=== PATIENT | male | born 1945 | race Caucasian/White ===

== ENCOUNTER 2018-01-26 13:03 | Inpatient (IN) ==
--- NOTE | 2018-01-26 14:01 | Internal Med History&Physical ---
Medical - H&P: [facility] Patient information: Note initiated : 01/26/18 at 1:58 pm Service Date, if different from initiated Date: [] Patient: Christine Pimentel a 72 y/o M admitted on 01/26/18 for fluid overload, cellulitis. Chief Complaint: [] Chief complaint: generalized swelling History of present illness: Mr. Pimentel is a 72 year old M with a history of chronic kidney disease/COPD and obstructive sleep apnea who was referred from nephrology clinic for admission with excessive weight gain over 20 pounds over the last few weeks. Patient per history has progressively gained over 22 pounds along with associated effort intolerance, exertional dyspnea orthopnea and inability to function. Patient denies taking NSAIDs/missing his regular medications. He is on regular diuretics. He denies excessive salt intake. He does endorse to drinking plenty of oral fluids. His weight has gradually increased with increasing fluid retention despite use of Lasix. He was evaluated at the nephrology clinic today. Lab work was essentially unremarkable except for elevated creatinine at 1.9 with a baseline creatinine 1.5. He denies recent fever chills diarrhea endorses to urinary incontinence since the 2 urology procedures. He endorses dry mouth. He endorses to bilateral lower extremity pain and swelling and redness. He underwent lower extremity ultrasound 2 weeks ago which was unremarkable for DVT. He normally sees his primary care physician Sharif Coronel. He denies arthralgia myalgia or rash joint pain glandular swelling, headache or photophobia. He denies cough or practice sputum. He is on 3 L oxygen at home for his COPD which is at his baseline. He also uses CPAP for obstructive sleep apnea Review of systems A 10 point review of system was performed and is negative except for ones discussed above Medical - H&P: PM Medical history: COPD as per PFTs 04/18 Hypoxemia (Chronic) Bronchitis (Acute) COPD with exacerbation (Acute) COPD exacerbation (Acute) Hyperglycemia due to type 2 diabetes mellitus (Acute) Hyperglycemia, drug-induced (Acute) Hyponatremia (Acute) CHF (congestive heart failure) (Acute) Edema (Acute) Chronic kidney disease (CKD) (Acute) Abdominal pain (Acute) Cellulitis of left hand excluding fingers and thumb (Acute) Acute exacerbation of chronic obstructive airways disease (Acute) Bronchitis (Acute) COPD exacerbation (Acute) Dental abscess (Acute) Cellulitis of leg without foot, left (Acute) Muscle cramps (Acute) Anemia (Chronic) Hypertensive renal disease (Chronic) BP at goal ct current medications Hyperparathyroidism due to renal insufficiency (Chronic) PTH elevated to 88, vitamin D low at 26 advised to start choleclaciferol 2000 units po daily Vitamin D deficiency (Chronic) Venous insufficiency (Chronic) Testicular hypofunction (Chronic) Sleep disorder, nonorganic (Chronic) Sleep apnea (Chronic) Shortness of breath (Chronic) Sciatica (Chronic) Schatzki's ring (Chronic) Rotator cuff tear (Chronic) (08/28/14-Margarito)Left partial tear Renal insufficiency (Chronic) Chronic Pneumonia (Chronic) 06/2013 Osteoarthrosis, shoulder region (Chronic) (08/28/14-Dr Dean)Left Obstructive sleep apnea (adult) (pediatric) (Chronic) Leg pain (Chronic) Hypothyroidism (Chronic) Hypertension, essential (Chronic) Hyperlipidemia (Chronic) GERD (gastroesophageal reflux disease) (Chronic) Edema (Chronic) Dyspnea (Chronic) Diabetes mellitus, type II (Chronic) consider holding metformin if renal function does not improve discussed need for optimal DM control to prevent progressive renal disease Depression (Chronic) Cough (Chronic) Congestive heart failure (Chronic) on lasix and spironolactone still has mild edema advised to reduce sodium intake ct current meds he will follow with cardiology tomorrow, will follow the recs Chronic kidney disease, stage III (moderate) (Chronic) Other cardiomyopathies (Chronic) Quinn's esophagus (Chronic) Back pain (Chronic) History of asthma (Chronic) Anxiety (Chronic) Intradermal melanocytic nevus (Chronic) 05/08/2015 - Dr. Diaz: Right Ear Canal Diabetes mellitus type II, uncontrolled (Inactive) Surgical history: History of tonsillectomy (Chronic) 2009 [facility] S/P skin biopsy (Chronic 02/13/14) Right forearm: See path report History of esophagogastroduodenoscopy (Chronic 01/31/14) Schatzki's Ring, Quinn's Esophagus History of cardiac catheterization (Chronic) 2012 History of bronchoscopy (Chronic) History of back surgery (Chronic) 1984 & 2001 x2, [facility]-1983, [place]-2001 & Rehab at [facility] History of appendectomy (Chronic) 2003 S/P skin biopsy (Chronic) 05/08/2015 - Dr. Diaz: Right Ear Canal History of colonoscopy (Chronic) 04/15/2015 - Dr. José - Incomplete bowel prep, Incomplete Colonoscopy History of prostate surgery (Acute) Pertinent family history: Unknown Allergic rhinitis Asthma Diabetes mellitus Essential hypertension Disorder of thyroid Brother Sleep apnea Social history: to his Elaina smoking status: Former smoker quit date: 10/03/84 pack-years: 40 alcohol intake frequency: a few times a week substance use type: does not use Functional capacity: independent ambulation Have you smoked in the last 12 months: No Drug use: none Alcohol use: none Medical - H&P: Meds Home Medications Medication Instructions Recorded Confirmed Type Blood Glucose Strips-Dispmeter 1 each MC DAILY #1 kit 09/24/15 01/26/18 Rx [[employer] Blood Glucose System] Lancets [Comfort Lancets] 1 each MC TIDP PRN #90 each 09/24/15 01/26/18 Rx fluticasone 200 mcg-vilanterol 25 1 inh INHALATION QDAY #30 each 01/03/17 Rx mcg/dose powder for inhalation blood sugar diagnostic strips See Dose Instructions .ROUTE 01/11/17 01/26/18 Rx .MEDSUPPLY #100 each B/L compression stockings (Knee #1 each 04/21/17 01/26/18 Rx high, 15-20mmHg) gabapentin 100 mg capsule 200 mg PO BID cap 05/13/17 01/26/18 History diaper,brief,adult,disposable See Dose Instructions .ROUTE 06/01/17 01/26/18 Rx .MEDSUPPLY #30 each citalopram 40 mg tablet 40 mg PO QDAY #90 tab 08/16/17 01/26/18 Rx pen needle, diabetic 32 gauge x See Dose Instructions .ROUTE 08/16/17 01/26/18 Rx 5/32" .MEDSUPPLY #200 each albuterol sulfate HFA 90 2 puff INHALATION .Q4-6H PRN #18 g 08/22/17 01/26/18 Rx mcg/actuation aerosol inhaler insulin detemir (U-100) 100 45 unit SUB-Q BID #3 ml 08/30/17 01/26/18 Rx unit/mL (3 mL) subcutaneous pen glipizide ER 5 mg tablet, extended 5 mg PO QDAY #90 tab 12/13/17 04/26/18 Rx release 24 hr levothyroxine 75 mcg tablet 75 mcg PO QDAY #90 tab 09/22/17 01/26/18 Rx ipratropium-albuterol 0.5 mg-3 3 ml INHALATION Q2-4H PRN 10/11/17 01/26/18 History mg(2.5 mg base)/3 mL nebulization soln sitagliptin 50 mg tablet 50 mg PO QDAY #90 tab 10/31/17 01/26/18 Rx ferrous gluconate 324 mg (36 mg 324 mg PO QDAY #90 tab 11/17/17 01/26/18 Rx iron) tablet lansoprazole 30 mg capsule,delayed 30 mg PO QHS #90 cap 11/18/17 01/26/18 Rx release cholecalciferol (vitamin D3) 1,000 1,000 unit PO ONCE 01/10/18 01/26/18 History unit capsule rosuvastatin 20 mg tablet 20 mg PO ONCE 01/10/18 01/26/18 History furosemide 40 mg tablet 40 mg PO QDAY 01/23/18 01/26/18 History Comperm fitting (size J-H) B/L cut #1 ea 01/25/18 01/26/18 Rx to fit above toes and below knees furosemide 20 mg tablet 20 mg PO QDAY PRN #30 tab 01/25/18 01/26/18 Rx Allergies Allergy/AdvReac Type Severity Reaction Status Date / Time codeine Allergy Severe shortness Verified 01/25/18 13:01 of breath ketamine Allergy Severe Difficulty Verified 01/25/18 13:01 Breathing morphine Allergy Intermediate Itching Verified 01/25/18 13:01 atorvastatin Allergy Unknown Unknown Verified 01/25/18 13:01 pravastatin Allergy Unknown Unknown Verified 01/25/18 13:01 [email or web address] [From Myrbetriq] AdvReac Severe difficulty Verified 01/26/18 08:30 breathing Buspirone AdvReac Intolerance Verified 01/25/18 13:01 Medical - H&P: Exam - Constitutional General appearance: obese Exam: Alert oriented nonlabored breathing Pupils symmetric oral cavity dry No eardischarge Head normocephalic Neck no lymphadenopathy S1 and S2 regular ESM grade 1 Diminished breath sounds bases abdomen soft Pitting edema bilateral lower extremities Stasis changes/tenderness bilateral calf Skin no suspicious lesion Psych alert cooperative Neuro nonfocal Medical - H&P: Reslt - Labs Labs: WBC 8.4 hemoglobin 12.7 Platelets 303 sodium 141 potassium 3.9 Bicarbonate 36 Creatinine 1.9 BUN 27 LFTs unremarkable BNP 59 Medical - H&P: A/P (1) Lymphedema Current visit: Yes Status: Acute * worsening lymphedema/anasarca-start gentle diuresis * Chronic kidney disease-managed by nephrology * History of COPD/obstructive sleep apnea-continue home CPAP * DM type basal prandial insulin * Neuropathy on gabapentin * History of COPD on bronchodilators/home oxygen * Hypothyroidism on thyroxine * Hyperlipidemia statin * GERD on PPI * Anxiety disorder on citalopram * Deficiency anemia on ferrous gluconate * Full code Plan * continue diuresis * Pre-existing medical condition management and home meds * Renal issue management per nephrology
[2018-01-26] MEDS ORDERED: guaiFENesin/CODEINE 10 ML UDC PO PRN (14:16)
[2018-01-26] MEDS ORDERED: IPRATROPIUM/ALBUTEROL 3 ML AMPUL.NEB NEB PRN (14:16)
[2018-01-26] MEDS ORDERED: MAGNESIUM SULFATE 2 GM/50 ML BAG IV PRN (14:16)
[2018-01-26] MEDS ORDERED: ONDANSETRON 4 MG/2 ML VIAL IV PRN (14:16)
[2018-01-26] MEDS ORDERED: POTASSIUM CHLORIDE 20 MEQ PACKET PO PRN (14:16)
[2018-01-26] MEDS ORDERED: ACETAMINOPHEN 1,000 MG/100 ML BOTTLE IV PRN (14:16)
[2018-01-26] MEDS: FUROSEMIDE 40 MG/4 ML VIAL IV SCH ×2 (17:00→22:35)
[2018-01-26] MEDS: SENNOSIDES/DOCUSATE SODIUM 1 TAB TABLET PO SCH (21:23)
[2018-01-26] MEDS: DOCUSATE SODIUM 100 MG CAPSULE PO SCH (21:23)
[2018-01-26] MEDS: traZODone HCL 50 MG TABLET PO PRN (22:35)
[2018-01-26] MEDS: 0.9 % SODIUM CHLORIDE 10 ML SYRINGE IV SCH (22:36)
[2018-01-27 05:15] LABS: Mean Cell Volume 94.5 fL (80.0-100.0); Mean Corpuscular HGB Conc 33.3 g/dL (31.0-36.0); Mean Corpuscular Hemoglobin 31.4 pg (26.0-34.0); Platelet Count 261 K/mcL (140-440); RBC 3.73 M/mcL (4.50-5.90); Red Cell Distribution Width 13.1 % (11.5-14.5)
[2018-01-27 05:42] LABS: ALT/SGPT 12 U/l (0-40); Albumin 3.9 gm/dL (3.2-5.2); Albumin/Globulin Ratio 1.4 (1.0-2.3); Alkaline Phosphatase 42 U/L (39-117); Bilirubin,Direct < 0.2 mg/dL (0.0-0.3); Blood Urea Nitrogen 32 mg/dl (8-23); Gamma Glutamyl Transpeptidase 12 U/L (8-61); Uric Acid 5.9 mg/dL (2.5-8.0)
[2018-01-27] MEDS: FUROSEMIDE 40 MG/4 ML VIAL IV SCH ×3 (05:42→22:08)
[2018-01-27] MEDS: 0.9 % SODIUM CHLORIDE 10 ML SYRINGE IV SCH ×3 (05:43→22:07)
[2018-01-27 07:45] LABS: Eosinophils % (Manual) 1 % (0-7); Lymphocytes % 22 % (15-49); Monocytes % (Manual) 8 % (1-12); Platelet Estimate NORMAL (NORMAL); RBC Morphology NORMAL (NORMAL); Segmented Neutrophils % 68 % (38-78)
[2018-01-27] MEDS: DOCUSATE SODIUM 100 MG CAPSULE PO SCH ×2 (09:10→20:32)
--- NOTE | 2018-01-27 09:18 | Discharge Summary ---
Medical - DS: Prov Patient information: Note initiated : 01/27/18 at 9:16 am Service Date, if different from initiated Date: [] Patient: Christine Pimentel 72 y/o M admitted on 01/26/18 for Fluid Overload, Cellulitis. Chief Complaint: [] Date of admission: 01/26/18 13:33 Primary care physician: Sharif Coronel Medical - DS: Meds - Discharge Medications Active and Home Medications: Home Medications Blood Glucose Strips-Dispmeter [[place] Blood Glucose System] 1 each MC DAILY # 1 kit 09/24/15 [Rx Confirmed 01/26/18 Last Taken 01/26/18 08:00] Lancets [Comfort Lancets] 1 each MC TIDP PRN #90 each 09/24/15 [Rx Confirmed Last Taken 01/26/18 08:00] gabapentin 100 mg capsule 200 mg PO BID PRN cap 05/13/17 [History Confirmed Last Taken 05/31/17] citalopram 40 mg tablet 40 mg PO QDAY #90 tab 08/16/17 [Rx Confirmed 01/26/18 Last Taken 01/26/18 08:00] albuterol sulfate HFA 90 mcg/actuation aerosol inhaler 2 puff INHALATION .Q4-6H PRN #18 g 08/22/17 [Rx Confirmed 01/26/18 Last Taken Unknown] insulin detemir (U-100) 100 unit/mL (3 mL) subcutaneous pen 45 unit SUB-Q BID # 3 ml 08/30/17 [Rx Confirmed 01/26/18 Last Taken 01/26/18 21:00] glipizide ER 5 mg tablet, extended release 24 hr 5 mg PO QDAY #90 tab 09/14/17 [ Rx Confirmed 01/26/18 Last Taken 01/26/18 08:00] levothyroxine 75 mcg tablet 75 mcg PO QDAY #90 tab 09/22/17 [Rx Confirmed Last Taken 01/26/18 07:30] ipratropium-albuterol 0.5 mg-3 mg(2.5 mg base)/3 mL nebulization soln 3 ml INHALATION Q2-4H PRN 10/11/17 [History Confirmed 01/26/18 Last Taken Unknown] sitagliptin 50 mg tablet 50 mg PO QDAY #90 tab 10/31/17 [Rx Confirmed 01/26/18 Last Taken 01/25/18 20:00] ferrous gluconate 324 mg (36 mg iron) tablet 324 mg PO QDAY #90 tab 11/17/17 [ Rx Confirmed 01/26/18 Last Taken 01/26/18 08:00] lansoprazole 30 mg capsule,delayed release 30 mg PO QHS #90 cap 11/18/17 [Rx Confirmed 01/26/18 Last Taken 01/25/18 21:00] cholecalciferol (vitamin D3) 1,000 unit capsule 1,000 unit PO QDAY 01/10/18 [ History Confirmed 01/26/18 Last Taken 01/26/18 08:00] rosuvastatin 20 mg tablet 20 mg PO ONCE 01/10/18 [History Confirmed 01/26/18 Last Taken 01/25/18 20:00] furosemide 40 mg tablet 40 mg PO BID 01/23/18 [History Confirmed 01/26/18 Last Taken 01/26/18 0800] B/L compression stockings (Knee high, 15-20mmHg) 1 unit TOPICAL PRN PRN [History Confirmed 01/26/18 Last Taken Unknown] Blood Sugar Diagnostic [Contour] 0 strip ID .MEDSUPPLY 01/26/18 [History Confirmed 01/26/18 Last Taken 01/26/18 08:00] Diaper,Brief,Adult, Disposable [Belted Pack] 0 unit TOPICAL .MEDSUPPLY PRN [History Confirmed 01/26/18 Last Taken 01/26/18 08:00] Fluticasone/Vilanterol [Breo Ellipta 200-25 Mcg INH] 1 inh INH QDAY 01/26/18 [ History Confirmed 01/26/18 Last Taken 01/26/18 08:00] Pen Needle, Diabetic [Unifine Pentips Plus] 0 unit SQ BID 01/26/18 [History Confirmed 01/26/18 Last Taken 01/26/18 21:00] Medical - DS: Hosp Hospital course: Mr. Pimentel is a 72 year old M - Time Spent with Patient Total time spent providing and/or coordinating discharge services: Medical - DS: Exam - Constitutional Vitals: Vital Signs Temp Pulse Pulse Resp BP BP Pulse Ox 04/27/18 08:00 99.9 F H 20 126/67 95 01/27/18 04:00 97.3 F 66 22 117/60 95 01/27/18 00:00 98.2 F 75 25 H 131/56 93 01/26/18 20:00 98.4 F 73 18 146/56 99 01/26/18 18:00 84 97 01/26/18 17:48 73 16 96 01/26/18 16:00 98.5 F 70 18 161/80 98 01/26/18 14:00 98.3 F 80 20 136/78 91 01/26/18 13:45 80 16 91 Intake and Output 01/26/18 01/27/18 01/27/18 21:59 05:59 13:59 Intake Total 700 / 700 240 / 240 Output Total 900 / 900 1525 / 1525 475 / 475 Balance -200 / -200 -1285 / -1285 -475 / -475 Intake: Oral 700 / 700 240 / 240 Output: Urine Catheter Amount 625 / 625 1525 / 1525 475 / 475 Void Amount 275 / 275 Other: Meal Dinner Percent of Meal Consumed 100% Feeding Ability Assist with Tray Set Up Stool Size Moderate Stool Color Brown Stool Consistency Normal for Patient # Bowel Movements 1 Weight 232 lb 232 lb Medical - DS: Data Labs on day of discharge: Labs from last 24 hours 01/27/18 01/27/18 03:37 03:37 WBC 9.4 RBC 3.73 L Hgb 11.7 L Hct 35.2 L MCV 94.5 MCH 31.4 MCHC 33.3 RDW 13.1 Plt Count 261 MPV 7.1 L Total Counted 100 Seg Neutrophils % 68 Band Neutrophils % Not Reportable Lymphocytes % 22 Monocytes % (Manual) 8 Eosinophils % (Manual) 1 Reactive Lymphocytes 1 Platelet Estimate Normal RBC Morphology Normal Sodium 138 Potassium 3.5 Chloride 93 L Carbon Dioxide 39 H Anion Gap 6.0 L BUN 32 H Creatinine 2.0 H GFR Calculation 32 Glucose 185 H Uric Acid 5.9 Calcium 8.8 Phosphorus 3.8 Magnesium 2.4 Total Bilirubin 0.3 Direct Bilirubin < 0.2 GGT 12 AST 14 ALT 12 Alkaline Phosphatase 42 Lactate Dehydrogenase 150 Total Protein 6.7 Albumin 3.9 Globulin 2.8 Albumin/Globulin Ratio 1.4 Triglycerides 110 Medical - DS: A/P - Problem Maintenance (1) Lymphedema Status: Acute - Follow up Plan
[2018-01-27] MEDS ORDERED: LANCETS MC PRN (09:23)
[2018-01-27] MEDS ORDERED: GABAPENTIN 100 MG CAPSULE PO PRN ×2 (09:23→12:30)
[2018-01-27] MEDS ORDERED: ALBUTEROL SULFATE 1 PUFF INHALER INH PRN (09:23)
[2018-01-27] MEDS ORDERED: IPRATROPIUM/ALBUTEROL 3 ML AMPUL.NEB NEB PRN (09:23)
--- NOTE | 2018-01-27 09:24 | Internal Med Progress Note ---
Medical - PN: Subj Patient information: Note initiated : 01/27/18 at 9:19 am Service Date, if different from initiated Date: [] Patient: Christine Pimentel a 72 y/o M admitted on 01/26/18 for Fluid Overload, Cellulitis. Chief Complaint: [] Interval history: Mr. Pimentel is a 72 year old M with a history of chronic kidney disease/COPD and obstructive sleep apnea who was referred from nephrology clinic for admission with excessive weight gain over 20 pounds over the last few weeks. Patient per history has progressively gained over 22 pounds along with associated effort intolerance, exertional dyspnea orthopnea and inability to function. Patient denies taking NSAIDs/missing his regular medications. He is on regular diuretics. He denies excessive salt intake. He does endorse to drinking plenty of oral fluids. His weight has gradually increased with increasing fluid retention despite use of Lasix. He was evaluated at the nephrology clinic today. Lab work was essentially unremarkable except for elevated creatinine at 1.9 with a baseline creatinine 1.5. He denies recent fever chills diarrhea endorses to urinary incontinence since the 2 urology procedures. He endorses dry mouth. He endorses to bilateral lower extremity pain and swelling and redness. He underwent lower extremity ultrasound 2 weeks ago which was unremarkable for DVT. He normally sees his primary care physician Sharif Coronel. He denies arthralgia myalgia or rash joint pain glandular swelling, headache or photophobia. He denies cough or practice sputum. He is on 3 L oxygen at home for his COPD which is at his baseline. He also uses CPAP for obstructive sleep apnea January 27-patient doing well. Over thousand 800 cc negative urine output. No overnight worsening chest pain and lightheadedness dizziness or hypotension. No telemetry events. Nephrology on board. No concerns from nursing staff. stable labs and biochemical profile. Tolerating diet and ambulating - Constitutional Vitals: Vital Signs Temp Pulse Resp BP Pulse Ox 99.9 F H 66 20 126/67 95 01/27/18 08:00 01/27/18 04:00 01/27/18 08:00 01/27/18 08:00 01/27/18 08:00 Period Temp Pulse Resp BP Sys/Jean Pulse Ox Last 24 Hr 97.3 F-99.9 F 66-84 16-25 117-161/56-80 91-99 Intake and Output 01/26/18 01/27/18 01/27/18 21:59 05:59 13:59 Intake Total 700 / 700 240 / 240 Output Total 900 / 900 1525 / 1525 475 / 475 Balance -200 / -200 -1285 / -1285 -475 / -475 Weight 232 lb 232 lb Intake & Output: Intake & Output 01/26/18 01/27/18 01/27/18 21:59 05:59 13:59 Intake Total 700 / 700 240 / 240 Output Total 900 / 900 1525 / 1525 475 / 475 Balance -200 / -200 -1285 / -1285 -475 / -475 Weight 232 lb 232 lb Intake: Oral 700 / 700 240 / 240 Output: Urine Catheter Amount 625 / 625 1525 / 1525 475 / 475 Void Amount 275 / 275 Other: Meal Dinner Percent of Meal Consumed 100% Feeding Ability Assist with Tray Set Up Stool Size Moderate Stool Color Brown Stool Consistency Normal for Patient # Bowel Movements 1 General appearance: cooperative, no acute distress Exam: alert oriented Minimally labored breathing Lymphedema improving Good urine output No telemetry events Medical - PN: Obj Da - Labs CBC & Chem 7: 01/27/18 03:37 01/27/18 03:37 Labs: Abnormal Lab Results 01/27/18 01/27/18 03:37 03:37 RBC 3.73 L Hgb 11.7 L Hct 35.2 L MPV 7.1 L Chloride 93 L Carbon Dioxide 39 H Anion Gap 6.0 L BUN 32 H Creatinine 2.0 H Glucose 185 H Meds: Medications Acetaminophen (Tylenol) 650 mg PO Q4-6HP PRN PRN Reason: PAIN/FEVER > 101 Albuterol/Ipratropium (Duoneb) 3 ml NEB Q4HP PRN PRN Reason: Shortness Of Breath Docusate Sodium (Colace) 100 mg PO BID [facility] Last Admin: 01/27/18 09:10 Dose: Not Given Furosemide (Lasix) 20 mg IV Q8 [facility] Last Admin: 01/27/18 05:42 Dose: 20 mg Magnesium Sulfate (Magnesium Sulfate) 2 gm in 50 mls @ 50 mls/hr IV UD PRN PRN Reason: MG = or < 1.7 Acetaminophen (Ofirmev) 1,000 mg in 100 mls @ 200 mls/hr IV Q6HP PRN PRN Reason: PAIN/FEVER > 101 Iron Carb/Multivit/[place]/Folic Acid (Multivitamin W/Minerals) 1 tab PO DAILY [facility]NA Ondansetron HCl (Zofran) 4 mg IV Q4-6HP PRN PRN Reason: Nausea And Vomiting Potassium Chloride (Klor-Con) 40 meq PO DAILYP PRN PRN Reason: K+ < 3.5 Senna/Docusate Sodium (Senna Plus Tablet) 1 tab PO HS DANNA Last Admin: 01/26/18 21:23 Dose: 1 tab Sodium Chloride (Saline Flush) 10 ml IV Q8 DANNA Last Admin: 01/27/18 05:43 Dose: 10 ml Trazodone HCl (Desyrel) 50 mg PO HSP PRN PRN Reason: Insomnia Last Admin: 01/26/18 22:35 Dose: 50 mg Medical - PN: A/P - Time Spent With Patient Total time spent is greater than 50% in coordination of care (as documented) at patient's floor/unit and/or counseling patient: 15 - 24 minutes (1) Lymphedema Status: Acute Assessment and plan: [id number] with history of DM type 2/HTN and chronic kidney disease admitted with worsening generalized swelling and over 20 pound weight gain * Generalized swelling/anasarca-await echocardiogram to rule out cor pulmonale. Improving lymphedema with ongoing diuresis. Continue close electrolyte and renal function monitoring. * contraction alkalosis- baseline bicarbonate 31, and bicarbonate 39. 2 doses of Diamox over 24 hours. * Chronic kidney disease-managed by nephrology. creatinine 2 * History of COPD/obstructive sleep apnea with CO2 retention-continue home CPAP. * DM type basal prandial insulin/sitagliptin * Neuropathy on gabapentin * History of COPD on bronchodilators/home oxygen * Hypothyroidism on thyroxine * Hyperlipidemia statin * GERD on PPI * Anxiety disorder on citalopram * Deficiency anemia on ferrous gluconate * Full code Plan * continue diuresis-target additional 10-12 pounds net negative fluid balance * add Diamox for 2 doses * Pre-existing medical condition management and home meds * Renal issue management per nephrology Current Visit: Yes
[2018-01-27] MEDS: acetaZOLAMIDE SOD 500 MG VIAL IV SCH (11:04)
[2018-01-27] MEDS: MULTIVIT,THER IRON,CA,FA & MIN 1 TABLET PO SCH (11:05)
[2018-01-27] MEDS ORDERED: POTASSIUM CHLORIDE 20 MEQ TABLET PO ONE (12:30)
--- NOTE | 2018-01-27 12:41 | Nephrology Progress Note ---
Subjective Patient information: Note initiated : 01/27/18 at 12:39 pm Service Date, if different from initiated Date: [] Patient: Christine Pimentel 72 y/o M admitted on 01/26/18 for Fluid Overload, Cellulitis. Chief Complaint: [] Principal diagnosis: fluid overload Interval history: Patient states LE edema a little better 800cc net negative SOB a little better, did do some PT today no CP, no dizziness s.creatinine trending up some Pertinent ROS: as above Objective - Vital Signs Vital signs: Vital Signs Temp Pulse Pulse Resp BP BP Pulse Ox 01/27/18 12:00 98.9 F 16 128/67 94 01/27/18 08:00 99.9 F H 20 126/67 95 01/27/18 04:00 97.3 F 66 22 117/60 95 01/27/18 00:00 98.2 F 75 25 H 131/56 93 01/26/18 20:00 98.4 F 73 18 146/56 99 01/26/18 18:00 84 97 01/26/18 17:48 73 16 96 01/26/18 16:00 98.5 F 70 18 161/80 98 01/26/18 14:00 98.3 F 80 20 136/78 91 01/26/18 13:45 80 16 91 Intake and Output 01/26/18 01/27/18 01/27/18 21:59 05:59 13:59 Intake Total 700 / 700 240 / 240 Output Total 900 / 900 1525 / 1525 475 / 475 Balance -200 / -200 -1285 / -1285 -475 / -475 Intake: Oral 700 / 700 240 / 240 Output: Urine Catheter Amount 625 / 625 1525 / 1525 475 / 475 Void Amount 275 / 275 Other: Meal Dinner Percent of Meal Consumed 100% Feeding Ability Assist with Tray Set Up Stool Size Moderate Stool Color Brown Stool Consistency Normal for Patient # Bowel Movements 1 Weight 232 lb 232 lb Intake & Output: Intake & Output 01/26/18 01/27/18 01/27/18 21:59 05:59 13:59 Intake Total 700 / 700 240 / 240 Output Total 900 / 900 1525 / 1525 475 / 475 Balance -200 / -200 -1285 / -1285 -475 / -475 Weight 232 lb 232 lb Intake: Oral 700 / 700 240 / 240 Output: Urine Catheter Amount 625 / 625 1525 / 1525 475 / 475 Void Amount 275 / 275 Other: Meal Dinner Percent of Meal Consumed 100% Feeding Ability Assist with Tray Set Up Stool Size Moderate Stool Color Brown Stool Consistency Normal for Patient # Bowel Movements 1 - General Appearance General appearance: appears started age, obese EENT: mucous membranes moist Neck: no JVD Respiratory: rales (right LL) Cardiology: no rub, edema, regular rate, regular rhythm Gastrointestinal: no tenderness, no guarding Integumentary: warm and dry, erythema Neurologic: no asterixis, alert and oriented x3 Musculoskeletal: no cyanosis Psychiatric: mood/affect appropriate - Lab 01/27/18 03:37 01/27/18 03:37 Most recent lab results Calcium 8.8 mg/dl (8.6-10.4) 01/27/18 03:37 Phosphorus 3.8 mg/dL (2.7-4.5) 01/27/18 03:37 Magnesium 2.4 mg/dL (1.6-2.5) 01/27/18 03:37 Assessment and Plan (1) Lower extremity edema Continue lasix at 20mg IV q8h, not increasing the dose given bicarb at 40 diamox added by hospitalist x 2 doses, please do not discharge on this though add potassium supplement to prevent hypokalemia s.creatinine is rising which is expected, will follow the trend if the patient gets discharged tomorrow would discharge on bumex 1mg bid and I will follow him in 7 days in clinic please call if any concerns appreciate hospitalist help in managing this patient Status: Acute (2) CKD (chronic kidney disease) stage 3, GFR 30-59 ml/min Status: Chronic
[2018-01-27] MEDS: CITALOPRAM 20 MG TABLET PO SCH (13:08)
[2018-01-27] MEDS: glipiZIDE 5 MG TAB.XL.24H PO SCH (13:08)
[2018-01-27] MEDS: FERROUS GLUCONATE 324 MG TABLET PO SCH (13:08)
[2018-01-27] MEDS: sitaGLIPtin 50 MG TABLET PO SCH (13:08)
[2018-01-27] MEDS: PANTOPRAZOLE 40 MG TABLET PO SCH (20:32)
[2018-01-27] MEDS: INSULIN GLARGINE, HUMAN 1 UNIT/0.01 ML SQ SCH (20:32)
[2018-01-27] MEDS: ROSUVASTATIN CALCIUM 20 MG PO SCH ×2 (20:32→20:35)
[2018-01-27] MEDS: SENNOSIDES/DOCUSATE SODIUM 1 TAB TABLET PO SCH (20:32)
[2018-01-27] MEDS: traZODone HCL 50 MG TABLET PO PRN (20:40)
[2018-01-28 05:44] LABS: Mean Cell Volume 95.3 fL (80.0-100.0); Mean Corpuscular HGB Conc 32.8 g/dL (31.0-36.0); Mean Corpuscular Hemoglobin 31.3 pg (26.0-34.0); Platelet Count 261 K/mcL (140-440); RBC 3.91 M/mcL (4.50-5.90); Red Cell Distribution Width 12.9 % (11.5-14.5)
[2018-01-28 06:01] LABS: ALT/SGPT 11 U/l (0-40); Albumin 3.9 gm/dL (3.2-5.2); Albumin/Globulin Ratio 1.3 (1.0-2.3); Alkaline Phosphatase 42 U/L (39-117); Bilirubin,Direct < 0.2 mg/dL (0.0-0.3); Blood Urea Nitrogen 31 mg/dl (8-23); Gamma Glutamyl Transpeptidase 10 U/L (8-61)
[2018-01-28 06:58] LABS: Band Neutrophils % 1 % (0-10); Eosinophils % (Manual) 1 % (0-7); Lymphocytes % 31 % (15-49); Monocytes % (Manual) 10 % (1-12); Platelet Estimate NORMAL (NORMAL); RBC Morphology NORMAL (NORMAL); Segmented Neutrophils % 57 % (38-78)
[2018-01-28] MEDS ORDERED: POTASSIUM CHLORIDE 20 MEQ TABLET PO SCH (08:00)
[2018-01-28] MEDS ORDERED: VILANTEROL INH PRN (09:00)
[2018-01-28] MEDS ORDERED: FLUTICASONE INH PRN (09:00)
[2018-01-28] MEDS: ACETAMINOPHEN 325 MG TABLET PO PRN (09:40)
[2018-01-28] MEDS: FERROUS GLUCONATE 324 MG TABLET PO SCH (09:41)
[2018-01-28] MEDS: glipiZIDE 5 MG TAB.XL.24H PO SCH (09:41)
[2018-01-28] MEDS: sitaGLIPtin 50 MG TABLET PO SCH (09:41)
[2018-01-28] MEDS: LEVOTHYROXINE 75 MCG TABLET PO SCH (09:41)
[2018-01-28] MEDS: CITALOPRAM 20 MG TABLET PO SCH (09:42)
[2018-01-28] MEDS: MULTIVIT,THER IRON,CA,FA & MIN 1 TABLET PO SCH (09:42)
[2018-01-28] MEDS: acetaZOLAMIDE SOD 500 MG VIAL IV SCH (09:43)
[2018-01-28] MEDS: 0.9 % SODIUM CHLORIDE 10 ML SYRINGE IV SCH ×3 (09:44→21:46)
[2018-01-28] MEDS: INSULIN GLARGINE, HUMAN 1 UNIT/0.01 ML SQ SCH ×2 (09:45→20:51)
[2018-01-28] MEDS: DOCUSATE SODIUM 100 MG CAPSULE PO SCH ×3 (11:56→20:51)
[2018-01-28] MEDS: FUROSEMIDE 40 MG/4 ML VIAL IV SCH ×2 (14:03→14:04)
--- NOTE | 2018-01-28 15:19 | Internal Med Progress Note ---
Medical - PN: Subj Patient information: Note initiated : 01/28/18 at 3:15 pm Service Date, if different from initiated Date: [] Patient: Christine Pimentel a 72 y/o M admitted on 01/26/18 for Fluid Overload, Cellulitis. Chief Complaint: f/u volume overload Interval history: 01/26 Mr. Pimentel is a 72 year old M with a history of chronic kidney disease/COPD and obstructive sleep apnea who was referred from nephrology clinic for admission with excessive weight gain over 20 pounds over the last few weeks. Patient per history has progressively gained over 22 pounds along with associated effort intolerance, exertional dyspnea orthopnea and inability to function. Patient denies taking NSAIDs/missing his regular medications. He is on regular diuretics. He denies excessive salt intake. He does endorse to drinking plenty of oral fluids. His weight has gradually increased with increasing fluid retention despite use of Lasix. He was evaluated at the nephrology clinic today. Lab work was essentially unremarkable except for elevated creatinine at 1.9 with a baseline creatinine 1.5. He denies recent fever chills diarrhea endorses to urinary incontinence since the 2 urology procedures. He endorses dry mouth. He endorses to bilateral lower extremity pain and swelling and redness. He underwent lower extremity ultrasound 2 weeks ago which was unremarkable for DVT. He normally sees his primary care physician Sharif Coronel. He denies arthralgia myalgia or rash joint pain glandular swelling, headache or photophobia. He denies cough or practice sputum. He is on 3 L oxygen at home for his COPD which is at his baseline. He also uses CPAP for obstructive sleep apnea January 27-patient doing well. Over thousand 800 cc negative urine output. No overnight worsening chest pain and lightheadedness dizziness or hypotension. No telemetry events. Nephrology on board. No concerns from nursing staff. stable labs and biochemical profile. Tolerating diet and ambulating 01/28 Feeling better today, feels his breathing is getting close to his baseline. Swelling is improved. His dry weight is about 220 pounds. Weight currently 225 , 15 pound weight loss documented, though intake and output show only several liters negative, not up to 67 liters negative which would be consistent with 15 pound weight loss. Nevertheless is significantly improved. Echocardiogram without right heart failure, preserved left ventricular function. - Constitutional Vitals: Vital Signs Temp Pulse Resp BP Pulse Ox 97.5 F 76 16 127/62 99 01/28/18 11:47 01/28/18 04:00 01/28/18 11:47 01/28/18 11:47 01/28/18 11:47 Period Temp Pulse Resp BP Sys/Jean Pulse Ox Last 24 Hr 97.2 F-98.8 F 73-85 16-20 123-163/50-86 91-99 Intake and Output 01/28/18 01/28/18 01/28/18 05:59 13:59 21:59 Intake Total 100 / 100 240 / 240 Output Total 1225 / 1225 500 / 500 Balance -1125 / -1125 -260 / -260 Weight 225 lb Intake & Output: Intake & Output 01/28/18 01/28/18 01/28/18 05:59 13:59 21:59 Intake Total 100 / 100 240 / 240 Output Total 1225 / 1225 500 / 500 Balance -1125 / -1125 -260 / -260 Weight 225 lb Intake: Oral 240 / 240 Other 100 / 100 Output: Urine Catheter Amount 1225 / 1225 500 / 500 Other: Meal Breakfast Percent of Meal Consumed 100% Exam: General: In no acute distress Chest: Basilar rales, respirations unlabored Cardiovascular: Distant, regular Abdomen: Obese, soft Extremities: 1+ edema Neuro: Alert, oriented 3 Medical - PN: Obj Da - Labs CBC & Chem 7: 01/28/18 03:49 01/28/18 03:49 Labs: Abnormal Lab Results 01/28/18 01/28/18 01/27/18 03:49 03:49 03:37 RBC 3.91 L Hgb 12.2 L Hct 37.3 L MPV 7.3 L Chloride 94 L 93 L Carbon Dioxide 38 H 39 H Anion Gap 7.0 L 6.0 L BUN 31 H 32 H Creatinine 2.1 H 2.0 H Glucose 220 H 185 H Phosphorus 5.3 H Magnesium 2.6 H 01/27/18 03:37 RBC 3.73 L Hgb 11.7 L Hct 35.2 L MPV 7.1 L Chloride Carbon Dioxide Anion Gap BUN Creatinine Glucose Phosphorus Magnesium Meds: Medications Acetaminophen (Tylenol) 650 mg PO Q4-6HP PRN PRN Reason: PAIN/FEVER > 101 Last Admin: 01/28/18 09:40 Dose: 650 mg Acetazolamide Sodium (Diamox) 250 mg IV ONCE ONE Stop: 01/28/18 21:01 Albuterol Sulfate (Ventolin) 2 puff INH Q4-6HP PRN PRN Reason: shortness of breath or wheezing Albuterol/Ipratropium (Duoneb) 3 ml NEB Q4HP PRN PRN Reason: Shortness Of Breath Citalopram Hydrobromide (Celexa) 40 mg PO DAILY [facility] Last Admin: 01/28/18 09:42 Dose: 40 mg Docusate Sodium (Colace) 100 mg PO BID [facility] Last Admin: 01/28/18 14:11 Dose: 100 mg Ferrous Gluconate (Fergon) 324 mg PO [facility] Last Admin: 01/28/18 09:41 Dose: 324 mg Furosemide (Lasix) 20 mg IV BIDD [facility] Gabapentin (Neurontin) 200 mg PO BIDP PRN PRN Reason: Pain Last Admin: 01/28/18 09:39 Dose: 200 mg Glipizide (Glucotrol Xl) 5 mg PO DAILY [facility] Last Admin: 01/28/18 09:41 Dose: 5 mg Magnesium Sulfate (Magnesium Sulfate) 2 gm in 50 mls @ 50 mls/hr IV UD PRN PRN Reason: MG = or < 1.7 Acetaminophen (Ofirmev) 1,000 mg in 100 mls @ 200 mls/hr IV Q6HP PRN PRN Reason: PAIN/FEVER > 101 Insulin Glargine (Lantus) 45 unit SQ BID [facility] Last Admin: 01/28/18 09:45 Dose: 45 unit Iron Carb/Multivit/Hettinger/Folic Acid (Multivitamin W/Minerals) 1 tab PO DAILY [facility] Last Admin: 01/28/18 09:42 Dose: 1 tab Levothyroxine Sodium (Synthroid) 75 mcg PO QAMAC [facility] Last Admin: 01/28/18 09:41 Dose: 75 mcg Ondansetron HCl (Zofran) 4 mg IV Q4-6HP PRN PRN Reason: Nausea And Vomiting Pantoprazole Sodium (Protonix) 40 mg PO HS [facility] Last Admin: 01/27/18 20:32 Dose: 40 mg Fluticasone/Vilanterol [Breo Ellipta] 200/25 Mcg Inhaler 1 dose INH DAILYP PRN PRN Reason: Shortness Of Breath Rosuvastatin Calcium ([Crestor] 20 Mg Tab) 1 dose PO [facility] Last Admin: 01/27/18 20:35 Dose: Not Given Potassium Chloride (Klor-Con) 40 meq PO DAILYP PRN PRN Reason: K+ < 3.5 Last Admin: 01/27/18 11:05 Dose: 40 meq Potassium Chlor[facility] (Kdur) [facility] Senna/Docusate Sodium (Senna Plus Tablet) 1 tab PO HS [facility] Last Admin: 01/27/18 20:32 Dose: 1 tab Sitagliptin Phosphate (Januvia) 50 mg PO QDAY [facility] Last Admin: 01/28/18 09:41 Dose: 50 mg Sodium Chloride (Saline Flush) 10 ml IV Q8 [facility] Last Admin: 01/28/18 14:04 Dose: 10 ml Trazodone HCl (Desyrel) 50 mg PO HSP PRN PRN Reason: Insomnia Last Admin: 01/27/18 20:40 Dose: 50 mg - Impressions Echocardiogram, 01/26/2018 There is mild concentric left ventricular hypertrophy, left ventricular systolic function is within normal limits, ejection fraction 55-60%. There is trace mitral regurgitation, no tricuspid regurgitation. The right ventricle is borderline dilated with normal wall thickness and normal right ventricular systolic function. Medical - PN: A/P - Time Spent With Patient Total time spent is greater than 50% in coordination of care (as documented) at patient's floor/unit and/or counseling patient: 25 - 35 minutes (1) Volume overload Status: Acute Current Visit: Yes - Narrative A/P Narrative: [id number] with history of DM type 2/HTN and chronic kidney disease admitted with worsening generalized swelling and over 20 pound weight gain Generalized swelling/anasarca. Improved. Echocardiogram without cor pulmonale/ right heart failure. At time echo done, IVC was showing collapse. Preserved ejection fraction. Suspect fluid and volume overload and not indicative of congestive heart failure but to venous insufficiency/lymphedema. Continues to improve. Developing contraction alkalosis, has received 2 doses of Diamox with some improvement. Plan: Decrease Lasix to twice daily from every 8 hours, give additional p.m. dose of Diamox at bedtime. Monitor intake and output and daily weights. Target is 220 pounds. Chronic kidney disease. Followed by nephrology. Creatinine 2.0 yesterday, 2.1 today. Plan: Follow with diuresis. COPD. Stable. Plan: Continue regimen. Obstructive sleep apnea on CPAP. Plan: Continue. Type 2 diabetes mellitus with neuropathy. Stable. Plan: Continue current regimen including gabapentin. Hypothyroidism. Stable on levothyroxine. Plan: Continue. Hyperlipidemia. Stable on a statin. Plan: Continue. Anxiety on citalopram. Stable. Plan: Continue. GERD. Remained stable on PPI. Plan: Continue
[2018-01-28] MEDS: PANTOPRAZOLE 40 MG TABLET PO SCH (20:51)
[2018-01-28] MEDS: traZODone HCL 50 MG TABLET PO PRN (20:51)
[2018-01-28] MEDS: SENNOSIDES/DOCUSATE SODIUM 1 TAB TABLET PO SCH (20:51)
[2018-01-28] MEDS: ROSUVASTATIN CALCIUM 20 MG PO SCH (20:53)
[2018-01-28] MEDS ORDERED: acetaZOLAMIDE SOD 500 MG VIAL IV ONE (21:00)
[2018-01-29] MEDS: ACETAMINOPHEN 325 MG TABLET PO PRN (00:19)
[2018-01-29] MEDS: 0.9 % SODIUM CHLORIDE 10 ML SYRINGE IV SCH (05:49)
[2018-01-29 06:05] LABS: Mean Cell Volume 95.4 fL (80.0-100.0); Mean Corpuscular HGB Conc 32.8 g/dL (31.0-36.0); Mean Corpuscular Hemoglobin 31.3 pg (26.0-34.0); Platelet Count 268 K/mcL (140-440); RBC 3.72 M/mcL (4.50-5.90); Red Cell Distribution Width 13.1 % (11.5-14.5)
[2018-01-29 06:25] LABS: ALT/SGPT 8 U/l (0-40); Albumin 3.7 gm/dL (3.2-5.2); Albumin/Globulin Ratio 1.2 (1.0-2.3); Alkaline Phosphatase 41 U/L (39-117); Bilirubin,Direct < 0.2 mg/dL (0.0-0.3); Blood Urea Nitrogen 27 mg/dl (8-23); Gamma Glutamyl Transpeptidase 10 U/L (8-61); Uric Acid 5.9 mg/dL (2.5-8.0)
[2018-01-29 07:52] LABS: Eosinophils % (Manual) 1 % (0-7); Lymphocytes % 30 % (15-49); Monocytes % (Manual) 9 % (1-12); Platelet Estimate NORMAL (NORMAL); RBC Morphology NORMAL (NORMAL); Segmented Neutrophils % 60 % (38-78)
[2018-01-29] MEDS ORDERED: POTASSIUM CHLORIDE 20 MEQ TABLET PO SCH (08:00)
[2018-01-29] MEDS ORDERED: FUROSEMIDE 40 MG/4 ML VIAL IV SCH (08:00)
[2018-01-29] MEDS: FERROUS GLUCONATE 324 MG TABLET PO SCH (08:42)
[2018-01-29] MEDS: glipiZIDE 5 MG TAB.XL.24H PO SCH (08:42)
[2018-01-29] MEDS: LEVOTHYROXINE 75 MCG TABLET PO SCH (08:42)
[2018-01-29] MEDS: sitaGLIPtin 50 MG TABLET PO SCH (08:43)
[2018-01-29] MEDS: DOCUSATE SODIUM 100 MG CAPSULE PO SCH (08:43)
[2018-01-29] MEDS: MULTIVIT,THER IRON,CA,FA & MIN 1 TABLET PO SCH (08:43)
[2018-01-29] MEDS: CITALOPRAM 20 MG TABLET PO SCH (08:45)
[2018-01-29] MEDS: INSULIN GLARGINE, HUMAN 1 UNIT/0.01 ML SQ SCH (09:30)
--- NOTE | 2018-01-29 10:51 | Discharge Summary ---
Medical - DS: Prov Patient information: Note initiated : 01/29/18 at 10:49 am Service Date, if different from initiated Date: [] Patient: Christine Pimentel 72 y/o M admitted on 01/26/18 for Fluid Overload, Cellulitis. Chief Complaint: [] Date of admission: 01/26/18 13:33 Discharge date: 01/29/18 Primary care physician: Sharif Coronel Attending physician on admission: Rich Larsen Attending physician on discharge: Arielle Yeboah Medical - DS: Meds - Discharge Medications Active and Home Medications: Home Medications Blood Glucose Strips-Dispmeter [[employer] Blood Glucose System] 1 each MC DAILY # 1 kit 09/24/15 [Rx Confirmed 01/26/18 Last Taken 01/26/18 08:00] Lancets [Comfort Lancets] 1 each MC TIDP PRN #90 each 09/24/15 [Rx Confirmed Last Taken 01/26/18 08:00] gabapentin 100 mg capsule 100 mg PO TIDP PRN cap 05/13/17 [History Confirmed Last Taken 05/31/17] citalopram 40 mg tablet 40 mg PO QDAY #90 tab 08/16/17 [Rx Confirmed 01/26/18 Last Taken 01/26/18 08:00] albuterol sulfate HFA 90 mcg/actuation aerosol inhaler 2 puff INHALATION .Q4-6H PRN #18 g 08/22/17 [Rx Confirmed 01/26/18 Last Taken Unknown] insulin detemir (U-100) 100 unit/mL (3 mL) subcutaneous pen 45 unit SUB-Q BID # 3 ml 08/30/17 [Rx Confirmed 01/26/18 Last Taken 01/26/18 21:00] glipizide ER 5 mg tablet, extended release 24 hr 5 mg PO QDAY #90 tab 09/14/17 [ Rx Confirmed 01/26/18 Last Taken 01/26/18 08:00] levothyroxine 75 mcg tablet 75 mcg PO QDAY #90 tab 09/22/17 [Rx Confirmed Last Taken 01/26/18 07:30] ipratropium-albuterol 0.5 mg-3 mg(2.5 mg base)/3 mL nebulization soln 3 ml INHALATION Q2-4H PRN 10/11/17 [History Confirmed 01/26/18 Last Taken Unknown] sitagliptin 50 mg tablet 50 mg PO QDAY #90 tab 10/31/17 [Rx Confirmed 01/26/18 Last Taken 01/25/18 20:00] ferrous gluconate 324 mg (36 mg iron) tablet 324 mg PO QDAY #90 tab 11/17/17 [ Rx Confirmed 01/26/18 Last Taken 01/26/18 08:00] lansoprazole 30 mg capsule,delayed release 30 mg PO QHS #90 cap 11/18/17 [Rx Confirmed 01/26/18 Last Taken 01/25/18 21:00] cholecalciferol (vitamin D3) 1,000 unit capsule 1,000 unit PO QDAY 01/10/18 [ History Confirmed 01/26/18 Last Taken 01/26/18 08:00] rosuvastatin 20 mg tablet 20 mg PO HS 01/10/18 [History Confirmed 01/27/18 Last Taken 01/25/18 20:00] furosemide 40 mg tablet 40 mg PO DAILY 01/23/18 [History Confirmed 01/27/18 Last Taken 01/26/18 0800] B/L compression stockings (Knee high, 15-20mmHg) 1 unit TOPICAL PRN PRN [History Confirmed 01/26/18 Last Taken Unknown] Blood Sugar Diagnostic [Contour] 0 strip ID .MEDSUPPLY 01/26/18 [History Confirmed 01/26/18 Last Taken 01/26/18 08:00] Diaper,Brief,Adult, Disposable [Belted Pack] 0 unit TOPICAL .MEDSUPPLY PRN [History Confirmed 01/26/18 Last Taken 01/26/18 08:00] Fluticasone/Vilanterol [Breo Ellipta 200-25 Mcg INH] 2 inh INH DAILYP PRN [History Confirmed 01/27/18 Last Taken 01/26/18 08:00] Pen Needle, Diabetic [Unifine Pentips Plus] 0 unit SQ BID 01/26/18 [History Confirmed 01/26/18 Last Taken 01/26/18 21:00] Medical - DS: Hosp Hospital course: 01/26 Mr. Pimentel is a 72 year old M with a history of chronic kidney disease/COPD and obstructive sleep apnea who was referred from nephrology clinic for admission with excessive weight gain over 20 pounds over the last few weeks. Patient per history has progressively gained over 22 pounds along with associated effort intolerance, exertional dyspnea orthopnea and inability to function. Patient denies taking NSAIDs/missing his regular medications. He is on regular diuretics. He denies excessive salt intake. He does endorse to drinking plenty of oral fluids. His weight has gradually increased with increasing fluid retention despite use of Lasix. He was evaluated at the nephrology clinic today. Lab work was essentially unremarkable except for elevated creatinine at 1.9 with a baseline creatinine 1.5. He denies recent fever chills diarrhea endorses to urinary incontinence since the 2 urology procedures. He endorses dry mouth. He endorses to bilateral lower extremity pain and swelling and redness. He underwent lower extremity ultrasound 2 weeks ago which was unremarkable for DVT. He normally sees his primary care physician Sharif Coronel. He denies arthralgia myalgia or rash joint pain glandular swelling, headache or photophobia. He denies cough or practice sputum. He is on 3 L oxygen at home for his COPD which is at his baseline. He also uses CPAP for obstructive sleep apnea January 27-patient doing well. Over thousand 800 cc negative urine output. No overnight worsening chest pain and lightheadedness dizziness or hypotension. No telemetry events. Nephrology on board. No concerns from nursing staff. stable labs and biochemical profile. Tolerating diet and ambulating 01/28 Feeling better today, feels his breathing is getting close to his baseline. Swelling is improved. His dry weight is about 220 pounds. Weight currently 225 , 15 pound weight loss documented, though intake and output show only several liters negative, not up to 67 liters negative which would be consistent with 15 pound weight loss. Nevertheless is significantly improved. Echocardiogram without right heart failure, preserved left ventricular function. 01/29 Patient seen and examined. Continues to do well. Breathing is at baseline. Creatinine down to 1.9, bicarbonate falling towards baseline with resolution of contraction alkalosis. Stable for discharge home. Discussed watching sodium in the diet as well as weighing daily and adding a second dose of diuretic in the afternoon with 5 pounds weight gain. Discussed with both patient and his . Discharge diagnosis: Volume overload Secondary discharge diagnosis: Chronic kidney disease Lymphedema Type 2 diabetes Obstructive sleep apnea on CPAP Chronic hypoxic respiratory failure on baseline oxygen - Time Spent with Patient Total time spent providing and/or coordinating discharge services: Greater than 30 minutes Medical - DS: Exam - Constitutional Vitals: Vital Signs Temp Pulse Resp BP Pulse Ox 01/29/18 08:00 98.3 F 94 H 16 145/70 94 01/29/18 07:06 97 01/29/18 04:00 98.3 F 80 16 137/67 97 01/29/18 00:19 100.4 F H 01/29/18 00:00 100.4 F H 18 130/73 93 01/28/18 20:00 70 100 01/28/18 19:31 97.7 F 16 126/60 100 01/28/18 15:56 97.7 F 18 139/79 98 01/28/18 11:47 97.5 F 16 127/62 99 Intake and Output 01/28/18 01/29/18 01/29/18 21:59 05:59 13:59 Intake Total 240 / 240 Output Total 1225 / 1225 525 / 525 Balance -1225 / -1225 -285 / -285 Intake: Oral 240 / 240 Output: Urine Catheter Amount 1225 / 1225 525 / 525 Other: Weight 216 lb 216 lb Additional comments: General: Sitting in chair in no acute distress Chest: Clear to auscultation, no rales, no wheezes, respirations are unlabored Cardiovascular: Regular rate and rhythm, 2+ lower extremity edema Abdomen: Obese, soft Neuro: Alert, oriented to person place situation. Medical - DS: Data Procedures and tests throughout hospitalization: Echocardiogram, 01/26/2018 There is mild concentric left ventricular hypertrophy, left ventricular systolic function is within normal limits, ejection fraction 55-60%. There is trace mitral regurgitation, no tricuspid regurgitation. The right ventricle is borderline dilated with normal wall thickness and normal right ventricular systolic function. Labs on day of discharge: Labs from last 24 hours 01/29/18 01/29/18 03:32 03:32 WBC 9.6 RBC 3.72 L Hgb 11.6 L Hct 35.5 L MCV 95.4 MCH 31.3 MCHC 32.8 RDW 13.1 Plt Count 268 MPV 7.4 Total Counted 100 Seg Neutrophils % 60 Band Neutrophils % Not Reportable Lymphocytes % 30 Monocytes % (Manual) 9 Eosinophils % (Manual) 1 Platelet Estimate Normal RBC Morphology Normal Sodium 138 Potassium 4.0 Chloride 96 Carbon Dioxide 36 H Anion Gap 6.0 L BUN 27 H Creatinine 1.9 H GFR Calculation 34 Glucose 197 H Uric Acid 5.9 Calcium 8.9 Phosphorus 4.5 Magnesium 2.7 H Total Bilirubin 0.2 Direct Bilirubin < 0.2 GGT 10 AST 11 ALT 8 Alkaline Phosphatase 41 Lactate Dehydrogenase 141 Total Protein 6.9 Albumin 3.7 Globulin 3.2 Albumin/Globulin Ratio 1.2 Triglycerides 129 Medical - DS: A/P - Patient/Caregiver Discharge Instructions Activity: increase activity as tolerated Diet: Low Sodium (2gm), Consistent Carbohydrate Additional Instructions: Weight yourself every morning. If your weight increases more than 3 pounds in a day or 5 pounds in a week, take an additional 40 mg of furosemide in the early afternoon until your weight returns to baseline. - Problem Maintenance (1) Volume overload Status: Acute - Follow up Plan Follow up with: Aisha Benavides MD [Physician] - (7-10 days) Disposition: Home, Self-Care Prognosis: Fair Rehab Potential: Fair Overall status at discharge: patient is progressing back to baseline
== END 2018-01-29 14:40 | disposition home or self-care (01) | DRG 607 ==
LOC: ICU 13:33
PROVIDERS: ADMIT Internal Medicine; ATTEND Internal Medicine

== ENCOUNTER 2018-04-12 17:18 | Inpatient (IN) ==
--- NOTE | 2018-04-12 17:28 | Emergency Department Note ---
SOB HPI - General Chief Complaint: Shortness of Breath/Dyspnea Stated Complaint: Shortness of breath Time Seen by Provider: 04/12/18 17:26 Source: patient Mode of arrival: ambulatory Limitations: no limitations - History of Present Illness This patient was sent over from Dr. Greenfield's office for shortness of breath and concern for possibly needing BiPAP. Patient is speaking and does not appear to be any great distress and says he has been short of breath for a very long time. His O2 saturation is 95% on 4 L. His lungs sound reasonably clear. He has had no chest pain and no recent cough. - Related Data Home Medications Medication Instructions Recorded Confirmed gabapentin 100 mg capsule 100 mg PO TIDP PRN cap 05/13/17 04/04/18 cholecalciferol (vitamin D3) 1,000 1,000 unit PO QDAY 01/10/18 04/04/18 unit capsule rosuvastatin 20 mg tablet 20 mg PO HS 01/10/18 04/04/18 B/L compression stockings (Knee 1 unit TOPICAL PRN PRN 01/26/18 04/04/18 high, 15-20mmHg) Diaper,Brief,Adult, Disposable 0 unit TOPICAL .MEDSUPPLY PRN 01/26/18 04/04/18 [Belted Pack] Fluticasone/Vilanterol [Breo 2 inh INH DAILYP PRN 01/26/18 04/04/18 Ellipta 200-25 Mcg INH] Pen Needle, Diabetic [Unifine 0 unit SQ BID 01/26/18 04/04/18 Pentips Plus] potassium 99 mg tablet 99 mg PO DAILY 02/23/18 04/04/18 spironolactone 25 mg tablet 25 mg PO QDAY tab 03/23/18 04/04/18 Previous Rx's Medication Instructions Recorded Lancets [Comfort Lancets] 1 each MC TIDP PRN #90 each 09/24/15 albuterol sulfate HFA 90 2 puff INHALATION .Q4-6H PRN #18 g 08/22/17 mcg/actuation aerosol inhaler insulin detemir (U-100) 100 45 unit SUB-Q BID #3 ml 08/30/17 unit/mL (3 mL) subcutaneous pen glipizide ER 5 mg tablet, extended 5 mg PO QDAY #90 tab 12/13/17 release 24 hr levothyroxine 75 mcg tablet 75 mcg PO QDAY #90 tab 09/22/17 sitagliptin 50 mg tablet 50 mg PO QDAY #90 tab 10/31/17 ferrous gluconate 324 mg (36 mg 324 mg PO QDAY #90 tab 11/17/17 iron) tablet lansoprazole 30 mg capsule,delayed 30 mg PO QHS #90 cap 11/18/17 release blood sugar diagnostic strips See Dose Instructions .ROUTE 02/09/18 .MEDSUPPLY #100 each citalopram 40 mg tablet 40 mg PO QDAY #90 tab 02/21/18 sulfamethoxazole 800 1 tab PO BID #14 tab 03/15/18 mg-trimethoprim 160 mg tablet hydralazine 25 mg tablet 25 mg PO BID #60 tab 03/29/18 hydralazine 25 mg tablet 25 mg PO BID #60 tab 03/29/18 Sulfamethoxazole/Trimethoprim 1 tab PO BID #20 tab 04/06/18 [Bactrim Ds] bumetanide 1 mg tablet 2 mg PO BID #120 tab 04/10/18 ipratropium-albuterol 0.5 mg-3 3 ml INHALATION Q2-4H PRN #180 ml 04/11/18 mg(2.5 mg base)/3 mL nebulization soln lorazepam 0.5 mg tablet 0.5 mg PO QDAY PRN #10 tab 04/11/18 methylprednisolone 4 mg tablets in See Dose Instructions PO PER PKG 04/11/18 a dose pack DIR #21 tab Allergies Allergy/AdvReac Type Severity Reaction Status Date / Time codeine Allergy Severe shortness Verified 04/12/18 17:23 of breath ketamine Allergy Severe Difficulty Verified 04/12/18 17:23 Breathing atorvastatin Allergy Unknown Other Verified 04/12/18 17:23 pravastatin Allergy Unknown Other Verified 04/12/18 17:23 [email or web address] [From Myrbetriq] AdvReac Severe difficulty Verified 04/12/18 17:23 breathing Buspirone AdvReac Mild Intolerance Verified 04/12/18 17:23 morphine AdvReac Mild Itching Verified 04/12/18 17:23 Review of Systems All systems ED: reviewed and negative except as stated. Past Medical History - Past Medical History PMFSH Narrative: Medical History (Last Reviewed 03/29/18 @ 10:03 by Aisha Benavides MD) Hypoxemia (Chronic) Bronchitis (Acute) COPD with exacerbation (Acute) COPD exacerbation (Acute) Hyperglycemia due to type 2 diabetes mellitus (Acute) Hyperglycemia, drug-induced (Acute) Hyponatremia (Acute) CHF (congestive heart failure) (Acute) Edema (Acute) Chronic kidney disease (CKD) (Acute) Abdominal pain (Acute) Cellulitis of left hand excluding fingers and thumb (Acute) Acute exacerbation of chronic obstructive airways disease (Acute) Bronchitis (Acute) COPD exacerbation (Acute) Dental abscess (Acute) Cellulitis of leg without foot, left (Acute) Muscle cramps (Acute) Anemia (Chronic) Hypertensive renal disease (Chronic) Hyperparathyroidism due to renal insufficiency (Chronic) Vitamin D deficiency (Chronic) Venous insufficiency (Chronic) Testicular hypofunction (Chronic) Sleep disorder, nonorganic (Chronic) Sleep apnea (Chronic) Shortness of breath (Chronic) Sciatica (Chronic) Schatzki's ring (Chronic) Rotator cuff tear (Chronic) Renal insufficiency (Chronic) Pneumonia (Chronic) Osteoarthrosis, shoulder region (Chronic) Obstructive sleep apnea (adult) (pediatric) (Chronic) Leg pain (Chronic) Hypothyroidism (Chronic) Hypertension, essential (Chronic) Hyperlipidemia (Chronic) GERD (gastroesophageal reflux disease) (Chronic) Edema (Chronic) Dyspnea (Chronic) Diabetes mellitus, type II (Chronic) Depression (Chronic) Cough (Chronic) Congestive heart failure (Chronic) COPD (chronic obstructive pulmonary disease) (Chronic) Chronic kidney disease, stage III (moderate) (Chronic) Other cardiomyopathies (Chronic) Quinn's esophagus (Chronic) Back pain (Chronic) History of asthma (Chronic) Anxiety (Chronic) Intradermal melanocytic nevus (Chronic) Diabetes mellitus type II, uncontrolled (Inactive) Past Surgical History (Last Reviewed 03/29/18 @ 10:03 by Aisha Benavides MD) History of tonsillectomy (Chronic) S/P skin biopsy (Chronic 02/13/14) History of esophagogastroduodenoscopy (Chronic 01/31/14) History of cardiac catheterization (Chronic) History of bronchoscopy (Chronic) History of back surgery (Chronic) History of appendectomy (Chronic) S/P skin biopsy (Chronic) History of colonoscopy (Chronic) History of prostate surgery (Acute) Family History (Last Reviewed 03/29/18 @ 10:03 by Aisha Benavides MD) Unknown Allergic rhinitis Asthma Diabetes mellitus Essential hypertension Disorder of thyroid Brother Sleep apnea Medical history: Reports: arthritis, asthma, CHF, COPD, DM, GERD, hyperlipidemia , hypertension, renal disease, thyroid disease, other Psychiatric history: Reports: anxiety, depression Surgical history ED: Reports: angioplasty/stent, appendectomy, orthopedic, other (2x low back surgeries, ), tonsillectomy, other (Prostate surgery) - Social History smoking status: Former smoker Alcohol use: Reports: Occasionally Drug use: Reports: none Physical Exam Limitations: no limitations General appearance: alert Head: atraumatic Eye: Present: normal appearance ENT: normal exam Neck: Present: normal inspection Chest: Present: normal inspection Respiratory: Present: normal lung sounds bilaterally Cardiovascular: Present: regular rate, normal rhythm, normal heart sounds Neurological: Present: alert Psychiatric: Present: normal affect, normal mood Skin: Present: warm, dry, intact Course Vital Signs Temperature 99.9 F H 04/12/18 17:18 Pulse Rate 89 04/12/18 17:18 Respiratory Rate 28 H 04/12/18 17:18 Blood Pressure 180/95 04/12/18 17:18 Pulse Oximetry (%) 94 04/12/18 17:18 Temperature 99.6 F H 04/12/18 18:16 Pulse Rate 93 H 04/12/18 19:18 Respiratory Rate 20 04/12/18 19:18 Blood Pressure 167/139 04/12/18 18:46 Pulse Oximetry (%) 94 04/12/18 19:18 Shortness of Breath/Dyspnea - [facility] Narrative Medical decision making narrative: Patient's lab work seemed to look worse and the patient does clinically. His blood gas showed pH of 7.37 PCO2 of 65 PO2 of 54 with a bicarbonate 37. Chest x -ray was suspicious for left lower lobe consolidation but a CT scan showed this to be more atelectasis and not pneumonia. Lactic acid was slightly elevated. Blood sugar was over 400 we gave him 10 units of regular insulin. He will get Solu-Medrol and a DuoNeb treatment. He will be admitted to the hospital by the hospitalist service. - Lab Data Lab results reviewed: Yes I reviewed the patient's lab results. Result diagrams: 04/12/18 17:33 04/12/18 17:28 Lab Results 04/12/18 04/12/18 04/12/18 Range/Units 17:28 17:28 17:28 WBC (4.5-11.0) K/mcL RBC (4.50-5.90) M/mcL Hgb (13.5-16.5) g/dL Hct (41.0-55.0) % MCV (80.0-100.0) fL MCH (26.0-34.0) pg MCHC (31.0-36.0) g/dL RDW (11.5-14.5) % Plt Count (140-440) K/mcL MPV (7.4-10.4) fL Total Counted Seg Neutrophils % (38-78) % Band Neutrophils % Lymphocytes % (15-49) % Monocytes % (Manual) (1-12) % Basophils % (Manual) (0-2) % Platelet Estimate (NORMAL) RBC Morphology (NORMAL) VBG Lactic Acid 2.9 H (0.5-2.2) mmol/L Sodium 129 L (133-145) mmol/L Potassium 5.2 H (3.3-5.1) mmol/L Chloride 84 L (96-108) mmol/L Carbon Dioxide 30 (22-30) mmol/L Anion Gap 15.0 (8-16) BUN 31 H (8-23) mg/dl Creatinine 2.5 H (0.7-1.2) mg/dl GFR Calculation 24 Glucose 436 H (70-105) mg/dL Calcium 8.5 L (8.6-10.4) mg/dl Total Bilirubin 0.2 (0.0-1.0) mg/dL AST 13 (0-37) U/l ALT 10 (0-40) U/l Alkaline Phosphatase 42 (39-117) U/L Troponin T < 0.01 (0-0.03) ng/ml NT-Pro-B Natriuret Pep 147.5 H (0-125) pg/ml Total Protein 7.8 (5.9-8.4) gm/dL Albumin 4.2 (3.2-5.2) gm/dL Globulin 3.6 (2.2-3.7) gm/dL Albumin/Globulin Ratio 1.2 (1.0-2.3) Beta-Hydroxybutyrate (< 0.27) mmol/L 04/12/18 04/12/18 Range/Units 17:28 17:33 WBC 9.6 (4.5-11.0) K/mcL RBC 3.54 L (4.50-5.90) M/mcL Hgb 11.2 L (13.5-16.5) g/dL Hct 33.9 L (41.0-55.0) % MCV 95.8 (80.0-100.0) fL MCH 31.7 (26.0-34.0) pg MCHC 33.1 (31.0-36.0) g/dL RDW 13.0 (11.5-14.5) % Plt Count 280 (140-440) K/mcL MPV 7.7 (7.4-10.4) fL Total Counted 100 Seg Neutrophils % 91 H (38-78) % Band Neutrophils % Not Reportable Lymphocytes % 6 L (15-49) % Monocytes % (Manual) 2 (1-12) % Basophils % (Manual) 1 (0-2) % Platelet Estimate Normal (NORMAL) RBC Morphology Normal (NORMAL) VBG Lactic Acid (0.5-2.2) mmol/L Sodium (133-145) mmol/L Potassium (3.3-5.1) mmol/L Chloride (96-108) mmol/L Carbon Dioxide (22-30) mmol/L Anion Gap (8-16) BUN (8-23) mg/dl Creatinine (0.7-1.2) mg/dl GFR Calculation Glucose (70-105) mg/dL Calcium (8.6-10.4) mg/dl Total Bilirubin (0.0-1.0) mg/dL AST (0-37) U/l ALT (0-40) U/l Alkaline Phosphatase (39-117) U/L Troponin T (0-0.03) ng/ml NT-Pro-B Natriuret Pep (0-125) pg/ml Total Protein (5.9-8.4) gm/dL Albumin (3.2-5.2) gm/dL Globulin (2.2-3.7) gm/dL Albumin/Globulin Ratio (1.0-2.3) Beta-Hydroxybutyrate 0.10 (< 0.27) mmol/L - Radiology Data Radiology results reviewed: Yes I reviewed the patient's radiology results. Disposition Pt seen by BIBLIOGRAPHIC SERVICES SPECIALIST/PA only: No Clinical Impression: COPD exacerbation Disposition: Xfer As Inpt ([facility] Condition: Fair Referrals: hSarif Coronel MD [Primary Care Provider] - Time of Disposition: 19:54
[2018-04-12 18:05] LABS: Mean Cell Volume 95.8 fL (80.0-100.0); Mean Corpuscular HGB Conc 33.1 g/dL (31.0-36.0); Mean Corpuscular Hemoglobin 31.7 pg (26.0-34.0); Platelet Count 280 K/mcL (140-440); RBC 3.54 M/mcL (4.50-5.90)
--- NOTE | 2018-04-12 18:12 | XRay Report ---
INDICATION: Dyspnea. COPD. TECHNIQUE: PA and lateral upright chest x-ray COMPARISON: 04/06/2018, 03/28/2019, 02/23/2018 FINDINGS: Elevated right hemidiaphragm. This is chronic. Frontal view demonstrates a focal density overlying the heart and consistent with left lower lobe infiltrate. Appearance is consistent with pneumonia. This is not well visualized on lateral view. CT scan may be helpful for better evaluation and characterization. Right lung is negative. Heart size and vascularity are normal. No pulmonary edema or pulmonary congestion. No detectable pleural fluid IMPRESSION: 1. Findings consistent with left lower lobe consolidation. Recommend CT scan for better evaluation. 2. Findings are most consistent with pneumonia 3. Chronic elevation of right hemidiaphragm Interpreted and Authenticated by: Bhupendra Baldwin 04/12/18
[2018-04-12] MEDS ORDERED: cefTRIAXone 1 GM VIAL IV ONE (18:19)
[2018-04-12] MEDS ORDERED: LEVOFLOXACIN 750 MG/150 ML BAG IV ONE (18:19)
[2018-04-12] MEDS ORDERED: LACTATED RINGERS 1,000 ML IV SCH (18:30)
[2018-04-12 18:38] LABS: ALT/SGPT 10 U/l (0-40); Albumin 4.2 gm/dL (3.2-5.2); Albumin/Globulin Ratio 1.2 (1.0-2.3); Alkaline Phosphatase 42 U/L (39-117); Blood Urea Nitrogen 31 mg/dl (8-23); proBNP 147.5 pg/ml (0-125)
[2018-04-12 18:43] LABS: Basophils % (Manual) 1 % (0-2); Lymphocytes % 6 % (15-49); Monocytes % (Manual) 2 % (1-12); Platelet Estimate NORMAL (NORMAL); RBC Morphology NORMAL (NORMAL); Segmented Neutrophils % 91 % (38-78)
[2018-04-12] MEDS ORDERED: INSULIN REGULAR, HUMAN 1 UNIT/0.01 ML UNIT IV ONE (18:51)
[2018-04-12] MEDS ORDERED: 0.9 % SODIUM CHLORIDE 1,000 ML IV SCH (19:00)
--- NOTE | 2018-04-12 19:24 | Cat Scan Report ---
CLINICAL INFORMATION: Abnormal chest x-ray, possible pneumonia COMPARISON: Chest x-ray dated 04/12/2018. Prior examinations dated 04/06/2018 and 0 626 TECHNIQUE: Axial noncontrast enhanced images through the chest. Sagittally and coronally reformatted images. MIP reformatted images. Contrast material was not administered due to elevated creatinine FINDINGS: Chest x-ray suggestive of left lower lobe consolidation. This is not identified on present examination. There is mild atelectasis at both lung bases. No focal parenchymal consolidation. No evidence for significant pneumonia. There is no centrilobular emphysema. No bronchiectasis. No pulmonary parenchymal mass. No pleural fluid. No pericardial fluid. There is calcified coronary artery disease. There is mild calcification in the thoracic aorta. No mediastinal or hilar adenopathy. No axillary adenopathy. The right hemidiaphragm is elevated. Upper abdomen is negative. There are bilateral renal cysts. No thoracic compression fracture. IMPRESSION: 1. Mild bilateral lower lobe atelectasis. 2. No parenchymal consolidation. No pneumonia 3. Elevated right hemidiaphragm is chronic 4. Calcified coronary artery disease The exam was performed using radiation dose optimization techniques including, but not limited to, automated exposure control, adjustment of the mA and/or kV according to patient size and use of iterative reconstruction technique. Interpreted and Authenticated by: Bhupendra Baldwin 04/12/18
[2018-04-12] MEDS ORDERED: methylPREDNISolone SOD SUCC 125 MG/2 ML VIAL IV ONE (19:52)
[2018-04-12] MEDS ORDERED: IPRATROPIUM/ALBUTEROL 3 ML AMPUL.NEB NEB ONE (19:52)
[2018-04-12] MEDS ORDERED: NON FORMULARY MEDICATION 1 DOSE MISCELL (Rosuvastatin Calcium [Crestor] 20 MG) PO SCH (21:00)
[2018-04-12] MEDS ORDERED: ONDANSETRON 4 MG/2 ML VIAL IV PRN ×2 (22:40→23:04)
[2018-04-12] MEDS ORDERED: ACETAMINOPHEN 325 MG TABLET PO PRN ×2 (22:40→23:04)
[2018-04-12] MEDS ORDERED: BISACODYL 5 MG TABLET PO PRN ×2 (22:40→23:04)
[2018-04-12] MEDS ORDERED: DEXTROSE 50% 50 ML VIAL IV PRN ×2 (22:40→23:04)
[2018-04-12] MEDS ORDERED: DEXTROSE 31 GM ORAL.SUSP PO PRN ×2 (22:40→23:04)
[2018-04-12] MEDS ORDERED: BUDESONIDE 0.5 MG/2 ML AMPUL.NEB NEB SCH (22:50)
[2018-04-12] MEDS ORDERED: IPRATROPIUM/ALBUTEROL 3 ML AMPUL.NEB NEB SCH (23:00)
--- NOTE | 2018-04-12 23:02 | Internal Med History&Physical ---
Medical - H&P: HPI Patient information: Note initiated : 04/12/18 at 10:59 pm Service Date, if different from initiated Date: [] Patient: Christine Pimentel a 72 y/o M admitted on for Shortness of breath. Chief Complaint: [] History of present illness: Mr. Pimentel is a 72 year old M Medical - H&P: Meds Home Medications Medication Instructions Recorded Confirmed Type Lancets [Comfort Lancets] 1 each MC TIDP PRN #90 each 09/24/15 04/12/18 Rx gabapentin 100 mg capsule 100 mg PO TIDP PRN cap 05/13/17 04/12/18 History albuterol sulfate HFA 90 2 puff INHALATION .Q4-6H PRN #18 g 08/22/17 04/12/18 Rx mcg/actuation aerosol inhaler insulin detemir (U-100) 100 45 unit SUB-Q BID #3 ml 08/30/17 04/12/18 Rx unit/mL (3 mL) subcutaneous pen glipizide ER 5 mg tablet, extended 5 mg PO QDAY #90 tab 09/14/17 04/12/18 Rx release 24 hr levothyroxine 75 mcg tablet 75 mcg PO QDAY #90 tab 09/22/17 04/12/18 Rx sitagliptin 50 mg tablet 50 mg PO QDAY #90 tab 10/31/17 04/12/18 Rx ferrous gluconate 324 mg (36 mg 324 mg PO QDAY #90 tab 11/17/17 04/12/18 Rx iron) tablet lansoprazole 30 mg capsule,delayed 30 mg PO QHS #90 cap 11/18/17 04/12/18 Rx release cholecalciferol (vitamin D3) 1,000 1,000 unit PO QDAY 01/10/18 04/12/18 History unit capsule rosuvastatin 20 mg tablet 20 mg PO HS 01/10/18 04/12/18 History B/L compression stockings (Knee 1 unit TOPICAL PRN PRN 01/26/18 04/12/18 History high, 15-20mmHg) Diaper,Brief,Adult, Disposable 0 unit TOPICAL .MEDSUPPLY PRN 01/26/18 04/12/18 History [Belted Pack] Fluticasone/Vilanterol [Breo 2 inh INH DAILYP PRN 01/26/18 04/12/18 History Ellipta 200-25 Mcg INH] Pen Needle, Diabetic [Unifine 0 unit SQ BID 01/26/18 04/12/18 History Pentips Plus] citalopram 40 mg tablet 40 mg PO QDAY #90 tab 02/21/18 04/12/18 Rx potassium 99 mg tablet 99 mg PO DAILY 02/23/18 04/12/18 History spironolactone 25 mg tablet 25 mg PO QDAY tab 03/23/18 04/12/18 History hydralazine 25 mg tablet 25 mg PO BID #60 tab 03/29/18 04/12/18 Rx Sulfamethoxazole/Trimethoprim 1 tab PO BID #20 tab 04/06/18 04/12/18 Rx [Bactrim Ds] ipratropium-albuterol 0.5 mg-3 3 ml INHALATION Q2-4H PRN #180 ml 04/11/18 Rx mg(2.5 mg base)/3 mL nebulization soln lorazepam 0.5 mg tablet 0.5 mg PO QDAY PRN #10 tab 04/11/18 04/12/18 Rx Blood Sugar Diagnostic [Contour] 0 strip .ROUTE .MEDSUPPLY 04/12/18 04/12/18 History Bumetanide 2 mg PO BID 04/12/18 04/12/18 History methylPREDNISolone [Medrol] 0 mg PO PER PKG DIR 04/12/18 04/12/18 History Allergies Allergy/AdvReac Type Severity Reaction Status Date / Time codeine Allergy Severe shortness Verified 04/12/18 17:23 of breath ketamine Allergy Severe Difficulty Verified 04/12/18 17:23 Breathing atorvastatin Allergy Unknown Other Verified 04/12/18 17:23 pravastatin Allergy Unknown Other Verified 04/12/18 17:23 [email or web address] [From Myrbetriq] AdvReac Severe difficulty Verified 04/12/18 17:23 breathing Buspirone AdvReac Mild Intolerance Verified 04/12/18 17:23 morphine AdvReac Mild Itching Verified 04/12/18 17:23 Medical - H&P: Exam - Constitutional Vitals: Temp Pulse Resp BP Pulse Ox 99.6 F H 90 16 157/100 97 04/12/18 18:16 04/12/18 21:01 04/12/18 21:01 04/12/18 21:01 04/12/18 21:01 General appearance: moderate distress, obese - Head Head exam: Present: atraumatic, normocephalic - Eye Eye exam: Present: EOMI Pupils: Present: normal accommodation, PERRL Medical - H&P: Reslt - Labs CBC & Chem 7: 04/12/18 17:33 04/12/18 17:28 Labs: Short CBC 04/12/18 Range/Units 17:33 WBC 9.6 (4.5-11.0) K/mcL Hgb 11.2 L (13.5-16.5) g/dL Hct 33.9 L (41.0-55.0) % Plt Count 280 (140-440) K/mcL BMP 04/12/18 17:28 Sodium 129 L Potassium 5.2 H Chloride 84 L Carbon Dioxide 30 BUN 31 H Creatinine 2.5 H Glucose 436 H Calcium 8.5 L Cardiac Enzymes 04/12/18 Range/Units 17:28 Troponin T < 0.01 (0-0.03) ng/ml Liver Function 04/12/18 Range/Units 17:28 Total Bilirubin 0.2 (0.0-1.0) mg/dL AST 13 (0-37) U/l ALT 10 (0-40) U/l Alkaline Phosphatase 42 (39-117) U/L Albumin 4.2 (3.2-5.2) gm/dL
[2018-04-12] MEDS ORDERED: LORazepam 0.5 MG TABLET PO PRN (23:06)
[2018-04-12] MEDS ORDERED: BUMETANIDE 1 MG TABLET PO SCH (23:15)
[2018-04-12] MEDS ORDERED: INSULIN DETEMIR 45 UNIT SUB-Q SCH (23:15)
[2018-04-12] MEDS ORDERED: BUMETANIDE 1 MG TABLET ONE (23:39)
[2018-04-12] MEDS: hydrALAZINE 25 MG TABLET PO SCH (23:53)
[2018-04-12] MEDS ORDERED: INSULIN GLARGINE, HUMAN 1 UNIT/0.01 ML SQ ONE ×2 (23:53)
[2018-04-12 23:57] LABS: Estimated Average Glucose(eAG) 180 mg/dL; Hemoglobin A1C 7.9 % HGB (4.0-6.0)
[2018-04-13] MEDS ORDERED: LORazepam 0.5 MG TABLET ONE (00:11)
[2018-04-13 00:46] LABS: ALT/SGPT 10 U/l (0-40); Albumin/Globulin Ratio 1.1 (1.0-2.3); Alkaline Phosphatase 38 U/L (39-117); Blood Urea Nitrogen 30 mg/dl (8-23)
[2018-04-13] MEDS ORDERED: methylPREDNISolone SOD SUCC 125 MG/2 ML VIAL ONE (02:35)
[2018-04-13] MEDS: methylPREDNISolone SOD SUCC 125 MG/2 ML VIAL IV SCH ×5 (02:38→17:44)
[2018-04-13] MEDS: IPRATROPIUM/ALBUTEROL 3 ML AMPUL.NEB NEB SCH ×6 (02:40→22:58)
[2018-04-13 03:30] LABS: Appearance,Urine CLEAR; Bacteria,Urine 0 /hpf (0); Bilirubin,Urine NEG (NEG); Color,Urine COLORLESS; Glucose,Urine (UA) >=500 mg/dL (NEG); Leukocyte Esterase,Urine NEG /uL (NEG); Mucus,Urine FEW /hpf (0); Protein,Urine 30 mg/dL (NEG); Specific Gravity,Urine 1.007 (1.000-1.035); Urine Blood 0.03 mg/dL (<0.03); Urine RBC 2 /hpf (0-1); Urine Squamous Epithelial Cell 0 /hpf (0-4); Urine WBC 1 /hpf (0-4); Urobilinogen,Urine NEG (NEG)
[2018-04-13] MEDS ORDERED: METOPROLOL TARTRATE 5 MG/5 ML VIAL IV ONE ×2 (03:48→03:57)
[2018-04-13] MEDS ORDERED: 0.9 % SODIUM CHLORIDE 10 ML SYRINGE IV SCH (06:00)
[2018-04-13 06:18] LABS: Basophils # (Auto) 0 K/mcL (0.0-0.3); Basophils % (Auto) 0 % (0.0-2.0); Eosinophils # (Auto) 0 K/mcL (0.0-0.7); Eosinophils % (Auto) 0 % (0.0-7.0); Granulocytes % (Auto) 93.4 % (38.0-78.0); Lymphocytes # (Auto) 0.6 K/mcL (1.5-4.8); Lymphocytes % (Auto) 6.2 % (15.5-49.0); Mean Cell Volume 94.5 fL (80.0-100.0); Mean Corpuscular HGB Conc 33.5 g/dL (31.0-36.0); Mean Corpuscular Hemoglobin 31.6 pg (26.0-34.0); Monocytes # (Auto) 0 K/mcL (0.1-0.9); Monocytes % (Auto) 0.4 % (1.0-12.0); Platelet Count 267 K/mcL (140-440); Red Cell Distribution Width 12.7 % (11.5-14.5)
[2018-04-13 06:45] LABS: ALT/SGPT 11 U/l (0-40); Albumin/Globulin Ratio 1.3 (1.0-2.3); Alkaline Phosphatase 38 U/L (39-117); Blood Urea Nitrogen 32 mg/dl (8-23)
[2018-04-13] MEDS: 0.9 % SODIUM CHLORIDE 10 ML SYRINGE IV SCH ×3 (06:55→21:43)
[2018-04-13] MEDS ORDERED: INSULIN LISPRO 1 UNIT/0.01 ML UNIT SQ SCH (07:30)
[2018-04-13] MEDS: BUDESONIDE 0.5 MG/2 ML AMPUL.NEB NEB SCH ×3 (07:41→21:23)
[2018-04-13] MEDS: INSULIN LISPRO 1 UNIT/0.01 ML UNIT SQ SCH ×6 (08:12→23:31)
[2018-04-13] MEDS: glipiZIDE 5 MG TAB.XL.24H PO SCH (08:12)
[2018-04-13] MEDS: BUMETANIDE 1 MG TABLET PO SCH ×2 (08:12→15:48)
[2018-04-13] MEDS: LEVOTHYROXINE 75 MCG TABLET PO SCH (08:12)
[2018-04-13] MEDS ORDERED: DOCUSATE SODIUM 100 MG CAPSULE PO SCH (09:00)
[2018-04-13] MEDS: VITAMIN D3 1,000 UNIT TABLET PO SCH (09:17)
[2018-04-13] MEDS: hydrALAZINE 25 MG TABLET PO SCH ×2 (09:17→21:22)
[2018-04-13] MEDS: CITALOPRAM 20 MG TABLET PO SCH (09:17)
[2018-04-13] MEDS: DOCUSATE SODIUM 100 MG CAPSULE PO SCH ×2 (09:17→21:22)
[2018-04-13] MEDS: INSULIN GLARGINE, HUMAN 1 UNIT/0.01 ML SQ SCH ×2 (09:17→21:39)
[2018-04-13] MEDS: FERROUS GLUCONATE 324 MG TABLET PO SCH (09:17)
[2018-04-13] MEDS: sitaGLIPtin 50 MG TABLET PO SCH (09:17)
[2018-04-13] MEDS: MUPIROCIN CRM 2% 15 GM TUBE TOPICAL SCH ×2 (13:26→22:44)
--- NOTE | 2018-04-13 14:12 | Nephrology Consult Note ---
History of Present Illness - Reason for Consult Patient information: Note initiated : 04/13/18 at 1:54 pm Service Date, if different from initiated Date: [] Patient: Christine Pimentel 72 y/o M admitted on 04/12/18 for Shortness of Breath/ Dyspnea. Chief Complaint: [] Consult date: 04/13/18 chronic renal failure Requesting physician: Danisha Bynum - Chief Complaint SOB - History of Present Illness Patient is a 72 y/o pleasant white male with PMH of HTN, DM type 2, COPD, CKD and other medical issues who is admitted with COPD exacerbation Patient has been having worsening SOB and he stopped by pulmonary clinic yesterday, he was found to be extremely short of breath and weak and hypoxic and he was admitted to ICU for COPD exacerbation. Patient also has been struggling with chronic LE edema and now LE wounds secondary to this he has no c/o cough but he has h/o pressure like feeling in the chest he denies fever he has no other complaints patient is noted to have co2 retention on his ABG, he is been treated for this and he is also continued on his home dose of diuretics, on IV antibiotics for LE wound and will be seen by wound care he does have some worsening of his renal function and LE edema and hence nephrology has been consulted Review of Systems All systems PM: reviewed and no additional remarkable complaints except as stated (as in HPI) Past History Past medical history: COPD on home oxygen CAD CKD stage III DM type 2 HTN ELLIE valenzuela's esophagus Past surgical history: History of tonsillectomy Chronic S/P skin biopsy Chronic 02/13/14 History of esophagogastroduodenoscopy Chronic 01/31/14 History of cardiac catheterization Chronic History of bronchoscopy Chronic History of back surgery Chronic History of appendectomy Chronic S/P skin biopsy Chronic History of colonoscopy Chronic History of prostate surgery Acute Past family history: not pertinent Past social history: quit smoking in 1984 drinks few times a week no h./o drug abuse 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, 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 [place] Medications and Allergies Home Medications Medication Instructions Recorded Confirmed Type Lancets [Comfort Lancets] 1 each MC TIDP PRN #90 each 09/24/15 04/12/18 Rx gabapentin 100 mg capsule 100 mg PO TIDP PRN cap 05/13/17 04/12/18 History albuterol sulfate HFA 90 2 puff INHALATION .Q4-6H PRN #18 g 08/22/17 04/12/18 Rx mcg/actuation aerosol inhaler insulin detemir (U-100) 100 45 unit SUB-Q BID #3 ml 08/30/17 04/12/18 Rx unit/mL (3 mL) subcutaneous pen glipizide ER 5 mg tablet, extended 5 mg PO QDAY #90 tab 09/14/17 04/12/18 Rx release 24 hr levothyroxine 75 mcg tablet 75 mcg PO QDAY #90 tab 09/22/17 04/12/18 Rx sitagliptin 50 mg tablet 50 mg PO QDAY #90 tab 10/31/17 04/12/18 Rx ferrous gluconate 324 mg (36 mg 324 mg PO QDAY #90 tab 11/17/17 04/12/18 Rx iron) tablet lansoprazole 30 mg capsule,delayed 30 mg PO QHS #90 cap 11/18/17 04/12/18 Rx release cholecalciferol (vitamin D3) 1,000 1,000 unit PO QDAY 01/10/18 04/12/18 History unit capsule rosuvastatin 20 mg tablet 20 mg PO HS 01/10/18 04/12/18 History B/L compression stockings (Knee 1 unit TOPICAL PRN PRN 01/26/18 04/12/18 History high, 15-20mmHg) Diaper,Brief,Adult, Disposable 0 unit TOPICAL .MEDSUPPLY PRN 01/26/18 04/12/18 History [Belted Pack] Fluticasone/Vilanterol [Breo 2 inh INH DAILYP PRN 01/26/18 04/12/18 History Ellipta 200-25 Mcg INH] Pen Needle, Diabetic [Unifine 0 unit SQ BID 01/26/18 04/12/18 History Pentips Plus] citalopram 40 mg tablet 40 mg PO QDAY #90 tab 02/21/18 04/12/18 Rx potassium 99 mg tablet 99 mg PO DAILY 02/23/18 04/12/18 History spironolactone 25 mg tablet 25 mg PO QDAY tab 03/23/18 04/12/18 History hydralazine 25 mg tablet 25 mg PO BID #60 tab 03/29/18 04/12/18 Rx Sulfamethoxazole/Trimethoprim 1 tab PO BID #20 tab 04/06/18 04/12/18 Rx [Bactrim Ds] ipratropium-albuterol 0.5 mg-3 3 ml INHALATION Q2-4H PRN #180 ml 04/11/18 Rx mg(2.5 mg base)/3 mL nebulization soln lorazepam 0.5 mg tablet 0.5 mg PO QDAY PRN #10 tab 04/11/18 04/12/18 Rx Blood Sugar Diagnostic [Contour] 0 strip .ROUTE .MEDSUPPLY 04/12/18 04/12/18 History Bumetanide 2 mg PO BID 04/12/18 04/12/18 History methylPREDNISolone [Medrol] 0 mg PO PER PKG DIR 04/12/18 04/12/18 History Allergies Allergy/AdvReac Type Severity Reaction Status Date / Time codeine Allergy Severe shortness Verified 04/12/18 17:23 of breath ketamine Allergy Severe Difficulty Verified 04/12/18 17:23 Breathing atorvastatin Allergy Unknown Other Verified 04/12/18 17:23 pravastatin Allergy Unknown Other Verified 04/12/18 17:23 [email or web address] [From Myrbetriq] AdvReac Severe difficulty Verified 04/12/18 17:23 breathing Buspirone AdvReac Mild Intolerance Verified 04/12/18 17:23 morphine AdvReac Mild Itching Verified 04/12/18 17:23 Exam - Vital Signs Vital signs: Temp Pulse Resp BP Pulse Ox 98.1 F 88 18 139/77 94 04/13/18 11:57 04/13/18 11:57 04/13/18 11:57 04/13/18 11:57 04/13/18 11:57 - General Appearance General appearance: appears started age, obese EENT: mucous membranes moist Neck: no JVD Respiratory: no scoliosis, clear Cardiology: no rub, regular rate, regular rhythm Gastrointestinal: no tenderness, no guarding Integumentary: warm and dry, ulcer (ulcers and inflammation and erythema b/l LE ) Neurologic: alert and oriented x3 Musculoskeletal: no cyanosis, no clubbing Psychiatric: mood/affect appropriate Results - Lab Results 04/13/18 03:30 04/13/18 03:30 Most recent lab results Calcium 8.4 mg/dl (8.6-10.4) L 04/13/18 03:30 Phosphorus 2.3 mg/dL (2.7-4.5) L 04/12/18 23:20 Magnesium 2.2 mg/dL (1.6-2.5) 04/12/18 23:20 Assessment and Plan (1) Acute on chronic renal failure Baseline s.creatinine is 1.6-1.9, s.creatinine is 2.5yday and 2.3 today renal function is worse likely from recent use of bactrim and need for higher dose of diuretics will follow the trend and hold spironolactone if needed, no change today LE edema: will change to lasix 40mg bid, hold bumex ct spironolactone fluid restriction to 1.5L low sodium diet LE cellulitis: on antibiotics and follow up with wound care COPD exacerbation per Dr Bynum and Dr Greenfield will follow along Status: Acute (2) Acute exacerbation of chronic obstructive airways disease Status: Acute (3) Lower extremity edema Status: Acute
[2018-04-13] MEDS ORDERED: INSULIN LISPRO 1 UNIT/0.01 ML UNIT SQ ONE ×2 (14:35→17:35)
--- NOTE | 2018-04-13 17:24 | General Surgery Consult Note ---
History of Present Illness Patient information: Note initiated : 04/13/18 at 5:20 pm Service Date, if different from initiated Date: [] Patient: Christine Pimentel 72 y/o M admitted on 04/12/18 for Shortness of Breath/ Dyspnea. Chief Complaint: [] Consult date: 04/13/18 Requesting physician: Danisha Bynum (Wound Care Management) History of present illness: WOUND CARE CONSULT: I saw this patient in room 118 ( Tele ) along with JUSTIN Sandy, In Patient wound care nurse. 72 / M Obesity, COPD acute exacerbation with sudden SOB, Admitted via ER to ICU. Multiple co-morbid medical issues. Morbid obesity, ELLIE, HTN, DM2,CRF and chronic wounds of both legs lower half anterior lateral. These are epidermal and scattered along anterior and lateral surface of lower 1/2 of both legs. Medications and Allergies Home Medications Medication Instructions Recorded Confirmed Type Lancets [Comfort Lancets] 1 each MC TIDP PRN #90 each 09/24/15 04/12/18 Rx gabapentin 100 mg capsule 100 mg PO TIDP PRN cap 05/13/17 04/12/18 History albuterol sulfate HFA 90 2 puff INHALATION .Q4-6H PRN #18 g 08/22/17 04/12/18 Rx mcg/actuation aerosol inhaler insulin detemir (U-100) 100 45 unit SUB-Q BID #3 ml 08/30/17 04/12/18 Rx unit/mL (3 mL) subcutaneous pen glipizide ER 5 mg tablet, extended 5 mg PO QDAY #90 tab 09/14/17 04/12/18 Rx release 24 hr levothyroxine 75 mcg tablet 75 mcg PO QDAY #90 tab 09/22/17 04/12/18 Rx sitagliptin 50 mg tablet 50 mg PO QDAY #90 tab 10/31/17 04/12/18 Rx ferrous gluconate 324 mg (36 mg 324 mg PO QDAY #90 tab 11/17/17 04/12/18 Rx iron) tablet lansoprazole 30 mg capsule,delayed 30 mg PO QHS #90 cap 11/18/17 04/12/18 Rx release cholecalciferol (vitamin D3) 1,000 1,000 unit PO QDAY 01/10/18 04/12/18 History unit capsule rosuvastatin 20 mg tablet 20 mg PO HS 01/10/18 04/12/18 History B/L compression stockings (Knee 1 unit TOPICAL PRN PRN 01/26/18 04/12/18 History high, 15-20mmHg) Diaper,Brief,Adult, Disposable 0 unit TOPICAL .MEDSUPPLY PRN 01/26/18 04/12/18 History [Belted Pack] Fluticasone/Vilanterol [Breo 2 inh INH DAILYP PRN 01/26/18 04/12/18 History Ellipta 200-25 Mcg INH] Pen Needle, Diabetic [Unifine 0 unit SQ BID 01/26/18 04/12/18 History Pentips Plus] citalopram 40 mg tablet 40 mg PO QDAY #90 tab 02/21/18 04/12/18 Rx potassium 99 mg tablet 99 mg PO DAILY 02/23/18 04/12/18 History spironolactone 25 mg tablet 25 mg PO QDAY tab 03/23/18 04/12/18 History hydralazine 25 mg tablet 25 mg PO BID #60 tab 03/29/18 04/12/18 Rx Sulfamethoxazole/Trimethoprim 1 tab PO BID #20 tab 04/06/18 04/12/18 Rx [Bactrim Ds] ipratropium-albuterol 0.5 mg-3 3 ml INHALATION Q2-4H PRN #180 ml 04/11/18 Rx mg(2.5 mg base)/3 mL nebulization soln lorazepam 0.5 mg tablet 0.5 mg PO QDAY PRN #10 tab 04/11/18 04/12/18 Rx Blood Sugar Diagnostic [Contour] 0 strip .ROUTE .MEDSUPPLY 04/12/18 04/12/18 History Bumetanide 2 mg PO BID 04/12/18 04/12/18 History methylPREDNISolone [Medrol] 0 mg PO PER PKG DIR 04/12/18 04/12/18 History Allergies Allergy/AdvReac Type Severity Reaction Status Date / Time codeine Allergy Severe shortness Verified 04/12/18 17:23 of breath ketamine Allergy Severe Difficulty Verified 04/12/18 17:23 Breathing atorvastatin Allergy Unknown Other Verified 04/12/18 17:23 pravastatin Allergy Unknown Other Verified 04/12/18 17:23 [email or web address] [From Myrbetriq] AdvReac Severe difficulty Verified 04/12/18 17:23 breathing Buspirone AdvReac Mild Intolerance Verified 04/12/18 17:23 morphine AdvReac Mild Itching Verified 04/12/18 17:23 Exam Temp Pulse Resp BP Pulse Ox 98.4 F 89 16 150/76 90 04/13/18 15:41 04/13/18 15:41 04/13/18 15:41 04/13/18 15:41 04/13/18 15:41 - General physical appearance well developed, well nourished, obese (Morbid obesity) - Eyes PERRL, normal ocular movement - ENT normal pinna, normal nares, normal mucosa, no congestion - Head Head exam IM: Present: atraumatic, normal inspection, normocephalic - Neck no masses, no bruits, trachea midline, no venous distension - Cardiovascular Cardiovascular exam IM: Present: normal rate and rhythm - Respiratory normal expansion absent breath sounds: bilateral (Diminished to absent breath sounds at lung bases. ) - Abdomen Abdomen: Present: soft, non tender, bowel sounds - Integumentary Present: other (Grade 1 to 2 Epidermal skin tears / ulcers scattered arounf anterior and lateral bilateral lower legs. Covered with adherent slough . Lymphedema of both legs. ) - Neurologic Present: normal coordination, other (Neuropathy both legs, ankles and feet. ) - Musculoskeletal Present: other (No gross abnormalities. Sitting out in chair. ) - Psychiatric Present: oriented to time, oriented to person, oriented to place, speech is normal Results - Labs 04/14/18 03:30 04/14/18 03:30 Abnormal lab results 04/12/18 04/12/18 04/12/18 Range/Units 02:40 17:28 17:28 RBC (4.50-5.90) M/mcL Hgb (13.5-16.5) g/dL Hct (41.0-55.0) % Gran % (38.0-78.0) % Lymph % (Auto) (15.5-49.0) % [place] % (Auto) (1.0-12.0) % Gran # (1.8-8.0) K/mcL Lymph # (Auto) (1.5-4.8) K/mcL [place] # (Auto) (0.1-0.9) K/mcL Seg Neutrophils % (38-78) % Lymphocytes % (15-49) % ESR (0-15) mm/hr VBG Lactic Acid 2.9 H (0.5-2.2) mmol/L Sodium 129 L (133-145) mmol/L Potassium 5.2 H (3.3-5.1) mmol/L Chloride 84 L (96-108) mmol/L BUN 31 H (8-23) mg/dl Creatinine 2.5 H (0.7-1.2) mg/dl Glucose 436 H (70-105) mg/dL Hemoglobin A1c (4.0-6.0) % HGB Calcium 8.5 L (8.6-10.4) mg/dl Phosphorus (2.7-4.5) mg/dL Alkaline Phosphatase (39-117) U/L NT-Pro-B Natriuret Pep 147.5 H (0-125) pg/ml Urine Protein 30 A (NEG) mg/dL Urine Glucose (UA) >=500 A (NEG) mg/dL Urine Occult Blood 0.03 A (<0.03) mg/dL Urine RBC 2 H (0-1) /hpf 04/12/18 04/12/18 04/12/18 Range/Units 17:33 23:20 23:20 RBC 3.54 L (4.50-5.90) M/mcL Hgb 11.2 L (13.5-16.5) g/dL Hct 33.9 L (41.0-55.0) % Gran % (38.0-78.0) % Lymph % (Auto) (15.5-49.0) % [place] % (Auto) (1.0-12.0) % Gran # (1.8-8.0) K/mcL Lymph # (Auto) (1.5-4.8) K/mcL [place] # (Auto) (0.1-0.9) K/mcL Seg Neutrophils % 91 H (38-78) % Lymphocytes % 6 L (15-49) % ESR 70 H (0-15) mm/hr VBG Lactic Acid (0.5-2.2) mmol/L Sodium (133-145) mmol/L Potassium (3.3-5.1) mmol/L Chloride (96-108) mmol/L BUN (8-23) mg/dl Creatinine (0.7-1.2) mg/dl Glucose (70-105) mg/dL Hemoglobin A1c 7.9 H (4.0-6.0) % HGB Calcium (8.6-10.4) mg/dl Phosphorus 2.3 L (2.7-4.5) mg/dL Alkaline Phosphatase (39-117) U/L NT-Pro-B Natriuret Pep (0-125) pg/ml Urine Protein (NEG) mg/dL Urine Glucose (UA) (NEG) mg/dL Urine Occult Blood (<0.03) mg/dL Urine RBC (0-1) /hpf 04/12/18 04/13/18 04/13/18 Range/Units 23:20 03:30 03:30 RBC 3.40 L (4.50-5.90) M/mcL Hgb 10.8 L (13.5-16.5) g/dL Hct 32.2 L (41.0-55.0) % Gran % 93.4 H (38.0-78.0) % Lymph % (Auto) 6.2 L (15.5-49.0) % [place] % (Auto) 0.4 L (1.0-12.0) % Gran # 9.0 H (1.8-8.0) K/mcL Lymph # (Auto) 0.6 L (1.5-4.8) K/mcL [place] # (Auto) 0 L (0.1-0.9) K/mcL Seg Neutrophils % (38-78) % Lymphocytes % (15-49) % ESR (0-15) mm/hr VBG Lactic Acid (0.5-2.2) mmol/L Sodium 132 L (133-145) mmol/L Potassium (3.3-5.1) mmol/L Chloride 93 L 90 L (96-108) mmol/L BUN 30 H 32 H (8-23) mg/dl Creatinine 2.3 H 2.3 H (0.7-1.2) mg/dl Glucose 279 H 408 H (70-105) mg/dL Hemoglobin A1c (4.0-6.0) % HGB Calcium 8.3 L 8.4 L (8.6-10.4) mg/dl Phosphorus (2.7-4.5) mg/dL Alkaline Phosphatase 38 L 38 L (39-117) U/L NT-Pro-B Natriuret Pep (0-125) pg/ml Urine Protein (NEG) mg/dL Urine Glucose (UA) (NEG) mg/dL Urine Occult Blood (<0.03) mg/dL Urine RBC (0-1) /hpf Diabetes panel 04/12/18 04/12/18 04/12/18 Range/Units 17:28 23:20 23:20 Sodium 129 L 134 (133-145) mmol/L Potassium 5.2 H 4.8 (3.3-5.1) mmol/L Chloride 84 L 93 L (96-108) mmol/L Carbon Dioxide 30 28 (22-30) mmol/L BUN 31 H 30 H (8-23) mg/dl Creatinine 2.5 H 2.3 H (0.7-1.2) mg/dl Glucose 436 H 279 H (70-105) mg/dL Hemoglobin A1c 7.9 H (4.0-6.0) % HGB Calcium 8.5 L 8.3 L (8.6-10.4) mg/dl AST 13 13 (0-37) U/l ALT 10 10 (0-40) U/l Alkaline Phosphatase 42 38 L (39-117) U/L Total Protein 7.8 7.6 (5.9-8.4) gm/dL Albumin 4.2 4.0 (3.2-5.2) gm/dL 04/13/18 Range/Units 03:30 Sodium 132 L (133-145) mmol/L Potassium 4.8 (3.3-5.1) mmol/L Chloride 90 L (96-108) mmol/L Carbon Dioxide 30 (22-30) mmol/L BUN 32 H (8-23) mg/dl Creatinine 2.3 H (0.7-1.2) mg/dl Glucose 408 H (70-105) mg/dL Hemoglobin A1c (4.0-6.0) % HGB Calcium 8.4 L (8.6-10.4) mg/dl AST 11 (0-37) U/l ALT 11 (0-40) U/l Alkaline Phosphatase 38 L (39-117) U/L Total Protein 7.1 (5.9-8.4) gm/dL Albumin 4.0 (3.2-5.2) gm/dL Calcium panel 04/12/18 04/12/18 04/12/18 Range/Units 17:28 23:20 23:20 Calcium 8.5 L 8.3 L (8.6-10.4) mg/dl Phosphorus 2.3 L (2.7-4.5) mg/dL Albumin 4.2 4.0 (3.2-5.2) gm/dL 04/13/18 Range/Units 03:30 Calcium 8.4 L (8.6-10.4) mg/dl Phosphorus (2.7-4.5) mg/dL Albumin 4.0 (3.2-5.2) gm/dL Pituitary panel 04/12/18 04/12/18 04/13/18 Range/Units 17:28 23:20 03:30 Sodium 129 L 134 132 L (133-145) mmol/L Potassium 5.2 H 4.8 4.8 (3.3-5.1) mmol/L Chloride 84 L 93 L 90 L (96-108) mmol/L Carbon Dioxide 30 28 30 (22-30) mmol/L BUN 31 H 30 H 32 H (8-23) mg/dl Creatinine 2.5 H 2.3 H 2.3 H (0.7-1.2) mg/dl Glucose 436 H 279 H 408 H (70-105) mg/dL Calcium 8.5 L 8.3 L 8.4 L (8.6-10.4) mg/dl Adrenal panel 04/12/18 04/12/18 04/13/18 Range/Units 17:28 23:20 03:30 Sodium 129 L 134 132 L (133-145) mmol/L Potassium 5.2 H 4.8 4.8 (3.3-5.1) mmol/L Chloride 84 L 93 L 90 L (96-108) mmol/L Carbon Dioxide 30 28 30 (22-30) mmol/L BUN 31 H 30 H 32 H (8-23) mg/dl Creatinine 2.5 H 2.3 H 2.3 H (0.7-1.2) mg/dl Glucose 436 H 279 H 408 H (70-105) mg/dL Calcium 8.5 L 8.3 L 8.4 L (8.6-10.4) mg/dl Total Bilirubin 0.2 0.2 0.2 (0.0-1.0) mg/dL AST 13 13 11 (0-37) U/l ALT 10 10 11 (0-40) U/l Alkaline Phosphatase 42 38 L 38 L (39-117) U/L Total Protein 7.8 7.6 7.1 (5.9-8.4) gm/dL Albumin 4.2 4.0 4.0 (3.2-5.2) gm/dL All other labs normal. Assessment and Plan (1) Skin abnormalities Status: Chronic Priority: Low Comment: Epidermal / Dermal skin tears Grade 1 -2 , now ulcers. Covered with slough. Lymphedema of both legs. For conservative wound care. Dressing changes after MIST treatments and topical bactroban ointment. Will follow jun while in hospital and later at wound care clinic.
[2018-04-13] MEDS: GABAPENTIN 100 MG CAPSULE PO PRN (17:44)
--- NOTE | 2018-04-13 18:45 | Internal Med Progress Note ---
Medical - PN: Subj Patient information: Note initiated : 04/13/18 at 6:45 pm Service Date, if different from initiated Date: [] Patient: Christine Pimentel 72 y/o M admitted on 04/12/18 for Shortness of Breath/ Dyspnea. Chief Complaint: [] - Constitutional Vitals: Vital Signs Temp Pulse Resp BP Pulse Ox 98.4 F 103 H 18 154/80 91 04/13/18 15:41 04/13/18 18:43 04/13/18 18:43 04/13/18 18:08 04/13/18 18:08 Period Temp Pulse Resp BP Sys/Jean Pulse Ox Last 24 Hr 98.0 F-98.4 F 74-103 15-24 139-176/53-139 87-98 Intake and Output 04/13/18 04/13/18 04/13/18 05:59 13:59 21:59 Intake Total 480 / 480 540 / 540 Output Total 1025 / 1025 975 / 975 Balance -545 / -545 -435 / -435 Weight 237 lb 237 lb Patient Weight 04/14/18 05:59 Weight 237 lb Intake & Output: Intake & Output 04/13/18 04/13/18 04/13/18 05:59 13:59 21:59 Intake Total 480 / 480 540 / 540 Output Total 1025 / 1025 975 / 975 Balance -545 / -545 -435 / -435 Weight 237 lb 237 lb Intake: Oral 480 / 480 540 / 540 Output: Urine Catheter Amount 975 / 975 Void Amount 1025 / 1025 Other: Meal Breakfast Dinner Percent of Meal Consumed 75% 25% Stool Size Small Stool Color Brown Stool Consistency Formed # Voids 4 # Bowel Movements 1 Medical - PN: Obj Da - Labs CBC & Chem 7: 04/13/18 03:30 04/13/18 03:30 Labs: Abnormal Lab Results 04/13/18 04/13/18 04/12/18 03:30 03:30 23:20 RBC 3.40 L Hgb 10.8 L Hct 32.2 L Gran % 93.4 H Lymph % (Auto) 6.2 L [place] % (Auto) 0.4 L Gran # 9.0 H Lymph # (Auto) 0.6 L [place] # (Auto) 0 L Seg Neutrophils % Lymphocytes % ESR VBG Lactic Acid Sodium 132 L Potassium Chloride 90 L 93 L BUN 32 H 30 H Creatinine 2.3 H 2.3 H Glucose 408 H 279 H Hemoglobin A1c Calcium 8.4 L 8.3 L Phosphorus Alkaline Phosphatase 38 L 38 L NT-Pro-B Natriuret Pep Urine Protein Urine Glucose (UA) Urine Occult Blood Urine RBC 04/12/18 04/12/18 04/12/18 23:20 23:20 17:33 RBC 3.54 L Hgb 11.2 L Hct 33.9 L Gran % Lymph % (Auto) [place] % (Auto) Gran # Lymph # (Auto) [place] # (Auto) Seg Neutrophils % 91 H Lymphocytes % 6 L ESR 70 H VBG Lactic Acid Sodium Potassium Chloride BUN Creatinine Glucose Hemoglobin A1c 7.9 H Calcium Phosphorus 2.3 L Alkaline Phosphatase NT-Pro-B Natriuret Pep Urine Protein Urine Glucose (UA) Urine Occult Blood Urine RBC 04/12/18 04/12/18 04/12/18 17:28 17:28 02:40 RBC Hgb Hct Gran % Lymph % (Auto) [place] % (Auto) Gran # Lymph # (Auto) [place] # (Auto) Seg Neutrophils % Lymphocytes % ESR VBG Lactic Acid 2.9 H Sodium 129 L Potassium 5.2 H Chloride 84 L BUN 31 H Creatinine 2.5 H Glucose 436 H Hemoglobin A1c Calcium 8.5 L Phosphorus Alkaline Phosphatase NT-Pro-B Natriuret Pep 147.5 H Urine Protein 30 A Urine Glucose (UA) >=500 A Urine Occult Blood 0.03 A Urine RBC 2 H Meds: Medications Acetaminophen (Tylenol) 650 mg PO Q6HP PRN PRN Reason: PAIN/FEVER > 101 Albuterol/Ipratropium (Duoneb) 3 ml NEB Q4HRT [facility] Last Admin: 04/13/18 18:12 Dose: 3 ml Bisacodyl (Dulcolax) 10 mg PO DAILYP PRN PRN Reason: Constipation Last Admin: 04/13/18 09:17 Dose: 10 mg Budesonide (Pulmicort) 0.5 mg NEB Q12 [facility] Last Admin: 04/13/18 18:12 Dose: 0.5 mg Bumetanide (Bumex) 2 mg PO BIDD [facility] Last Admin: 04/13/18 15:48 Dose: 2 mg Citalopram Hydrobromide (Celexa) 40 mg PO DAILY [facility] Last Admin: 04/13/18 09:17 Dose: 40 mg Dextrose (Dextrose 50%) 0 ml IV UD PRN PRN Reason: Hypoglycemia Diagnostic Test (Pha) (Accu-Chek) 1 each FS ACHS [facility] Last Admin: 04/13/18 16:58 Dose: 1 each Docusate Sodium (Colace) 100 mg PO BID [facility] Last Admin: 04/13/18 09:17 Dose: 100 mg Ferrous Gluconate (Fergon) 324 mg PO DAILY [facility] Last Admin: 04/13/18 09:17 Dose: 324 mg Gabapentin (Neurontin) 100 mg PO TIDP PRN PRN Reason: Pain Last Admin: 04/13/18 17:44 Dose: 100 mg Glipizide (Glucotrol Xl) 5 mg PO QAMAC [facility] Last Admin: 04/13/18 08:12 Dose: 5 mg Glucose (Insta-Glucose) 15 gm PO PRN PRN PRN Reason: Hypoglycemia Hydralazine HCl (Apresoline) 25 mg PO BID [facility] Last Admin: 04/13/18 09:17 Dose: 25 mg Insulin Glargine (Lantus) 45 unit SQ BID [facility] Last Admin: 04/13/18 09:17 Dose: 45 unit Insulin Human Lispro (Humalog) 0 unit SQ [facility] PRN Reason: Protocol Levothyroxine Sodium (Synthroid) 75 mcg PO QAMAC [facility] Last Admin: 04/13/18 08:12 Dose: 75 mcg Lorazepam (Ativan) 0.5 mg PO QDP PRN PRN Reason: anxiety Last Admin: 04/13/18 10:55 Dose: 0.5 mg Mupirocin (Bactroban Crm 2%) 1 gm TOPICAL BID [facility] Last Admin: 04/13/18 13:26 Dose: 1 gm Ondansetron HCl (Zofran) 4 mg IV Q4HP PRN PRN Reason: Nausea And Vomiting Pantoprazole Sodium (Protonix) 40 mg PO HS [facility] Rosuvastatin Calcium (Crestor) 20 mg PO HS [facility] Sitagliptin Phosphate (Januvia) 50 mg PO QDAY [facility] Last Admin: 04/13/18 09:17 Dose: 50 mg Sodium Chloride (Saline Flush) 10 ml IV Q8 [facility] Last Admin: 04/13/18 13:26 Dose: 10 ml Vitamin D (Vitamin D3) 1,000 unit PO DAILY [facility] Last Admin: 04/13/18 09:17 Dose: 1,000 unit Medical - PN: A/P - Time Spent With Patient Total time spent is greater than 50% in coordination of care (as documented) at patient's floor/unit and/or counseling patient:
[2018-04-13] MEDS ORDERED: NON FORMULARY MEDICATION 1 DOSE MISCELL (Lansoprazole [Prevacid] 30 MG) PO SCH (21:00)
[2018-04-13] MEDS: PANTOPRAZOLE 40 MG TABLET PO SCH (21:22)
[2018-04-13] MEDS: ROSUVASTATIN 10 MG TABLET PO SCH (21:22)
[2018-04-13] MEDS: traZODone HCL 50 MG TABLET PO PRN (22:43)
[2018-04-14] MEDS: IPRATROPIUM/ALBUTEROL 3 ML AMPUL.NEB NEB SCH ×6 (03:35→22:10)
[2018-04-14] MEDS: 0.9 % SODIUM CHLORIDE 10 ML SYRINGE IV SCH ×3 (05:05→21:51)
[2018-04-14 06:33] LABS: Basophils # (Auto) 0 K/mcL (0.0-0.3); Basophils % (Auto) 0 % (0.0-2.0); Eosinophils # (Auto) 0 K/mcL (0.0-0.7); Eosinophils % (Auto) 0 % (0.0-7.0); Granulocytes % (Auto) 90.9 % (38.0-78.0); Lymphocytes # (Auto) 0.9 K/mcL (1.5-4.8); Mean Cell Volume 96.3 fL (80.0-100.0); Mean Corpuscular HGB Conc 32.7 g/dL (31.0-36.0); Mean Corpuscular Hemoglobin 31.5 pg (26.0-34.0); Monocytes # (Auto) 1.2 K/mcL (0.1-0.9); Monocytes % (Auto) 5.1 % (1.0-12.0); Platelet Count 317 K/mcL (140-440); RBC 3.61 M/mcL (4.50-5.90); Red Cell Distribution Width 12.9 % (11.5-14.5)
[2018-04-14 06:59] LABS: ALT/SGPT 11 U/l (0-40); Albumin 4.1 gm/dL (3.2-5.2); Albumin/Globulin Ratio 1.2 (1.0-2.3); Alkaline Phosphatase 38 U/L (39-117); Blood Urea Nitrogen 49 mg/dl (8-23)
[2018-04-14] MEDS: BUDESONIDE 0.5 MG/2 ML AMPUL.NEB NEB SCH ×3 (07:18→21:42)
[2018-04-14] MEDS: LEVOTHYROXINE 75 MCG TABLET PO SCH (07:31)
[2018-04-14] MEDS: INSULIN LISPRO 1 UNIT/0.01 ML UNIT SQ SCH ×4 (07:32→21:38)
[2018-04-14] MEDS: glipiZIDE 5 MG TAB.XL.24H PO SCH (07:32)
[2018-04-14] MEDS: FERROUS GLUCONATE 324 MG TABLET PO SCH (09:02)
[2018-04-14] MEDS: hydrALAZINE 25 MG TABLET PO SCH ×2 (09:02→21:39)
[2018-04-14] MEDS: BUMETANIDE 1 MG TABLET PO SCH (09:02)
[2018-04-14] MEDS: DOCUSATE SODIUM 100 MG CAPSULE PO SCH ×3 (09:02→21:49)
[2018-04-14] MEDS: VITAMIN D3 1,000 UNIT TABLET PO SCH (09:02)
[2018-04-14] MEDS: GABAPENTIN 100 MG CAPSULE PO PRN (09:02)
[2018-04-14] MEDS: CITALOPRAM 20 MG TABLET PO SCH (09:02)
[2018-04-14] MEDS: sitaGLIPtin 50 MG TABLET PO SCH (09:02)
[2018-04-14] MEDS: INSULIN GLARGINE, HUMAN 1 UNIT/0.01 ML SQ SCH ×2 (09:02→21:38)
[2018-04-14] MEDS: MUPIROCIN CRM 2% 15 GM TUBE TOPICAL SCH ×2 (09:10→21:40)
--- NOTE | 2018-04-14 09:39 | Consultation ---
DATE OF CONSULTATION: 04/12/2018 REQUESTING PHYSICIAN: Danisha Bynum MD HOSPITAL COURSE: The patient is a 72-year-old male known to me in outpatient practice who presented to my office at 4:45 yesterday afternoon hypoxic and confused. He had been playing cards at the [employer] and his portable oxygen concentrator's battery had run out. He indicated that he did not think he could make it home and stopped my office to seek assistance. He was hypoxic and confused. He was short of breath. Arrangements were made to transfer him to [facility] Emergency Room. Communication with the hospitalist, Dr. Bynum was performed about his general situation and state. The patient unfortunately has multiple competing comorbid illnesses. He has chronic obstructive pulmonary disease. 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 This is exacerbated by his significant abdominal obesity. He has pulmonary hypertension and sleep apnea and hypoxia on, all of these bases. I am not aware of a recent echo regarding his right ventricular systolic pressure but one should probably be performed at this hospitalization if not recent. He has been recently experiencing significant difficulties with dependent edema. A conversation was held with Dr. Benavides about his situation. She indicates that she has made appropriate and diligent efforts to try and deal with his volume status. This has not resulted in significant improvement in his edema state but has resulted in some intravascular volume depletion and subsequent renal and other sequelae secondary to that process. She has had to temper her attempts at diuresis. His glomerular filtration rate, he reports was at 39% of predicted prior to this event. From a pulmonary standpoint, he is and remains hypoxic without significant oxygen support. This is both on a kamala basis and an airway disease basis. He has been on BiPAP with oxygen bled in at home. He denies significant cough or sputum production on presentation. However, he had been initiated on a course of levofloxacin by his primary care provider 2 to 4 days prior to admission. His is at the bedside and expresses concern about his ability to care for himself and follow the regimen needed to maintain his health and wellness. REVIEW OF SYSTEMS: Without additional findings on questioning in a detailed fashion. He does not have significant sputum production, fevers or chills. PHYSICAL EXAMINATION: GENERAL: At this time, he is a much more well and lucid-appearing gentleman in no acute distress and able is to speak in complete sentences. HEAD: Atraumatic and normocephalic. NECK: Supple. LUNGS: Moderately to markedly decreased breath sounds without mona wheeze, rale or rhonchus with markedly decreased breath sounds in the right base, the area of his known elevated hemidiaphragm. HEART: Regular at this time, S1, S2. No apparent gallop, rub, jugular venous distention. There is bilateral chronic dependent edema and erythema appearing like venous stasis changes in his lower extremities below the knee. ABDOMEN: Obese, soft, difficult to evaluate. BONES/JOINTS/EXTREMITIES: Dressings on the lower extremities where there have been some skin changes due to his vascular and edema issues that are without acute changes. LABORATOYR DATA: (Collected thus far) Original CBC showing a white count of 9.6, hemoglobin of 11.2, platelet count of 280,000. There were 91 segmented neutrophils and no bands. A venous lactic acid was elevated at 2.9. Sodium depressed at 129, potassium elevated at 5.2, BUN 31, creatinine 2.5-creatinine above his baseline of 1.6 to 1.9 range. Glucose elevated at 436. BNP only 147.5. Urinalysis with elevated glucose. Subsequent studies have demonstrated an ESR at 70 and improving sodium and potassium, and a slightly improving creatinine but not BUN. RADIOLOGIC STUDIES: CT scan of the chest done on 04/12/2018 shows his elevated diaphragm but no other acute infiltrates or changes. IMPRESSION: A gentleman with respiratory insufficiency, arterial blood gas having had a CO2 in the 60s previously, with chronic hypoventilation secondary to his diaphragm and sleep apnea as well as his obstructive airways disease in that process. At this time, respiratory support with BiPAP therapy as he will tolerate and adequate oxygen seems prudent. The issue of his fluid balance and status remains difficult and may be due to some venous changes in the lower extremities, weight of his abdomen on the venous structures in the retroperitoneum as well as a lack of sufficient negative intrathoracic pressure from his paralyzed hemidiaphragm to allow adequate venous return to the right heart for perfusion to the left side of the circulation and his kidneys. On examination, the lesions in the legs for other more obscure diabetic related cutaneous manifestation or other might be prudent. Managing his leg edema will be a challenge. It is recommended that he consider a rehabilitation facility after his initial stabilization at [facility] to try and get physical therapy, renal therapy, pulmonary therapy and skin care all focused on trying to get him back to an adequate condition for ongoing existence in his home. He is advised in clear words that he needs to toe the line with his medical regimen or he should expect to be in and out of the hospital every week or two as he has multiple critical problems in need of ongoing careful management. Thank you for the opportunity to participate in the care of this pleasant gentleman. [email or web address] Job ID: [id number] Doc ID: [id number] Rubens FINLEYD
--- NOTE | 2018-04-14 16:41 | Nephrology Progress Note ---
Subjective Patient information: Note initiated : 04/14/18 at 4:38 pm Service Date, if different from initiated Date: [] Patient: Christine Pimentel 72 y/o M admitted on 04/12/18 for Shortness of Breath/ Dyspnea. Chief Complaint: [] Principal diagnosis: COPD exacerbation Interval history: Patient is feeling better today his LE edema is much improved his SOB is much improved, tremors has improved a swell still feels weak no CP no GI symptoms Pertinent ROS: as above Objective - Vital Signs Vital signs: Vital Signs Temp Pulse Pulse Pulse Resp BP BP 04/14/18 15:55 93 H 04/14/18 15:32 98 F 20 132/80 04/14/18 15:13 87 16 04/14/18 14:00 93 H 04/14/18 13:47 144 H 04/14/18 12:51 115 H 04/14/18 11:57 97.9 F 20 144/72 04/14/18 10:58 94 H 04/14/18 08:00 94 H 22 04/14/18 07:46 98.0 F 93 H 22 149/83 04/14/18 07:18 89 18 04/14/18 06:33 88 04/14/18 03:39 98.5 F 85 16 139/66 04/13/18 23:22 99.3 F H 104 H 16 110/60 04/13/18 22:59 103 H 21 04/13/18 20:00 98.2 F 101 H 24 H 154/70 04/13/18 18:46 103 H 20 04/13/18 18:44 99 H 22 04/13/18 18:43 103 H 18 04/13/18 18:08 102 H 16 154/80 Pulse Ox 04/14/18 15:55 04/14/18 15:32 99 04/14/18 15:13 04/14/18 14:00 04/14/18 13:47 04/14/18 12:51 04/14/18 11:57 95 04/14/18 10:58 04/14/18 08:00 95 04/14/18 07:46 95 04/14/18 07:18 94 04/14/18 06:33 04/14/18 03:39 94 04/13/18 23:22 94 04/13/18 22:59 04/13/18 20:00 95 04/13/18 18:46 91 04/13/18 18:44 95 04/13/18 18:43 04/13/18 18:08 91 Intake and Output 04/14/18 04/14/18 04/14/18 05:59 13:59 21:59 Intake Total 370 / 370 590 / 590 200 / 200 Output Total 1020 / 1020 1175 / 1175 200 / 200 Balance -650 / -650 -585 / -585 0 / 0 Intake: Oral 370 / 370 590 / 590 200 / 200 Output: Urine Catheter Amount 1020 / 1020 1175 / 1175 200 / 200 Other: Meal Lunch Percent of Meal Consumed 75% Feeding Ability Independent Stool Size Moderate Stool Color Brown Stool Consistency Dry and Hard Formed # Bowel Movements 2 # of times incontinent of 0 Bowels Intake & Output: Intake & Output 04/14/18 04/14/18 04/14/18 05:59 13:59 21:59 Intake Total 370 / 370 590 / 590 200 / 200 Output Total 1020 / 1020 1175 / 1175 200 / 200 Balance -650 / -650 -585 / -585 0 / 0 Intake: Oral 370 / 370 590 / 590 200 / 200 Output: Urine Catheter Amount 1020 / 1020 1175 / 1175 200 / 200 Other: Meal Lunch Percent of Meal Consumed 75% Feeding Ability Independent Stool Size Moderate Stool Color Brown Stool Consistency Dry and Hard Formed # Bowel Movements 2 # of times incontinent of 0 Bowels - General Appearance General appearance: appears started age, obese, chronically ill EENT: mucous membranes moist Neck: no JVD Respiratory: clear Cardiology: edema (much improved ), regular rate, regular rhythm Gastrointestinal: no tenderness, no guarding Integumentary: warm and dry Neurologic: alert and oriented x3 Musculoskeletal: no cyanosis, no clubbing Psychiatric: mood/affect appropriate - Lab 04/14/18 03:30 04/14/18 03:30 Most recent lab results Calcium 9.2 mg/dl (8.6-10.4) 04/14/18 03:30 Phosphorus 2.3 mg/dL (2.7-4.5) L 04/12/18 23:20 Magnesium 2.2 mg/dL (1.6-2.5) 04/12/18 23:20 Assessment and Plan (1) Acute on chronic renal failure s.creatinine is upto 2.8 today, egfr is 21ml/min per CKD EPI equation baseline s.creatinine is 1.6-1.9 renal function progressively getting worse will cut back on diuretics, bumex 2mg po daily given significant improvement in edema his losartan and spironolactone is on hold no k issues, bicarb stable for now mild anemia above threshold for ki copd exacerbation CHF patient may get transferred to acute rehab facility [place] I will be off call and I have signed out the patient to Dr Bishop Status: Acute (2) Acute exacerbation of chronic obstructive airways disease Status: Acute (3) Lower extremity edema Status: Acute
[2018-04-14] MEDS: ROSUVASTATIN 10 MG TABLET PO SCH (21:39)
[2018-04-14] MEDS: PANTOPRAZOLE 40 MG TABLET PO SCH (21:39)
[2018-04-14] MEDS: traZODone HCL 50 MG TABLET PO PRN (22:04)
[2018-04-15] MEDS: IPRATROPIUM/ALBUTEROL 3 ML AMPUL.NEB NEB SCH ×2 (03:40→07:33)
[2018-04-15 05:36] LABS: Basophils # (Auto) 0 K/mcL (0.0-0.3); Basophils % (Auto) 0.2 % (0.0-2.0); Eosinophils # (Auto) 0 K/mcL (0.0-0.7); Eosinophils % (Auto) 0 % (0.0-7.0); Granulocytes % (Auto) 80.8 % (38.0-78.0); Lymphocytes # (Auto) 2.2 K/mcL (1.5-4.8); Lymphocytes % (Auto) 11.4 % (15.5-49.0); Mean Cell Volume 95.3 fL (80.0-100.0); Mean Corpuscular Hemoglobin 31.5 pg (26.0-34.0); Monocytes # (Auto) 1.5 K/mcL (0.1-0.9); Monocytes % (Auto) 7.6 % (1.0-12.0); Platelet Count 306 K/mcL (140-440); RBC 3.71 M/mcL (4.50-5.90); Red Cell Distribution Width 13.4 % (11.5-14.5)
[2018-04-15] MEDS: 0.9 % SODIUM CHLORIDE 10 ML SYRINGE IV SCH (06:07)
[2018-04-15 06:44] LABS: ALT/SGPT 13 U/l (0-40); Albumin 3.7 gm/dL (3.2-5.2); Albumin/Globulin Ratio 1.2 (1.0-2.3); Alkaline Phosphatase 35 U/L (39-117); Blood Urea Nitrogen 58 mg/dl (8-23)
[2018-04-15] MEDS: BUDESONIDE 0.5 MG/2 ML AMPUL.NEB NEB SCH (07:33)
--- NOTE | 2018-04-15 07:52 | Nephrology Progress Note ---
Subjective Patient information: Note initiated : 04/15/18 at 7:48 am Christine Pimentel is a 72-year-old male with coronary artery disease, hypertension, hyperlipidemia, chronic hypoxic hypercapnic respiratory failure due to chronic obstructive pulmonary disease and paralyzed right hemidiaphragm, pulmonary hypertension and sleep apnea on home oxygen, diabetes mellitus type 2, chronic kidney disease stage 4, chronic anemia due to kidney disease and iron deficiency , presented to ED for dyspnea and admitted on 04/13/18 for chronic obstructive pulmonary disease exacerbation. Chief Complaint: Dyspnea. Principal diagnosis: COPD exacerbation Pertinent ROS: Feels better. Edema close to baseline. Dyspnea improved. Legs dresses. Objective - Vital Signs Vital signs: Vital Signs Temp Pulse Pulse Pulse Resp BP BP 04/15/18 07:35 77 18 04/15/18 07:34 77 18 04/15/18 06:45 77 04/15/18 04:00 97.1 F 20 142/69 04/15/18 00:00 98.9 F 20 137/52 04/14/18 22:39 68 16 04/14/18 22:10 70 16 04/14/18 19:32 98.2 F 20 141/72 04/14/18 19:20 106 H 04/14/18 18:39 91 H 20 04/14/18 18:38 89 20 04/14/18 15:55 93 H 04/14/18 15:32 98 F 20 132/80 04/14/18 15:13 87 16 04/14/18 14:00 93 H 04/14/18 13:47 144 H 04/14/18 12:51 115 H 04/14/18 11:57 97.9 F 20 144/72 04/14/18 10:58 94 H 04/14/18 08:00 94 H 22 Pulse Ox 04/15/18 07:35 95 04/15/18 07:34 95 04/15/18 06:45 04/15/18 04:00 95 04/15/18 00:00 94 04/14/18 22:39 91 04/14/18 22:10 04/14/18 19:32 95 04/14/18 19:20 95 04/14/18 18:39 93 04/14/18 18:38 04/14/18 15:55 04/14/18 15:32 99 04/14/18 15:13 07/13/18 14:00 04/14/18 13:47 04/14/18 12:51 04/14/18 11:57 95 04/14/18 10:58 04/14/18 08:00 95 Intake and Output 04/14/18 04/15/18 04/15/18 21:59 05:59 13:59 Intake Total 590 / 590 Output Total 200 / 200 1150 / 1150 Balance 390 / 390 -1150 / -1150 Intake: Oral 590 / 590 Output: Urine Catheter Amount 200 / 200 1150 / 1150 Other: Meal HS snack Percent of Meal Consumed 100% Feeding Ability Independent Stool Size Small Stool Color Brown Stool Consistency Judy # Bowel Movements 1 # of times incontinent of 0 Bowels Weight 228 lb 14.4 oz Intake & Output: Intake & Output 04/14/18 04/15/18 04/15/18 21:59 05:59 13:59 Intake Total 590 / 590 Output Total 200 / 200 1150 / 1150 Balance 390 / 390 -1150 / -1150 Weight 228 lb 14.4 oz Intake: Oral 590 / 590 Output: Urine Catheter Amount 200 / 200 1150 / 1150 Other: Meal HS snack Percent of Meal Consumed 100% Feeding Ability Independent Stool Size Small Stool Color Brown Stool Consistency Judy # Bowel Movements 1 # of times incontinent of 0 Bowels - General Appearance General appearance: chronically ill, frail EENT: mucous membranes dry Neck: supple Respiratory: wheezing, rhonchi Cardiology: edema, regular rate Gastrointestinal: no tenderness, no guarding Integumentary: hyperpigmentation, chronic venous stasis Neurologic: no focal deficit, alert and oriented x3 Musculoskeletal: no deformities Psychiatric: mood/affect appropriate, cooperative - Lab 04/15/18 03:30 04/15/18 03:30 Most recent lab results Calcium 9.1 mg/dl (8.6-10.4) 04/15/18 03:30 Phosphorus 2.3 mg/dL (2.7-4.5) L 04/12/18 23:20 Magnesium 2.2 mg/dL (1.6-2.5) 04/12/18 23:20 Assessment and Plan (1) Chronic kidney disease, stage III (moderate) Work up: CT Chest without contrast on 04/12/18: Mild bilateral lower lobe atelectasis. No parenchymal consolidation. No pneumonia. Elevated right hemidiaphragm is chronic. Calcified coronary artery disease. Treatment: Home cardiac medications: Bumex 2 mg twice daily. Spironolactone 25 mg daily. Losartan mentioned in Dr Callejas note but not listed. Hydralazine 25 mg twice daily. Potassium chloride 99 mg daily. Current cardiac medications: Bumex 2 mg daily. Hydralazine 25 mg twice daily. Progress: Urine output: 2525 ml reported in the past 24 hours. Creatinine decreased from 2.8 to 2.5 in the past 24 hours. Metabolic alkalosis. Oxygen saturation 95% on 3 L/min NC. Heart rate: 77. Blood pressure: 140/70 mmHg. Recommendations: Avoid NSAIDs, nephrotoxic medications and IV contrast. Monitor BMP and urine output. Being discharged to [facility]. Dr Benavides will follow up when returns. Status: Chronic Priority: Medium
[2018-04-15] MEDS: glipiZIDE 5 MG TAB.XL.24H PO SCH (07:58)
[2018-04-15] MEDS: LEVOTHYROXINE 75 MCG TABLET PO SCH (07:58)
[2018-04-15] MEDS: INSULIN LISPRO 1 UNIT/0.01 ML UNIT SQ SCH (08:00)
--- NOTE | 2018-04-15 08:26 | General Surgery Progress Note ---
Subjective Patient reports: no new complaints, other (COPD exacerbation improved. CKD stable. Progressing well from wound care point of view.) Narrative: Note initiated : 04/15/18 at 8:24 am Service Date, if different from initiated Date: [] Patient: Christine Pimentel 72 y/o M admitted on 04/12/18 for Shortness of Breath/ Dyspnea. Chief Complaint: [] Objective Temp Pulse Resp BP Pulse Ox 97.3 F 73 20 125/57 97 04/15/18 08:00 04/15/18 08:00 04/15/18 08:00 04/15/18 08:00 04/15/18 08:00 AVSS. OOB in chair, Comfortable. Speaking clearly. HD stable. No other acute interval developments. Skin ans sub Q wounds are stable and improving with local wound care. - Additional Data Intake & Output - Last 24 hours: Intake & Output 04/13/18 04/14/18 04/15/18 04/16/18 05:59 05:59 05:59 05:59 Intake Total 1150 / 1150 1550 / 1550 1180 / 1180 Output Total 3020 / 3020 2525 / 2525 450 / 450 Balance 1150 / 1150 -1470 / -1470 -1345 / -1345 -450 / -450 Weight 237 lb 231 lb 228 lb 14.4 oz - Labs 04/15/18 03:30 04/15/18 03:30 Diabetes panel 04/15/18 Range/Units 03:30 Sodium 138 (133-145) mmol/L Potassium 3.9 (3.3-5.1) mmol/L Chloride 93 L (96-108) mmol/L Carbon Dioxide 33 H (22-30) mmol/L BUN 58 H (8-23) mg/dl Creatinine 2.5 H (0.7-1.2) mg/dl Glucose 128 H (70-105) mg/dL Calcium 9.1 (8.6-10.4) mg/dl AST 27 (0-37) U/l ALT 13 (0-40) U/l Alkaline Phosphatase 35 L (39-117) U/L Total Protein 6.8 (5.9-8.4) gm/dL Albumin 3.7 (3.2-5.2) gm/dL Calcium panel 04/15/18 Range/Units 03:30 Calcium 9.1 (8.6-10.4) mg/dl Albumin 3.7 (3.2-5.2) gm/dL Pituitary panel 04/15/18 Range/Units 03:30 Sodium 138 (133-145) mmol/L Potassium 3.9 (3.3-5.1) mmol/L Chloride 93 L (96-108) mmol/L Carbon Dioxide 33 H (22-30) mmol/L BUN 58 H (8-23) mg/dl Creatinine 2.5 H (0.7-1.2) mg/dl Glucose 128 H (70-105) mg/dL Calcium 9.1 (8.6-10.4) mg/dl Adrenal panel 04/15/18 Range/Units 03:30 Sodium 138 (133-145) mmol/L Potassium 3.9 (3.3-5.1) mmol/L Chloride 93 L (96-108) mmol/L Carbon Dioxide 33 H (22-30) mmol/L BUN 58 H (8-23) mg/dl Creatinine 2.5 H (0.7-1.2) mg/dl Glucose 128 H (70-105) mg/dL Calcium 9.1 (8.6-10.4) mg/dl Total Bilirubin < 0.2 (0.0-1.0) mg/dL AST 27 (0-37) U/l ALT 13 (0-40) U/l Alkaline Phosphatase 35 L (39-117) U/L Total Protein 6.8 (5.9-8.4) gm/dL Albumin 3.7 (3.2-5.2) gm/dL Assessment and Plan (1) Skin abnormalities Problem details: Epidermal / Dermal skin tears Grade 1-2 , now ulcers. Covered with slough. Lymphedema of both legs. For conservative wound care. Dressing changes after MIST treatments and topical bactroban ointment. Will follow patirahuln while in hospital and later at wound care clinic. Status : Chronic Assessment and plan: Assessment: Satisfactory progress from wound care point of view. OPEN epidermal skin tears wounds BLE grade 1 are responding to treatment. Plan: Continue current treatment. If MIST treatment is NOT available, Clean wound with NS and Apply bacitracin or Bactroban ointment to wounds BID and cover with dry dressing If Dischrged, have patient or facility to call wound care center on Tuesday04/17/2018 for f/u appointment. Current Visit: Yes - Time Spent With Patient Total time spent is greater than 50% in coordination of care (as documented) at patient's floor/unit and/or counseling patient: less than 15 minutes
[2018-04-15] MEDS ORDERED: BUMETANIDE 1 MG TABLET PO SCH (09:00)
[2018-04-15] MEDS: sitaGLIPtin 50 MG TABLET PO SCH (09:20)
[2018-04-15] MEDS: VITAMIN D3 1,000 UNIT TABLET PO SCH (09:20)
[2018-04-15] MEDS: INSULIN GLARGINE, HUMAN 1 UNIT/0.01 ML SQ SCH (09:20)
[2018-04-15] MEDS: hydrALAZINE 25 MG TABLET PO SCH (09:20)
[2018-04-15] MEDS: GABAPENTIN 100 MG CAPSULE PO PRN (09:20)
[2018-04-15] MEDS: CITALOPRAM 20 MG TABLET PO SCH (09:20)
[2018-04-15] MEDS: MUPIROCIN CRM 2% 15 GM TUBE TOPICAL SCH (09:20)
[2018-04-15] MEDS: DOCUSATE SODIUM 100 MG CAPSULE PO SCH (09:20)
[2018-04-15] MEDS: FERROUS GLUCONATE 324 MG TABLET PO SCH (09:20)
--- NOTE | 2018-04-15 09:27 | Internal Med Progress Note ---
Medical - PN: Subj Patient information: Note initiated : 04/15/18 at 9:25 am Service Date, if different from initiated Date: [04/14/18 at 7:00 am] Patient: Christine Pimentel 72 y/o M admitted on 04/12/18 for Shortness of Breath/ Dyspnea. Chief Complaint: [] Interval history: 72 y/o ex-smoker white male with complex medical history, significant PMH of ELLIE , COPD, CKD HTN, DM type 2 and chronic lower extremity lymphedema due to poor venous return, had been having multiple urgent care clinic/ER visit in the past several weeks for worsening short of breath and confusion episodes. He is sent to the ER, on follow-up visit with Dr. 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 His chest x -ray follow by CT without contrast show mild bilateral lower lobe atelectasis. His lab work showed no leukocytosis, or UTI, and his ABG and venous lactate, all confirm hypoxemia with CO2 retention. His acute on chronic hypercapnic hypoxemic failure is an exacerbation of his COPD. He is admitted to telemetry with close monitoring, and he responds to IV Solu-Medrol. Nephrology with Dr. Benavides is consulted for his CRF on Bumex diuretics, and Dr. Greenfield of pulmonary is also consult. Wound care with Dr. Claire consult for wound care to his bilateral lower extremity lymphedema. He has improve, and agreed to a rehab shelter facility for rehab. - Constitutional Vitals: Vital Signs Temp Pulse Resp BP Pulse Ox 97.3 F 73 20 125/57 97 04/15/18 08:00 04/15/18 08:00 04/15/18 08:00 04/15/18 08:00 04/15/18 08:00 Period Temp Pulse Resp BP Sys/Jean Pulse Ox Last 24 Hr 97.1 F-98.9 F 68-144 16-20 125-144/52-80 91-99 Intake and Output 04/14/18 04/15/18 04/15/18 21:59 05:59 13:59 Intake Total 590 / 590 Output Total 200 / 200 1150 / 1150 450 / 450 Balance 390 / 390 -1150 / -1150 -450 / -450 Weight 228 lb 14.4 oz Intake & Output: Intake & Output 04/14/18 04/15/18 04/15/18 21:59 05:59 13:59 Intake Total 590 / 590 Output Total 200 / 200 1150 / 1150 450 / 450 Balance 390 / 390 -1150 / -1150 -450 / -450 Weight 228 lb 14.4 oz Intake: Oral 590 / 590 Output: Urine Catheter Amount 200 / 200 1150 / 1150 450 / 450 Other: Meal HS snack Percent of Meal Consumed 100% Feeding Ability Independent Stool Size Small Stool Color Brown Stool Consistency Judy # Bowel Movements 1 # of times incontinent of 0 Bowels - Head Head exam: Present: atraumatic, normocephalic - Eye Eye exam: Present: EOMI Pupils: Present: normal accommodation, PERRL - ENT ENT exam: Present: mucous membranes dry - Neck Neck exam: Absent: lymphadenopathy, meningismus - Respiratory Respiratory exam: Present: decreased breath sounds, wheezes. Absent: accessory muscle use Additional comments: Minimal wheezes, much improved as compared to it on admission - Cardiovascular Cardiovascular exam: Present: +S1, +S2. Absent: gallop, rubs - GI/Abdominal GI/Abdominal exam: Present: distended. Absent: guarding, rebound, tenderness - Extremities Exam Extremities exam: Present: pedal edema Additional comments: Significant lymphedema, enlarged and more than 2+ lymphedema - Neurological Exam Neurological exam: Present: alert, CN II-XII intact, oriented X3 - Skin Skin exam: Present: dry, intact, warm Medical - PN: Obj Da - Labs CBC & Chem 7: 04/15/18 03:30 04/15/18 03:30 Labs: Abnormal Lab Results 04/14/18 04/13/18 04/13/18 03:30 03:30 03:30 WBC 23.0 H RBC 3.61 L 3.40 L Hgb 11.4 L 10.8 L Hct 34.7 L 32.2 L Gran % 90.9 H 93.4 H Lymph % (Auto) 4.0 L 6.2 L [place] % (Auto) 0.4 L Gran # 20.9 H 9.0 H Lymph # (Auto) 0.9 L 0.6 L [place] # (Auto) 1.2 H 0 L Seg Neutrophils % Lymphocytes % ESR VBG Lactic Acid Sodium 132 L Potassium Chloride 90 L Carbon Dioxide BUN 32 H Creatinine 2.3 H Glucose 408 H Hemoglobin A1c Calcium 8.4 L Phosphorus Alkaline Phosphatase 38 L NT-Pro-B Natriuret Pep Urine Protein Urine Glucose (UA) Urine Occult Blood Urine RBC 04/12/18 04/12/18 04/12/18 23:20 23:20 23:20 WBC RBC Hgb Hct Gran % Lymph % (Auto) [place] % (Auto) Gran # Lymph # (Auto) [place] # (Auto) Seg Neutrophils % Lymphocytes % ESR 70 H VBG Lactic Acid Sodium Potassium Chloride 93 L Carbon Dioxide BUN 30 H Creatinine 2.3 H Glucose 279 H Hemoglobin A1c 7.9 H Calcium 8.3 L Phosphorus 2.3 L Alkaline Phosphatase 38 L NT-Pro-B Natriuret Pep Urine Protein Urine Glucose (UA) Urine Occult Blood Urine RBC 04/12/18 04/12/18 04/12/18 17:33 17:28 17:28 WBC RBC 3.54 L Hgb 11.2 L Hct 33.9 L Gran % Lymph % (Auto) [place] % (Auto) Gran # Lymph # (Auto) [place] # (Auto) Seg Neutrophils % 91 H Lymphocytes % 6 L ESR VBG Lactic Acid 2.9 H Sodium 129 L Potassium 5.2 H Chloride 84 L Carbon Dioxide BUN 31 H Creatinine 2.5 H Glucose 436 H Hemoglobin A1c Calcium 8.5 L Phosphorus Alkaline Phosphatase NT-Pro-B Natriuret Pep 147.5 H Urine Protein Urine Glucose (UA) Urine Occult Blood Urine RBC 04/12/18 02:40 WBC RBC Hgb Hct Gran % Lymph % (Auto) [place] % (Auto) Gran # Lymph # (Auto) [place] # (Auto) Seg Neutrophils % Lymphocytes % ESR VBG Lactic Acid Sodium Potassium Chloride Carbon Dioxide BUN Creatinine Glucose Hemoglobin A1c Calcium Phosphorus Alkaline Phosphatase NT-Pro-B Natriuret Pep Urine Protein 30 A Urine Glucose (UA) >=500 A Urine Occult Blood 0.03 A Urine RBC 2 H Meds: Medications Acetaminophen (Tylenol) 650 mg PO Q6HP PRN PRN Reason: PAIN/FEVER > 101 Last Admin: 04/15/18 07:59 Dose: 650 mg Albuterol/Ipratropium (Duoneb) 3 ml NEB Q4HRT DANNA Last Admin: 04/15/18 07:33 Dose: 3 ml Bisacodyl (Dulcolax) 10 mg PO DAILYP PRN PRN Reason: Constipation Last Admin: 04/13/18 09:17 Dose: 10 mg Budesonide (Pulmicort) 0.5 mg NEB Q12 [facility] Last Admin: 04/15/18 07:33 Dose: 0.5 mg Bumetanide (Bumex) 2 mg PO DAILY [facility] Last Admin: 04/15/18 09:19 Dose: 2 mg Citalopram Hydrobromide (Celexa) 40 mg PO DAILY [facility] Last Admin: 04/15/18 09:20 Dose: 40 mg Dextrose (Dextrose 50%) 0 ml IV UD PRN PRN Reason: Hypoglycemia Diagnostic Test (Pha) (Accu-Chek) 1 each FS ACHS [facility] Last Admin: 04/15/18 07:59 Dose: 1 each Docusate Sodium (Colace) 100 mg PO BID [facility] Last Admin: 04/15/18 09:20 Dose: 100 mg Ferrous Gluconate (Fergon) 324 mg PO DAILY [facility] Last Admin: 04/15/18 09:20 Dose: 324 mg Gabapentin (Neurontin) 100 mg PO TIDP PRN PRN Reason: Pain Last Admin: 04/15/18 09:20 Dose: 100 mg Glipizide (Glucotrol Xl) 5 mg PO QAMAC [facility] Last Admin: 04/15/18 07:58 Dose: 5 mg Glucose (Insta-Glucose) 15 gm PO PRN PRN PRN Reason: Hypoglycemia Hydralazine HCl (Apresoline) 25 mg PO BID [facility] Last Admin: 04/15/18 09:20 Dose: 25 mg Insulin Glargine (Lantus) 45 unit SQ BID [facility] Last Admin: 04/15/18 09:20 Dose: 45 unit Insulin Human Lispro (Humalog) 0 unit SQ [facility] PRN Reason: Protocol Last Admin: 04/15/18 08:00 Dose: Not Given Levothyroxine Sodium (Synthroid) 75 mcg PO QAMAC [facility] Last Admin: 04/15/18 07:58 Dose: 75 mcg Lorazepam (Ativan) 0.5 mg PO QDP PRN PRN Reason: anxiety Last Admin: 04/13/18 10:55 Dose: 0.5 mg Mupirocin (Bactroban Crm 2%) 1 gm TOPICAL BID [facility] Last Admin: 04/14/18 21:40 Dose: Not Given Ondansetron HCl (Zofran) 4 mg IV Q4HP PRN PRN Reason: Nausea And Vomiting Pantoprazole Sodium (Protonix) 40 mg PO HS [facility] Last Admin: 04/14/18 21:39 Dose: 40 mg Rosuvastatin Calcium (Crestor) 20 mg PO HS [facility] Last Admin: 04/14/18 21:39 Dose: 20 mg Sitagliptin Phosphate (Januvia) 50 mg PO QDAY [facility] Last Admin: 04/15/18 09:20 Dose: 50 mg Sodium Chloride (Saline Flush) 10 ml IV Q8 [facility] Last Admin: 04/15/18 06:07 Dose: 10 ml Trazodone HCl (Desyrel) 50 - 100 mg PO HSP PRN PRN Reason: Insomnia Last Admin: 04/14/18 22:04 Dose: 50 mg Vitamin D (Vitamin D3) 1,000 unit PO DAILY [facility] Last Admin: 04/15/18 09:20 Dose: 1,000 unit Medical - PN: A/P - Time Spent With Patient Total time spent is greater than 50% in coordination of care (as documented) at patient's floor/unit and/or counseling patient: 25 - 35 minutes (1) COPD with acute exacerbation Status: Acute Current Visit: Yes (2) Lymphedema Status: Acute Current Visit: Yes (3) Acute on chronic renal failure Status: Acute Current Visit: Yes (4) Uncontrolled hypertension Status: Acute Current Visit: Yes (5) Anemia Status: Acute Current Visit: Yes - Narrative A/P Narrative: Nephrology had relax fluid restriction, and his renal function stable. Leukocytosis secondary to steroid which has been finished it's course. He has responded well, to treatments and therapies, director social service working on discharge placement with rehab SNF
--- NOTE | 2018-04-15 10:28 | Discharge Summary ---
Medical - DS: Prov Patient information: Note initiated : 04/15/18 at 10:16 am Service Date, if different from initiated Date: [] Patient: Christine Pimentel 72 y/o M admitted on 04/12/18 for Shortness of Breath/ Dyspnea. Chief Complaint: [] Date of admission: 04/12/18 22:20 Discharge date: 04/15/18 Primary care physician: Sharif Coronel Admitting clinician: aDnisha Bynum Consults: 04/12/18 18:27 Consult to Physician [CONS] Stat Comment: Consulting Provider: Danisha Bynum Reason For Exam: Physician to Consult 04/13/18 09:48 Consult to Physician [CONS] Routine Comment: Consulting Provider: Gabe Claire Reason For Exam: Physician to Consult 04/13/18 10:10 Consult to Physician [CONS] Routine Comment: renal failure Consulting Provider: Aisha Benavides Reason For Exam: Physician to Consult 04/13/18 10:11 Consult to Physician [CONS] Routine Comment: worsening COPD Consulting Provider: Rubens Greenfield Reason For Exam: Physician to Consult Attending physician on discharge: Danisha Bynum Medical - DS: Meds - Discharge Medications Active and Home Medications: Home Medications Lancets [Comfort Lancets] 1 each MC TIDP PRN #90 each 09/24/15 [Rx Confirmed 08/20 Last Taken 01/26/18 08:00] gabapentin 100 mg capsule 100 mg PO TIDP PRN cap 05/13/17 [History Confirmed Last Taken 03/09/18 08:00] albuterol sulfate HFA 90 mcg/actuation aerosol inhaler 2 puff INHALATION .Q4-6H PRN #18 g 08/22/17 [Rx Confirmed 04/12/18 Last Taken Unknown] insulin detemir (U-100) 100 unit/mL (3 mL) subcutaneous pen 45 unit SUB-Q BID # 3 ml 08/30/17 [Rx Confirmed 04/12/18 Last Taken 03/09/18 08:00] glipizide ER 5 mg tablet, extended release 24 hr 5 mg PO QDAY #90 tab 09/14/17 [ Rx Confirmed 04/12/18 Last Taken 03/09/18 08:00] levothyroxine 75 mcg tablet 75 mcg PO QDAY #90 tab 09/22/17 [Rx Confirmed Last Taken 03/09/18 08:00] sitagliptin 50 mg tablet 50 mg PO QDAY #90 tab 10/31/17 [Rx Confirmed 04/12/18 Last Taken 03/09/18 08:00] ferrous gluconate 324 mg (36 mg iron) tablet 324 mg PO QDAY #90 tab 11/17/17 [ Rx Confirmed 04/12/18 Last Taken 03/09/18 08:00] lansoprazole 30 mg capsule,delayed release 30 mg PO QHS #90 cap 11/18/17 [Rx Confirmed 04/12/18 Last Taken 03/09/18 08:00] cholecalciferol (vitamin D3) 1,000 unit capsule 1,000 unit PO QDAY 01/10/18 [ History Confirmed 04/12/18 Last Taken 03/09/18 08:00] rosuvastatin 20 mg tablet 20 mg PO HS 01/10/18 [History Confirmed 04/12/18 Last Taken 03/09/18 08:00] B/L compression stockings (Knee high, 15-20mmHg) 1 unit TOPICAL PRN PRN [History Confirmed 04/12/18 Last Taken Unknown] Diaper,Brief,Adult, Disposable [Belted Pack] 0 unit TOPICAL .MEDSUPPLY PRN [History Confirmed 04/12/18 Last Taken 01/26/18 08:00] Fluticasone/Vilanterol [Breo Ellipta 200-25 Mcg INH] 2 inh INH DAILYP PRN [History Confirmed 04/12/18 Last Taken 01/26/18 08:00] Pen Needle, Diabetic [Unifine Pentips Plus] 0 unit SQ BID 01/26/18 [History Confirmed 04/12/18 Last Taken 01/26/18 21:00] citalopram 40 mg tablet 40 mg PO QDAY #90 tab 02/21/18 [Rx Confirmed 04/12/18 Last Taken 03/09/18 08:00] potassium 99 mg tablet 99 mg PO DAILY 02/23/18 [History Confirmed 04/12/18 Last Taken 03/09/18 08:00] spironolactone 25 mg tablet 25 mg PO QDAY tab 03/23/18 [History Confirmed 04/12 Last Taken Unknown] hydralazine 25 mg tablet 25 mg PO BID #60 tab 03/29/18 [Rx Confirmed 04/12/18 Last Taken Unknown] Sulfamethoxazole/Trimethoprim [Bactrim Ds] 1 tab PO BID #20 tab 04/06/18 [Rx Confirmed 04/12/18 Last Taken Unknown] ipratropium-albuterol 0.5 mg-3 mg(2.5 mg base)/3 mL nebulization soln 3 ml INHALATION Q2-4H PRN #180 ml 04/11/18 [Rx Confirmed 04/12/18 Last Taken Unknown] lorazepam 0.5 mg tablet 0.5 mg PO QDAY PRN #10 tab 04/11/18 [Rx Confirmed Last Taken Unknown] Blood Sugar Diagnostic [Contour] 0 strip .ROUTE .MEDSUPPLY 04/12/18 [History Confirmed 04/12/18 Last Taken Unknown] Bumetanide 2 mg PO BID 04/12/18 [History Confirmed 04/12/18 Last Taken Unknown] methylPREDNISolone [Medrol] 0 mg PO PER PKG DIR 04/12/18 [History Confirmed 08/20 Last Taken Unknown] Medical - DS: Hosp Hospital course: Mr. 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 He was sent to the ER, on follow-up visit with Dr. Greenfield, his information technology specialist, for concerning cardiac decompensation with fluid overload or pneumonia. His chest x -ray follow by CT without contrast show mild bilateral lower lobe atelectasis. His lab work showed no leukocytosis, or UTI, and his ABG and venous lactate, all confirm, acute progressive but slowly worsening hypoxemia with CO2 retention. His acute on chronic hypercapnic hypoxemic failure is an exacerbation of his COPD. He is admitted to telemetry, started BiPAP and IV Solu-Medrol with aerosol treatment. He responds to IV Solu-Medrol, bronchodilator and BiPAP treatment. Nephrology with Dr. Benavides is consulted for his CRF on Bumex diuretics, and Dr. Greenfield of pulmonary is also consult. Wound care with Dr. Claire consult for wound care to his bilateral lower extremity lymphedema. He has improve to a point that he can participate with PT and OT. Taper off the time BiPAP use (he does use BiPAP for sleep apnea). He and his decided to go to a rehab shelter facility for rehab. He is accepted to [facility]. He should follow with his PCP in 1-2 weeks, his ironer hand is Dr. Benavides his information technology specialist Dr. Greenfield, and call wound care center on Tuesday04/17/2018 for f/u appointment with Gabe Claire M.D. Discharge diagnosis: COPD with acute exacerbation Secondary discharge diagnosis: Lymphedema Acute on chronic renal failure Uncontrolled hypertension Anemia - Time Spent with Patient Total time spent providing and/or coordinating discharge services: Greater than 30 minutes Medical - DS: Exam - Constitutional Vitals: Vital Signs Temp Pulse Pulse Resp BP BP Pulse Ox 04/15/18 08:00 97.3 F 73 20 125/57 97 04/15/18 07:35 77 18 95 04/15/18 07:34 77 18 95 04/15/18 06:45 77 04/15/18 04:00 97.1 F 20 142/69 95 04/15/18 00:00 98.9 F 20 137/52 94 04/14/18 22:39 68 16 91 04/14/18 22:10 70 16 04/14/18 19:32 98.2 F 20 141/72 95 04/14/18 19:20 106 H 95 04/14/18 18:39 91 H 20 93 04/14/18 18:38 89 20 04/14/18 15:55 93 H 04/14/18 15:32 98 F 20 132/80 99 04/14/18 15:13 87 16 04/14/18 14:00 93 H 04/14/18 13:47 144 H 04/14/18 12:51 115 H 04/14/18 11:57 97.9 F 20 144/72 95 04/14/18 10:58 94 H Intake and Output 04/14/18 04/15/18 04/15/18 21:59 05:59 13:59 Intake Total 590 / 590 Output Total 200 / 200 1150 / 1150 525 / 525 Balance 390 / 390 -1150 / -1150 -525 / -525 Intake: Oral 590 / 590 Output: Urine Catheter Amount 200 / 200 1150 / 1150 525 / 525 Other: Meal HS snack Percent of Meal Consumed 100% Feeding Ability Independent Stool Size Small Large Stool Color Brown Brown Stool Consistency Judy Formed # Bowel Movements 1 1 # of times incontinent of 0 0 Bowels Weight 228 lb 14.4 oz General appearance: no acute distress - Head Head exam: Present: atraumatic, normocephalic - Eye Eye exam: Present: EOMI Pupils: Present: normal accommodation, PERRL - ENT ENT exam: Present: mucous membranes dry - Neck Neck exam: Present: full ROM. Absent: lymphadenopathy, meningismus - Respiratory Respiratory exam: Absent: accessory muscle use Additional comments: much improved air movement, no wheezes on O2NC - Cardiovascular Cardiovascular exam: Present: +S1, +S2. Absent: gallop, rubs - GI/Abdominal GI/Abdominal exam: Present: distended. Absent: guarding, rebound, tenderness Additional comments: distended habitus, positive bowel sound. - Extremities Exam Additional comments: lyphedema, much improve from admission, especially after Mcdonough insertion. - Neurological Exam Neurological exam: Present: alert, CN II-XII intact, oriented X3 - Skin Skin exam: Present: dry, intact, warm Medical - DS: Data Procedures and tests throughout hospitalization: CT chest wo [facility] Accession Number(s): [id number] CLINICAL INFORMATION: Abnormal chest x-ray, possible pneumonia COMPARISON: Chest x-ray dated 04/12/2018. Prior examinations dated 04/06/2018 and 0 626 TECHNIQUE: Axial noncontrast enhanced images through the chest. Sagittally and coronally reformatted images. MIP reformatted images. Contrast material was not administered due to elevated creatinine FINDINGS: Chest x-ray suggestive of left lower lobe consolidation. This is not identified on present examination. There is mild atelectasis at both lung bases. No focal parenchymal consolidation. No evidence for significant pneumonia. There is no centrilobular emphysema. No bronchiectasis. No pulmonary parenchymal mass. No pleural fluid. No pericardial fluid. There is calcified coronary artery disease. There is mild calcification in the thoracic aorta. No mediastinal or hilar adenopathy. No axillary adenopathy. The right hemidiaphragm is elevated. Upper abdomen is negative. There are bilateral renal cysts. No thoracic compression fracture. IMPRESSION: 1. Mild bilateral lower lobe atelectasis. 2. No parenchymal consolidation. No pneumonia 3. Elevated right hemidiaphragm is chronic 4. Calcified coronary artery disease The exam was performed using radiation dose optimization techniques including, but not limited to, automated exposure control, adjustment of the mA and/or kV according to patient size and use of iterative reconstruction technique. Interpreted and Authenticated by: Bhupendra Baldwin 04/12/18 Labs on day of discharge: Labs from last 24 hours 04/15/18 04/15/18 03:30 03:30 WBC 19.3 H RBC 3.71 L Hgb 11.7 L Hct 35.4 L MCV 95.3 MCH 31.5 MCHC 33.0 RDW 13.4 Plt Count 306 MPV 7.7 Gran % 80.8 H Lymph % (Auto) 11.4 L [place] % (Auto) 7.6 Eos % (Auto) 0 Baso % (Auto) 0.2 Gran # 15.6 H Lymph # (Auto) 2.2 [place] # (Auto) 1.5 H Eos # (Auto) 0 Baso # (Auto) 0 Sodium 138 Potassium 3.9 Chloride 93 L Carbon Dioxide 33 H Anion Gap 12.0 BUN 58 H Creatinine 2.5 H GFR Calculation 24 Glucose 128 H Calcium 9.1 Total Bilirubin < 0.2 AST 27 ALT 13 Alkaline Phosphatase 35 L Total Protein 6.8 Albumin 3.7 Globulin 3.1 Albumin/Globulin Ratio 1.2 Preliminary micro results at discharge 04/12/18 18:32 Blood Culture - Preliminary Blood 04/12/18 18:46 Blood Culture - Preliminary Blood Medical - DS: A/P - Patient/Caregiver Discharge Instructions Activity: as per physical therapy Diet: Low Sodium (2gm), Low Fat, Consistent Carbohydrate Additional Instructions: Follow-up with PCP in 1-[address] Benavides, nephrology Follow-up with Dr. Greenfield, pulmonary Lab work 2 times a week, Tuesday and , results to PCP and Dr. Benavides for review Mcdonough may be may be remove next week, depends on patient preference, please send UA prior to removal of Mcdonough patient or facility to call wound care center on Tuesday04/17/2018 for f/u appointment with Gabe Alethea M.D. Other Amb Orders: OT Discharge Order Location: Determined By Patient Physical Therapy at Discharge - General Location: Determined By Patient Complete Blood Count Location: Determined By Patient Comprehensive Metabolic Panel Location: Determined By Patient - Problem Maintenance (1) COPD with acute exacerbation Status: Acute (2) Lymphedema Status: Acute (3) Acute on chronic renal failure Status: Acute (4) Uncontrolled hypertension Status: Acute (5) Anemia Status: Acute Qualifiers: Anemia type: unspecified type Qualified Code(s): D64.9 - Anemia, unspecified - Follow up Plan Follow up with: Sharif Coronel MD [Primary Care Provider] - Disposition: Xfer SNF Prognosis: Fair Rehab Potential: Fair I certify that the patient requires SNF services: Yes (PT OT) Overall status at discharge: patient is progressing back to baseline
== END 2018-04-15 11:10 | DRG 190 ==
LOC: ED 17:18 → ICU 22:20
PROVIDERS: ADMIT Emergency Medicine; ATTEND Emergency Medicine

== ENCOUNTER 2021-04-25 22:23 | Inpatient (IN) ==
[2021-04-25] MEDS ORDERED: ONDANSETRON 4 MG/2 ML VIAL IV ONE (23:10)
[2021-04-25] MEDS ORDERED: 0.9 % SODIUM CHLORIDE 1,000 ML IV ONE (23:10)
[2021-04-25] MEDS ORDERED: LEVOFLOXACIN 750 MG/150 ML BAG IV ONE (23:13)
[2021-04-26 00:02] LABS: POC Creatinine 2.1 mg/dL (0.6-1.2)
[2021-04-26 00:18] LABS: Basophils # (Auto) 0.07 K/mcL (0.00-0.20); Basophils % (Auto) 0.4 % (0.0-2.0); Eosinophils # (Auto) 0.16 K/mcL (0.00-0.70); Eosinophils % (Auto) 0.9 % (0.0-7.0); Hematocrit 33.8 % (41.0-55.0); Hemoglobin 11.2 g/dL (13.5-16.5); Lymphocytes # (Auto) 1.88 K/mcL (1.50-4.80); Lymphocytes % (Auto) 10.5 % (15.0-49.0); Mean Cell Volume 96.6 fL (80.0-100.0); Mean Corpuscular HGB Conc 33.1 g/dL (31.0-36.0); Mean Platelet Volume 9.2 fL (7.4-10.4); Monocytes # (Auto) 1.34 K/mcL (0.10-0.90); Monocytes % (Auto) 7.5 % (1.0-12.0); Neutrophils % (Auto) 80.7 % (38.0-78.0); Platelet Count 333 K/mcL (140-440); Red Cell Distribution Width 11.7 % (11.5-14.5); WBC 17.9 K/mcL (4.5-11.0)
[2021-04-26 00:26] LABS: ALT/SGPT 13 U/L (<40); AST/SGOT 18 U/L (<40); Albumin 3.9 gm/dL (3.2-5.2); Albumin/Globulin Ratio 1.1 (1.0-2.3); Alkaline Phosphatase 43 U/L (39-117); Bilirubin,Total 0.3 mg/dL (0.1-1.0); Blood Urea Nitrogen 22 mg/dL (8-23); Carbon Dioxide 34 mmol/L (22-30); Chloride 90 mmol/L (96-108); Globulin 3.5 gm/dL (2.2-3.7); Glomerular Filtration Rate 31; Glucose 222 mg/dL (70-105)
[2021-04-26] MEDS ORDERED: 0.9 % SODIUM CHLORIDE 1,000 ML IV ONE ×2 (00:53→00:54)
[2021-04-26 01:38] LABS: Appearance,Urine HAZY (Clear); Bilirubin,Urine Negative (Negative); Color,Urine YELLOW; Culture Indicated,Urine No; Glucose,Urine (UA) Negative (Negative); Ketones,Urine Negative (Negative); Leukocyte Esterase,Urine Negative /ug (Negative); Nitrate,Urine Negative (Negative); Protein,Urine 100 mg/dL (Negative); Specific Gravity,Urine 1.009 (1.000-1.035); Urine Blood 0.03 mg/dL (Negative); Urine RBC 2 /hpf (0-3); Urine Squamous Epithelial Cell 1 /hpf (0-4); Urine WBC 1 /hpf (0-4); Urobilinogen,Urine Negative
--- NOTE | 2021-04-26 02:08 | Emergency Department Note ---
Weakness HPI General Chief complaint: Weakness Stated complaint: weakness Time Seen by Provider: 04/25/21 22:41 Source: patient and EMS Mode of arrival: EMS Limitations: no limitations History of Present Illness HPI Narrative: Narrative: 75-year-old male presents to the emergency department because of generalized we akness. He states that he has been having cold spells with shaking. Today he had diarrhea x8 along with nausea. Feels weak. For. He was unable to stand or walk because of his symptoms. States he had to use his nebulizer because of difficulty breathing. States he has COPD. States these are associated with a fever and a fast heart rate. Symptoms began about 3 PM Tuesday. Nothing makes it better or worse. Symptoms are constant. Not associated with any unusual barbecue or outdoor eating. His is not sick. He does have shortness of breath. Onset (ago): unknown (3 PM Tuesday.) Duration: constant Severity: moderate Improves with: none Worsens with: none Associated symptoms: Reports fever/chills Related Data Home Medications Medication Instructions Recorded Confirmed cholecalciferol (vitamin D3) 25 1,000 unit PO QDAY 01/10/18 04/15/21 mcg (1,000 unit) capsule B/L compression stockings (Knee 1 unit TOPICAL PRN PRN 01/26/18 04/15/21 high, 15-20mmHg) albuterol sulfate [Ventolin HFA] 2 puff INHALATION Q6H PRN 04/26/21 04/26/21 bumetanide 2 mg PO BID 04/26/21 04/26/21 diltiazem HCl [Cartia XT] 120 mg PO QDAY 04/26/21 04/26/21 insulin lispro [Humalog KwikPen 24 unit SUB-Q TID 04/26/21 04/26/21 Insulin] torsemide 100 mg PO QDAY 04/26/21 04/26/21 Previous Rx's Medication Instructions Recorded lancets #90 each 09/24/15 insulin syringe-needle U-100 1 mL #100 each 11/23/18 31 gauge x 02/15" ferrous gluconate 324 mg (36 mg 324 mg PO QDAY #90 tab 10/22/19 iron) tablet blood sugar diagnostic #100 each 04/22/20 Wheelchair Ramp #1 ea 09/19/20 rosuvastatin 20 mg tablet 20 mg PO QHS #90 tab 11/11/20 citalopram 40 mg tablet 40 mg PO QDAY #90 tab 12/11/20 eplerenone 50 mg tablet 50 mg PO QDAY #90 tab 12/11/20 pantoprazole 40 mg tablet,delayed 40 mg PO QDAY #90 tab 12/11/20 release blood-glucose sensor #3 ea 01/01/21 blood-glucose transmitter #1 ea 01/01/21 pen needle, diabetic 32 gauge x #100 each 01/13/2102/15" linagliptin 5 mg tablet 5 mg PO QAM #90 tab 02/10/21 levothyroxine 75 mcg tablet 75 mcg PO QDAY #90 tab 04/21/21 insulin detemir U-100 100 unit/mL 50 unit SUB-Q BID #90 ml 04/23/21 (3 mL) subcutaneous pen Allergies Allergy/AdvReac Type Severity Reaction Status Date / Time codeine Allergy Severe shortness Verified 04/25/21 22:28 of breath ketamine Allergy Severe Difficulty Verified 04/25/21 22:28 Breathing Metolazone Allergy Intermediate hives Verified 04/25/21 22:28 Thiazides Allergy Mild Itching Verified 04/25/21 22:28 and redness atorvastatin Allergy Unknown Other Verified 04/25/21 22:28 pravastatin Allergy Unknown Other Verified 04/25/21 22:28 mirabegron [From Myrbetriq] AdvReac Severe difficulty Verified 04/25/21 22:28 breathing brompheniramine [From V-Hist] AdvReac Intermediate hand and Verified 04/25/21 22:28 arm cramping phenylephrine [From V-Hist] AdvReac Intermediate hand and Verified 04/25/21 22:28 arm cramping valsartan AdvReac Intermediate Hand and Verified 04/25/21 22:28 arm pain Buspirone AdvReac Mild Intolerance Verified 04/25/21 22:28 morphine AdvReac Mild Itching Verified 04/25/21 22:28 linagliptin [From Tradjenta] AdvReac Blistering Verified 04/25/21 22:28 to lower extremities Remedy skin repair cream Allergy Itching Uncoded 03/11/21 09:58 Review of Systems ROS ROS Narrative: Narrative: Constitutional: Reports chills and weakness ENT ED: Denies throat pain Cardiovascular: Denies chest pain Respiratory: Reports shortness of breath Gastrointestinal: Reports nausea and diarrhea Musculoskeletal: Reports back pain (Chronic) Integumentary: Denies rash Neurological: Denies headache Psychiatric: Denies anxiety Hematological/Lymphatic: Denies easy bleeding Allergic/Immunologic: Denies facial swelling PFSH Narrative Patient History Narrative: Narrative: Medical/Surgical/Family History All Active Problems (Updated 04/26/21 @ 02:44 by Ti Buchanan MD) Acute onset sepsis (Acute) Right lower lobe pneumonia (Acute) Lower extremity edema (Acute) Poor balance (Acute) Anxiety (Chronic) History of asthma (Chronic) Back pain (Chronic) Quinn's esophagus (Chronic) Other cardiomyopathies (Chronic) Chronic kidney disease, stage III (moderate) (Chronic) COPD (chronic obstructive pulmonary disease) (Chronic) Congestive heart failure (Chronic) Cough (Chronic) Depression (Chronic) Diabetes mellitus, type II (Chronic) Dyspnea (Chronic) Edema (Chronic) GERD (gastroesophageal reflux disease) (Chronic) Hyperlipidemia (Chronic) Hypertension, essential (Chronic) Hypothyroidism (Chronic) Obstructive sleep apnea (adult) (pediatric) (Chronic) Osteoarthrosis, shoulder region (Chronic) Rotator cuff tear (Chronic) Schatzki's ring (Chronic) Sciatica (Chronic) Shortness of breath (Chronic) Sleep apnea (Chronic) Sleep disorder, nonorganic (Chronic) Testicular hypofunction (Chronic) Venous insufficiency (Chronic) Vitamin D deficiency (Chronic) Anemia (Chronic) Hyperparathyroidism due to renal insufficiency (Chronic) Hypertensive renal disease (Chronic) Hypoxemia (Chronic) Persistent proteinuria (Chronic) CKD (chronic kidney disease) stage 3, GFR 30-59 ml/min (Chronic) Stasis dermatitis of both legs (Chronic) Skin abnormalities (Chronic) Hypoxia (Chronic) 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, with long-term current use of insulin (Chronic) ELLIE treated with BiPAP (Chronic) Uncontrolled type 2 diabetes mellitus with stage 3 chronic kidney disease, with long-term current use of insulin (Chronic) Lower extremity edema (Chronic) Chronic renal insufficiency (Chronic) Adverse effects of medication (Acute) Obesity (BMI 30-39.9) (Chronic) Oxygen dependent (Chronic) Fall (on) (from) other stairs and steps, initial encounter (Acute) Concussion with loss of consciousness (Acute) Hyponatremia (Acute) Elevated WBC count (Acute) Contusion of left knee (Acute) Constipation (Acute) Acute alcohol intoxication (Acute) Hypertension associated with stage 4 chronic kidney disease due to type 2 diabetes mellitus (Chronic) Heart failure with left ventricular ejection fraction greater than or equal to 50 percent (Chronic) Diastolic CHF, chronic (Chronic) Non-nephrotic range proteinuria (Chronic) Constipation (Acute) Chronic pain of right knee (Acute) Fall (Acute) Skin tear (Acute) Hip pain (Acute) Fall from slip, trip, or stumble (Acute) Left rib fracture (Acute) Closed chip fracture of left triquetrum with routine healing (Acute) Contusion of left thigh (Acute) Acute strain of neck muscle (Acute) Low back strain (Acute) Fall (on) (from) other stairs and steps, initial encounter (Acute) Injury of shoulder, right (Acute) Adhesive capsulitis of right shoulder (Acute) Rotator cuff tear arthropathy of right shoulder (Acute) Medicare annual wellness visit, subsequent (Acute) Annual physical exam (Acute) Obesity (Acute) Medical History Abdominal pain Acute exacerbation of chronic obstructive airways disease Acute on chronic renal failure Adhesive capsulitis of right shoulder Adverse effects of medication Nausea due either to metformin or spironolactone. Esophageal web prevents vomiting but he had problems with dry heaving and no p.o. intake earlier in the month when he was in the emergency room. => Tolerating eplerenone in place of aldactone. Constipation is probably a result of his diltiazem or may be iron therapy,=> D/C diltiazem January 2021 Anemia Anesthesia complication Annual physical exam Anxiety Back pain Quinn's esophagus Cellulitis Cellulitis of both lower extremities Cellulitis of leg without foot, left CHF (congestive heart failure) Chronic kidney disease, stage III (moderate) Baseline creatinine is around 2 and despite long-standing diabetes I suspect this is diabetic nephropathy with hypertensive or vascular disease given the near nephrotic range amounts of proteinuria Chronic renal insufficiency Congestive heart failure on lasix and spironolactone still has mild edema advised to reduce sodium intake ct current meds he will follow with cardiology tomorrow, will follow the recs Constipation COPD (chronic obstructive pulmonary disease) COPD exacerbation COPD exacerbation COPD exacerbation COPD with acute exacerbation COPD with exacerbation Cough Depression Diabetes mellitus type II, uncontrolled Diabetes mellitus, type II consider holding metformin if renal function does not improve discussed need for optimal DM control to prevent progressive renal disease Diastolic CHF, chronic pLVEF and no valve issue Pulmonary HTN with continuous O2 Dyspnea Edema Pulmonary HTN and sodium avid renal state +/- vasodilators Proteinuria is non-nephrotic No cirrhosis, pLVEF Edema Generalized edema GERD (gastroesophageal reflux disease) Heart failure with left ventricular ejection fraction greater than or equal to 50 percent Suspect pulmonary HTN as well. Metolazone, bumetanide and eplerenone for volume/edema Diltiazem for BP and HR control plus the antiproteinuric / renoprotective effect. Hematuria History of asthma Hyperglycemia due to type 2 diabetes mellitus Hyperglycemia, drug-induced Hyperlipidemia Hyperparathyroidism due to renal insufficiency Hypertension associated with stage 4 chronic kidney disease due to type 2 diabetes mellitus Near nephrotic range proteinuria with edema and nl proBNP GFR labile and depends on volume status Hypertension, essential Hypertensive renal disease BP at goal ct current medications Hypokalemia due to loss of potassium Hyponatremia Hypothyroidism Hypoxemia Hypoxia Intradermal melanocytic nevus 05/08/2015 - Dr. Diaz: Right Ear Canal Leg pain Lower extremity edema Lower extremity edema Probably a combination of pulmonary disease and proteinuria with decreased GFR Continue loop and aldosterone antagonist diuretics. He seems to be allergic to thiazides so NO Metolazone. Lower extremity edema Lymphedema Medicare annual wellness visit, subsequent Obesity Obesity (BMI 30-39.9) Obstructive sleep apnea (adult) (pediatric) ELLIE treated with BiPAP Osteoarthrosis, shoulder region (08/28/14-Dr Dean)Left Other cardiomyopathies Oxygen dependent due to chronic COPD, etc. Paralyzed hemidiaphragm right side Persistent proteinuria Diltiazem and Spironolactone Increase spironolactone as tolerated by K and GFR Pneumonia 06/2013 Poor balance Pruritus Rotator cuff tear (08/28/14-Margarito)Left partial tear Schatzki's ring Sciatica Shortness of breath Skin abnormalities Epidermal / Dermal skin tears Grade 1-2 , now ulcers. Covered with slough. Lymphedema of both legs. For conservative wound care. Dressing changes after MIST treatments and topical bactroban ointment. Will follow patietn while in hospital and later at wound care clinic. Sleep apnea Sleep disorder, nonorganic Stasis dermatitis of both legs Testicular hypofunction Uncontrolled hypertension Uncontrolled type 2 diabetes mellitus with stage 3 chronic kidney disease, with long-term current use of insulin Approaching near nephrotic range proteinuria Diltiazem for now Urinary incontinence with continuous leakage Venous insufficiency Vitamin D deficiency Volume overload Surgical History History of appendectomy 2003 History of back surgery 1984 & 2001 x2, [facility]-1983, [facility]-2001 & [facility] [place] History of bronchoscopy History of cardiac catheterization 2012 History of colonoscopy 04/15/2015 - Dr. José - Incomplete bowel prep, Incomplete Colonoscopy History of esophagogastroduodenoscopy (01/31/14) Schatzki's Ring, Quinn's Esophagus History of prostate surgery History of tonsillectomy 2009 [facility] S/P skin biopsy 05/08/2015 - Dr. Diaz: Right Ear Canal S/P skin biopsy (02/13/14) Right forearm: See path report Family History Unknown Allergic rhinitis Asthma Diabetes mellitus Essential hypertension Disorder of thyroid Brother Sleep apnea Social History Smoking Status: Former smoker Alcohol Intake Frequency: a few times a week Substance Use: does not use Exam Narrative Narrative: Narrative: Well-developed morbidly obese elderly male lying in bed in moderate acute distress. He is tachycardic with a heart rate of one eighteen febrile with a temperature of 99.9 and tachypneic with respiratory rate of twenty-one. Pulse ox is 96% on room air. Blood pressure normal or elevated. General Limitations: no limitations General appearance: Present alert and in distress Head Head: Present atraumatic and normocephalic Eye Eye: Present PERRL and EOMI ENT ENT: Present mucous membranes moist Neck Neck: Present normal inspection Chest Chest: Present normal inspection Respiratory Respiratory: Present normal lung sounds bilaterally (I heard no wheezing and no rails on auscultation.); Absent wheezes Cardiovascular Cardiovascular: Present tachycardia Adbominal Abdominal: Present soft and other (Obese) Extremities Extremities: Present normal inspection and full ROM Back Back: Present tenderness (But patient states it is chronic) Neurological Neurological: Present alert and oriented X3 Psychiatric Psychiatric: Present normal affect Skin Skin: Present warm (WNL) Course Reevaluation(s) Reevaluation #1: Patient's heart rate after 3 L normal saline bolus was still in the one hundred ten range. I reviewed the results of the CT scan of the abdomen and pelvis which were unremarkable for the abdomen and pelvis but suggested a right bronchopneumonia. Time: 01:40 Consultations Consultation #1: consults Hospitalist Dr. Adhikari Discussed the patient's sepsis and likely source of that being right lower lobe pneumonia. Discussed the patient's insulin usage as a diabetic. Patient will be admitted to the hospital on IV antibiotics Time: 02:35 Vital Signs Vital signs: Vital Signs Temperature 99.9 F H 04/25/21 22:25 Pulse Rate 116 H 04/25/21 22:25 Respiratory Rate 17 04/25/21 22:25 Blood Pressure 171/103 04/25/21 22:25 Pulse Oximetry (%) 96 04/25/21 22:25 Temperature 99.9 F H 04/25/21 22:25 Pulse Rate 106 H 04/26/21 02:52 Respiratory Rate 18 04/26/21 02:52 Blood Pressure 188/93 04/26/21 02:16 Pulse Oximetry (%) 98 04/26/21 02:52 MDM MDM Narrative Medical decision making narrative: Narrative: 75-year-old morbidly obese type II diabetic presents to the emergency department with chills and shakes along with shortness of breath that started relatively suddenly around 3 PM on TuesdayApril 25. Patient developed significant weakness and for a time was unable to walk because of that. He presents to the emerge department with his for further care. Differential diagnosis for weakness was vast but the patient came in tachycardic at 118 in with a fever of 99.9 make me suspicious for sepsis. There was no obvious immediate source for the sepsis after my physical exam. He did have nausea and diarrhea but his abdomen was not exquisitely tender. Urine looked clear. Finding no source but with a very high white count of 17.9 I elected to do a CT scan to see if there was any pathology in the abdomen pelvis to explain his sepsis. CT scan was read by the radiologist as showing possible right bronchopulmonary pneumonia but no other acute pathology. Patient sepsis was recognized at first evaluation and the patient had blood cultures obtained followed by Levaquin 750 mg antibiotics for sepsis. Patient was 100 kg so was bolused 3 L of normal saline. Patient has a source for infection, the lung and he has tachycardia greater than 110 throughout his stay along with respiratory rate of 21. He did not meet the criteria for severe sepsis. Blood pressure was in the 170s over 100 range. Pulse ox was 96%. Platelet count was 330. Based on the patient's sepsis along with his high age and a persistent tachycardia patient will be admitted to the hospital under the care of the hospi talist. Patient has a very real possibility of decompensating. Creatinine was 2.0 but that was secondary to end-stage renal disease I believe. Lab Data Result diagrams: 04/25/21 23:49 04/25/21 23:48 Labs: Lab Results 04/25/21 04/25/21 04/25/21 Range/Units 23:48 23:48 23:49 WBC 17.9 H (4.5-11.0) K/mcL RBC 3.50 L (4.50-5.90) M/mcL Hgb 11.2 L (13.5-16.5) g/dL Hct 33.8 L (41.0-55.0) % MCV 96.6 (80.0-100.0) fL MCH 32.0 (26.0-34.0) pg MCHC 33.1 (31.0-36.0) g/dL RDW 11.7 (11.5-14.5) % Plt Count 333 (140-440) K/mcL MPV 9.2 (7.4-10.4) fL Neut % (Auto) 80.7 H (38.0-78.0) % Lymph % (Auto) 10.5 L (15.0-49.0) % [place] % (Auto) 7.5 (1.0-12.0) % Eos % (Auto) 0.9 (0.0-7.0) % Baso % (Auto) 0.4 (0.0-2.0) % Lymph # (Auto) 1.88 (1.50-4.80) K/mcL [place] # (Auto) 1.34 H (0.10-0.90) K/mcL Eos # (Auto) 0.16 (0.00-0.70) K/mcL Baso # (Auto) 0.07 (0.00-0.20) K/mcL Absolute Neutrophils 14.49 H (1.80-8.00) K/mcL VBG Lactic Acid 1.5 (0.5-2.0) mmol/L Sodium 134 (133-145) mmol/L Potassium 4.0 (3.3-5.1) mmol/L Chloride 90 L (96-108) mmol/L Carbon Dioxide 34 H (22-30) mmol/L Anion Gap 10.0 (8.0-16.0) BUN 22 (8-23) mg/dL Creatinine 2.0 H (0.7-1.2) mg/dL POC Creatinine 2.1 H (0.6-1.2) mg/dL GFR Calculation 31 Glucose 222 H (70-105) mg/dL Calcium 9.0 (8.6-10.4) mg/dL Total Bilirubin 0.3 (0.1-1.0) mg/dL AST 18 (<40) U/L ALT 13 (<40) U/L Alkaline Phosphatase 43 (39-117) U/L Total Protein 7.4 (5.9-8.4) gm/dL Albumin 3.9 (3.2-5.2) gm/dL Globulin 3.5 (2.2-3.7) gm/dL Albumin/Globulin Ratio 1.1 (1.0-2.3) Urine Color Urine Appearance (Clear) Urine pH (5.0-9.0) Ur Specific [place] (1.000-1.035) Urine Protein (Negative) mg/dL Urine Glucose (UA) (Negative) mg/dL Urine Ketones (Negative) mg/dL Urine Occult Blood (Negative) mg/dL Urine Nitrate (Negative) Urine Bilirubin (Negative) mg/dL Urine Urobilinogen mg/dL Ur Leukocyte Esterase (Negative) /ug Urine RBC (0-3) /hpf Urine WBC (0-4) /hpf Ur Squamous Epith Cells (0-4) /hpf Urine Bacteria (0) /hpf Ur Culture Indicated? 04/26/21 Range/Units 00:42 WBC (4.5-11.0) K/mcL RBC (4.50-5.90) M/mcL Hgb (13.5-16.5) g/dL Hct (41.0-55.0) % MCV (80.0-100.0) fL MCH (26.0-34.0) pg MCHC (31.0-36.0) g/dL RDW (11.5-14.5) % Plt Count (140-440) K/mcL MPV (7.4-10.4) fL Neut % (Auto) (38.0-78.0) % Lymph % (Auto) (15.0-49.0) % [place] % (Auto) (1.0-12.0) % Eos % (Auto) (0.0-7.0) % Baso % (Auto) (0.0-2.0) % Lymph # (Auto) (1.50-4.80) K/mcL [place] # (Auto) (0.10-0.90) K/mcL Eos # (Auto) (0.00-0.70) K/mcL Baso # (Auto) (0.00-0.20) K/mcL Absolute Neutrophils (1.80-8.00) K/mcL VBG Lactic Acid (0.5-2.0) mmol/L Sodium (133-145) mmol/L Potassium (3.3-5.1) mmol/L Chloride (96-108) mmol/L Carbon Dioxide (22-30) mmol/L Anion Gap (8.0-16.0) BUN (8-23) mg/dL Creatinine (0.7-1.2) mg/dL POC Creatinine (0.6-1.2) mg/dL GFR Calculation Glucose (70-105) mg/dL Calcium (8.6-10.4) mg/dL Total Bilirubin (0.1-1.0) mg/dL AST (<40) U/L ALT (<40) U/L Alkaline Phosphatase (39-117) U/L Total Protein (5.9-8.4) gm/dL Albumin (3.2-5.2) gm/dL Globulin (2.2-3.7) gm/dL Albumin/Globulin Ratio (1.0-2.3) Urine Color Yellow Urine Appearance Hazy A (Clear) Urine pH 5.0 (5.0-9.0) Ur Specific [place] 1.009 (1.000-1.035) Urine Protein 100 A (Negative) mg/dL Urine Glucose (UA) Negative (Negative) mg/dL Urine Ketones Negative (Negative) mg/dL Urine Occult Blood 0.03 (Negative) mg/dL Urine Nitrate Negative (Negative) Urine Bilirubin Negative (Negative) mg/dL Urine Urobilinogen Negative mg/dL Ur Leukocyte Esterase Negative (Negative) /ug Urine RBC 2 (0-3) /hpf Urine WBC 1 (0-4) /hpf Ur Squamous Epith Cells 1 (0-4) /hpf Urine Bacteria None (0) /hpf Ur Culture Indicated? No ED POC Tests ED POC Tests: ALISTAIR - Influenza A Negative ALISTAIR - Influenza B Negative ALISTAIR - SARS Antigen Negative EKG Data EKG #1: EKG attestation: Yes I reviewed and interpreted this EKG. EKG shows normal: sinus rhythm Rate: tachycardia [place]/QRS: normal Heart block present: None ST segment elevation in: None ST segment depression in: v5 and v6 Discharge Plan Patient/Caregiver Discharge Instructions Pt seen by ELECTRICAL MAINTENANCE MECHANIC/PA only: No Clinical Impression: Acute onset sepsis Right lower lobe pneumonia Qualifiers: Pneumonia type: due to unspecified organism Qualified Code(s): J18.9 - Pneumonia, unspecified organism Activity: as instructed Activity Restrictions/Additional Instructions: To be admitted to the hospital with a diagnosis of sepsis Patient Disposition: Xfer As Inpt ([facility]) Condition: Serious Follow up with: Sharif Coronel MD [Primary Care Provider] - Prescriptions: No Action (DME) insulin syringe-needle U-100 [BD Insulin Syringe Ultra-Fine] 1 mL 31 gauge x 5/16 syringe See Dose Instructions .ROUTE .MEDSUPPLY Qty: 100 RF: 5 ferrous gluconate 324 mg (36 mg iron) tablet 324 mg PO QDAY Qty: 90 RF: 1 Hold Instructions: Doctor's Order (DME) FreeStyle Lite Strips Strip See Dose Instructions .ROUTE .MEDSUPPLY Qty: 100 RF: 11 (DME) Wheelchair Ramp Qty: 1 RF: 0 rosuvastatin [Crestor] 20 mg tablet 20 mg PO QHS Qty: 90 RF: 1 Hold Instructions: Doctor's Order pantoprazole [Protonix] 40 mg tablet,delayed release (DR/EC) 40 mg PO QDAY Qty: 90 RF: 1 citalopram [Celexa] 40 mg tablet 40 mg PO QDAY Qty: 90 RF: 1 eplerenone 50 mg tablet 50 mg PO QDAY Qty: 90 RF: 3 Hold Instructions: Doctor's Order (DME) Dexcom G6 Sensor Device See Rx Instructions .ROUTE .MEDSUPPLY Qty: 3 RF: 3 (DME) Dexcom G6 Transmitter Device See Rx Instructions .ROUTE .MEDSUPPLY Qty: 1 RF: 1 (DME) Comfort EZ Pen [place] 32 gauge x 5/16" needle See Dose Instructions .ROUTE .MEDSUPPLY Qty: 100 RF: 11 Tradjenta 5 mg tablet 5 mg PO QAM Qty: 90 RF: 1 Hold Instructions: Doctor's Order levothyroxine [Synthroid] 75 mcg tablet 75 mcg PO QDAY Qty: 90 RF: 1 Levemir FlexTouch U-100 Insuln 100 unit/mL (3 mL) insulin pen 50 unit SUB-Q BID Qty: 90 RF: 1 fluticasone furoate-vilanterol [Breo Ellipta] 200-25 mcg/dose blister with device 200 inh inhalation DAILY RF: 0 cholecalciferol (vitamin D3) 1,000 unit capsule 1,000 unit PO QDAY RF: 0 (DME) lancets 1 EACH misc 1 each MC TIDP Qty: 90 RF: 11 B/L compression stockings (Knee high, 15-20mmHg) 1 unit TOPICAL PRN PRN (Reason: Edema) RF: 0 bumetanide 2 mg Tablet 2 mg PO BID RF: 0 diltiazem HCl [Cartia XT] 120 mg Capsule,Extended Release 24hr 120 mg PO QDAY RF: 0 albuterol sulfate [Ventolin HFA] 90 mcg/actuation Hfa Aerosol Inhaler 2 puff INHALATION Q6H PRN (Reason: Shortness Of Breath) RF: 0 insulin lispro [Humalog KwikPen Insulin] 100 unit/mL insulin pen 24 unit SUB-Q TID RF: 0 torsemide 100 mg Tablet 100 mg PO QDAY RF: 0
[2021-04-26] MEDS ORDERED: ONDANSETRON 4 MG/2 ML VIAL IV PRN ×2 (02:45→08:54)
[2021-04-26] MEDS ORDERED: ALBUTEROL SULFATE 2.5 MG/3 ML NEBULIZER NEB PRN (02:50)
[2021-04-26] MEDS ORDERED: DEXTROSE 50% 50 ML VIAL IV PRN ×2 (02:50→08:53)
[2021-04-26] MEDS ORDERED: DEXTROSE 31 GM ORAL.SUSP PO PRN ×2 (02:50→08:53)
[2021-04-26] MEDS ORDERED: hydrALAZINE 20 MG/ML VIAL IV PRN ×2 (03:46→09:19)
[2021-04-26] MEDS ORDERED: INSULIN LISPRO 1 UNIT/0.01 ML UNIT SQ SCH ×2 (07:30→11:30)
[2021-04-26] MEDS ORDERED: ALBUTEROL SULFATE 200 PUFF INHALER INH PRN (08:48)
[2021-04-26] MEDS ORDERED: IPRATROPIUM/ALBUTEROL 3 ML AMPUL.NEB NEB PRN (08:52)
[2021-04-26] MEDS ORDERED: ZOLPIDEM 5 MG TABLET PO PRN (09:00)
[2021-04-26] MEDS ORDERED: cefTRIAXone 1 GM in DEXTROSE 5% IN WATER 50 ML IV SCH (09:00)
[2021-04-26] MEDS ORDERED: ACETAMINOPHEN 325 MG TABLET PO PRN (09:00)
[2021-04-26] MEDS ORDERED: NON FORMULARY MEDICATION 1 DOSE MISCELL (Fluticasone Furoate-Vilanterol [Breo Ellipta] 200 inhalation SCH (09:00)
[2021-04-26] MEDS: Fluticasone Furoate-Vilanterol [Breo Ellipta] 200/25 mcg Inhaler INH SCH (09:00)
[2021-04-26] MEDS ORDERED: BUMETANIDE 1 MG TABLET PO SCH (09:00)
[2021-04-26] MEDS ORDERED: LOPERAMIDE 2 MG CAPSULE PO PRN (09:17)
--- NOTE | 2021-04-26 09:17 | Internal Med History&Physical ---
HPI History of Present Illness Patient information: Note initiated : 04/26/21 at 9:13 am Service Date, if different from initiated Date: [] Patient: Christine Pimentel a 75 y/o M admitted on 04/26/21 for weakness. Chief Complaint: [pneumonia] History of present illness: Mr. Pimnetel is a 75 year old M history of CHF, COPD, type 2 diabetes mellitus, essential hypertension, mixed dyslipidemia, GERD, hypothyroidism, chronic kidney disease stage IV, presenting with general body weakness, shakiness, and nonproductive cough. No prior similar episode. Patient denies recent travel or sick contact. Patient is vaccinated against Covid pneumonia. Over the past 3 to 4 days, patient is complaining of nonproductive cough. He is also complaining of increasing general body weakness and shakiness x1 day. He is also complaining of diarrhea of 8 episodes over the past days. He denies any subjective fever or chills or diaphoresis. He denies wheezing. He denies chest pain or palpitations or chest tightness. Vital signs at presentation significant for tachycardia and tachypnea with heart rate in the 1 teens and rate of breathing in the low 20s, respectively. No fever. Labs significant for leukocytosis with WBC 17.9. Lactic acid 1.5. Chest x-ray showing right lower lobe infiltrate suggestive of right lower lobe pneumonia. Constitutional Constitutional: Present weakness; Absent chills, excessive sweating, fatigue and fever(s) EENT Eyes: Absent blurry vision, change in vision, loss of vision and other visual disturbances Ears: Absent decreased hearing and tinnitus Nose, mouth and throat: Absent abnormal hearing, dry mouth, headache(s), nasal congestion and sore throat Cardiovascular Cardiovascular: Absent chest pain, chest pain at rest, edema, irregular heart rhythm and palpatations Respiratory Respiratory: Present cough; Absent dyspnea and wheezing Gastrointestinal Gastrointestinal: Absent abdominal pain, constipation, diarrhea, nausea and vomiting Musculoskeletal Musculoskeletal: Absent back pain, deformity, limited range of motion, muscle cramps, muscle weakness and numbness Integumentary Integumentary: Absent lesions, rash and wounds Neurological Neurological: Absent focal weakness, headache(s) and numbness Additional comments: increased body shakiness Psychiatric Psychiatric: Absent anxiety, depression and hallucinations PFSH PFSH All Active Problems (Updated 04/26/21 @ 09:18 by Mark Hager MD) Diarrhea (Acute) Acute onset sepsis (Acute) Right lower lobe pneumonia (Acute) Lower extremity edema (Acute) Poor balance (Acute) Anxiety (Chronic) History of asthma (Chronic) Back pain (Chronic) Quinn's esophagus (Chronic) Other cardiomyopathies (Chronic) Chronic kidney disease, stage III (moderate) (Chronic) COPD (chronic obstructive pulmonary disease) (Chronic) Congestive heart failure (Chronic) Cough (Chronic) Depression (Chronic) Diabetes mellitus, type II (Chronic) Dyspnea (Chronic) Edema (Chronic) GERD (gastroesophageal reflux disease) (Chronic) Hyperlipidemia (Chronic) Hypertension, essential (Chronic) Hypothyroidism (Chronic) Obstructive sleep apnea (adult) (pediatric) (Chronic) Osteoarthrosis, shoulder region (Chronic) Rotator cuff tear (Chronic) Schatzki's ring (Chronic) Sciatica (Chronic) Shortness of breath (Chronic) Sleep apnea (Chronic) Sleep disorder, nonorganic (Chronic) Testicular hypofunction (Chronic) Venous insufficiency (Chronic) Vitamin D deficiency (Chronic) Anemia (Chronic) Hyperparathyroidism due to renal insufficiency (Chronic) Hypertensive renal disease (Chronic) Hypoxemia (Chronic) Persistent proteinuria (Chronic) CKD (chronic kidney disease) stage 3, GFR 30-59 ml/min (Chronic) Stasis dermatitis of both legs (Chronic) Skin abnormalities (Chronic) Hypoxia (Chronic) 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, with long-term current use of insulin (Chronic) ELLIE treated with BiPAP (Chronic) Uncontrolled type 2 diabetes mellitus with stage 3 chronic kidney disease, with long-term current use of insulin (Chronic) Lower extremity edema (Chronic) Chronic renal insufficiency (Chronic) Adverse effects of medication (Acute) Obesity (BMI 30-39.9) (Chronic) Oxygen dependent (Chronic) Fall (on) (from) other stairs and steps, initial encounter (Acute) Concussion with loss of consciousness (Acute) Hyponatremia (Acute) Elevated WBC count (Acute) Contusion of left knee (Acute) Constipation (Acute) Acute alcohol intoxication (Acute) Hypertension associated with stage 4 chronic kidney disease due to type 2 diabetes mellitus (Chronic) Heart failure with left ventricular ejection fraction greater than or equal to 50 percent (Chronic) Diastolic CHF, chronic (Chronic) Non-nephrotic range proteinuria (Chronic) Constipation (Acute) Chronic pain of right knee (Acute) Fall (Acute) Skin tear (Acute) Hip pain (Acute) Fall from slip, trip, or stumble (Acute) Left rib fracture (Acute) Closed chip fracture of left triquetrum with routine healing (Acute) Contusion of left thigh (Acute) Acute strain of neck muscle (Acute) Low back strain (Acute) Fall (on) (from) other stairs and steps, initial encounter (Acute) Injury of shoulder, right (Acute) Adhesive capsulitis of right shoulder (Acute) Rotator cuff tear arthropathy of right shoulder (Acute) Medicare annual wellness visit, subsequent (Acute) Annual physical exam (Acute) Obesity (Acute) Medical History Abdominal pain Acute exacerbation of chronic obstructive airways disease Acute on chronic renal failure Adhesive capsulitis of right shoulder Adverse effects of medication Nausea due either to metformin or spironolactone. Esophageal web prevents vomiting but he had problems with dry heaving and no p.o. intake earlier in the month when he was in the emergency room. => Tolerating eplerenone in place of aldactone. Constipation is probably a result of his diltiazem or may be iron therapy,=> D/C diltiazem January 2021 Anemia Anesthesia complication Annual physical exam Anxiety Back pain Quinn's esophagus Cellulitis Cellulitis of both lower extremities Cellulitis of leg without foot, left CHF (congestive heart failure) Chronic kidney disease, stage III (moderate) Baseline creatinine is around 2 and despite long-standing diabetes I suspect this is diabetic nephropathy with hypertensive or vascular disease given the near nephrotic range amounts of proteinuria Chronic renal insufficiency Congestive heart failure on lasix and spironolactone still has mild edema advised to reduce sodium intake ct current meds he will follow with cardiology tomorrow, will follow the recs Constipation COPD (chronic obstructive pulmonary disease) COPD exacerbation COPD exacerbation COPD exacerbation COPD with acute exacerbation COPD with exacerbation Cough Depression Diabetes mellitus type II, uncontrolled Diabetes mellitus, type II consider holding metformin if renal function does not improve discussed need for optimal DM control to prevent progressive renal disease Diastolic CHF, chronic pLVEF and no valve issue Pulmonary HTN with continuous O2 Dyspnea Edema Pulmonary HTN and sodium avid renal state +/- vasodilators Proteinuria is non-nephrotic No cirrhosis, pLVEF Edema Generalized edema GERD (gastroesophageal reflux disease) Heart failure with left ventricular ejection fraction greater than or equal to 50 percent Suspect pulmonary HTN as well. Metolazone, bumetanide and eplerenone for volume/edema Diltiazem for BP and HR control plus the antiproteinuric / renoprotective effect. Hematuria History of asthma Hyperglycemia due to type 2 diabetes mellitus Hyperglycemia, drug-induced Hyperlipidemia Hyperparathyroidism due to renal insufficiency Hypertension associated with stage 4 chronic kidney disease due to type 2 diabetes mellitus Near nephrotic range proteinuria with edema and nl proBNP GFR labile and depends on volume status Hypertension, essential Hypertensive renal disease BP at goal ct current medications Hypokalemia due to loss of potassium Hyponatremia Hypothyroidism Hypoxemia Hypoxia Intradermal melanocytic nevus 05/08/2015 - Dr. Diaz: Right Ear Canal Leg pain Lower extremity edema Lower extremity edema Probably a combination of pulmonary disease and proteinuria with decreased GFR Continue loop and aldosterone antagonist diuretics. He seems to be allergic to thiazides so NO Metolazone. Lower extremity edema Lymphedema Medicare annual wellness visit, subsequent Obesity Obesity (BMI 30-39.9) Obstructive sleep apnea (adult) (pediatric) ELLIE treated with BiPAP Osteoarthrosis, shoulder region (08/28/14-Dr Dean)Left Other cardiomyopathies Oxygen dependent due to chronic COPD, etc. Paralyzed hemidiaphragm right side Persistent proteinuria Diltiazem and Spironolactone Increase spironolactone as tolerated by K and GFR Pneumonia 06/2013 Poor balance Pruritus Rotator cuff tear (08/28/14-Margarito)Left partial tear Schatzki's ring Sciatica Shortness of breath Skin abnormalities Epidermal / Dermal skin tears Grade 1-2 , now ulcers. Covered with slough. Lymphedema of both legs. For conservative wound care. Dressing changes after MIST treatments and topical bactroban ointment. Will follow patietn while in hospital and later at wound care clinic. Sleep apnea Sleep disorder, nonorganic Stasis dermatitis of both legs Testicular hypofunction Uncontrolled hypertension Uncontrolled type 2 diabetes mellitus with stage 3 chronic kidney disease, with long-term current use of insulin Approaching near nephrotic range proteinuria Diltiazem for now Urinary incontinence with continuous leakage Venous insufficiency Vitamin D deficiency Volume overload Surgical History History of appendectomy 2003 History of back surgery 1984 & 2001 x2, [facility]-1983, [facility]-2001 & [facility] at [facility] in [place] History of bronchoscopy History of cardiac catheterization 2012 History of colonoscopy 04/15/2015 - Dr. José - Incomplete bowel prep, Incomplete Colonoscopy History of esophagogastroduodenoscopy (01/31/14) Schatzki's Ring, Quinn's Esophagus History of prostate surgery History of tonsillectomy 2009 [facility] S/P skin biopsy 05/08/2015 - Dr. 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 other: Father D/C'd in /Mother D/C'd in 94 alcohol intake frequency: a few times a week substance use type: does not use MEDS/ALLERGIES Home Medications and Allergies Home Medications Medication Instructions Recorded Confirmed Type lancets #90 each 09/24/15 04/26/21 Rx cholecalciferol (vitamin D3) 25 1,000 unit PO QDAY 01/10/18 04/26/21 History mcg (1,000 unit) capsule B/L compression stockings (Knee 1 unit TOPICAL PRN PRN 01/26/18 04/26/21 History high, 15-20mmHg) insulin syringe-needle U-100 1 mL #100 each 11/23/18 04/26/21 Rx 31 gauge x 5/16" ferrous gluconate 324 mg (36 mg 324 mg PO QDAY #90 tab 10/22/19 04/26/21 Rx iron) tablet blood sugar diagnostic #100 each 04/22/20 04/26/21 Rx Wheelchair Ramp #1 ea 09/19/20 04/15/21 Rx rosuvastatin 20 mg tablet 20 mg PO QHS #90 tab 11/11/20 04/26/21 Rx citalopram 40 mg tablet 40 mg PO QDAY #90 tab 12/11/20 04/26/21 Rx eplerenone 50 mg tablet 50 mg PO QDAY #90 tab 12/11/20 04/26/21 Rx pantoprazole 40 mg tablet,delayed 40 mg PO QDAY #90 tab 12/11/20 04/26/21 Rx release blood-glucose sensor #3 ea 01/01/21 04/26/21 Rx blood-glucose transmitter #1 ea 01/01/21 04/26/21 Rx pen needle, diabetic 32 gauge x #100 each 01/13/21 04/26/21 Rx 5/16" linagliptin 5 mg tablet 5 mg PO QAM #90 tab 02/10/21 04/26/21 Rx levothyroxine 75 mcg tablet 75 mcg PO QDAY #90 tab 04/21/21 04/26/21 Rx insulin detemir U-100 100 unit/mL 50 unit SUB-Q BID #90 ml 04/23/21 04/26/21 Rx (3 mL) subcutaneous pen albuterol sulfate [Ventolin HFA] 2 puff INHALATION Q6H PRN 04/26/21 04/26/21 History bumetanide 2 mg PO BID 04/26/21 04/26/21 History diltiazem HCl [Cartia XT] 120 mg PO QDAY 04/26/21 04/26/21 History fluticasone furoate-vilanterol 1 inh INHALATION QDAY 04/26/21 04/26/21 History [Breo Ellipta] insulin lispro [Humalog KwikPen 24 unit SUB-Q TID 04/26/21 04/26/21 History Insulin] torsemide 100 mg PO QDAY 04/26/21 04/26/21 History Allergies Allergy/AdvReac Type Severity Reaction Status Date / Time codeine Allergy Severe shortness Verified 04/25/21 22:28 of breath ketamine Allergy Severe Difficulty Verified 04/25/21 22:28 Breathing mirabegron [From Myrbetriq] Allergy Severe difficulty Verified 04/26/21 08:38 breathing Metolazone Allergy Mild hives Verified 04/26/21 08:38 Thiazides Allergy Mild Itching Verified 04/25/21 22:28 and redness atorvastatin Allergy Unknown Unknown Verified 04/26/21 08:38 pravastatin Allergy Unknown Unknown Verified 04/26/21 08:38 linagliptin [From Tradjenta] AdvReac Intermediate Blistering Verified 04/26/21 0 9:04 to lower extremities phenylephrine [From V-Hist] AdvReac Intermediate hand and Verified 04/25/21 22:28 arm cramping brompheniramine [From V-Hist] AdvReac Mild hand and Verified 04/26/21 08:38 arm cramping Buspirone AdvReac Mild Intolerance Verified 04/25/21 22:28 morphine AdvReac Mild Itching Verified 04/25/21 22:28 valsartan AdvReac Mild Hand and Verified 04/26/21 08:38 arm pain Remedy skin repair cream Allergy Mild Itching Uncoded 04/26/21 09:04 EXAM Constitutional Vitals: Temp Pulse Resp BP Pulse Ox 36.8 C 96 H 21 154/84 97 04/26/21 06:24 04/26/21 06:24 04/26/21 06:24 04/26/21 06:24 04/26/21 06:24 General appearance: cooperative and no acute distress Head Head exam: Present atraumatic and normocephalic Eye Eye exam: Present EOMI and PERRL ENT ENT exam: Present mucous membranes moist, normal exam and normal external ear exam Additional comments: nasal cannula Neck Neck exam: Present normal inspection; Absent lymphadenopathy, tenderness and thyromegaly Respiratory Respiratory exam: Present rhonchi and wheezes; Absent accessory muscle use and respiratory distress Additional comments: Decreased breath sound more so in bilateral lung bases Cardiovascular Cardiovascular exam: Present normal rate and rhythm; Absent JVD GI/Abdominal GI/Abdominal exam: Present normal bowel sounds and soft; Absent organomegaly and tenderness Rectal Rectal exam: Present deferred Extremities Exam Extremities exam: Present full ROM, normal capillary refill and normal inspection; Absent tenderness Neurological Exam Neurological exam: Present alert, CN II-XII intact and oriented X3; Absent motor sensory deficit Psychiatric Psychiatric exam: Present normal affect and normal mood; Absent anxious and depressed Skin Skin exam: Present dry and intact DATA Data Completed and Pending Labs: Labs from last 24 hours 04/26/21 04/26/21 04/26/21 08:47 08:47 08:47 WBC Pending RBC Pending Hgb Pending Hct Pending MCV Pending MCH Pending MCHC Pending RDW Pending Plt Count Pending MPV Pending Neut % (Auto) Pending Lymph % (Auto) [place] % (Auto) Eos % (Auto) Baso % (Auto) Lymph # (Auto) [place] # (Auto) Eos # (Auto) Baso # (Auto) Absolute Neutrophils VBG Lactic Acid Sodium Pending Potassium Pending Chloride Pending Carbon Dioxide Pending Anion Gap Pending BUN Pending Creatinine Pending POC Creatinine GFR Calculation Pending Glucose Pending Hemoglobin A1c Pending Estim Average Glucose Pending Calcium Pending Total Bilirubin Pending AST Pending ALT Pending Alkaline Phosphatase Pending Total Protein Pending Albumin Pending Globulin Pending Albumin/Globulin Ratio Pending Urine Color Urine Appearance Urine pH Ur Specific [place] Urine Protein Urine Glucose (UA) Urine Ketones Urine Occult Blood Urine Nitrate Urine Bilirubin Urine Urobilinogen Ur Leukocyte Esterase Urine RBC Urine WBC Ur Squamous Epith Cells Urine Bacteria Ur Culture Indicated? 04/26/21 04/25/21 04/25/21 00:42 23:49 23:48 WBC 17.9 H RBC 3.50 L Hgb 11.2 L Hct 33.8 L MCV 96.6 MCH 32.0 MCHC 33.1 RDW 11.7 Plt Count 333 MPV 9.2 Neut % (Auto) 80.7 H Lymph % (Auto) 10.5 L [place] % (Auto) 7.5 Eos % (Auto) 0.9 Baso % (Auto) 0.4 Lymph # (Auto) 1.88 [place] # (Auto) 1.34 H Eos # (Auto) 0.16 Baso # (Auto) 0.07 Absolute Neutrophils 14.49 H VBG Lactic Acid 1.5 Sodium Potassium Chloride Carbon Dioxide Anion Gap BUN Creatinine POC Creatinine GFR Calculation Glucose Hemoglobin A1c Estim Average Glucose Calcium Total Bilirubin AST ALT Alkaline Phosphatase Total Protein Albumin Globulin Albumin/Globulin Ratio Urine Color Yellow Urine Appearance Hazy A Urine pH 5.0 Ur Specific [place] 1.009 Urine Protein 100 A Urine Glucose (UA) Negative Urine Ketones Negative Urine Occult Blood 0.03 Urine Nitrate Negative Urine Bilirubin Negative Urine Urobilinogen Negative Ur Leukocyte Esterase Negative Urine RBC 2 Urine WBC 1 Ur Squamous Epith Cells 1 Urine Bacteria None Ur Culture Indicated? No 04/25/21 23:48 WBC RBC Hgb Hct MCV MCH MCHC RDW Plt Count MPV Neut % (Auto) Lymph % (Auto) [place] % (Auto) Eos % (Auto) Baso % (Auto) Lymph # (Auto) [place] # (Auto) Eos # (Auto) Baso # (Auto) Absolute Neutrophils VBG Lactic Acid Sodium 134 Potassium 4.0 Chloride 90 L Carbon Dioxide 34 H Anion Gap 10.0 BUN 22 Creatinine 2.0 H POC Creatinine 2.1 H GFR Calculation 31 Glucose 222 H Hemoglobin A1c Estim Average Glucose Calcium 9.0 Total Bilirubin 0.3 AST 18 ALT 13 Alkaline Phosphatase 43 Total Protein 7.4 Albumin 3.9 Globulin 3.5 Albumin/Globulin Ratio 1.1 Urine Color Urine Appearance Urine pH Ur Specific [place] Urine Protein Urine Glucose (UA) Urine Ketones Urine Occult Blood Urine Nitrate Urine Bilirubin Urine Urobilinogen Ur Leukocyte Esterase Urine RBC Urine WBC Ur Squamous Epith Cells Urine Bacteria Ur Culture Indicated? A/P Assessment and plan (1) Diarrhea: Status: Acute (2) Acute onset sepsis: Status: Acute (3) Right lower lobe pneumonia: Status: Acute Qualifiers: Pneumonia type: due to unspecified organism Qualified Code(s): J18.9 - Pneumonia, unspecified organism (4) COPD (chronic obstructive pulmonary disease): Status: Chronic Qualifiers: COPD type: chronic bronchitis Chronic bronchitis type: simple Qualified Code(s): J41.0 - Simple chronic bronchitis (5) Depression: Status: Chronic (6) Anxiety: Status: Chronic (7) GERD (gastroesophageal reflux disease): Status: Chronic Qualifiers: Esophagitis presence: esophagitis presence not specified Qualified Code(s): K21.9 - Gastro-esophageal reflux disease without esophagitis (8) Hyperlipidemia: Status: Chronic (9) Hypothyroidism: Status: Chronic (10) 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 Metolazone, bumetanide and eplerenone for volume/edema Diltiazem for BP and HR control plus the antiproteinuric / renoprotective effect. (12) Diastolic CHF, chronic: Status: Chronic Comment: pLVEF and no valve issue Pulmonary HTN with continuous O2 Narrative A/P Narrative: Assessment and Plans: 1. Right lower lobe pneumonia with clinical sepsis: Admit to inpatient med surg Oxygen therapy via nasal cannula titrate to achieve spo2 >88-92% Serial lactic acid Blood culture X2 Rocephin Zithromax Tylenol Robitussin DM PRN cough cbc w/ auto diff in the morning to trend WBC 2. h/o CHF: Continue oral diuretics Saline lock Daily weigh and intake and output measurements 2L/day fluid restriction 3. h/o COPD: Continue home regimen of bronchodilators DuoNEB NEB q4hr PRN wheezing or SOB 4. T2DM: HgA1c Hold oral hypoglycemics Continue insulin therapy Accu Chek AC HS Hypoglycemia protocol Diabetic diet 5. GERD: Continue oral PPI 6. CKD4: Avoid nephrotoxic agents Saline lock Daily CMP to trend kidney functions 7. Hypothyroidism: Continue thyroid replacement therapy 8. Depression with anxiety: Citalopram 9. Mixed dyslipidemia: Continue statin therapy 10. Essential HTN: Hydralazine 10mg IV q4-6hr PRN SBP>=180 and/or DBP>=110mmHg Oral diuretics Diltiazem GI ppx: oral PPI DVT ppx: Heparin Code status: Full Prognosis: guarded Disposition: inpatient med surg Time Spent With Patient Time: Total time spent is greater than 50% in coordination of care (as documented) at patient's floor/unit and/or counseling patient: Total time spent with greater than 50% in coordination of care (as documented) at patient's floor/unit and/or counseling patient:: 25 - 35 minutes QUALITY VTE Deep Vein Thrombosis/Pulmonary Embolism Present on Admission: No
--- NOTE | 2021-04-26 09:20 | XRay Report ---
HISTORY: Chest pain and weakness FINDINGS: Lung volumes are small due to poor inspiration. There is asymmetric abnormal elevation of the right diaphragm. There is a vague opacity overlying the left heart border. These findings are unchanged from the prior study done on 08/30/19. The opacity in the left lower lobe could be scar or atelectasis. No acute infiltrate is present. There is no evidence of a mass or congestive heart failure. The heart is not enlarged. IMPRESSION: poor inspiration with chronic scar or atelectasis in the left lung base Interpreted and Authenticated by: Velasquez Dinh 04/26/21
[2021-04-26] MEDS ORDERED: guaiFENesin/DEXTROMETHORPHAN ORAL SOL PO PRN (09:26)
--- NOTE | 2021-04-26 09:30 | Cat Scan Report ---
History: Sepsis, nausea, vomiting, diarrhea, abdominal pain, stage III chronic kidney disease, COPD, CHF, smoker TECHNIQUE: The patient was imaged without contrast in axial plane at 2.5 mm intervals from above the diaphragm to the symphysis pubis. Sagittal and coronal reformats were created. Radiation exposure was limited using dose reduction technology. FINDINGS: Moderate gynecomastia is present bilaterally. There is a moderate-sized alveolar infiltrate in the right lower lobe. There are air bronchograms in the posterior basal segment. No pleural effusion is present. There are bands of pleural-based scar or atelectasis in the inferior segment of the lingula and inferiorly in the right middle lobe. Evaluation of the abdominal organs without contrast is somewhat limited. The liver and spleen are normal in size and homogeneous. There is a very small amount of sludge layering along the posterior wall of the gallbladder. Gallbladder wall is not thickened or inflamed and the bile ducts are nondilated. There is no evidence of a mass or inflammation in the pancreas. The adrenals are normal and symmetric. There are numerous cysts in both kidneys. Largest cyst extends exophytically laterally from the middle third of the right kidney and measures 5 cm. Some of the cysts in the left kidney have a thin curvilinear calcifications along the capsules. There is no kidney stone or hydronephrosis. No solid mass is identified in either kidney. The ureters are decompressed. No abnormality is seen in the urinary bladder. Prostate and seminal vesicles appear normal. Moderate amount calcified plaque is present along the wall of the aorta and iliac arteries. The aorta is normal in caliber. No adenopathy mass or ascites are present in the abdomen or pelvis. The bowel pattern is normal. The appendix has been removed. Severe disc space narrowing is present at L2-3 and L3-4 and L4-5 with milder narrowing at L5-S1. IMPRESSION: No acute abnormality in the abdomen or pelvis Right lower lobe pneumonia Bilateral renal cysts which were documented on a prior ultrasound done on 08/09/19 Interpreted and Authenticated by: Velasquez Dinh 04/26/21
[2021-04-26 09:33] LABS: ALT/SGPT 11 U/L (<40); AST/SGOT 16 U/L (<40); Albumin 3.4 gm/dL (3.2-5.2); Albumin/Globulin Ratio 1.1 (1.0-2.3); Alkaline Phosphatase 38 U/L (39-117); Bilirubin,Total 0.4 mg/dL (0.1-1.0); Blood Urea Nitrogen 19 mg/dL (8-23); Calcium 8.1 mg/dL (8.6-10.4); Carbon Dioxide 31 mmol/L (22-30); Chloride 96 mmol/L (96-108); Globulin 3.1 gm/dL (2.2-3.7); Glomerular Filtration Rate 35; Glucose 244 mg/dL (70-105)
[2021-04-26 09:42] LABS: Hemoglobin A1C 7.8 % Hgb (4.0-6.0)
[2021-04-26 09:44] LABS: Basophils # (Auto) 0.05 K/mcL (0.00-0.20); Basophils % (Auto) 0.4 % (0.0-2.0); Eosinophils % (Auto) 0.8 % (0.0-7.0); Hematocrit 29.2 % (41.0-55.0); Hemoglobin 9.9 g/dL (13.5-16.5); Lymphocytes % (Auto) 15.3 % (15.0-49.0); Mean Cell Volume 97.3 fL (80.0-100.0); Mean Corpuscular HGB Conc 33.9 g/dL (31.0-36.0); Mean Platelet Volume 8.9 fL (7.4-10.4); Monocytes # (Auto) 1.23 K/mcL (0.10-0.90); Monocytes % (Auto) 9.4 % (1.0-12.0); Neutrophils % (Auto) 74.1 % (38.0-78.0); Platelet Count 255 K/mcL (140-440); Red Cell Distribution Width 11.8 % (11.5-14.5)
[2021-04-26] MEDS: AZITHROMYCIN 500 MG in DEXTROSE 5% IN WATER 250 ML IV SCH (10:00)
[2021-04-26] MEDS: DILTIAZEM 120 MG CAP.XL.24H PO SCH (10:27)
[2021-04-26] MEDS: DOCUSATE SODIUM 100 MG CAPSULE PO SCH ×3 (10:27→21:44)
[2021-04-26] MEDS: HEPARIN 5,000 UNIT/ML VIAL SQ SCH ×2 (10:27→21:45)
[2021-04-26] MEDS: CITALOPRAM 20 MG TABLET PO SCH (10:28)
[2021-04-26] MEDS: INSULIN GLARGINE, HUMAN 1 UNIT/0.01 ML SQ SCH ×2 (10:32→21:45)
[2021-04-26] MEDS: PANTOPRAZOLE 40 MG TABLET PO SCH (10:39)
[2021-04-26] MEDS: cefTRIAXone 1 GM VIAL IV SCH (10:39)
[2021-04-26] MEDS: LEVOTHYROXINE 75 MCG TABLET PO SCH (10:39)
[2021-04-26] MEDS: TORSEMIDE 10 MG TABLET PO SCH (13:22)
[2021-04-26] MEDS: INSULIN LISPRO 1 UNIT/0.01 ML UNIT SQ SCH ×3 (13:36→21:44)
[2021-04-26] MEDS: 0.9 % SODIUM CHLORIDE 10 ML SYRINGE IV SCH ×2 (14:05→21:45)
--- NOTE | 2021-04-26 16:28 | EKG ---
[facility] Test Date: 2021-04-25 Pat Name: Christine Pimentel Department: ED Room: Gender: Male [employer] Correspondent: aw : 1945 Requested By: Ti Buchanan Order Number: [id number] Reading MD: Familia Banerjee M.D. Measurements Intervals Preemption Rate: 115 P: 71 VA: 172 QRS: -1 QRSD: 89 T: 66 QT: 324 QTc: 448 Interpretive Statements Sinus tachycardia Anterior infarct, old Minimal ST depression, lateral leads NO PRIOR TRACING FOR COMPARISON ABNORMAL ECG Electronically Signed On 04-26-2021 16:28:23 PDT by Familia Banerjee M.D. /store/[email or web address]/[id number]
[2021-04-26] MEDS ORDERED: SENNOSIDES 1 TABLET PO SCH (21:00)
[2021-04-26] MEDS: ROSUVASTATIN 20 MG PO SCH (21:46)
[2021-04-27] MEDS: 0.9 % SODIUM CHLORIDE 10 ML SYRINGE IV SCH ×3 (05:49→21:45)
[2021-04-27] MEDS: INSULIN LISPRO 1 UNIT/0.01 ML UNIT SQ SCH ×4 (07:33→21:44)
[2021-04-27 07:45] LABS: Basophils # (Auto) 0.05 K/mcL (0.00-0.20); Basophils % (Auto) 0.5 % (0.0-2.0); Eosinophils % (Auto) 2.1 % (0.0-7.0); Hematocrit 31.7 % (41.0-55.0); Hemoglobin 10.4 g/dL (13.5-16.5); Lymphocytes # (Auto) 1.89 K/mcL (1.50-4.80); Lymphocytes % (Auto) 20.2 % (15.0-49.0); Mean Cell Volume 98.8 fL (80.0-100.0); Mean Corpuscular HGB Conc 32.8 g/dL (31.0-36.0); Monocytes # (Auto) 0.95 K/mcL (0.10-0.90); Monocytes % (Auto) 10.1 % (1.0-12.0); Neutrophils % (Auto) 67.1 % (38.0-78.0); Platelet Count 287 K/mcL (140-440); RBC 3.21 M/mcL (4.50-5.90); Red Cell Distribution Width 11.7 % (11.5-14.5); WBC 9.4 K/mcL (4.5-11.0)
[2021-04-27 08:49] LABS: ALT/SGPT 11 U/L (<40); AST/SGOT 26 U/L (<40); Albumin 3.7 gm/dL (3.2-5.2); Albumin/Globulin Ratio 1.1 (1.0-2.3); Alkaline Phosphatase 39 U/L (39-117); Bilirubin,Total 0.2 mg/dL (0.1-1.0); Blood Urea Nitrogen 16 mg/dL (8-23); Carbon Dioxide 31 mmol/L (22-30); Chloride 94 mmol/L (96-108); Globulin 3.3 gm/dL (2.2-3.7); Glomerular Filtration Rate 35; Glucose 129 mg/dL (70-105)
[2021-04-27] MEDS ORDERED: FERROUS GLUCONATE 324 MG TABLET PO SCH (09:00)
[2021-04-27] MEDS: DILTIAZEM 120 MG CAP.XL.24H PO SCH (10:06)
[2021-04-27] MEDS: DOCUSATE SODIUM 100 MG CAPSULE PO SCH ×2 (10:15→21:44)
[2021-04-27] MEDS: PANTOPRAZOLE 40 MG TABLET PO SCH (10:15)
[2021-04-27] MEDS: CITALOPRAM 20 MG TABLET PO SCH (10:16)
[2021-04-27] MEDS: VITAMIN D3 1,000 UNIT TABLET PO SCH (10:17)
[2021-04-27] MEDS: INSULIN GLARGINE, HUMAN 1 UNIT/0.01 ML SQ SCH ×2 (10:17→21:44)
[2021-04-27] MEDS: LEVOTHYROXINE 75 MCG TABLET PO SCH (10:17)
[2021-04-27] MEDS: Fluticasone Furoate-Vilanterol [Breo Ellipta] 200/25 mcg Inhaler INH SCH (10:24)
[2021-04-27] MEDS: TORSEMIDE 10 MG TABLET PO SCH (10:24)
[2021-04-27] MEDS: HEPARIN 5,000 UNIT/ML VIAL SQ SCH ×2 (10:24→21:44)
[2021-04-27] MEDS: cefTRIAXone 1 GM VIAL IV SCH (10:42)
[2021-04-27] MEDS: AZITHROMYCIN 500 MG in DEXTROSE 5% IN WATER 250 ML IV SCH (10:42)
[2021-04-27] MEDS ORDERED: hydrALAZINE 20 MG/ML VIAL IV PRN (11:30)
--- NOTE | 2021-04-27 11:35 | Internal Med Progress Note ---
SUBJECTIVE Subjective Patient information: Note initiated : 04/27/21 at 11:31 am Service Date, if different from initiated Date: [] Patient: Christine Pimentel 75 y/o M admitted on 04/26/21 for weakness. Chief Complaint: [Right lower lobe pneumonia] 04/27/21: Afebrile overnight. Been on between 3-4L/min supplemental oxygen. Breathing is fine. c/o nonproductive cough and wheezing. Denies chest pain or palpitation. Denies fever, chills, or sweating. Denies general body weakness. Constitutional Vitals: Vital Signs Temp Pulse Resp BP Pulse Ox 36.5 C 87 20 174/84 96 04/27/21 07:13 04/27/21 07:13 04/27/21 07:13 04/27/21 07:13 04/27/21 07:13 Period Temp Pulse Resp BP Sys/Jean Pulse Ox Last 24 Hr 36.2 C-36.8 C 86-95 17-22 159-183/64-96 96-99 Intake and Output 04/26/21 04/27/21 04/27/21 21:59 05:59 13:59 Intake Total 360 480 Output Total 3050 850 101 Balance -2690 -370 -101 Weight 101.559 kg Intake & Output: Intake & Output 04/26/21 04/27/21 04/27/21 21:59 05:59 13:59 Intake Total 360 480 Output Total 3050 850 101 Balance -2690 -370 -101 Weight 101.559 kg Intake: Oral 360 480 Output: Void Amount 3050 850 100 # of times incontinent of urine 1 Other: Urine Appearance Clear Clear Urine Color Pale Straw Bright Yellow Straw Urine Odor Normal # Voids 1 General appearance: cooperative and no acute distress Head Head exam: Present atraumatic and normocephalic Eye Eye exam: Present EOMI and PERRL ENT ENT exam: Present mucous membranes moist, normal exam and normal external ear exam Additional comments: Nasal cannula in place Neck Neck exam: Present normal inspection; Absent lymphadenopathy, tenderness and thyromegaly Respiratory Respiratory exam: Present rhonchi and wheezes; Absent accessory muscle use and respiratory distress Cardiovascular Cardiovascular exam: Present normal rate and rhythm; Absent JVD GI/Abdominal GI/Abdominal exam: Present normal bowel sounds and soft; Absent organomegaly and tenderness Rectal Rectal exam: Present deferred Extremities Exam Extremities exam: Present full ROM, normal capillary refill and normal inspection; Absent tenderness Neurological Exam Neurological exam: Present alert, CN II-XII intact and oriented X3; Absent motor sensory deficit Psychiatric Psychiatric exam: Present normal affect and normal mood; Absent anxious and depressed Skin Skin exam: Present dry and intact OBJ DATA Labs CBC & Chem 7: 04/27/21 06:11 04/27/21 06:11 Labs: Abnormal Lab Results 04/27/21 04/27/21 04/26/21 06:11 06:11 08:47 WBC RBC 3.21 L Hgb 10.4 L Hct 31.7 L Neut % (Auto) Lymph % (Auto) Gates # (Auto) 0.95 H Absolute Neutrophils Chloride 94 L Carbon Dioxide 31 H Creatinine 1.8 H POC Creatinine Glucose 129 H Hemoglobin A1c 7.8 H Calcium Alkaline Phosphatase Urine Appearance Urine Protein 04/26/21 04/26/21 04/26/21 08:47 08:47 00:42 WBC 13.0 H RBC 3.00 L Hgb 9.9 L Hct 29.2 L Neut % (Auto) Lymph % (Auto) Gates # (Auto) 1.23 H Absolute Neutrophils 9.65 H Chloride Carbon Dioxide 31 H Creatinine 1.8 H POC Creatinine Glucose 244 H Hemoglobin A1c Calcium 8.1 L Alkaline Phosphatase 38 L Urine Appearance Hazy A Urine Protein 100 A 04/25/21 04/25/21 23:49 23:48 WBC 17.9 H RBC 3.50 L Hgb 11.2 L Hct 33.8 L Neut % (Auto) 80.7 H Lymph % (Auto) 10.5 L Gates # (Auto) 1.34 H Absolute Neutrophils 14.49 H Chloride 90 L Carbon Dioxide 34 H Creatinine 2.0 H POC Creatinine 2.1 H Glucose 222 H Hemoglobin A1c Calcium Alkaline Phosphatase Urine Appearance Urine Protein Meds: Medications Acetaminophen (Acetaminophen 325 Mg Tablet) 650 mg PO Q6HP PRN; Protocol PRN Reason: Per Pain Protocol/Fever > 101 Albuterol Sulfate (Albuterol Sulfate 2.5 Mg/3 Ml Nebulizer) 2.5 mg NEB Q2HP PRN PRN Reason: Shortness Of Breath Albuterol Sulfate (Albuterol Sulfate 200 Puff Inhaler) 2 puff INH Q6HP PRN PRN Reason: Shortness Of Breath Albuterol/Ipratropium (Ipratropium/Albuterol 3 Ml Ampul.Neb) 3 ml NEB Q4HP PRN PRN Reason: Shortness Of Breath Amlodipine Besylate (Amlodipine 10 Mg Tablet) 10 mg PO DAILY [facility] Ceftriaxone Sodium (Ceftriaxone 1 Gm Vial) 1 gm IV Q24H [facility] Last Admin: 04/27/21 10:42 Dose: 1 gm Documented by: Citalopram Hydrobromide (Citalopram 20 Mg Tablet) 40 mg PO DAILY [facility] Last Admin: 04/27/21 10:16 Dose: 40 mg Documented by: Dextrose (Dextrose 50% 50 Ml Vial) 0 ml IV UD PRN PRN Reason: Hypoglycemia Diagnostic Test (Pha) (Accu-Chek 1 Each Strip) 1 each FS ACHS [facility] Last Admin: 04/27/21 07:33 Dose: 1 each Documented by: Docusate Sodium (Docusate Sodium 100 Mg Capsule) 100 mg PO BID [facility] Last Admin: 04/27/21 10:15 Dose: 100 mg Documented by: Glucose (Dextrose 31 Gm Oral.Susp) 15 gm PO PRN PRN PRN Reason: Hypoglycemia Guaifenesin (Guaifenesin/Dextromethorphan Oral Leila) 10 ml PO Q4HP PRN PRN Reason: Cough Heparin Sodium (Porcine) (Heparin 5,000 Unit/Ml Vial) 5,000 unit SQ Q12 [facility] Last Admin: 04/27/21 10:24 Dose: 5,000 unit Documented by: Hydralazine HCl (Hydralazine 20 Mg/Ml Vial) 10 mg IV Q4-6HP PRN PRN Reason: Hypertension Last Admin: 04/26/21 16:57 Dose: 10 mg Documented by: Hydralazine HCl (Hydralazine 20 Mg/Ml Vial) 10 mg IV Q4-6HP PRN PRN Reason: Hypertension Azithromycin 500 mg/ Dextrose 250 mls @ 250 mls/hr IV Q24H [facility]; Protocol Stop: 04/28/21 10:59 Last Admin: 04/27/21 10:42 Dose: 250 mls/hr Documented by: Insulin Glargine (Insulin Glargine, Human 1 Unit/0.01 Ml) 50 unit SQ BID [facility] Last Admin: 04/27/21 10:17 Dose: 50 unit Documented by: Insulin Human Lispro (Insulin Lispro 1 Unit/0.01 Ml Unit) 0 unit SQ ACHS [facility]; Protocol Last Admin: 04/27/21 07:33 Dose: 1 unit Documented by: Levothyroxine Sodium (Levothyroxine 75 Mcg Tablet) 75 mcg PO QDAY [facility] Last Admin: 04/27/21 10:17 Dose: 75 mcg Documented by: Levothyroxine Sodium (Levothyroxine 75 Mcg Tablet) 75 mcg PO QDAY [facility] Loperamide HCl (Loperamide 2 Mg Capsule) 2 mg PO PRN PRN PRN Reason: Diarrhea Ondansetron HCl (Ondansetron 4 Mg/2 Ml Vial) 4 mg IV Q6HP PRN PRN Reason: Nausea And Vomiting Last Admin: 04/26/21 11:28 Dose: 4 mg Documented by: Pantoprazole Sodium (Pantoprazole 40 Mg Tablet) 40 mg PO QDAY [facility] Last Admin: 04/27/21 10:15 Dose: 40 mg Documented by: Fluticasone Furoate- Vilanterol [Breo Ellipta] 200/25 Mcg Inhaler 1 dose INH QDAY [facility] Last Admin: 04/27/21 10:24 Dose: Not Given Documented by: Eplerenone 50 Mg (Tablet) 1 dose PO QDAY [facility] Last Admin: 04/27/21 10:17 Dose: Not Given Documented by: Rosuvastatin [ Crestor] 20 Mg Tablet 1 dose PO QHS [facility] Last Admin: 04/26/21 21:46 Dose: Not Given Documented by: Polyethylene Glycol (Polyethylene Glycol 3350 17 Gm Packet) gm PO QDAY [facility] Senna (Sennosides 1 Tablet) 2 tab PO HS [facility] Last Admin: 04/26/21 21:46 Dose: Not Given Documented by: Senna (Sennosides 1 Tablet) tab PO BID [facility] Sodium Chloride (0.9 % Sodium Chloride 10 Ml Syringe) 10 ml IV Q8 [facility] Last Admin: 04/27/21 05:49 Dose: 10 ml Documented by: Torsemide (Torsemide 10 Mg Tablet) 100 mg PO DAILY [facility] Last Admin: 04/27/21 10:24 Dose: 100 mg Documented by: Vitamin D (Vitamin D3 1,000 Unit Tablet) 1,000 unit PO DAILY [facility] Last Admin: 04/27/21 10:17 Dose: 1,000 unit Documented by: Zolpidem Tartrate (Zolpidem 5 Mg Tablet) 5 mg PO HSP PRN PRN Reason: Insomnia A/P Assessment and plan (1) Diarrhea: Status: Acute (2) Acute onset sepsis: Status: Acute (3) Right lower lobe pneumonia: Status: Acute Qualifiers: Pneumonia type: due to unspecified organism Qualified Code(s): J18.9 - Pneumonia, unspecified organism (4) COPD (chronic obstructive pulmonary disease): Status: Chronic Qualifiers: COPD type: chronic bronchitis Chronic bronchitis type: simple Qualified Code(s): J41.0 - Simple chronic bronchitis (5) Depression: Status: Chronic (6) Anxiety: Status: Chronic (7) GERD (gastroesophageal reflux disease): Status: Chronic Qualifiers: Esophagitis presence: esophagitis presence not specified Qualified Code(s): K21.9 - Gastro-esophageal reflux disease without esophagitis (8) Hyperlipidemia: Status: Chronic (9) Hypothyroidism: Status: Chronic (10) 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 Metolazone, bumetanide and eplerenone for volume/edema Diltiazem for BP and HR control plus the antiproteinuric / renoprotective effect. (12) Diastolic CHF, chronic: Status: Chronic Comment: pLVEF and no valve issue Pulmonary HTN with continuous O2 Narrative A/P Narrative: Assessment and Plans: 1. Right lower lobe pneumonia with clinical sepsis: Stays in inpatient med surg Oxygen therapy via nasal cannula titrate to achieve spo2 >88-92% Serial lactic acid Blood culture X2, no growth to date Rocephin Zithromax Tylenol Robitussin DM PRN cough cbc w/ auto diff in the morning to trend WBC 2. h/o CHF: Continue oral diuretics Saline lock Daily weigh and intake and output measurements 2L/day fluid restriction 3. h/o COPD: Continue home regimen of bronchodilators DuoNEB NEB q4hr PRN wheezing or SOB 4. T2DM: HgA1c 7.8 Hold oral hypoglycemics Continue insulin therapy Accu Chek AC HS Hypoglycemia protocol Diabetic diet 5. GERD: Continue oral PPI 6. CKD4: Avoid nephrotoxic agents Saline lock Daily CMP to trend kidney functions 7. Hypothyroidism: Continue thyroid replacement therapy 8. Depression with anxiety: Citalopram 9. Mixed dyslipidemia: Continue statin therapy 10. Essential HTN: Hydralazine 10mg IV q4-6hr PRN SBP>=180 and/or DBP>=110mmHg Oral diuretics Diltiazem Add Amlodipine 10mg PO daily for better blood pressure control GI ppx: oral PPI DVT ppx: Heparin Code status: Full Prognosis: guarded Disposition: inpatient med surg Time Spent With Patient Time: Total time spent is greater than 50% in coordination of care (as documented) at patient's floor/unit and/or counseling patient: QUALITY VTE Deep Vein Thrombosis/Pulmonary Embolism Present on Admission: No
[2021-04-27] MEDS: amLODIPine 10 MG TABLET PO SCH (11:46)
[2021-04-27] MEDS: ROSUVASTATIN 20 MG PO SCH (21:45)
[2021-04-27] MEDS: SENNOSIDES 1 TABLET PO SCH (21:45)
[2021-04-28 05:49] LABS: Basophils # (Auto) 0.06 K/mcL (0.00-0.20); Basophils % (Auto) 0.7 % (0.0-2.0); Eosinophils # (Auto) 0.28 K/mcL (0.00-0.70); Eosinophils % (Auto) 3.3 % (0.0-7.0); Hematocrit 29.6 % (41.0-55.0); Hemoglobin 9.7 g/dL (13.5-16.5); Lymphocytes # (Auto) 2.35 K/mcL (1.50-4.80); Lymphocytes % (Auto) 27.9 % (15.0-49.0); Mean Corpuscular HGB Conc 32.8 g/dL (31.0-36.0); Mean Platelet Volume 8.9 fL (7.4-10.4); Monocytes # (Auto) 0.91 K/mcL (0.10-0.90); Monocytes % (Auto) 10.8 % (1.0-12.0); Neutrophils % (Auto) 57.3 % (38.0-78.0); Platelet Count 265 K/mcL (140-440); RBC 3.02 M/mcL (4.50-5.90); Red Cell Distribution Width 11.8 % (11.5-14.5); WBC 8.4 K/mcL (4.5-11.0)
[2021-04-28] MEDS: 0.9 % SODIUM CHLORIDE 10 ML SYRINGE IV SCH (06:14)
[2021-04-28 06:18] LABS: ALT/SGPT 14 U/L (<40); AST/SGOT 25 U/L (<40); Albumin 3.5 gm/dL (3.2-5.2); Albumin/Globulin Ratio 1.1 (1.0-2.3); Alkaline Phosphatase 35 U/L (39-117); Bilirubin,Total 0.2 mg/dL (0.1-1.0); Blood Urea Nitrogen 17 mg/dL (8-23); Calcium 8.8 mg/dL (8.6-10.4); Carbon Dioxide 37 mmol/L (22-30); Chloride 99 mmol/L (96-108); Globulin 3.2 gm/dL (2.2-3.7); Glomerular Filtration Rate 38; Glucose 66 mg/dL (70-105)
[2021-04-28] MEDS: INSULIN LISPRO 1 UNIT/0.01 ML UNIT SQ SCH (06:55)
[2021-04-28] MEDS ORDERED: LEVOTHYROXINE 75 MCG TABLET PO SCH (09:00)
[2021-04-28] MEDS ORDERED: amLODIPine 10 MG TABLET PO SCH (09:00)
[2021-04-28] MEDS ORDERED: POLYETHYLENE GLYCOL 3350 17 GM PACKET PO SCH (09:00)
[2021-04-28] MEDS: TORSEMIDE 10 MG TABLET PO SCH (09:18)
--- NOTE | 2021-04-28 09:19 | Discharge Summary ---
Discharge Provider Provider Patient information: Note initiated : 04/28/21 at 9:16 am Service Date, if different from initiated Date: [] Patient: Christine Pimentel 75 y/o M admitted on 04/26/21 for weakness. Chief Complaint: [pneumonia] Date of admission: 04/26/21 03:56 Discharge date: 04/28/21 Primary care physician: Sharif Coronel MD Consults: 04/26/21 07:14 Consult to Physician [CONS] Routine Comment: Consulting Provider: Mark Hager Reason For Exam: Physician to Consult Discharge Meds Discharge Medications Home Medications lancets #90 each 09/24/15 [Rx Confirmed 04/26/21 Last Taken 06/15/19 08:00] B/L compression stockings (Knee high, 15-20mmHg) 1 unit TOPICAL PRN PRN 01/26/18 [History Confirmed 04/26/21 Last Taken 04/26/21 04:00] insulin syringe-needle U-100 1 mL 31 gauge x 5/16" #100 each 11/23/18 [Rx Confirmed 04/26/21 Last Taken 06/15/19 08:00] blood sugar diagnostic #100 each 04/22/20 [Rx Confirmed 04/26/21 Last Taken Unknown] Wheelchair Ramp #1 ea 09/19/20 [Rx Confirmed 04/26/21 Last Taken Unknown] rosuvastatin 20 mg tablet 20 mg PO QHS #90 tab 11/11/20 [Rx Confirmed 04/26/21 Last Taken Unknown] citalopram 40 mg tablet 40 mg PO QDAY #90 tab 12/11/20 [Rx Confirmed 04/26/21 Last Taken 04/25/21] eplerenone 50 mg tablet 50 mg PO QDAY #90 tab 12/11/20 [Rx Confirmed 04/26/21 Last Taken 04/25/21] pantoprazole 40 mg tablet,delayed release 40 mg PO QDAY #90 tab 12/11/20 [Rx Confirmed 04/26/21 Last Taken 04/25/21] blood-glucose sensor #3 ea 01/01/21 [Rx Confirmed 04/26/21 Last Taken Unknown] blood-glucose transmitter #1 ea 01/01/21 [Rx Confirmed 04/26/21 Last Taken Unknown] pen needle, diabetic 32 gauge x 5/16" #100 each 01/13/21 [Rx Confirmed 04/26/21 Last Taken Unknown] linagliptin 5 mg tablet 5 mg PO QAM #90 tab 02/10/21 [Rx Confirmed 04/26/21 Last Taken 04/25/21] levothyroxine 75 mcg tablet 75 mcg PO QDAY #90 tab 04/21/21 [Rx Confirmed 04/26/21 Last Taken 04/25/21] Breo Ellipta 1 inh INHALATION QDAY 04/26/21 [History Confirmed 04/26/21 Last Taken Unknown] albuterol sulfate [Ventolin HFA] 2 puff INHALATION Q6HP PRN 04/26/21 [History Confirmed 04/27/21 Last Taken Unknown] insulin lispro [Humalog KwikPen Insulin] 24 unit SUB-Q TID 04/26/21 [History Confirmed 04/26/21 Last Taken 04/25/21] torsemide 100 mg PO QDAY 04/26/21 [History Confirmed 04/27/21 Last Taken 04/25/21] docusate sodium [Colace] 100 mg PO BID 04/27/21 [History Confirmed 04/27/21 Last Taken Unknown] levothyroxine [Euthyrox] 75 mcg PO QDAY 04/27/21 [History Confirmed 04/27/21 Last Taken Unknown] polyethylene glycol 3350 [Miralax] 17 g PO QDAY 04/27/21 [History Confirmed 04/27/21 Last Taken Unknown] sennosides [Senokot] 8.6 mg PO BID 04/27/21 [History Confirmed 04/27/21 Last Taken Unknown] amlodipine 10 mg PO DAILY #30 tab 04/28/21 [Rx Last Taken Unknown] dextromethorphan-guaifenesin [Robafen DM Cough] 10 ml PO Q4HP PRN #200 ml 04/28/21 [Rx Last Taken Unknown] insulin glargine [Lantus U-100 Insulin] 25 unit SUBCUT BID #10 ml 04/28/21 [Rx Last Taken Unknown] levofloxacin 750 mg PO QDAY #4 tab 04/28/21 [Rx Last Taken Unknown] COURSE Hospital Course Hospital course: Patient was admitted on April 26, 2021 for community-acquired pneumonia. After blood cultures were collected, patient was started on IV fluids as well as IV antibiotics including Rocephin and Zithromax. Blood culture has been no growth to date. By April 28, 2021, patient's oxygen requirement has been back to his baseline, leukocytosis resolved, and he has been afebrile for more than 24 hours. He is just reached clinical stability, and as such, decision was made to discharge him home with oral antibiotics as well as decreased dose of insulin Lantus sent to his pharmacy. 2 weeks PCP follow-up set up for him. All questions were answered prior to patient being physically discharged. Discharge diagnosis: pneumonia Time Spent with Patient Time attestation: Total time spent providing and/or coordinating discharge services: Patient was admitted on April 26, 2021 for community-acquired pneumonia. After blood cultures were collected, patient was started on IV fluids as well as IV antibiotics including Rocephin and Zithromax. Blood culture has been no growth to date. By April 28, 2021, patient's oxygen requirement has been back to his baseline, leukocytosis resolved, and he has been afebrile for more than 24 hours. He is just reached clinical stability, and as such, decision was made to discharge him home with oral antibiotics as well as decreased dose of insulin Lantus sent to his pharmacy. 2 weeks PCP follow-up set up for him. All questions were answered prior to patient being physically discharged. EXAM Constitutional Vitals: Temp Pulse Resp BP Pulse Ox 36.4 C 91 H 20 162/85 97 04/28/21 07:58 04/28/21 07:58 04/28/21 07:58 04/28/21 07:58 04/28/21 08:35 General appearance: cooperative and no acute distress Head Head exam: Present atraumatic and normocephalic Eye Eye exam: Present EOMI and PERRL ENT ENT exam: Present mucous membranes moist, normal exam and normal external ear exam Additional comments: Nasal cannula in place Neck Neck exam: Present normal inspection; Absent lymphadenopathy, tenderness and thyromegaly Respiratory Respiratory exam: Present rhonchi; Absent accessory muscle use, respiratory distress and wheezes Cardiovascular Cardiovascular exam: Present normal rate and rhythm; Absent JVD GI/Abdominal GI/Abdominal exam: Present normal bowel sounds and soft; Absent organomegaly and tenderness Rectal Rectal exam: Present deferred Extremities Exam Extremities exam: Present full ROM, normal capillary refill and normal inspection; Absent tenderness Neurological Exam Neurological exam: Present alert, CN II-XII intact and oriented X3; Absent motor sensory deficit Psychiatric Psychiatric exam: Present normal affect and normal mood; Absent anxious and depressed Skin Skin exam: Present dry and intact Discharge Data Data Completed and Pending Labs on day of discharge: Labs from last 24 hours 04/28/21 04/28/21 05:03 05:03 WBC 8.4 RBC 3.02 L Hgb 9.7 L Hct 29.6 L MCV 98.0 MCH 32.1 MCHC 32.8 RDW 11.8 Plt Count 265 MPV 8.9 Neut % (Auto) 57.3 Lymph % (Auto) 27.9 [place] % (Auto) 10.8 Eos % (Auto) 3.3 Baso % (Auto) 0.7 Lymph # (Auto) 2.35 [place] # (Auto) 0.91 H Eos # (Auto) 0.28 Baso # (Auto) 0.06 Absolute Neutrophils 4.82 Sodium 142 Potassium 3.6 Chloride 99 Carbon Dioxide 37 H Anion Gap 6.0 L BUN 17 Creatinine 1.7 H GFR Calculation 38 Glucose 66 L Calcium 8.8 Total Bilirubin 0.2 AST 25 ALT 14 Alkaline Phosphatase 35 L Total Protein 6.7 Albumin 3.5 Globulin 3.2 Albumin/Globulin Ratio 1.1 Preliminary micro results at discharge 04/25/21 23:25 Blood Culture - Preliminary Blood 04/25/21 23:20 Blood Culture - Preliminary Blood Discharge Plan Patient/Caregiver Discharge Instructions Activity: as per physical therapy and as instructed Diet: Consistent Carbohydrate Activity Restrictions/Additional Instructions: To be admitted to the hospital with a diagnosis of sepsis Prescriptions: New Lantus U-100 Insulin 100 unit/mL Solution 25 unit subcut BID Qty: 10 RF: 0 dextromethorphan-guaifenesin [Robafen DM Cough] 10-100 mg/5 mL Liquid 10 ml PO Q4HP PRN (Reason: Cough) Qty: 200 RF: 0 amlodipine 10 mg Tablet 10 mg PO DAILY Qty: 30 RF: 0 levofloxacin 750 mg tablet 750 mg PO QDAY Qty: 4 RF: 0 Continued rosuvastatin [Crestor] 20 mg tablet 20 mg PO QHS Qty: 90 RF: 1 Hold Instructions: Doctor's Order pantoprazole [Protonix] 40 mg tablet,delayed release (DR/EC) 40 mg PO QDAY Qty: 90 RF: 1 citalopram [Celexa] 40 mg tablet 40 mg PO QDAY Qty: 90 RF: 1 eplerenone 50 mg tablet 50 mg PO QDAY Qty: 90 RF: 3 Hold Instructions: Doctor's Order Tradjenta 5 mg tablet 5 mg PO QAM Qty: 90 RF: 1 Hold Instructions: Doctor's Order levothyroxine [Synthroid] 75 mcg tablet 75 mcg PO QDAY Qty: 90 RF: 1 fluticasone furoate-vilanterol [Breo Ellipta] 200-25 mcg/dose blister with device 200 inh inhalation DAILY RF: 0 B/L compression stockings (Knee high, 15-20mmHg) 1 unit TOPICAL PRN PRN (Reason: Edema) RF: 0 albuterol sulfate [Ventolin HFA] 90 mcg/actuation Hfa Aerosol Inhaler 2 puff INHALATION Q6HP PRN (Reason: Shortness Of Breath) RF: 0 insulin lispro [Humalog KwikPen Insulin] 100 unit/mL insulin pen 24 unit SUB-Q TID RF: 0 torsemide 100 mg Tablet 100 mg PO QDAY RF: 0 Breo Ellipta 200-25 mcg/dose Blister With Device 1 inh INHALATION QDAY RF: 0 levothyroxine [Euthyrox] 75 mcg Tablet 75 mcg PO QDAY RF: 0 sennosides [Senokot] 8.6 mg Tablet 8.6 mg PO BID RF: 0 docusate sodium [Colace] 100 mg Capsule 100 mg PO BID RF: 0 polyethylene glycol 3350 [Miralax] 17 gram Powder In Packet 17 g PO QDAY RF: 0 Discontinued Levemir FlexTouch U-100 Insuln 100 unit/mL (3 mL) insulin pen 50 unit SUB-Q BID Qty: 90 RF: 1 No Action (DME) insulin syringe-needle U-100 [BD Insulin Syringe Ultra-Fine] 1 mL 31 gauge x 5/16 syringe See Dose Instructions .ROUTE .MEDSUPPLY Qty: 100 RF: 5 (DME) FreeStyle Lite Strips Strip See Dose Instructions .ROUTE .MEDSUPPLY Qty: 100 RF: 11 (DME) Wheelchair Ramp Qty: 1 RF: 0 (DME) Dexcom G6 Sensor Device See Rx Instructions .ROUTE .MEDSUPPLY Qty: 3 RF: 3 (DME) Dexcom G6 Transmitter Device See Rx Instructions .ROUTE .MEDSUPPLY Qty: 1 RF: 1 (DME) Comfort EZ Pen [place] 32 gauge x 5/16" needle See Dose Instructions .ROUTE .MEDSUPPLY Qty: 100 RF: 11 (DME) lancets 1 EACH misc 1 each MC TIDP Qty: 90 RF: 11 Follow Up Plan Follow up with: Sharif Coronel MD [Primary Care Provider] - Patient Disposition: Home, Self-Care Prognosis: Serious Rehab Potential: Good I certify that the patient requires SNF services: No Overall status at discharge: patient is progressing back to baseline Discharge Orders: Discharge Order (Routine); Ordered 04/28/21 Ordered By: Mark MONROY VTE Deep Vein Thrombosis/Pulmonary Embolism Present on Admission: No
[2021-04-28] MEDS: PANTOPRAZOLE 40 MG TABLET PO SCH (09:20)
[2021-04-28] MEDS: VITAMIN D3 1,000 UNIT TABLET PO SCH (09:20)
[2021-04-28] MEDS: LEVOTHYROXINE 75 MCG TABLET PO SCH (09:20)
[2021-04-28] MEDS: amLODIPine 10 MG TABLET PO SCH (09:20)
[2021-04-28] MEDS: HEPARIN 5,000 UNIT/ML VIAL SQ SCH (09:21)
[2021-04-28] MEDS: CITALOPRAM 20 MG TABLET PO SCH (09:21)
[2021-04-28] MEDS: INSULIN GLARGINE, HUMAN 1 UNIT/0.01 ML SQ SCH (09:21)
[2021-04-28] MEDS: Fluticasone Furoate-Vilanterol [Breo Ellipta] 200/25 mcg Inhaler INH SCH (09:22)
[2021-04-28] MEDS: DOCUSATE SODIUM 100 MG CAPSULE PO SCH (09:26)
[2021-04-28] MEDS: SENNOSIDES 1 TABLET PO SCH (09:26)
[2021-04-28] MEDS: cefTRIAXone 1 GM VIAL IV SCH (09:43)
[2021-04-28] MEDS: AZITHROMYCIN 500 MG in DEXTROSE 5% IN WATER 250 ML IV SCH (09:49)
== END 2021-04-28 12:00 | disposition home or self-care (01) | DRG 871 ==
LOC: ED 22:23 → ICU 04-26 03:55
PROVIDERS: ADMIT Internal Medicine; ATTEND Internal Medicine

== ENCOUNTER 2023-03-22 18:39 | Inpatient (IN) ==
[2023-03-22] MEDS ORDERED: IOPAMIDOL 100 ML BOTTLE IV ONE (18:40)
[2023-03-22 19:07] LABS: POC Calcium, Ionized 1.05 (1.16-1.32); POC Creatinine 1.8 (0.6-1.2); POC Potassium 3.5 (3.3-5.1)
--- NOTE | 2023-03-22 19:16 | Emergency Department Note ---
HPI General Stated complaint: increased leg swelling Source: patient and family Mode of arrival: wheelchair Limitations: no limitations History of Present Illness HPI Narrative: Narrative: 77-year-old male with history of diabetes, COPD, CHF, hypertension presents to the ER with complaints of shortness of breath, bilateral lower extremity swelling increasing over the last few days. He reports a nonproductive cough and this feels similar to his prior episodes of pneumonia. He also notes he has chest tightness without radiation and has been using his DuoNeb at home. He is feels very dehydrated as he takes multiple medications that make him thirsty. He notes he also has not had a bowel movement in the last 4 days despite taking daily senna and Colace regularly. He denies any nausea, vomiting or abdominal pain. He reports he is oxygen dependent and uses 3 L/min at home and that is what he is on now. He notes he has severe bilateral lower extremity swelling and it is mildly increased but it is normally erythematous and red as it is now. He notes he is also hungry as he has not had much to eat today. Related Data Home Medications Medication Instructions Recorded Confirmed B/L compression stockings (Knee 1 unit topical PRN PRN Edema 01/26/18 03/22/23 high, 15-20mmHg) albuterol sulfate 90 mcg/actuation 2 puff inhalation Q6HP PRN 04/26/21 03/22/23 aerosol inhaler (Ventolin HFA) Shortness Of Breath docusate sodium 100 mg capsule 100 mg PO BID 04/27/21 03/22/23 (Colace) polyethylene glycol 3350 17 gram 17 g PO QDAY 04/27/21 03/22/23 oral powder packet (Miralax) latanoprost 0.005 % eye drops 1 drp ophthalmic (eye) HS 10/22/21 03/22/23 pen needle, diabetic 32 gauge x #50 ea 10/20/22 03/22/23 5/32" brimonidine 0.2 % eye drops 1 drp ophthalmic (eye) BID 01/31/23 03/22/23 Previous Rx's Medication Instructions Recorded lancets #90 ea 09/24/15 blood sugar diagnostic (FreeStyle #100 ea 04/22/20 Lite Strips) Wheelchair Ramp #1 ea 09/19/20 ketoconazole 2 % topical cream 1 applic topical BID 2 weeks #30 01/06/22 grams fluticasone furoate 200 1 inh inhalation QDAY #60 ea 01/29/22 mcg-vilanterol 25 mcg/dose inhalation powder (Breo Ellipta) pen needle, diabetic 32 gauge x #100 ea 02/09/2202/15" (Comfort EZ Pen [place]) eplerenone 50 mg tablet 25 mg PO QDAY #90 tabs 03/19/22 torsemide 100 mg tablet 100 mg PO QDAY #90 tabs 04/01/22 hydralazine 25 mg tablet 25 mg PO TID #270 tabs 08/24/22 linagliptin 5 mg tablet (Tradjenta) 5 mg PO QAM #90 tabs 09/02/22 blood-glucose transmitter (Dexcom #1 ea 09/07/22 G6 Transmitter device) ketoconazole 2 % shampoo 1 applic topical .2xW #120 mL 10/20/22 sertraline 50 mg tablet 50 mg PO QDAY #90 tabs 11/02/22 levothyroxine 75 mcg tablet 75 mcg PO QDAY #90 tabs 11/09/22 (Synthroid) rosuvastatin 20 mg tablet (Crestor) 20 mg PO QHS #90 tabs 11/30/22 insulin lispro 100 unit/mL 22 unit (0.22 mL) subcut TID #75 mL 12/27/22 subcutaneous pen (Humalog KwikPen (U-100) Insulin) blood-glucose meter,continuous #1 ea 01/03/23 (Dexcom G7 Pastry Wrapper) blood-glucose sensor (Dexcom G7 #3 ea 01/03/23 Sensor device) blood-glucose sensor (Dexcom G6 #3 ea 01/04/23 Sensor device) pantoprazole 40 mg tablet,delayed 40 mg PO QDAY #90 tabs 01/04/23 release (Protonix) Diabetic Shoes #1 ea 01/19/23 hydrocodone 5 mg-acetaminophen 325 1 tab PO QHS PRN pain #7 tabs 01/27/23 mg tablet methocarbamol 500 mg tablet 500 mg PO TID PRN back pain #20 01/27/23 tabs methylprednisolone 4 mg tablets in See Rx Instructions PO PER PKG DIR 01/28/23 a dose pack (Medrol (Randy)) #21 tabs ipratropium 0.5 mg-albuterol 3 mg 3 ml inhalation Q6H PRN shortness 03/22/23 (2.5 mg base)/3 mL nebulization of breath or wheezing #360 mL soln Allergies Allergy/AdvReac Type Severity Reaction Status Date / Time codeine Allergy Severe shortness Verified 03/22/23 18:44 of breath ketamine Allergy Severe Difficulty Verified 03/22/23 18:44 Breathing mirabegron [From Myrbetriq] Allergy Severe difficulty Verified 03/22/23 18:44 breathing Metolazone Allergy Mild hives Verified 03/22/23 18:44 Thiazides Allergy Mild Itching Verified 03/22/23 18:44 and redness atorvastatin Allergy Unknown Unknown Verified 03/22/23 18:44 pravastatin Allergy Unknown Unknown Verified 03/22/23 18:44 linagliptin [From Tradjenta] AdvReac Intermediate Blistering Verified 03/22/23 18:44 to lower extremities phenylephrine [From V-Hist] AdvReac Intermediate hand and Verified 03/22/23 18:44 arm cramping brompheniramine [From V-Hist] AdvReac Mild hand and Verified 03/22/23 18:44 arm cramping Buspirone AdvReac Mild Intolerance Verified 03/22/23 18:44 morphine AdvReac Mild Itching Verified 03/22/23 18:44 valsartan AdvReac Mild Hand and Verified 03/22/23 18:44 arm pain Remedy skin repair cream Allergy Mild Itching Uncoded 02/17/23 10:37 Review of Systems ROS ROS Narrative: Narrative: Constitutional: Reports as per HPI and sweats; Denies fever or chills Cardiovascular: Reports palpitations; Denies chest pain or syncope Respiratory: Reports shortness of breath and cough; Denies wheezes Gastrointestinal: Reports constipation; Denies abdominal pain, nausea, vomiting or diarrhea Musculoskeletal: Reports back pain and muscle cramps Integumentary: Reports rash PFSH Narrative Patient History Narrative: Narrative: Medical/Surgical/Family History All Active Problems Anxiety (Chronic) History of asthma (Chronic) Back pain (Chronic) Quinn's esophagus (Chronic) Other cardiomyopathies (Chronic) Chronic kidney disease, stage III (moderate) (Chronic) COPD (chronic obstructive pulmonary disease) (Chronic) Congestive heart failure (Chronic) Cough (Chronic) Depression (Chronic) Diabetes mellitus, type II (Chronic) Dyspnea (Chronic) GERD (gastroesophageal reflux disease) (Chronic) Hyperlipidemia (Chronic) Hypertension, essential (Chronic) Hypothyroidism (Chronic) Obstructive sleep apnea (adult) (pediatric) (Chronic) Osteoarthrosis, shoulder region (Chronic) Rotator cuff tear (Chronic) Schatzki's ring (Chronic) Sciatica (Chronic) Shortness of breath (Chronic) Sleep disorder, nonorganic (Chronic) Testicular hypofunction (Chronic) Venous insufficiency (Chronic) Vitamin D deficiency (Chronic) Anemia (Chronic) Hyperparathyroidism due to renal insufficiency (Chronic) Hypertensive renal disease (Chronic) Hypoxemia (Chronic) Persistent proteinuria (Chronic) CKD (chronic kidney disease) stage 3, GFR 30-59 ml/min (Chronic) Skin abnormalities (Chronic) Hypoxia (Chronic) 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, with long-term current use of insulin (Chronic) Uncontrolled type 2 diabetes mellitus with stage 3 chronic kidney disease, with long-term current use of insulin (Chronic) Chronic renal insufficiency (Chronic) Adverse effects of medication (Acute) Obesity (BMI 30-39.9) (Chronic) Oxygen dependent (Chronic) Fall (on) (from) other stairs and steps, initial encounter (Acute) Concussion with loss of consciousness (Acute) Hyponatremia (Acute) Elevated WBC count (Acute) Contusion of left knee (Acute) Constipation (Acute) Acute alcohol intoxication (Acute) Hypertension associated with stage 4 chronic kidney disease due to type 2 diabet es mellitus (Chronic) Heart failure with left ventricular ejection fraction greater than or equal to 50 percent (Chronic) Diastolic CHF, chronic (Chronic) Non-nephrotic range proteinuria (Chronic) Chronic pain of right knee (Acute) Skin tear (Acute) Hip pain (Acute) Fall from slip, trip, or stumble (Acute) Left rib fracture (Acute) Closed chip fracture of left triquetrum with routine healing (Acute) Contusion of left thigh (Acute) Acute strain of neck muscle (Acute) Adhesive capsulitis of right shoulder (Acute) Rotator cuff tear arthropathy of right shoulder (Acute) Poor balance (Acute) Acute onset sepsis (Acute) Right lower lobe pneumonia (Acute) Diarrhea (Acute) Seborrheic dermatitis (Acute) Hospital discharge follow-up (Acute) Nephrotic range proteinuria (Acute) Hypertension associated with chronic kidney disease due to type 2 diabetes mellitus (Acute) Stasis dermatitis of both legs (Acute) Lower extremity ulceration (Acute) Right lower lobe pneumonia (Acute) BPH associated with nocturia (Acute) Hypersomnia (Chronic) Pneumonia (Acute) Positive D dimer (Acute) Dandruff (Acute) Winter itch (Acute) Lumbar radiculopathy, right (Acute) Bladder wall thickening (Acute) Other low back pain (Acute) Greater trochanteric bursitis of right hip (Chronic) Failed back syndrome (Chronic) Urinary frequency (Chronic) Medical History Abdominal pain Acute exacerbation of chronic obstructive airways disease Acute on chronic renal failure Adhesive capsulitis of right shoulder Adverse effects of medication Nausea due either to metformin or spironolactone. Esophageal web prevents vomiting but he had problems with dry heaving and no p.o. intake earlier in the month when he was in the emergency room. => Tolerating eplerenone in place of aldactone. Constipation is probably a result of his diltiazem or may be iron therapy,=> D/C diltiazem January 2021 Anemia Anesthesia complication Anxiety Back pain Quinn's esophagus Cellulitis Cellulitis of both lower extremities Cellulitis of leg without foot, left CHF (congestive heart failure) Chronic kidney disease, stage III (moderate) Baseline creatinine is around 2 and despite long-standing diabetes I suspect this is diabetic nephropathy with hypertensive or vascular disease given the near nephrotic range amounts of proteinuria Chronic renal insufficiency Congestive heart failure on lasix and spironolactone still has mild edema advised to reduce sodium intake ct current meds he will follow with cardiology tomorrow, will follow the recs COPD (chronic obstructive pulmonary disease) Cough Depression Diabetes mellitus, type II Diastolic CHF, chronic pLVEF and no valve issue Pulmonary HTN with continuous O2 Dyspnea Edema Failed back syndrome Generalized edema GERD (gastroesophageal reflux disease) Greater trochanteric bursitis of right hip Heart failure with left ventricular ejection fraction greater than or equal to 50 percent Suspect pulmonary HTN as well. Metolazone, bumetanide and eplerenone for volume/edema Diltiazem for BP and HR control plus the antiproteinuric / renoprotective effect. Hematuria History of asthma Hospital discharge follow-up Hyperglycemia due to type 2 diabetes mellitus Hyperglycemia, drug-induced Hyperlipidemia Hyperparathyroidism due to renal insufficiency Hypersomnia Hypertension associated with stage 4 chronic kidney disease due to type 2 diabetes mellitus Near nephrotic range proteinuria with edema and nl proBNP GFR labile and depends on volume status Hypertension, essential Hypertensive renal disease BP at goal ct current medications Hypokalemia due to loss of potassium Hyponatremia Hypothyroidism Hypoxemia Hypoxia Intradermal melanocytic nevus 05/08/2015 - Dr. Diaz: Right Ear Canal Leg pain Lower extremity edema Lower extremity ulceration Lymphedema Obesity (BMI 30-39.9) Obstructive sleep apnea (adult) (pediatric) Osteoarthrosis, shoulder region (08/28/14-Dr Dean)Left Other cardiomyopathies Other low back pain Oxygen dependent due to chronic COPD, etc. Paralyzed hemidiaphragm right side Persistent proteinuria Diltiazem and Spironolactone Increase spironolactone as tolerated by K and GFR Pneumonia 06/2013 Poor balance Pruritus Rotator cuff tear (08/28/14-Margarito)Left partial tear Schatzki's ring Sciatica Seborrheic dermatitis Shortness of breath Skin abnormalities Epidermal / Dermal skin tears Grade 1-2 , now ulcers. Covered with slough. Lymphedema of both legs. For conservative wound care. Dressing changes after MIST treatments and topical bactroban ointment. Will follow patietn while in hospital and later at wound care clinic. Sleep disorder, nonorganic Stasis dermatitis of both legs Testicular hypofunction Uncontrolled hypertension Uncontrolled type 2 diabetes mellitus with stage 3 chronic kidney disease, with long-term current use of insulin Nephrotic range proteinuria after D/C of diltiazem due to constipation complaints. Add SGTL 2 inhibitor Urinary incontinence with continuous leakage Venous insufficiency Vitamin D deficiency Volume overload Surgical History History of appendectomy 2003 History of back surgery 1984 & 2001 x2, [facility]-1983, [facility]-2001 & Rehab at [facility] in [place] History of bronchoscopy History of cardiac catheterization 2012 History of colonoscopy 04/15/2015 - Dr. José - Incomplete bowel prep, Incomplete Colonoscopy History of esophagogastroduodenoscopy (01/31/14) Schatzki's Ring, Quinn's Esophagus History of prostate surgery History of surgery 11/19 MBB #2 L3-S1 w/sed 11/08/201609/17 MBB #1 L3-S1 w/sed 09/23/201608/18 TF JILLIAN #1 L2-3, Bilat w/sed 08/23/201606/16 TF JILLIAN #3 L2-3, Left w/o sed 06/24/201403/16 TF JILLIAN #2 L2-3, left w/o sed 03/19/201412/14 TF JILLIAN #1 Left L2-3 w/o sed 12/11/13 History of tonsillectomy 2009 [facility] S/P skin biopsy 05/08/2015 - Dr. Diaz: Right Ear Canal S/P skin biopsy (02/13/14) Right forearm: See path report Family History Unknown Allergic rhinitis Asthma Diabetes mellitus Essential hypertension Disorder of thyroid Brother Sleep apnea Social History Smoking Status: Former smoker Alcohol Intake Frequency: a few times a week Substance Use: does not use Exam Narrative Narrative: Narrative: General Limitations: no limitations General appearance: Present alert, grimacing, in no apparent distress, obese and other (Chronically ill-appearing) Head Head: Present atraumatic, normocephalic and normal inspection Eye Eye: Present normal appearance; Absent scleral icterus or conjunctival injection Respiratory Respiratory: Present rales/crackles (rlq); Absent wheezes Cardiovascular Cardiovascular: Present normal rhythm, tachycardia and normal heart sounds Adbominal Abdominal: Present soft, distention, tenderness and diminished bowel sounds; Absent guarding or rebound Extremities Extremities: Present tenderness, pedal edema, pretibial edema, calf tenderness and other (Bilateral diffuse lower extremity edema that is shiny with bilateral anterior erythema and localized skin sloughing. ) Neurological Neurological: Present alert and oriented X3 Psychiatric Psychiatric: Present normal affect and normal mood Skin Skin: Present erythema (Chronic bilateral lower extremity stasis dermatitis) Course Vital Signs Vital signs: Vital Signs Temperature 98.4 F 03/22/23 18:41 Pulse Rate 115 H 03/22/23 18:41 Respiratory Rate 20 03/22/23 18:41 Blood Pressure 169/93 03/22/23 18:41 Pulse Oximetry (%) 98 03/22/23 18:41 Oxygen Delivery Method Nasal Cannula 03/22/23 18:41 Oxygen Flow Rate (L/min) 3 03/22/23 18:41 Temperature 98.4 F 03/22/23 18:41 Pulse Rate 110 H 03/22/23 23:01 Respiratory Rate 20 03/22/23 23:01 Blood Pressure 178/80 03/22/23 23:01 Pulse Oximetry (%) 99 03/22/23 23:01 Oxygen Delivery Method Nasal Cannula 03/22/23 20:26 Oxygen Flow Rate (L/min) 3 03/22/23 20:26 MDM MDM Narrative Medical decision making narrative: Narrative: Clinical consideration include but not limited to CHF exacerbation, pulmonary embolism, cellulitis, pneumonia, [place] and sepsis. On arrival an EKG is completed which reveals a sinus tachycardia. IV is started and a CBC, CMP, BNP, troponin, procalcitonin, blood culture is ordered and is pending. Patient is found to be tachycardic and prior records reveal he has a long history of tachycardia on prior ER visits. A chest x-ray is ordered, reviewed and interpreted by me and is possibly concerning for a right lung pneumonia but patient does not have good inspiration. Patient does have severe bilateral lower extremity swelling and stasis dermatitis and I am unable to rule out his cellulitis component and he does have mild redness to the left medial calf in addition to the chronic stasis dermatitis. Unable to rule out a pulmonary embolism so a CTA is completed. He is given a liter of fluid, and 2 g of ceftriaxone in ER. He is also requesting something to eat. His BNP is very reassuring as it is found to be 227. He is also found to be without leukocytosis but does have elevated lactic acid of 2.7. Blood cultures and procalcitonin is pending. Patient is given 125 mg of methylprednisone. He is also given 20 mg of labetalol for his hypertension and his heart rate. He is diagnosed with After having the CTA patient does report increased shortness of breath so is given a DuoNeb treatment. Report is given to Dr. García. He will assume care. Sepsis Sepsis Identified: Yes Date Sepsis Identified: 03/22/23 Time Sepsis Identified: 21:18 Comments: stable Lab Data 03/22/23 19:06 Labs: Lab Results 03/22/23 03/22/23 03/22/23 Range/Units 19:03 19:06 19:06 WBC 9.8 (4.5-11.0) K/mcL RBC 3.71 L (4.63-6.08) M/mcL Hgb 11.7 L (13.7-17.5) g/dL Hct 36.8 L (40.1-51.0) % POC Hct 38.0 L (41-55) MCV 99.2 (80.0-100.0) fL MCH 31.5 (26.0-34.0) pg MCHC 31.8 (31.0-36.0) g/dL RDW 11.8 (11.5-14.5) % Plt Count 348 (140-440) K/mcL MPV 9.3 (8.8-12.5) fL Immature Gran % (Auto) 0.5 (0.0-0.5) % Neut % (Auto) 68.5 (38.0-78.0) % Lymph % (Auto) 21.2 (15.5-49.0) % [place] % (Auto) 7.5 (1.0-12.0) % Eos % (Auto) 1.8 (0.0-7.0) % Baso % (Auto) 0.5 (0.0-2.0) % Lymph # (Auto) 2.07 (1.50-4.80) K/mcL [place] # (Auto) 0.73 (0.10-0.90) K/mcL Eos # (Auto) 0.18 (0.00-0.70) K/mcL Baso # (Auto) 0.05 (0.00-0.30) K/mcL Immature Gran # 0.05 (0.00-0.05) K/mcl Absolute Neutrophils 6.68 (1.80-8.00) K/mcL POC VBG pH (7.32-7.42) POC VBG pCO2 at Temp (41-51) POC VBG pO2 (25-40) POC VBG HCO3 (24-28) POC VBG Total CO2 (25-29) POC Venous O2 Sat (40-70) POC VBG Base Excess (-2-2) VBG Lactic Acid (0.5-2) POC Sodium 140 (133-145) POC Potassium 3.5 (3.3-5.1) POC Chloride 90 L (96-108) POC Total CO2 35.0 H (22-30) POC Anion Gap 18.0 H (8.0-16.0) POC BUN 24 H (6-20) POC Creatinine 1.8 H (0.6-1.2) POC Glucose 191 H (70-105) POC WB Ioniz Calcium 1.05 L (1.16-1.32) Troponin T 0.02 (<0.03) ng/mL NT-Pro-B Natriuret Pep (<450.0) pg/mL Procalcitonin (<0.10) ng/mL 03/22/23 03/22/23 03/22/23 Range/Units 19:06 19:06 19:07 WBC (4.5-11.0) K/mcL RBC (4.63-6.08) M/mcL Hgb (13.7-17.5) g/dL Hct (40.1-51.0) % POC Hct (41-55) MCV (80.0-100.0) fL MCH (26.0-34.0) pg MCHC (31.0-36.0) g/dL RDW (11.5-14.5) % Plt Count (140-440) K/mcL MPV (8.8-12.5) fL Immature Gran % (Auto) (0.0-0.5) % Neut % (Auto) (38.0-78.0) % Lymph % (Auto) (15.5-49.0) % [place] % (Auto) (1.0-12.0) % Eos % (Auto) (0.0-7.0) % Baso % (Auto) (0.0-2.0) % Lymph # (Auto) (1.50-4.80) K/mcL [place] # (Auto) (0.10-0.90) K/mcL Eos # (Auto) (0.00-0.70) K/mcL Baso # (Auto) (0.00-0.30) K/mcL Immature Gran # (0.00-0.05) K/mcl Absolute Neutrophils (1.80-8.00) K/mcL POC VBG pH 7.40 (7.32-7.42) POC VBG pCO2 at Temp 63.7 H* (41-51) POC VBG pO2 20 L (25-40) POC VBG HCO3 39.1 H (24-28) POC VBG Total CO2 41.0 H (25-29) POC Venous O2 Sat 29.0 L (40-70) POC VBG Base Excess 14.0 H* (-2-2) VBG Lactic Acid 2.6 H (0.5-2) POC Sodium (133-145) POC Potassium (3.3-5.1) POC Chloride (96-108) POC Total CO2 (22-30) POC Anion Gap (8.0-16.0) POC BUN (6-20) POC Creatinine (0.6-1.2) POC Glucose (70-105) POC WB Ioniz Calcium (1.16-1.32) Troponin T (<0.03) ng/mL NT-Pro-B Natriuret Pep 231.6 (<450.0) pg/mL Procalcitonin 0.14 H (<0.10) ng/mL 03/22/23 03/22/23 Range/Units 22:20 23:07 WBC (4.5-11.0) K/mcL RBC (4.63-6.08) M/mcL Hgb (13.7-17.5) g/dL Hct (40.1-51.0) % POC Hct (41-55) MCV (80.0-100.0) fL MCH (26.0-34.0) pg MCHC (31.0-36.0) g/dL RDW (11.5-14.5) % Plt Count (140-440) K/mcL MPV (8.8-12.5) fL Immature Gran % (Auto) (0.0-0.5) % Neut % (Auto) (38.0-78.0) % Lymph % (Auto) (15.5-49.0) % [place] % (Auto) (1.0-12.0) % Eos % (Auto) (0.0-7.0) % Baso % (Auto) (0.0-2.0) % Lymph # (Auto) (1.50-4.80) K/mcL [place] # (Auto) (0.10-0.90) K/mcL Eos # (Auto) (0.00-0.70) K/mcL Baso # (Auto) (0.00-0.30) K/mcL Immature Gran # (0.00-0.05) K/mcl Absolute Neutrophils (1.80-8.00) K/mcL POC VBG pH 7.36 (7.32-7.42) POC VBG pCO2 at Temp 67.7 H* (41-51) POC VBG pO2 73 H (25-40) POC VBG HCO3 37.9 H (24-28) POC VBG Total CO2 40.0 H (25-29) POC Venous O2 Sat 93.0 H (40-70) POC VBG Base Excess 12.0 H* (-2-2) VBG Lactic Acid 1.8 1.3 (0.5-2) POC Sodium (133-145) POC Potassium (3.3-5.1) POC Chloride (96-108) POC Total CO2 (22-30) POC Anion Gap (8.0-16.0) POC BUN (6-20) POC Creatinine (0.6-1.2) POC Glucose (70-105) POC WB Ioniz Calcium (1.16-1.32) Troponin T (<0.03) ng/mL NT-Pro-B Natriuret Pep (<450.0) pg/mL Procalcitonin (<0.10) ng/mL EKG Data EKG #1: EKG attestation: Yes I reviewed and interpreted this EKG. EKG results narrative: EKG reveals sinus tachycardia with old infarcts and no acute ischemic changes. Rate is 104. EKG pleated 09/20/2022 is consistent with EKG completed today which reveals old anterior and inferior infarct. No significant EKG changes. EKG shows normal: sinus rhythm Rate: tachycardia P waves: NAT Discharge Plan Patient/Caregiver Discharge Instructions Pt seen by [employer]OR/PA only: Yes Patient Disposition: Still a Patient Follow up with: Sharif Coronel MD [Primary Care Provider] - Prescriptions: No Action (DME) FreeStyle Lite Strips Strip See Dose Instructions .ROUTE .MEDSUPPLY Qty: 100 11RF Dose Instruction: As directed Rx Instructions: Use to test BG three times daily (DME) Wheelchair Ramp Qty: 1 0RF Rx Instructions: Wheelchair ramp for patients home ketoconazole 2 % cream 1 applic topical BID 14 Days Qty: 30 0RF Rx Instructions: Apply to face and scalp BID for 2 weeks Breo Ellipta 200-25 mcg/dose blister with device 1 inh INHALATION QDAY Qty: 60 3RF (DME) Comfort EZ Pen [place] 32 gauge x 5/16" needle See Dose Instructions .ROUTE .MEDSUPPLY Qty: 100 11RF Dose Instruction: As directed Rx Instructions: Use with insulin 5 times daily eplerenone 50 mg tablet 25 mg PO QDAY Qty: 90 3RF Hold Instructions: Doctor's Order Rx Instructions: Replaces spironolactone hydralazine 25 mg tablet 25 mg PO TID Qty: 270 1RF Tradjenta 5 mg tablet 5 mg PO QAM Qty: 90 1RF Hold Instructions: Doctor's Order (DME) Dexcom G6 Transmitter Device See Rx Instructions .ROUTE .MEDSUPPLY Qty: 1 1RF Rx Instructions: As directed sertraline 50 mg tablet 50 mg PO QDAY Qty: 90 1RF levothyroxine [Synthroid] 75 mcg tablet 75 mcg PO QDAY Qty: 90 1RF rosuvastatin [Crestor] 20 mg tablet 20 mg PO QHS Qty: 90 1RF Hold Instructions: Doctor's Order insulin lispro [Humalog KwikPen Insulin] 100 unit/mL insulin pen 22 unit SUB-Q TID Qty: 75 1RF Rx Instructions: 22 units plus sliding scale (4-6 units) - Max daily dose 90 units (DME) Dexcom G7 Pastry Wrapper Misc See Rx Instructions .Route Qty: 1 0RF Rx Instructions: As directed (DME) Dexcom G7 Sensor Device See Rx Instructions .Route Qty: 3 6RF Rx Instructions: As directed pantoprazole [Protonix] 40 mg tablet,delayed release (DR/EC) 40 mg PO QDAY Qty: 90 1RF (DME) Dexcom G6 Sensor Device See Rx Instructions .ROUTE .COMPLEX Qty: 3 3RF Dose Instruction: USE DIRECTED FOR CONTINUOUS GLUCOSE MONITORING. CHANGE SENSOR EVERY 10 DAYS. Rx Instructions: USE DIRECTED FOR CONTINUOUS GLUCOSE MONITORING. CHANGE SENSOR EVERY 10 DAYS. methylprednisolone [Medrol (Randy)] 4 mg tablets,dose pack See Rx Instructions PO PER PKG DIR Qty: 21 0RF Rx Instructions: PO PER PKG DIR ipratropium-albuterol 0.5 mg-3 mg(2.5 mg base)/3 mL solution for nebulization 3 ml inhalation Q6H PRN (Reason: shortness of breath or wheezing) Qty: 360 1RF (DME) pen needle, diabetic 32 gauge x 5/32" needle See Rx Instructions .ROUTE 5XD Qty: 50 Rx Instructions: As directed ketoconazole 2 % shampoo 1 applic topical .2xW Qty: 120 0RF (DME) Diabetic Shoes See Rx Instructions .Route .MEDSUPPLY Qty: 1 0RF Rx Instructions: As directed brimonidine 0.2 % drops 1 drp ophthalmic (eye) BID latanoprost 0.005 % drops 1 drp ophthalmic (eye) HS torsemide 100 mg tablet 100 mg PO QDAY Qty: 90 3RF (DME) lancets 1 EACH misc 1 each MC TIDP Qty: 90 11RF B/L compression stockings (Knee high, 15-20mmHg) 1 unit TOPICAL PRN PRN (Reason: Edema) Rx Instructions: Wear compression stockings for at least 4 hrs/day albuterol sulfate [Ventolin HFA] 90 mcg/actuation Hfa Aerosol Inhaler 2 puff INHALATION Q6HP PRN (Reason: Shortness Of Breath) docusate sodium [Colace] 100 mg Capsule 100 mg PO BID polyethylene glycol 3350 [Miralax] 17 gram Powder In Packet 17 g PO QDAY hydrocodone-acetaminophen 5-325 mg tablet 1 tab PO QHS PRN (Reason: pain) Qty: 7 0RF methocarbamol 500 mg tablet 500 mg PO TID PRN (Reason: back pain) Qty: 20 0RF
[2023-03-22 19:46] LABS: Basophils # (Auto) 0.05 K/mcL (0.00-0.30); Basophils % (Auto) 0.5 % (0.0-2.0); Eosinophils # (Auto) 0.18 K/mcL (0.00-0.70); Eosinophils % (Auto) 1.8 % (0.0-7.0); Hematocrit 36.8 % (40.1-51.0); Hemoglobin 11.7 g/dL (13.7-17.5); Lymphocytes # (Auto) 2.07 K/mcL (1.50-4.80); Lymphocytes % (Auto) 21.2 % (15.5-49.0); Mean Cell Volume 99.2 fL (80.0-100.0); Mean Corpuscular HGB Conc 31.8 g/dL (31.0-36.0); Mean Platelet Volume 9.3 fL (8.8-12.5); Monocytes # (Auto) 0.73 K/mcL (0.10-0.90); Monocytes % (Auto) 7.5 % (1.0-12.0); Neutrophils % (Auto) 68.5 % (38.0-78.0); Platelet Count 348 K/mcL (140-440); RBC 3.71 M/mcL (4.63-6.08); Red Cell Distribution Width 11.8 % (11.5-14.5); WBC 9.8 K/mcL (4.5-11.0)
[2023-03-22 20:10] LABS: proBNP 231.6 pg/mL (<450.0)
[2023-03-22] MEDS ORDERED: 0.9 % SODIUM CHLORIDE 1,000 ML IV ONE (21:34)
[2023-03-22] MEDS ORDERED: cefTRIAXone 2 GM in DEXTROSE 5% IN WATER 50 ML IV ONE (21:39)
[2023-03-22] MEDS ORDERED: LABETALOL 5 MG/ML ML IV ONE (21:49)
[2023-03-22] MEDS ORDERED: methylPREDNISolone SOD SUCC 125 MG/2 ML VIAL IV ONE (22:12)
[2023-03-22] MEDS ORDERED: IPRATROPIUM/ALBUTEROL 3 ML AMPUL.NEB NEB ONE (22:32)
[2023-03-22] MEDS ORDERED: methylPREDNISolone SOD SUCC 40 MG/ML VIAL IV ONE (22:33)
--- NOTE | 2023-03-22 23:42 | Emergency Department Note ---
Course Course Course Narrative: I assumed care of patient at 2200 pending CTA of the chest and discussion with hospitalist for admission. CTA chest negative for PE was concerning for pneumonia. Case was discussed with hospitalist who has agreed to admit the patient for hypertensive urgency, lactic acidosis, bilateral pneumonia and fluid overload. Vital Signs Vital signs: Vital Signs Temperature 98.4 F 03/22/23 18:41 Pulse Rate 115 H 03/22/23 18:41 Respiratory Rate 20 03/22/23 18:41 Blood Pressure 169/93 03/22/23 18:41 Pulse Oximetry (%) 98 03/22/23 18:41 Oxygen Delivery Method Nasal Cannula 03/22/23 18:41 Oxygen Flow Rate (L/min) 3 03/22/23 18:41 Temperature 98.4 F 03/22/23 18:41 Pulse Rate 110 H 03/22/23 23:01 Respiratory Rate 03/22/23 23:01 Blood Pressure 178/80 03/22/23 23:01 Pulse Oximetry (%) 99 03/22/23 23:01 Oxygen Delivery Method Nasal Cannula 03/22/23 20:26 Oxygen Flow Rate (L/min) 3 03/22/23 20:26 MDM MDM Narrative Medical decision making narrative: Narrative: Differential Diagnosis Differential Diagnosis: Pneumonia, hypertensive urgency Medical Records Medical records reviewed: Yes I reviewed the patient's medical records. Lab Data 03/22/23 19:06 Labs: Lab Results 03/22/23 03/22/23 03/22/23 Range/Units 19:03 19:06 19:06 WBC 9.8 (4.5-11.0) K/mcL RBC 3.71 L (4.63-6.08) M/mcL Hgb 11.7 L (13.7-17.5) g/dL Hct 36.8 L (40.1-51.0) % POC Hct 38.0 L (41-55) MCV 99.2 (80.0-100.0) fL MCH 31.5 (26.0-34.0) pg MCHC 31.8 (31.0-36.0) g/dL RDW 11.8 (11.5-14.5) % Plt Count 348 (140-440) K/mcL MPV 9.3 (8.8-12.5) fL Immature Gran % (Auto) 0.5 (0.0-0.5) % Neut % (Auto) 68.5 (38.0-78.0) % Lymph % (Auto) 21.2 (15.5-49.0) % [place] % (Auto) 7.5 (1.0-12.0) % Eos % (Auto) 1.8 (0.0-7.0) % Baso % (Auto) 0.5 (0.0-2.0) % Lymph # (Auto) 2.07 (1.50-4.80) K/mcL [place] # (Auto) 0.73 (0.10-0.90) K/mcL Eos # (Auto) 0.18 (0.00-0.70) K/mcL Baso # (Auto) 0.05 (0.00-0.30) K/mcL Immature Gran # 0.05 (0.00-0.05) K/mcl Absolute Neutrophils 6.68 (1.80-8.00) K/mcL POC VBG pH (7.32-7.42) POC VBG pCO2 at Temp (41-51) POC VBG pO2 (25-40) POC VBG HCO3 (24-28) POC VBG Total CO2 (25-29) POC Venous O2 Sat (40-70) POC VBG Base Excess (-2-2) VBG Lactic Acid (0.5-2) POC Sodium 140 (133-145) POC Potassium 3.5 (3.3-5.1) POC Chloride 90 L (96-108) POC Total CO2 35.0 H (22-30) POC Anion Gap 18.0 H (8.0-16.0) POC BUN 24 H (6-20) POC Creatinine 1.8 H (0.6-1.2) POC Glucose 191 H (70-105) POC WB Ioniz Calcium 1.05 L (1.16-1.32) Troponin T 0.02 (<0.03) ng/mL NT-Pro-B Natriuret Pep (<450.0) pg/mL Procalcitonin (<0.10) ng/mL 03/22/23 03/22/23 03/22/23 Range/Units 19:06 19:06 19:07 WBC (4.5-11.0) K/mcL RBC (4.63-6.08) M/mcL Hgb (13.7-17.5) g/dL Hct (40.1-51.0) % POC Hct (41-55) MCV (80.0-100.0) fL MCH (26.0-34.0) pg MCHC (31.0-36.0) g/dL RDW (11.5-14.5) % Plt Count (140-440) K/mcL MPV (8.8-12.5) fL Immature Gran % (Auto) (0.0-0.5) % Neut % (Auto) (38.0-78.0) % Lymph % (Auto) (15.5-49.0) % [place] % (Auto) (1.0-12.0) % Eos % (Auto) (0.0-7.0) % Baso % (Auto) (0.0-2.0) % Lymph # (Auto) (1.50-4.80) K/mcL [place] # (Auto) (0.10-0.90) K/mcL Eos # (Auto) (0.00-0.70) K/mcL Baso # (Auto) (0.00-0.30) K/mcL Immature Gran # (0.00-0.05) K/mcl Absolute Neutrophils (1.80-8.00) K/mcL POC VBG pH 7.40 (7.32-7.42) POC VBG pCO2 at Temp 63.7 H* (41-51) POC VBG pO2 20 L (25-40) POC VBG HCO3 39.1 H (24-28) POC VBG Total CO2 41.0 H (25-29) POC Venous O2 Sat 29.0 L (40-70) POC VBG Base Excess 14.0 H* (-2-2) VBG Lactic Acid 2.6 H (0.5-2) POC Sodium (133-145) POC Potassium (3.3-5.1) POC Chloride (96-108) POC Total CO2 (22-30) POC Anion Gap (8.0-16.0) POC BUN (6-20) POC Creatinine (0.6-1.2) POC Glucose (70-105) POC WB Ioniz Calcium (1.16-1.32) Troponin T (<0.03) ng/mL NT-Pro-B Natriuret Pep 231.6 (<450.0) pg/mL Procalcitonin 0.14 H (<0.10) ng/mL 03/22/23 03/22/23 Range/Units 22:20 23:07 WBC (4.5-11.0) K/mcL RBC (4.63-6.08) M/mcL Hgb (13.7-17.5) g/dL Hct (40.1-51.0) % POC Hct (41-55) MCV (80.0-100.0) fL MCH (26.0-34.0) pg MCHC (31.0-36.0) g/dL RDW (11.5-14.5) % Plt Count (140-440) K/mcL MPV (8.8-12.5) fL Immature Gran % (Auto) (0.0-0.5) % Neut % (Auto) (38.0-78.0) % Lymph % (Auto) (15.5-49.0) % [place] % (Auto) (1.0-12.0) % Eos % (Auto) (0.0-7.0) % Baso % (Auto) (0.0-2.0) % Lymph # (Auto) (1.50-4.80) K/mcL [place] # (Auto) (0.10-0.90) K/mcL Eos # (Auto) (0.00-0.70) K/mcL Baso # (Auto) (0.00-0.30) K/mcL Immature Gran # (0.00-0.05) K/mcl Absolute Neutrophils (1.80-8.00) K/mcL POC VBG pH 7.36 (7.32-7.42) POC VBG pCO2 at Temp 67.7 H* (41-51) POC VBG pO2 73 H (25-40) POC VBG HCO3 37.9 H (24-28) POC VBG Total CO2 40.0 H (25-29) POC Venous O2 Sat 93.0 H (40-70) POC VBG Base Excess 12.0 H* (-2-2) VBG Lactic Acid 1.8 1.3 (0.5-2) POC Sodium (133-145) POC Potassium (3.3-5.1) POC Chloride (96-108) POC Total CO2 (22-30) POC Anion Gap (8.0-16.0) POC BUN (6-20) POC Creatinine (0.6-1.2) POC Glucose (70-105) POC WB Ioniz Calcium (1.16-1.32) Troponin T (<0.03) ng/mL NT-Pro-B Natriuret Pep (<450.0) pg/mL Procalcitonin (<0.10) ng/mL Radiology Data Radiology results reviewed: Yes I reviewed the patient's radiology results. Radiology results narrative: CT of the chest obtained with image reviewed myself negative for PE but concerning for bilateral pneumonia Core Measures AMI Core Measures Followed: Yes Discharge Plan Patient/Caregiver Discharge Instructions Pt seen by CUSTOMER ACCOUNT SPECIALIST/PA only: Yes Clinical Impression: Hypertensive urgency, Bilateral leg edema, Bilateral pneumonia, Elevated lactic acid level Patient Disposition: Xfer As Outpt/Obs (TS) Condition: Fair Follow up with: Sharif Coronel MD [Primary Care Provider] - Prescriptions: No Action (DME) FreeStyle Lite Strips Strip See Dose Instructions .ROUTE .MEDSUPPLY Qty: 100 11RF Dose Instruction: As directed Rx Instructions: Use to test BG three times daily (DME) Wheelchair Ramp Qty: 1 0RF Rx Instructions: Wheelchair ramp for patients home ketoconazole 2 % cream 1 applic topical BID 14 Days Qty: 30 0RF Rx Instructions: Apply to face and scalp BID for 2 weeks Breo Ellipta 200-25 mcg/dose blister with device 1 inh INHALATION QDAY Qty: 60 3RF (DME) Comfort EZ Pen [place] 32 gauge x 5/16" needle See Dose Instructions .ROUTE .MEDSUPPLY Qty: 100 11RF Dose Instruction: As directed Rx Instructions: Use with insulin 5 times daily eplerenone 50 mg tablet 25 mg PO QDAY Qty: 90 3RF Hold Instructions: Doctor's Order Rx Instructions: Replaces spironolactone hydralazine 25 mg tablet 25 mg PO TID Qty: 270 1RF Tradjenta 5 mg tablet 5 mg PO QAM Qty: 90 1RF Hold Instructions: Doctor's Order (DME) Dexcom G6 Transmitter Device See Rx Instructions .ROUTE .MEDSUPPLY Qty: 1 1RF Rx Instructions: As directed sertraline 50 mg tablet 50 mg PO QDAY Qty: 90 1RF levothyroxine [Synthroid] 75 mcg tablet 75 mcg PO QDAY Qty: 90 1RF rosuvastatin [Crestor] 20 mg tablet 20 mg PO QHS Qty: 90 1RF Hold Instructions: Doctor's Order insulin lispro [Humalog KwikPen Insulin] 100 unit/mL insulin pen 22 unit SUB-Q TID Qty: 75 1RF Rx Instructions: 22 units plus sliding scale (4-6 units) - Max daily dose 90 units (DME) Dexcom G7 Claim Auditor Misc See Rx Instructions .Route Qty: 1 0RF Rx Instructions: As directed (DME) Dexcom G7 Sensor Device See Rx Instructions .Route Qty: 3 6RF Rx Instructions: As directed pantoprazole [Protonix] 40 mg tablet,delayed release (DR/EC) 40 mg PO QDAY Qty: 90 1RF (DME) Dexcom G6 Sensor Device See Rx Instructions .ROUTE .COMPLEX Qty: 3 3RF Dose Instruction: USE DIRECTED FOR CONTINUOUS GLUCOSE MONITORING. CHANGE SENSOR EVERY 10 DAYS. Rx Instructions: USE DIRECTED FOR CONTINUOUS GLUCOSE MONITORING. CHANGE SENSOR EVERY 10 DAYS. methylprednisolone [Medrol (Randy)] 4 mg tablets,dose pack See Rx Instructions PO PER PKG DIR Qty: 21 0RF Rx Instructions: PO PER PKG DIR ipratropium-albuterol 0.5 mg-3 mg(2.5 mg base)/3 mL solution for nebulization 3 ml inhalation Q6H PRN (Reason: shortness of breath or wheezing) Qty: 360 1RF (DME) pen needle, diabetic 32 gauge x 5/32" needle See Rx Instructions .ROUTE 5XD Qty: 50 Rx Instructions: As directed ketoconazole 2 % shampoo 1 applic topical .2xW Qty: 120 0RF (DME) Diabetic Shoes See Rx Instructions .Route .MEDSUPPLY Qty: 1 0RF Rx Instructions: As directed brimonidine 0.2 % drops 1 drp ophthalmic (eye) BID latanoprost 0.005 % drops 1 drp ophthalmic (eye) HS torsemide 100 mg tablet 100 mg PO QDAY Qty: 90 3RF (DME) lancets 1 EACH misc 1 each MC TIDP Qty: 90 11RF B/L compression stockings (Knee high, 15-20mmHg) 1 unit TOPICAL PRN PRN (Reason: Edema) Rx Instructions: Wear compression stockings for at least 4 hrs/day albuterol sulfate [Ventolin HFA] 90 mcg/actuation Hfa Aerosol Inhaler 2 puff INHALATION Q6HP PRN (Reason: Shortness Of Breath) docusate sodium [Colace] 100 mg Capsule 100 mg PO BID polyethylene glycol 3350 [Miralax] 17 gram Powder In Packet 17 g PO QDAY hydrocodone-acetaminophen 5-325 mg tablet 1 tab PO QHS PRN (Reason: pain) Qty: 7 0RF methocarbamol 500 mg tablet 500 mg PO TID PRN (Reason: back pain) Qty: 20 0RF
--- NOTE | 2023-03-22 23:45 | Internal Med History&Physical ---
HPI History of Present Illness Patient information: Note initiated : 03/22/23 at 11:39 pm Service Date, if different from initiated Date: [] Patient: Christine Pimentel 77 y/o M admitted on for increased leg swelling. Chief Complaint: [] History of present illness: Mr. Pimentel is a 77 year old male with history of CHF, diabetes mellitus 2, uncontrolled hypertension, hyperlipidemia, COPD, chronic hypoxic failure on 3 L nasal cannula oxygen, obstructive sleep apnea, partial compliance with CPAP, obesity, noncompliance with therapy, CKD stage III, esophageal stricture requiring frequent esophageal dilatation presented with worsening bilateral lower extremity swelling, redness and pain over the past few days. Patient is not wearing his hearing aids and is a limited historian. Patient reports he has some mild chronic swelling but over the past several days swelling has gotten worse. Both legs have shooting pains. He also complained of shortness of breath, nonproductive cough. He notes he has some chest tightness without radiation and has been using his DuoNebs at home. He feels he is dehydrated, tired and fatigued. He also noted he has not had a bowel movement in the past 4 days despite taking his daily senna and Colace. On presentation patient with tachycardia of 105 bpm, he had significantly elevated blood pressure of 190/77, on 3 L nasal cannula oxygen. He was given IV labetalol in ED. Labs showed WBC 9.8, hemoglobin 11.7. Lactic acidosis of 2.6. VBG pH 7.36, PCO2 67, PO2 73, HCO3 37. Electrolytes stable. Creatinine 1.8 consistent with chronic kidney disease. Procalcitonin 0.14. CTA chest per verbal report from ED was negative for PE but concerning for pneumonia. Patient will be admitted to PCU for hypertensive urgency, pneumonia, CHF, lactic acidosis Review of system 14 point review of system completed Constitutional: Reports as per HPI and sweats; Denies fever or chills Cardiovascular: Reports palpitations; Denies chest pain or syncope Respiratory: Reports shortness of breath and cough; Denies wheezes Gastrointestinal: Reports constipation; Denies abdominal pain, nausea, vomiting or diarrhea Musculoskeletal: Reports back pain and muscle cramps Integumentary: Reports rash Physical examination General Limitations: no limitations General appearance: Present alert, awake, obese, in some mild distress Head Head: Present atraumatic, normocephalic and normal inspection Eye Eye: Present normal appearance; Absent scleral icterus or conjunctival injection Respiratory Respiratory: Present mild Rales, on 3 L nasal cannula oxygen, no tachypnea Cardiovascular Cardiovascular: Present normal rhythm, tachycardia and normal heart sounds, no murmurs heard Adbominal Abdominal: Present soft, distention, tenderness and diminished bowel sounds; Absent guarding or rebound Extremities Extremities: Bilateral lower extremity have diffuse 1-2+ edema, there is some blistering, skin is somewhat shiny, there is redness and erythema, it is tender to touch. Neurological Neurological: Present alert and oriented X3 Psychiatric Psychiatric: Present normal affect and normal mood Skin Skin: Present chronic bilateral stasis dermatitis changes Assessment and plan Bilateral lower extremity cellulitis. Ceftriaxone will cover Pneumonia. CT scan with no PE but with right-sided infiltrate on my read. Will give ceftriaxone and azithromycin. Nebulization therapy, pulmonary toileting COPD exacerbation. IV Solu-Medrol, ceftriaxone, azithromycin, nebs Respiratory failure, chronic. On 3 L nasal cannula oxygen. Hypertensive urgency. Poorly controlled hypertension. Continue home dose antihypertensive treatment. IV hydralazine and IV labetalol as needed Diabetes mellitus, type II. Home dose antidiabetic regimen and insulin sliding scale Acute exacerbation of diastolic CHF. Obtain BNP. Hold diuretics for tonight and reassess in the morning with echocardiogram. Patient with no hypoxia. No obvious pleural effusion on CT scan or chest x-ray. Monitor input output. CKD stage III. Appears at baseline. Monitor renal functions Pulmonary HTN with continuous O2 GERD. Continue PPI Hypothyroidism. Continue Synthroid Obstructive sleep apnea. CPAP at nighttime and during naps Noncompliance with therapy. Counseled on compliance DVT prophylaxis with SCDs Full code Total time taken 70 minutes PFSH PFSH All Active Problems (Updated 03/22/23 @ 23:41 by Tom García DO) Hypertensive urgency (Acute) Bilateral leg edema (Acute) Bilateral pneumonia (Acute) Elevated lactic acid level (Acute) Anxiety (Chronic) History of asthma (Chronic) Back pain (Chronic) Quinn's esophagus (Chronic) Other cardiomyopathies (Chronic) Chronic kidney disease, stage III (moderate) (Chronic) COPD (chronic obstructive pulmonary disease) (Chronic) Congestive heart failure (Chronic) Cough (Chronic) Depression (Chronic) Diabetes mellitus, type II (Chronic) Dyspnea (Chronic) GERD (gastroesophageal reflux disease) (Chronic) Hyperlipidemia (Chronic) Hypertension, essential (Chronic) Hypothyroidism (Chronic) Obstructive sleep apnea (adult) (pediatric) (Chronic) Osteoarthrosis, shoulder region (Chronic) Rotator cuff tear (Chronic) Schatzki's ring (Chronic) Sciatica (Chronic) Shortness of breath (Chronic) Sleep disorder, nonorganic (Chronic) Testicular hypofunction (Chronic) Venous insufficiency (Chronic) Vitamin D deficiency (Chronic) Anemia (Chronic) Hyperparathyroidism due to renal insufficiency (Chronic) Hypertensive renal disease (Chronic) Hypoxemia (Chronic) Persistent proteinuria (Chronic) CKD (chronic kidney disease) stage 3, GFR 30-59 ml/min (Chronic) Skin abnormalities (Chronic) Hypoxia (Chronic) 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, with long-term current use of insulin (Chronic) Uncontrolled type 2 diabetes mellitus with stage 3 chronic kidney disease, with long-term current use of insulin (Chronic) Chronic renal insufficiency (Chronic) Adverse effects of medication (Acute) Obesity (BMI 30-39.9) (Chronic) Oxygen dependent (Chronic) Fall (on) (from) other stairs and steps, initial encounter (Acute) Concussion with loss of consciousness (Acute) Hyponatremia (Acute) Elevated WBC count (Acute) Contusion of left knee (Acute) Constipation (Acute) Acute alcohol intoxication (Acute) Hypertension associated with stage 4 chronic kidney disease due to type 2 diabetes mellitus (Chronic) Heart failure with left ventricular ejection fraction greater than or equal to 50 percent (Chronic) Diastolic CHF, chronic (Chronic) Non-nephrotic range proteinuria (Chronic) Chronic pain of right knee (Acute) Skin tear (Acute) Hip pain (Acute) Fall from slip, trip, or stumble (Acute) Left rib fracture (Acute) Closed chip fracture of left triquetrum with routine healing (Acute) Contusion of left thigh (Acute) Acute strain of neck muscle (Acute) Adhesive capsulitis of right shoulder (Acute) Rotator cuff tear arthropathy of right shoulder (Acute) Poor balance (Acute) Acute onset sepsis (Acute) Right lower lobe pneumonia (Acute) Diarrhea (Acute) Seborrheic dermatitis (Acute) Hospital discharge follow-up (Acute) Nephrotic range proteinuria (Acute) Hypertension associated with chronic kidney disease due to type 2 diabetes mellitus (Acute) Stasis dermatitis of both legs (Acute) Lower extremity ulceration (Acute) Right lower lobe pneumonia (Acute) BPH associated with nocturia (Acute) Hypersomnia (Chronic) Pneumonia (Acute) Positive D dimer (Acute) Dandruff (Acute) Winter itch (Acute) Lumbar radiculopathy, right (Acute) Bladder wall thickening (Acute) Other low back pain (Acute) Greater trochanteric bursitis of right hip (Chronic) Failed back syndrome (Chronic) Urinary frequency (Chronic) Medical History Abdominal pain Acute exacerbation of chronic obstructive airways disease Acute on chronic renal failure Adhesive capsulitis of right shoulder Adverse effects of medication Nausea due either to metformin or spironolactone. Esophageal web prevents vomiting but he had problems with dry heaving and no p.o. intake earlier in the month when he was in the emergency room. => Tolerating eplerenone in place of aldactone. Constipation is probably a result of his diltiazem or may be iron therapy,=> D/C diltiazem January 2021 Anemia Anesthesia complication Anxiety Back pain Quinn's esophagus Cellulitis Cellulitis of both lower extremities Cellulitis of leg without foot, left CHF (congestive heart failure) Chronic kidney disease, stage III (moderate) Baseline creatinine is around 2 and despite long-standing diabetes I suspect this is diabetic nephropathy with hypertensive or vascular disease given the near nephrotic range amounts of proteinuria Chronic renal insufficiency Congestive heart failure on lasix and spironolactone still has mild edema advised to reduce sodium intake ct current meds he will follow with cardiology tomorrow, will follow the recs COPD (chronic obstructive pulmonary disease) Cough Depression Diabetes mellitus, type II Diastolic CHF, chronic pLVEF and no valve issue Pulmonary HTN with continuous O2 Dyspnea Edema Failed back syndrome Generalized edema GERD (gastroesophageal reflux disease) Greater trochanteric bursitis of right hip Heart failure with left ventricular ejection fraction greater than or equal to 50 percent Suspect pulmonary HTN as well. Metolazone, bumetanide and eplerenone for volume/edema Diltiazem for BP and HR control plus the antiproteinuric / renoprotective effect. Hematuria History of asthma Hospital discharge follow-up Hyperglycemia due to type 2 diabetes mellitus Hyperglycemia, drug-induced Hyperlipidemia Hyperparathyroidism due to renal insufficiency Hypersomnia Hypertension associated with stage 4 chronic kidney disease due to type 2 diabetes mellitus Near nephrotic range proteinuria with edema and nl proBNP GFR labile and depends on volume status Hypertension, essential Hypertensive renal disease BP at goal ct current medications Hypokalemia due to loss of potassium Hyponatremia Hypothyroidism Hypoxemia Hypoxia Intradermal melanocytic nevus 05/08/2015 - Dr. Diaz: Right Ear Canal Leg pain Lower extremity edema Lower extremity ulceration Lymphedema Obesity (BMI 30-39.9) Obstructive sleep apnea (adult) (pediatric) Osteoarthrosis, shoulder region (08/28/14-Dr Dean)Left Other cardiomyopathies Other low back pain Oxygen dependent due to chronic COPD, etc. Paralyzed hemidiaphragm right side Persistent proteinuria Diltiazem and Spironolactone Increase spironolactone as tolerated by K and GFR Pneumonia 06/2013 Poor balance Pruritus Rotator cuff tear (08/28/14-Margarito)Left partial tear Schatzki's ring Sciatica Seborrheic dermatitis Shortness of breath Skin abnormalities Epidermal / Dermal skin tears Grade 1-2 , now ulcers. Covered with slough. Lymphedema of both legs. For conservative wound care. Dressing changes after MIST treatments and topical bactroban ointment. Will follow patietn while in hospital and later at wound care clinic. Sleep disorder, nonorganic Stasis dermatitis of both legs Testicular hypofunction Uncontrolled hypertension Uncontrolled type 2 diabetes mellitus with stage 3 chronic kidney disease, with long-term current use of insulin Nephrotic range proteinuria after D/C of diltiazem due to constipation complaints. Add SGTL 2 inhibitor Urinary incontinence with continuous leakage Venous insufficiency Vitamin D deficiency Volume overload Surgical History History of appendectomy 2003 History of back surgery 1984 & 2001 x2, [facility]-1983, [place]-2001 & Rehab at [facility] History of bronchoscopy History of cardiac catheterization 2012 History of colonoscopy 04/15/2015 - Dr. José - Incomplete bowel prep, Incomplete Colonoscopy History of esophagogastroduodenoscopy (01/31/14) Schatzki's Ring, Quinn's Esophagus History of prostate surgery History of surgery 11/19 MBB #2 L3-S1 w/sed 11/08/201609/17 MBB #1 L3-S1 w/sed 09/23/201608/18 TF JILLIAN #1 L2-3, Bilat w/sed 08/23/201606/16 TF JILLIAN #3 L2-3, Left w/o sed 06/24/201403/16 TF JILLIAN #2 L2-3, left w/o sed 03/19/201412/14 TF JILLIAN #1 Left L2-3 w/o sed 12/11/13 History of tonsillectomy 2009 [facility] S/P skin biopsy 05/08/2015 - Dr. 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 other: Father D/C'd in /Mother D/C'd in smoking status: Former smoker quit date: 10/03/84 pack-years: 40 alcohol intake frequency: a few times a week substance use type: does not use MEDS/ALLERGIES Home Medications and Allergies Home Medications Medication Instructions Recorded Confirmed Type lancets #90 ea 09/24/15 03/22/23 Rx B/L compression stockings (Knee 1 unit topical PRN PRN Edema 01/26/18 03/22/23 History high, 15-20mmHg) blood sugar diagnostic (FreeStyle #100 ea 04/22/20 03/22/23 Rx Lite Strips) Wheelchair Ramp #1 ea 09/19/20 03/22/23 Rx albuterol sulfate 90 mcg/actuation 2 puff inhalation Q6HP PRN 04/26/21 03/22/23 History aerosol inhaler (Ventolin HFA) Shortness Of Breath docusate sodium 100 mg capsule 100 mg PO BID 04/27/21 03/22/23 History (Colace) polyethylene glycol 3350 17 gram 17 g PO QDAY 04/27/21 03/22/23 History oral powder packet (Miralax) latanoprost 0.005 % eye drops 1 drp ophthalmic (eye) HS 10/22/21 03/22/23 History ketoconazole 2 % topical cream 1 applic topical BID 2 weeks #30 01/06/22 03/22/23 Rx grams fluticasone furoate 200 1 inh inhalation QDAY #60 ea 01/29/22 03/22/23 Rx mcg-vilanterol 25 mcg/dose inhalation powder (Breo Ellipta) pen needle, diabetic 32 gauge x #100 ea 02/09/22 03/22/23 Rx 5/16" (Comfort EZ Pen [place]) eplerenone 50 mg tablet 25 mg PO QDAY #90 tabs 03/19/22 03/22/23 Rx torsemide 100 mg tablet 100 mg PO QDAY #90 tabs 04/01/22 03/22/23 Rx hydralazine 25 mg tablet 25 mg PO TID #270 tabs 08/24/22 03/22/23 Rx linagliptin 5 mg tablet (Tradjenta) 5 mg PO QAM #90 tabs 09/02/22 03/22/23 Rx blood-glucose transmitter (Dexcom #1 ea 09/07/22 03/22/23 Rx G6 Transmitter device) ketoconazole 2 % shampoo 1 applic topical .2xW #120 mL 10/20/22 03/22/23 Rx pen needle, diabetic 32 gauge x #50 ea 10/20/22 03/22/23 History 5/32" sertraline 50 mg tablet 50 mg PO QDAY #90 tabs 11/02/22 03/22/23 Rx levothyroxine 75 mcg tablet 75 mcg PO QDAY #90 tabs 11/09/22 03/22/23 Rx (Synthroid) rosuvastatin 20 mg tablet (Crestor) 20 mg PO QHS #90 tabs 11/30/22 03/22/23 Rx insulin lispro 100 unit/mL 22 unit (0.22 mL) subcut TID #75 mL 12/27/22 03/22/23 Rx subcutaneous pen (Humalog KwikPen (U-100) Insulin) blood-glucose meter,continuous #1 ea 01/03/23 03/22/23 Rx (Dexcom G7 Seasoning Mixer) blood-glucose sensor (Dexcom G7 #3 ea 01/03/23 03/22/23 Rx Sensor device) blood-glucose sensor (Dexcom G6 #3 ea 01/04/23 03/22/23 Rx Sensor device) pantoprazole 40 mg tablet,delayed 40 mg PO QDAY #90 tabs 01/04/23 03/22/23 Rx release (Protonix) Diabetic Shoes #1 ea 01/19/23 03/22/23 Rx hydrocodone 5 mg-acetaminophen 325 1 tab PO QHS PRN pain #7 tabs 01/27/23 03/22/23 Rx mg tablet methocarbamol 500 mg tablet 500 mg PO TID PRN back pain #20 01/27/23 03/22/23 Rx tabs methylprednisolone 4 mg tablets in See Rx Instructions PO PER PKG DIR 01/28/23 03/22/23 Rx a dose pack (Medrol (Randy)) #21 tabs brimonidine 0.2 % eye drops 1 drp ophthalmic (eye) BID 01/31/23 03/22/23 History ipratropium 0.5 mg-albuterol 3 mg 3 ml inhalation Q6H PRN shortness 03/22/23 03/22/23 Rx (2.5 mg base)/3 mL nebulization of breath or wheezing #360 mL soln Allergies Allergy/AdvReac Type Severity Reaction Status Date / Time codeine Allergy Severe shortness Verified 03/22/23 18:44 of breath ketamine Allergy Severe Difficulty Verified 03/22/23 18:44 Breathing mirabegron [From Myrbetriq] Allergy Severe difficulty Verified 03/22/23 18:44 breathing Metolazone Allergy Mild hives Verified 03/22/23 18:44 Thiazides Allergy Mild Itching Verified 03/22/23 18:44 and redness atorvastatin Allergy Unknown Unknown Verified 03/22/23 18:44 pravastatin Allergy Unknown Unknown Verified 03/22/23 18:44 linagliptin [From Tradjenta] AdvReac Intermediate Blistering Verified 03/22/23 18:44 to lower extremities phenylephrine [From V-Hist] AdvReac Intermediate hand and Verified 03/22/23 18:44 arm cramping brompheniramine [From V-Hist] AdvReac Mild hand and Verified 03/22/23 18:44 arm cramping Buspirone AdvReac Mild Intolerance Verified 03/22/23 18:44 morphine AdvReac Mild Itching Verified 03/22/23 18:44 valsartan AdvReac Mild Hand and Verified 03/22/23 18:44 arm pain Remedy skin repair cream Allergy Mild Itching Uncoded 02/17/23 10:37 EXAM Constitutional Vitals: Temp Pulse Resp BP Pulse Ox O2 Del Method O2 Flow Rate 98.4 F 110 H 20 178/80 99 Nasal Cannula 3 03/22/23 18:41 03/22/23 23:01 03/22/23 23:01 03/22/23 23:01 03/22/23 23:01 03/22/23 20:26 03/22/23 20:26 DATA Data Completed and Pending Labs: Labs from last 24 hours 03/22/23 03/22/23 03/22/23 23:07 22:20 19:07 WBC RBC Hgb Hct POC Hct MCV MCH MCHC RDW Plt Count MPV Immature Gran % (Auto) Neut % (Auto) Lymph % (Auto) [place] % (Auto) Eos % (Auto) Baso % (Auto) Lymph # (Auto) [place] # (Auto) Eos # (Auto) Baso # (Auto) Immature Gran # Absolute Neutrophils POC VBG pH 7.36 7.40 POC VBG pCO2 at Temp 67.7 H* 63.7 H* POC VBG pO2 73 H 20 L POC VBG HCO3 37.9 H 39.1 H POC VBG Total CO2 40.0 H 41.0 H POC Venous O2 Sat 93.0 H 29.0 L POC VBG Base Excess 12.0 H* 14.0 H* VBG Lactic Acid 1.3 1.8 2.6 H POC Sodium POC Potassium POC Chloride POC Total CO2 POC Anion Gap POC BUN POC Creatinine POC Glucose POC WB Ioniz Calcium Troponin T NT-Pro-B Natriuret Pep Procalcitonin 03/22/23 03/22/23 03/22/23 19:06 19:06 19:06 WBC RBC Hgb Hct POC Hct MCV MCH MCHC RDW Plt Count MPV Immature Gran % (Auto) Neut % (Auto) Lymph % (Auto) [place] % (Auto) Eos % (Auto) Baso % (Auto) Lymph # (Auto) [place] # (Auto) Eos # (Auto) Baso # (Auto) Immature Gran # Absolute Neutrophils POC VBG pH POC VBG pCO2 at Temp POC VBG pO2 POC VBG HCO3 POC VBG Total CO2 POC Venous O2 Sat POC VBG Base Excess VBG Lactic Acid POC Sodium POC Potassium POC Chloride POC Total CO2 POC Anion Gap POC BUN POC Creatinine POC Glucose POC WB Ioniz Calcium Troponin T 0.02 NT-Pro-B Natriuret Pep 231.6 Procalcitonin 0.14 H 03/22/23 03/22/23 19:06 19:03 WBC 9.8 RBC 3.71 L Hgb 11.7 L Hct 36.8 L POC Hct 38.0 L MCV 99.2 MCH 31.5 MCHC 31.8 RDW 11.8 Plt Count 348 MPV 9.3 Immature Gran % (Auto) 0.5 Neut % (Auto) 68.5 Lymph % (Auto) 21.2 [place] % (Auto) 7.5 Eos % (Auto) 1.8 Baso % (Auto) 0.5 Lymph # (Auto) 2.07 [place] # (Auto) 0.73 Eos # (Auto) 0.18 Baso # (Auto) 0.05 Immature Gran # 0.05 Absolute Neutrophils 6.68 POC VBG pH POC VBG pCO2 at Temp POC VBG pO2 POC VBG HCO3 POC VBG Total CO2 POC Venous O2 Sat POC VBG Base Excess VBG Lactic Acid POC Sodium 140 POC Potassium 3.5 POC Chloride 90 L POC Total CO2 35.0 H POC Anion Gap 18.0 H POC BUN 24 H POC Creatinine 1.8 H POC Glucose 191 H POC WB Ioniz Calcium 1.05 L Troponin T NT-Pro-B Natriuret Pep Procalcitonin A/P Time Spent With Patient Time: Total time spent is greater than 50% in coordination of care (as documented) at patient's floor/unit and/or counseling patient:
[2023-03-23] MEDS ORDERED: AZITHROMYCIN 500 MG VIAL IV ONE (00:35)
[2023-03-23] MEDS ORDERED: SENNOSIDES 1 TABLET PO PRN (01:15)
[2023-03-23] MEDS ORDERED: cefTRIAXone 1 GM in DEXTROSE 5% IN WATER 50 ML IV SCH (01:15)
[2023-03-23] MEDS ORDERED: ONDANSETRON 4 MG/2 ML VIAL IV PRN ×2 (01:15)
[2023-03-23] MEDS ORDERED: FLEETS ADULT ENEMA PR PRN (01:15)
[2023-03-23] MEDS ORDERED: MAGNESIUM HYDROXIDE 30 ML ORAL.SUSP PO PRN (01:15)
[2023-03-23] MEDS ORDERED: METHOCARBAMOL 500 MG TABLET PO PRN ×2 (01:15→07:00)
[2023-03-23] MEDS ORDERED: ACETAMINOPHEN 325 MG TABLET PO PRN (01:15)
[2023-03-23] MEDS ORDERED: LACTULOSE 20 GM/30 ML ORAL.SOL PO PRN (01:15)
[2023-03-23] MEDS: AZITHROMYCIN 500 MG in DEXTROSE 5% IN WATER 250 ML IV SCH ×2 (01:52→20:06)
[2023-03-23] MEDS: IPRATROPIUM/ALBUTEROL 3 ML AMPUL.NEB NEB SCH ×5 (01:52→19:16)
[2023-03-23] MEDS: hydrALAZINE 20 MG/ML VIAL IV PRN (01:53)
[2023-03-23] MEDS ORDERED: hydrALAZINE 20 MG/ML VIAL ONE (01:54)
[2023-03-23 02:13] LABS: proBNP 183.7 pg/mL (<450.0)
[2023-03-23] MEDS ORDERED: ACETAMINOPHEN 325 MG TABLET PO ONE (02:26)
[2023-03-23] MEDS ORDERED: LABETALOL 5 MG/ML ML IV ONE (05:01)
[2023-03-23] MEDS: LABETALOL 5 MG/ML ML IV PRN ×2 (05:16→16:34)
[2023-03-23] MEDS: 0.9 % SODIUM CHLORIDE 10 ML SYRINGE IV SCH ×3 (05:17→22:09)
[2023-03-23] MEDS ORDERED: 0.9 % SODIUM CHLORIDE 10 ML SYRINGE IV SCH ×2 (06:00)
[2023-03-23 06:31] LABS: Basophils # (Auto) 0.02 K/mcL (0.00-0.30); Basophils % (Auto) 0.1 % (0.0-2.0); Eosinophils # (Auto) 0 K/mcL (0.00-0.70); Eosinophils % (Auto) 0 % (0.0-7.0); Hematocrit 35.2 % (40.1-51.0); Lymphocytes % (Auto) 3.4 % (15.5-49.0); Mean Corpuscular HGB Conc 31.3 g/dL (31.0-36.0); Mean Platelet Volume 9.3 fL (8.8-12.5); Monocytes # (Auto) 0.11 K/mcL (0.10-0.90); Monocytes % (Auto) 0.6 % (1.0-12.0); Neutrophils % (Auto) 95.4 % (38.0-78.0); Platelet Count 325 K/mcL (140-440); RBC 3.52 M/mcL (4.63-6.08); WBC 17.5 K/mcL (4.5-11.0)
[2023-03-23] MEDS ORDERED: HYDROcodone/APAP 5/325MG TABLET PO PRN (06:43)
[2023-03-23 07:04] LABS: ALT/SGPT 7 U/L (<40); AST/SGOT 11 U/L (<40); Albumin 3.6 gm/dL (3.2-5.2); Alkaline Phosphatase 45 U/L (39-117); Bilirubin,Direct < 0.2 mg/dL (0-0.3); Bilirubin,Total 0.2 mg/dL (0.1-1.0); Blood Urea Nitrogen 24 mg/dL (8-23); Calcium 8.4 mg/dL (8.6-10.4); Carbon Dioxide 30 mmol/L (22-30); Chloride 91 mmol/L (96-108); Globulin 3.6 gm/dL (2.2-3.7); Glomerular Filtration Rate 35; Glucose 444 mg/dL (70-105); Lactate Dehydrogenase 168 U/L (135-225); Phosphorous 3.9 mg/dL (2.5-4.5); Triglycerides 72 mg/dL (<150); Uric Acid 6.7 mg/dL (2.5-8.0)
--- NOTE | 2023-03-23 07:52 | XRay Report ---
HISTORY: History: Dyspnea, leg swelling, COPD, former smoker FINDINGS: The right diaphragm is moderately elevated. This is causing mild compressive atelectasis in the basilar segments of the right lower lobe. This is a chronic finding, unchanged from the prior chest CT done on 09/20/22. A small ill-defined infiltrate is present in the left lower lobe, behind the left upper heart border. Mild pneumonia was seen in the left lower lobe on the prior chest CT, which had resolved by the time of the most recent chest x-ray done on 01/12/23. The upper lung arndt are clear. There is no evidence of emphysema. No mass or adenopathy are detected. The heart size is normal. IMPRESSION: Small left lower lobe infiltrate Chronic elevation of the right diaphragm causing mild compressive atelectasis Interpreted and Authenticated by: Velasquez Dinh 03/23/23
[2023-03-23] MEDS: PANTOPRAZOLE 40 MG TABLET PO SCH (07:55)
[2023-03-23] MEDS: LEVOTHYROXINE 75 MCG TABLET PO SCH (07:55)
[2023-03-23] MEDS ORDERED: DEXTROSE 31 GM ORAL.SUSP PO PRN (08:00)
[2023-03-23] MEDS ORDERED: DEXTROSE 50% 50 ML VIAL IV PRN (08:00)
--- NOTE | 2023-03-23 08:00 | Cat Scan Report ---
History: Short of breath TECHNIQUE: Following injection of intravenous nonionic contrast the chest was imaged during the pulmonary arterial phase. Sagittal, coronal and MIPS images were created. The radiation exposure was limited using dose reduction technology. FINDINGS: The pulmonary arteries are normal without evidence of emboli. Heart size is normal. There are few scattered plaques in the coronary arteries, most apparent in the left anterior descending and right coronary. Aorta is normal in caliber. There is a moderate amount calcified plaque in the distal descending aorta. There is moderate elevation of the right diaphragm. This is a chronic finding. There is no evidence of mediastinal mass. There is moderate compressive atelectasis in the basilar segments of right lower lobe and inferiorly in the right middle lobe. There is a patchy alveolar infiltrate in the superior segment of the right lower lobe which may be pneumonia or aspiration. Right upper lobe is clear. There is a band of atelectasis in the inferior segment of the lingula which corresponds with the small infiltrate seen on the preceding chest x-ray. Subtle groundglass alveolar opacity is present in the posterior midportion of the left lower lobe which may be due to inflammation. There is no evidence of emphysema. The trachea and mainstem bronchi are normal. No pleural effusion is present. There are no abnormally enlarged lymph nodes. Liver is normal in size and homogeneous. There are multiple cysts in both kidneys. IMPRESSION: No evidence pulmonary emboli Pulmonary infiltrate in the superior segment right lower lobe which could be pneumonia or aspiration. Compressive atelectasis in the right middle and right lower lobe due to an elevated diaphragm Small band of atelectasis in the inferior segment lingula Interpreted and Authenticated by: Velasquez Dinh 03/23/23
[2023-03-23] MEDS: INSULIN LISPRO 1 UNIT/0.01 ML UNIT SQ SCH ×8 (08:08→20:31)
[2023-03-23] MEDS: DOCUSATE SODIUM 100 MG CAPSULE PO SCH ×2 (08:58→20:06)
[2023-03-23] MEDS: POLYETHYLENE GLYCOL 3350 17 GM PACKET PO SCH (08:59)
[2023-03-23] MEDS: INSULIN GLARGINE, HUMAN 1 UNIT/0.01 ML SQ SCH (08:59)
[2023-03-23] MEDS: methylPREDNISolone SOD SUCC 40 MG/ML VIAL IV SCH ×2 (09:00→20:06)
[2023-03-23] MEDS: cefTRIAXone 1 GM VIAL IV SCH (09:00)
[2023-03-23] MEDS ORDERED: EPLERENONE 50 MG PO SCH (09:00)
[2023-03-23] MEDS ORDERED: DOCUSATE SODIUM 100 MG CAPSULE PO SCH (09:00)
[2023-03-23] MEDS: SERTRALINE 50 MG TABLET PO SCH (09:00)
[2023-03-23] MEDS ORDERED: KETOCONAZOLE 2% TOP CRM 15GM TUBE TOPICAL SCH (09:00)
[2023-03-23] MEDS ORDERED: LINAGLIPTIN 5 MG PO SCH (09:00)
[2023-03-23] MEDS: hydrALAZINE 25 MG TABLET PO SCH ×3 (09:10→21:59)
--- NOTE | 2023-03-23 10:48 | Ultrasound Report ---
History: Bilateral leg swelling FINDINGS: There is normal augmentation and compressibility of the deep veins and saphenous vein in both legs from the groin through the calf. Doppler shows normal waveform patterns. There has been no significant change since 09/20/22. IMPRESSION: Normal exam, without evidence of deep venous thrombosis Interpreted and Authenticated by: Velasquez Dinh 03/23/23
[2023-03-23] MEDS ORDERED: INSULIN LISPRO 1 UNIT/0.01 ML UNIT SQ SCH (11:30)
[2023-03-23] MEDS: BUDESONIDE 0.5 MG/2 ML AMPUL.NEB NEB SCH ×2 (13:33→19:16)
--- NOTE | 2023-03-23 13:42 | Internal Med Progress Note ---
SUBJECTIVE Subjective Patient information: Note initiated : 03/23/23 at 1:39 pm Service Date, if different from initiated Date: [] Patient: Christine Pimentel 77 y/o M admitted on 03/23/23 for leg pain, SOB. Chief Complaint: [] Additional PMFSH (Level 3 Only): Mr. Pimentel is a 77 year old male with history of CHF, diabetes mellitus 2, uncontrolled hypertension, hyperlipidemia, COPD, chronic hypoxic failure on 3 L nasal cannula oxygen, obstructive sleep apnea, partial compliance with CPAP, obesity, noncompliance with therapy, CKD stage III, esophageal stricture requiring frequent esophageal dilatation presented with worsening bilateral lower extremity swelling, redness and pain over the past few days. Patient is not wearing his hearing aids and is a limited historian. Patient reports he has some mild chronic swelling but over the past several days swelling has gotten worse. Both legs have shooting pains. He also complained of shortness of breath, nonproductive cough. He notes he has some chest tightness without radiation and has been using his DuoNebs at home. He feels he is dehydrated, tired and fatigued. He also noted he has not had a bowel movement in the past 4 days despite taking his daily senna and Colace. On presentation patient with tachycardia of 105 bpm, he had significantly elevated blood pressure of 190/77, on 3 L nasal cannula oxygen. He was given IV labetalol in ED. Labs showed WBC 9.8, hemoglobin 11.7. Lactic acidosis of 2.6. VBG pH 7.36, PCO2 67, PO2 73, HCO3 37. Electrolytes stable. Creatinine 1.8 consistent with chronic kidney disease. Procalcitonin 0.14. CTA chest per verbal report from ED was negative for PE but concerning for pneumonia. Patient will be admitted to PCU for hypertensive urgency, pneumonia, CHF, lactic acidosis 03/23. Feeling improved. Breathing is better. Lower extremity pain is improving. Patient hyperglycemic 444 this morning, has not received his insulin. Reactive leukocytosis in the setting of steroid therapy. Creatinine 1.8 around the same. proBNP 183 this morning. Review of system 14 point review of system completed Constitutional: Reports as per HPI and sweats; Denies fever or chills Cardiovascular: Reports palpitations; Denies chest pain or syncope Respiratory: Reports less shortness of breath and cough; Denies wheezes Gastrointestinal: Reports constipation; Denies abdominal pain, nausea, vomiting or diarrhea Musculoskeletal: Reports less back pain and muscle cramps Integumentary: Reports rash which is resolving Physical examination General Limitations: no limitations General appearance: Present alert, awake, obese, in some mild distress Head Head: Present atraumatic, normocephalic and normal inspection Eye Eye: Present normal appearance; Absent scleral icterus or conjunctival injection Respiratory Respiratory: Present mild Rales, on 3 L nasal cannula oxygen, no tachypnea Cardiovascular Cardiovascular: Present normal rhythm, tachycardia and normal heart sounds, no murmurs heard Adbominal Abdominal: Present soft, distention, tenderness and diminished bowel sounds; Absent guarding or rebound Extremities Extremities: Bilateral lower extremity have diffuse 1-2+ edema, which is improving, there is some blistering, skin is somewhat shiny, there is redness an d erythema, less tender. Neurological Neurological: Present alert and oriented X3 Psychiatric Psychiatric: Present normal affect and normal mood Skin Skin: Present chronic bilateral stasis dermatitis changes Assessment and plan Bilateral lower extremity cellulitis. Ceftriaxone will cover. No DVT on venous Doppler. Pneumonia. CT scan with no PE but pulmonary infiltrate in right lower lobe. C ontinue ceftriaxone and azithromycin. Nebulization therapy, pulmonary toileting COPD exacerbation. IV Solu-Medrol, ceftriaxone, azithromycin, nebs Respiratory failure, chronic. On 3 L nasal cannula oxygen. Hypertensive urgency. Poorly controlled hypertension. Continue home dose antihypertensive treatment. IV hydralazine and IV labetalol as needed. Control improving Diabetes mellitus, type II with hyperglycemia resume home dose insulin and continue insulin sliding scale. May need IV insulin if continues to get worse Acute exacerbation of diastolic CHF. BNP within normal range. 2D echo with EF 60-65%, essentially normal echo. Hold diuretics for today. Patient with no hypoxia. No pleural effusion on CT scan or chest x-ray. Monitor input output. CKD stage III. Appears at baseline. Monitor renal functions Pulmonary HTN with continuous O2 GERD. Continue PPI Hypothyroidism. Continue Synthroid Obstructive sleep apnea. CPAP at nighttime and during naps Noncompliance with therapy. Counseled on compliance DVT prophylaxis with SCDs Full code Total time taken > 50 minutes Constitutional Vitals: Vital Signs Temp Pulse Resp BP Pulse Ox O2 Del Method O2 Flow Rate 97.6 F 107 H 23 H 164/83 98 Nasal Cannula 3 03/23/23 12:01 03/23/23 13:01 03/23/23 13:01 03/23/23 13:01 03/23/23 13:01 03/23/23 13:01 03/23/23 13:01 Period Temp Pulse Resp BP Sys/Jean Pulse Ox O2 Del Method O2 Flow Rate Last 24 Hr 97.4 F-98.4 F 97-126 15-32 139-201/71-130 94-100 Nasal Cannula-Nasal Cannula 3-3 Intake and Output 03/23/23 03/23/23 03/23/23 03:59 11:59 19:59 Intake Total 1300 720 480 Output Total 350 1075 Balance 950 -355 480 Weight 104.099 kg Intake & Output: Intake & Output 03/23/23 03/23/23 03/23/23 03:59 11:59 19:59 Intake Total 1300 720 480 Output Total 350 1075 Balance 950 -355 480 Weight 104.099 kg Intake: IV 1300 Sodium Chloride 0.9% 1,000 ml @ 1000 Wide Open IV .Q0M ONE Rx#: [id number] Zithromax 500 mg In Dextrose 5% 250 in Water 250 ml @ 250 mls/hr IV Q24H [facility] Rx#:[id number] Rocephin 2 gm In Dextrose 5% in 50 Water 50 ml @ 100 mls/hr IV ONCE ONE Rx#:[id number] Oral 720 480 Output: Void Amount 350 1075 Other: Meal Breakfast Lunch Percent of Meal Consumed 75% 100% Feeding Ability Independent Independent Urine Appearance Clear Clear Urine Color Bright Yellow Pale OBJ DATA Labs 03/23/23 05:44 03/23/23 05:44 Labs: Abnormal Lab Results 03/23/23 03/23/23 03/22/23 05:44 05:44 23:07 WBC 17.5 H RBC 3.52 L Hgb 11.0 L Hct 35.2 L POC Hct Neut % (Auto) 95.4 H Lymph % (Auto) 3.4 L Mcdonald % (Auto) 0.6 L Lymph # (Auto) 0.60 L Immature Gran # 0.09 H Absolute Neutrophils 16.65 H POC VBG pCO2 at Temp 67.7 H* POC VBG pO2 73 H POC VBG HCO3 37.9 H POC VBG Total CO2 40.0 H POC Venous O2 Sat 93.0 H POC VBG Base Excess 12.0 H* VBG Lactic Acid POC Chloride Chloride 91 L POC Total CO2 POC Anion Gap POC BUN BUN 24 H Creatinine 1.8 H POC Creatinine Glucose 444 H POC Glucose Calcium 8.4 L POC WB Ioniz Calcium Procalcitonin 03/22/23 03/22/23 03/22/23 19:07 19:06 19:06 WBC RBC 3.71 L Hgb 11.7 L Hct 36.8 L POC Hct Neut % (Auto) Lymph % (Auto) [place] % (Auto) Lymph # (Auto) Immature Gran # Absolute Neutrophils POC VBG pCO2 at Temp 63.7 H* POC VBG pO2 20 L POC VBG HCO3 39.1 H POC VBG Total CO2 41.0 H POC Venous O2 Sat 29.0 L POC VBG Base Excess 14.0 H* VBG Lactic Acid 2.6 H POC Chloride Chloride POC Total CO2 POC Anion Gap POC BUN BUN Creatinine POC Creatinine Glucose POC Glucose Calcium POC WB Ioniz Calcium Procalcitonin 0.14 H 03/22/23 19:03 WBC RBC Hgb Hct POC Hct 38.0 L Neut % (Auto) Lymph % (Auto) [place] % (Auto) Lymph # (Auto) Immature Gran # Absolute Neutrophils POC VBG pCO2 at Temp POC VBG pO2 POC VBG HCO3 POC VBG Total CO2 POC Venous O2 Sat POC VBG Base Excess VBG Lactic Acid POC Chloride 90 L Chloride POC Total CO2 35.0 H POC Anion Gap 18.0 H POC BUN 24 H BUN Creatinine POC Creatinine 1.8 H Glucose POC Glucose 191 H Calcium POC WB Ioniz Calcium 1.05 L Procalcitonin Meds: Medications Acetaminophen (Acetaminophen 325 Mg Tablet) 650 mg PO Q6HP PRN; Protocol PRN Reason: Per Pain Protocol/Fever > 101 Last Admin: 03/23/23 02:25 Dose: 650 mg Hydrocodone Bitart/Acetaminophen (Hydrocodone/Apap 5/325mg Tablet) 1 tab PO HSP PRN PRN Reason: Pain Albuterol/Ipratropium (Ipratropium/Albuterol 3 Ml Ampul.Neb) 3 ml NEB Q6HRT DANNA Last Admin: 03/23/23 13:33 Dose: 3 ml Brimonidine Tartrate (Brimonidine Ophth Drops 1 Gtt Bottle 5ml) 1 gtt OU BID DANNA Budesonide (Budesonide 0.5 Mg/2 Ml Ampul.Neb) 0.5 mg NEB Q12 [facility] Last Admin: 03/23/23 13:33 Dose: 0.5 mg Ceftriaxone Sodium (Ceftriaxone 1 Gm Vial) 1 gm IV Q24H [facility] Last Admin: 03/23/23 09:00 Dose: 1 gm Dextrose (Dextrose 50% 50 Ml Vial) 0 ml IV UD PRN PRN Reason: Per Sliding Scale Diagnostic Test (Pha) (Accu-Chek 1 Each Strip) 1 each FS ACHS [facility] Last Admin: 03/23/23 11:58 Dose: 1 each Docusate Sodium (Docusate Sodium 100 Mg Capsule) 100 mg PO BID [facility] Last Admin: 03/23/23 08:58 Dose: 100 mg Glucose (Dextrose 31 Gm Oral.Susp) 15 gm PO PRN PRN PRN Reason: Hypoglycemia Hydralazine HCl (Hydralazine 20 Mg/Ml Vial) 10 mg IV Q4-6HP PRN PRN Reason: Hypertension Last Admin: 03/23/23 01:53 Dose: 10 mg Hydralazine HCl (Hydralazine 25 Mg Tablet) 25 mg PO TID [facility] Last Admin: 03/23/23 09:10 Dose: 25 mg Azithromycin 500 mg/ Dextrose 250 mls @ 250 mls/hr IV Q24H [facility]; Protocol Stop: 03/25/23 01:29 Last Infusion: 03/23/23 03:11 Dose: Infused Insulin Glargine (Insulin Glargine, Human 1 Unit/0.01 Ml) 40 unit SQ DAILY [facility] Last Admin: 03/23/23 08:59 Dose: 40 unit Insulin Human Lispro (Insulin Lispro 1 Unit/0.01 Ml Unit) 22 unit SQ TIDCC [facility] Last Admin: 03/23/23 11:58 Dose: 22 unit Insulin Human Lispro (Insulin Lispro 1 Unit/0.01 Ml Unit) 0 unit SQ ACHS [facility]; Protocol Last Admin: 03/23/23 11:58 Dose: 14 unit Labetalol HCl (Labetalol 5 Mg/Ml Ml) 10 mg IV Q10M PRN PRN Reason: SBP > 160 Last Admin: 03/23/23 05:16 Dose: 10 mg Lactulose (Lactulose 20 Gm/30 Ml Oral.Leila) 10 gm PO DAILYP PRN PRN Reason: Constipation Latanoprost (Latanoprost Ophth Drops 2.5ml Bottle) 1 gtt OU HS [facility] Levothyroxine Sodium (Levothyroxine 75 Mcg Tablet) 75 mcg PO QAMAC [facility] Last Admin: 03/23/23 07:55 Dose: 75 mcg Magnesium Hydroxide (Magnesium Hydroxide 30 Ml Oral.Susp) 30 ml PO DAILYP PRN PRN Reason: Constipation Methocarbamol (Methocarbamol 500 Mg Tablet) 500 mg PO TIDP PRN PRN Reason: back pain Methylprednisolone Sodium Succinate (Methylprednisolone Sod Succ 40 Mg/Ml Vial) 40 mg IV Q12 [facility] Last Admin: 03/23/23 09:00 Dose: 40 mg Ondansetron HCl (Ondansetron 4 Mg/2 Ml Vial) 4 mg IV Q4HP PRN; Protocol PRN Reason: Nausea And Vomiting Pantoprazole Sodium (Pantoprazole 40 Mg Tablet) 40 mg PO QAMAC [facility] Last Admin: 03/23/23 07:55 Dose: 40 mg Rosuvastatin ( Crestor) 20 Mg Tablet 1 dose PO HS [facility] Linagliptin [ Tradjenta] 5 Mg Tablet 1 dose PO DAILY [facility] Fluticasone Furoate 200 Mcg-Vilanterol 25 Mcg/ Dose Inhaler 1 dose INH DAILY [facility] Polyethylene Glycol (Polyethylene Glycol 3350 17 Gm Packet) 17 gm PO QDAY [facility] Last Admin: 03/23/23 08:59 Dose: 17 gm Senna (Sennosides 1 Tablet) 2 tab PO HSP PRN PRN Reason: Constipation Sertraline HCl (Sertraline 50 Mg Tablet) 50 mg PO QDAY [facility] Last Admin: 03/23/23 09:00 Dose: 50 mg Sodium Biphosphate/Sodium Phosphate (Fleets Adult Enema) 1 dose TN Q3DP PRN PRN Reason: Constipation Sodium Chloride (0.9 % Sodium Chloride 10 Ml Syringe) 10 ml IV Q8 [facility] Last Admin: 03/23/23 05:17 Dose: 10 ml A/P Time Spent With Patient Time: Total time spent is greater than 50% in coordination of care (as documented) at patient's floor/unit and/or counseling patient:
[2023-03-23] MEDS: BRIMONIDINE OPHTH DROPS 1 GTT BOTTLE 5ML OU SCH (20:31)
[2023-03-23] MEDS ORDERED: LATANOPROST OPHTH DROPS 2.5ML BOTTLE OU SCH (21:00)
[2023-03-23] MEDS ORDERED: ROSUVASTATIN 20 MG PO SCH (21:00)
[2023-03-23] MEDS ORDERED: SENNOSIDES 1 TABLET PO SCH (21:00)
[2023-03-24] MEDS: LABETALOL 5 MG/ML ML IV PRN ×4 (00:02→05:22)
[2023-03-24] MEDS: hydrALAZINE 20 MG/ML VIAL IV PRN (00:41)
[2023-03-24] MEDS: IPRATROPIUM/ALBUTEROL 3 ML AMPUL.NEB NEB SCH ×3 (01:04→12:03)
[2023-03-24] MEDS: 0.9 % SODIUM CHLORIDE 10 ML SYRINGE IV SCH ×2 (05:23→16:08)
[2023-03-24 06:39] LABS: Basophils # (Auto) 0.02 K/mcL (0.00-0.30); Basophils % (Auto) 0.1 % (0.0-2.0); Eosinophils # (Auto) 0 K/mcL (0.00-0.70); Eosinophils % (Auto) 0 % (0.0-7.0); Hematocrit 33.7 % (40.1-51.0); Hemoglobin 10.8 g/dL (13.7-17.5); Lymphocytes # (Auto) 1.16 K/mcL (1.50-4.80); Lymphocytes % (Auto) 5.5 % (15.5-49.0); Mean Cell Volume 99.4 fL (80.0-100.0); Mean Platelet Volume 9.1 fL (8.8-12.5); Monocytes # (Auto) 0.58 K/mcL (0.10-0.90); Monocytes % (Auto) 2.7 % (1.0-12.0); Neutrophils % (Auto) 90.8 % (38.0-78.0); Platelet Count 346 K/mcL (140-440); RBC 3.39 M/mcL (4.63-6.08); WBC 21.3 K/mcL (4.5-11.0)
[2023-03-24] MEDS: FUROSEMIDE 40 MG/4 ML VIAL IV SCH ×2 (07:55→16:10)
[2023-03-24] MEDS: PANTOPRAZOLE 40 MG TABLET PO SCH (07:56)
[2023-03-24] MEDS: LEVOTHYROXINE 75 MCG TABLET PO SCH (07:56)
[2023-03-24] MEDS: INSULIN LISPRO 1 UNIT/0.01 ML UNIT SQ SCH ×4 (07:56→11:55)
[2023-03-24] MEDS: INSULIN GLARGINE, HUMAN 1 UNIT/0.01 ML SQ SCH (07:57)
[2023-03-24 07:59] LABS: ALT/SGPT 9 U/L (<40); AST/SGOT 31 U/L (<40); Albumin 3.3 gm/dL (3.2-5.2); Albumin/Globulin Ratio 0.9 (1.0-2.3); Alkaline Phosphatase 50 U/L (39-117); Bilirubin,Total < 0.2 mg/dL (0.1-1.0); Blood Urea Nitrogen 37 mg/dL (8-23); Calcium 8.9 mg/dL (8.6-10.4); Carbon Dioxide 31 mmol/L (22-30); Chloride 94 mmol/L (96-108); Globulin 3.5 gm/dL (2.2-3.7); Glomerular Filtration Rate 35; Glucose 310 mg/dL (70-105)
[2023-03-24] MEDS ORDERED: FLUTICASONE FUROATE 200 MCG INH SCH (09:00)
[2023-03-24] MEDS ORDERED: VILANTEROL INH SCH (09:00)
[2023-03-24] MEDS: SERTRALINE 50 MG TABLET PO SCH (10:03)
[2023-03-24] MEDS: hydrALAZINE 25 MG TABLET PO SCH ×2 (10:03→16:08)
[2023-03-24] MEDS: POLYETHYLENE GLYCOL 3350 17 GM PACKET PO SCH (10:03)
[2023-03-24] MEDS: methylPREDNISolone SOD SUCC 40 MG/ML VIAL IV SCH (10:04)
[2023-03-24] MEDS: DOCUSATE SODIUM 100 MG CAPSULE PO SCH (10:04)
[2023-03-24] MEDS: cefTRIAXone 1 GM VIAL IV SCH (10:04)
[2023-03-24] MEDS: BRIMONIDINE OPHTH DROPS 1 GTT BOTTLE 5ML OU SCH (10:06)
[2023-03-24] MEDS ORDERED: predniSONE 20 MG TABLET PO SCH (10:30)
[2023-03-24] MEDS: BUDESONIDE 0.5 MG/2 ML AMPUL.NEB NEB SCH (12:02)
--- NOTE | 2023-03-24 15:34 | Discharge Summary ---
Discharge Provider Provider IMPORTANT FOLLOW-UP INFORMATION FOR PCP: Patient information: Note initiated : 03/24/23 at 3:29 pm Service Date, if different from initiated Date: [] Patient: Christine Pimentel 77 y/o M admitted on 03/23/23 for leg pain, SOB. Chief Complaint: [] Date of admission: 03/23/23 01:11 Discharge date: 03/24/23 Primary care physician: Sharif Coronel MD Consults: 03/22/23 Consult to Physician [CONS] Stat Comment: Consulting Provider: Oni Thacker Reason For Exam: Physician to Consult COURSE Hospital Course Hospital course: Mr. Pimentel is a 77 year old male with history of CHF, diabetes mellitus 2, uncontrolled hypertension, hyperlipidemia, COPD, chronic hypoxic failure on 3 L nasal cannula oxygen, obstructive sleep apnea, partial compliance with CPAP, obesity, noncompliance with therapy, CKD stage III, esophageal stricture requiring frequent esophageal dilatation presented with worsening bilateral lower extremity swelling, redness and pain over the past few days. Patient is not wearing his hearing aids and is a limited historian. Patient reports he has some mild chronic swelling but over the past several days swelling has gotten worse. Both legs have shooting pains. He also complained of shortness of breath, nonproductive cough. He notes he has some chest tightness without radiation and has been using his DuoNebs at home. He feels he is dehydrated, tired and fatigued. He also noted he has not had a bowel movement in the past 4 days despite taking his daily senna and Colace. On presentation patient with tachycardia of 105 bpm, he had significantly elevated blood pressure of 190/77, on 3 L nasal cannula oxygen. He was given IV labetalol in ED. Labs showed WBC 9.8, hemoglobin 11.7. Lactic acidosis of 2.6. VBG pH 7.36, PCO2 67, PO2 73, HCO3 37. Electrolytes stable. Creatinine 1.8 consistent with chronic kidney disease. Procalcitonin 0.14. CTA chest per verbal report from ED was negative for PE but concerning for pneumonia. Patient will be admitted to PCU for hypertensive urgency, pneumonia, CHF, lactic acidosis 03/23. Feeling improved. Breathing is better. Lower extremity pain is improving. Patient hyperglycemic 444 this morning, has not received his insulin. Reactive leukocytosis in the setting of steroid therapy. Creatinine 1.8 around the same. proBNP 183 this morning. 03/24. Patient feeling significantly better. Breathing is improved, he is at baseline supplemental oxygen of 3 L. Lower extremity pain has resolved. He has reactive leukocytosis and hyperglycemia due to steroid use. Procalcitonin obtained is low. Patient feels he is ready to go home Physical examination General General appearance: Present alert, awake, obese, in some mild distress Head Head: Present atraumatic, normocephalic and normal inspection Eye Eye: Present normal appearance; Absent scleral icterus or conjunctival injection Respiratory Respiratory: Present chest is fairly clear now, on 3 L nasal cannula oxygen, no tachypnea Cardiovascular Cardiovascular: Present normal rhythm, tachycardia and normal heart sounds, no murmurs heard Adbominal Abdominal: Present soft, nontender, bowel sounds positive Extremities Extremities: Bilateral lower extremity have diffuse 1-2+ edema, which is improving, there is some blistering, skin is somewhat shiny, there is redness and erythema, less tender. Neurological Neurological: Present alert and oriented X3 Psychiatric Psychiatric: Present normal affect and normal mood Skin Skin: Present chronic bilateral stasis dermatitis changes Discharge diagnoses Bilateral lower extremity cellulitis. No DVT on venous Doppler. Received IV ceftriaxone will be transition to cefdinir 300 mg twice daily to complete a 7- day course Community-acquired pneumonia. CT scan with no PE but pulmonary infiltrate in right lower lobe. Received continue ceftriaxone and azithromycin and will be transition to cefdinir and azithromycin to complete 5 to 7-day course. Nebulization therapy, pulmonary toileting COPD exacerbation. Managed with IV Solu-Medrol, ceftriaxone, azithromycin, nebs, will be transition to p.o. prednisone, cefdinir and p.o. azithromycin. Respiratory failure, chronic. On 3 L nasal cannula oxygen. Hypertensive urgency. Poorly controlled hypertension. Continue home dose antihypertensive treatment. IV hydralazine and IV labetalol as needed. Blood pressure now stable Diabetes mellitus, type II with hyperglycemia, worsened by steroid use. Blood glucose control now improving as weaning off IV steroid. Acute exacerbation of diastolic CHF. BNP within normal range. 2D echo with EF 60-65%, essentially normal echo. Patient with no hypoxia. No pleural effusion on CT scan or chest x-ray. Resume home dose torsemide CKD stage III. Appears at baseline. Monitor renal functions Pulmonary HTN with continuous O2 GERD. Continue PPI Hypothyroidism. Continue Synthroid Obstructive sleep apnea. CPAP at nighttime and during naps Noncompliance with therapy. Counseled on compliance Full code Total time taken > 50 minutes Discharge diagnosis: Cellulitis, Pneumonia, COPD, HTN urgency Time Spent with Patient Time attestation: Total time spent providing and/or coordinating discharge services: Time spent: Greater than 30 minutes EXAM Constitutional Vitals: Temp Pulse Resp BP Pulse Ox O2 Del Method O2 Flow Rate 97.6 F 87 24 H 144/92 98 Nasal Cannula 3 03/24/23 12:00 03/24/23 15:01 03/24/23 15:01 03/24/23 15:01 03/24/23 15:01 03/24/23 15:01 03/24/23 15:01 Discharge Data Data Completed and Pending Labs on day of discharge: Labs from last 24 hours 03/24/23 03/24/23 03/24/23 05:38 05:30 05:30 WBC 21.3 H RBC 3.39 L Hgb 10.8 L Hct 33.7 L MCV 99.4 MCH 31.9 MCHC 32.0 RDW 12.0 Plt Count 346 MPV 9.1 Immature Gran % (Auto) 0.9 H Neut % (Auto) 90.8 H Lymph % (Auto) 5.5 L [place] % (Auto) 2.7 Eos % (Auto) 0 Baso % (Auto) 0.1 Lymph # (Auto) 1.16 L [place] # (Auto) 0.58 Eos # (Auto) 0 Baso # (Auto) 0.02 Immature Gran # 0.19 H Absolute Neutrophils 19.31 H Sodium Potassium Chloride Carbon Dioxide Anion Gap BUN Creatinine GFR Calculation Glucose Calcium Total Bilirubin AST ALT Alkaline Phosphatase C-Reactive Protein 5.40 H Total Protein Albumin Globulin Albumin/Globulin Ratio Procalcitonin 0.15 H 03/24/23 05:30 WBC RBC Hgb Hct MCV MCH MCHC RDW Plt Count MPV Immature Gran % (Auto) Neut % (Auto) Lymph % (Auto) [place] % (Auto) Eos % (Auto) Baso % (Auto) Lymph # (Auto) [place] # (Auto) Eos # (Auto) Baso # (Auto) Immature Gran # Absolute Neutrophils Sodium 135 Potassium 4.2 Chloride 94 L Carbon Dioxide 31 H Anion Gap 10.0 BUN 37 H Creatinine 1.8 H GFR Calculation 35 Glucose 310 H Calcium 8.9 Total Bilirubin < 0.2 AST 31 ALT 9 Alkaline Phosphatase 50 C-Reactive Protein Total Protein 6.8 Albumin 3.3 Globulin 3.5 Albumin/Globulin Ratio 0.9 L Procalcitonin Discharge Plan Patient/Caregiver Discharge Instructions Activity: increase activity as tolerated Diet: Cardiac Instructions: Prednisone (By mouth), Leukocytosis (GEN), Diabetes and Your Skin (GEN) Activity Restrictions/Additional Instructions: [facility] will contact you to schedule an appointment. Prescriptions: New prednisone 20 mg Tablet 40 mg PO [facility] Qty: 6 0RF cefdinir 300 mg capsule 300 mg PO BID Qty: 10 0RF azithromycin 500 mg tablet 500 mg PO QDAY 3 Days Qty: 3 0RF Continued (DME) FreeStyle Lite Strips Strip See Dose Instructions .ROUTE .MEDSUPPLY Qty: 100 11RF Dose Instruction: As directed Rx Instructions: Use to test BG three times daily (DME) Wheelchair Ramp Qty: 1 0RF Rx Instructions: Wheelchair ramp for patients home ketoconazole 2 % cream 1 applic topical BID 14 Days Qty: 30 0RF Rx Instructions: Apply to face and scalp BID for 2 weeks Breo Ellipta 200-25 mcg/dose blister with device 1 inh INHALATION QDAY Qty: 60 3RF (DME) Comfort EZ Pen [place] 32 gauge x 5/16" needle See Dose Instructions .ROUTE .MEDSUPPLY Qty: 100 11RF Dose Instruction: As directed Rx Instructions: Use with insulin 5 times daily eplerenone 50 mg tablet 25 mg PO QDAY Qty: 90 3RF Hold Instructions: Doctor's Order Rx Instructions: Replaces spironolactone hydralazine 25 mg tablet 25 mg PO TID Qty: 270 1RF (DME) Dexcom G6 Transmitter Device See Rx Instructions .ROUTE .MEDSUPPLY Qty: 1 1RF Rx Instructions: As directed sertraline 50 mg tablet 50 mg PO QDAY Qty: 90 1RF levothyroxine [Synthroid] 75 mcg tablet 75 mcg PO QDAY Qty: 90 1RF rosuvastatin [Crestor] 20 mg tablet 20 mg PO QHS Qty: 90 1RF Hold Instructions: Doctor's Order insulin lispro [Humalog KwikPen Insulin] 100 unit/mL insulin pen 22 unit SUB-Q TID Qty: 75 1RF Rx Instructions: 22 units plus sliding scale (4-6 units) - Max daily dose 90 units (DME) Dexcom G7 [employer] Misc See Rx Instructions .Route Qty: 1 0RF Rx Instructions: As directed (DME) Dexcom G7 Sensor Device See Rx Instructions .Route Qty: 3 6RF Rx Instructions: As directed pantoprazole [Protonix] 40 mg tablet,delayed release (DR/EC) 40 mg PO QDAY Qty: 90 1RF (DME) Dexcom G6 Sensor Device See Rx Instructions .ROUTE .COMPLEX Qty: 3 3RF Dose Instruction: USE DIRECTED FOR CONTINUOUS GLUCOSE MONITORING. CHANGE SENSOR EVERY 10 DAYS. Rx Instructions: USE DIRECTED FOR CONTINUOUS GLUCOSE MONITORING. CHANGE SENSOR EVERY 10 DAYS. ipratropium-albuterol 0.5 mg-3 mg(2.5 mg base)/3 mL solution for nebulization 3 ml inhalation Q6H PRN (Reason: shortness of breath or wheezing) Qty: 360 1RF Tradjenta 5 mg tablet 5 mg PO QAM Qty: 90 1RF Hold Instructions: Doctor's Order (DME) pen needle, diabetic 32 gauge x 5/32" needle See Rx Instructions .ROUTE 5XD Qty: 50 Rx Instructions: As directed (DME) Diabetic Shoes See Rx Instructions .Route .MEDSUPPLY Qty: 1 0RF Rx Instructions: As directed brimonidine 0.2 % drops 1 drp ophthalmic (eye) BID latanoprost 0.005 % drops 1 drp ophthalmic (eye) HS torsemide 100 mg tablet 100 mg PO QDAY Qty: 90 3RF (DME) lancets 1 EACH misc 1 each TIDP Qty: 90 11RF B/L compression stockings (Knee high, 15-20mmHg) 1 unit TOPICAL PRN PRN (Reason: Edema) Rx Instructions: Wear compression stockings for at least 4 hrs/day albuterol sulfate [Ventolin HFA] 90 mcg/actuation Hfa Aerosol Inhaler 2 puff INHALATION Q6HP PRN (Reason: Shortness Of Breath) docusate sodium [Colace] 100 mg Capsule 100 mg PO BID polyethylene glycol 3350 [Miralax] 17 gram Powder In Packet 17 g PO QDAY hydrocodone-acetaminophen 5-325 mg tablet 1 tab PO QHS PRN (Reason: pain) Qty: 7 0RF methocarbamol 500 mg tablet 500 mg PO TID PRN (Reason: back pain) Qty: 20 0RF Follow Up Plan Follow up with: Sharif Coronel MD [Primary Care Provider] - (Your primary care physician will contact you to schedule an appointment. Please call if you do not hear from them within 2 days.) Patient Disposition: Home, Self-Care Prognosis: Fair Discharge Orders: Discharge Order (Routine); Ordered 03/24/23 Ordered By: Oni Thacker
--- NOTE | 2023-03-24 17:50 | EKG ---
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 Measurements Intervals [place] Rate: 104 P: 38 FL: 192 QRS: -19 QRSD: 89 T: 62 QT: 339 QTc: 445 Interpretive Statements Sinus tachycardia Inferior infarct, old Anterior infarct, old Electronically Signed On 03-24-2023 17:50:07 PDT by Bhupendra Dinh M.D. /[id number]
--- NOTE | 2023-03-24 17:54 | EKG ---
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 Measurements Intervals [place] Rate: 101 P: 62 FL: 201 QRS: -17 QRSD: 90 T: 79 QT: 367 QTc: 469 Interpretive Statements Sinus tachycardia Atrial premature complexes Borderline left axis deviation Anterior infarct, old Electronically Signed On 03-24-2023 17:54:46 PDT by Bhupendra Dinh M.D. /[email or web address]/[id number]
== END 2023-03-24 16:23 | disposition home or self-care (01) ==
LOC: ED 18:39 → ICU 03-23 01:11
PROVIDERS: ADMIT Internal Medicine; ATTEND Internal Medicine

== ENCOUNTER 2023-04-12 14:49 | Inpatient (IN) ==
[2023-04-12] MEDS ORDERED: VANCOMYCIN 1,500 MG in 0.9 % SODIUM CHLORIDE 500 ML IV ONE (15:23)
[2023-04-12 15:48] LABS: POC Calcium, Ionized 1.08 (1.16-1.32); POC Creatinine 1.8 (0.6-1.2); POC Potassium 3.6 (3.3-5.1)
--- NOTE | 2023-04-12 15:55 | XRay Report ---
CLINICAL INFORMATION: edema COMPARISON: 03/22/2023 FINDINGS: Heart size, mediastinum and pulmonary vessels are normal. Lungs are clear. Moderate chronic elevation right diaphragm seen as before. IMPRESSION: No acute disease. Moderate chronic stable elevation of the right diaphragm Interpreted and Authenticated by: Bhupendra Leigh 04/12/23
[2023-04-12 16:30] LABS: Basophils # (Auto) 0.04 K/mcL (0.00-0.30); Basophils % (Auto) 0.6 % (0.0-2.0); Eosinophils # (Auto) 0.19 K/mcL (0.00-0.70); Eosinophils % (Auto) 2.7 % (0.0-7.0); Hematocrit 30.5 % (40.1-51.0); Hemoglobin 9.5 g/dL (13.7-17.5); Lymphocytes # (Auto) 1.44 K/mcL (1.50-4.80); Lymphocytes % (Auto) 20.7 % (15.5-49.0); Mean Cell Volume 101.7 fL (80.0-100.0); Mean Corpuscular HGB Conc 31.1 g/dL (31.0-36.0); Mean Platelet Volume 9.1 fL (8.8-12.5); Monocytes # (Auto) 0.95 K/mcL (0.10-0.90); Monocytes % (Auto) 13.6 % (1.0-12.0); Neutrophils % (Auto) 62.1 % (38.0-78.0); Platelet Count 218 K/mcL (140-440); Red Cell Distribution Width 11.9 % (11.5-14.5)
[2023-04-12 16:36] LABS: Erythrocyte Sedimentation Rate 52 mm/hr (0-20)
[2023-04-12] MEDS ORDERED: ACETAMINOPHEN 500 MG TABLET PO ONE (17:13)
[2023-04-12] MEDS ORDERED: BUMETANIDE 1 MG/4 ML VIAL IV ONE (17:14)
[2023-04-12 17:16] LABS: ALT/SGPT 7 U/L (<40); AST/SGOT 10 U/L (<40); Albumin 3.5 gm/dL (3.2-5.2); Albumin/Globulin Ratio 1.2 (1.0-2.3); Alkaline Phosphatase 41 U/L (39-117); Bilirubin,Total 0.2 mg/dL (0.1-1.0); Blood Urea Nitrogen 23 mg/dL (8-23); Calcium 8.8 mg/dL (8.6-10.4); Carbon Dioxide 36 mmol/L (22-30); Chloride 95 mmol/L (96-108); Glomerular Filtration Rate 37; Glucose 219 mg/dL (70-105)
--- NOTE | 2023-04-12 17:46 | Emergency Department Note ---
HPI General Chief complaint: Extremity Problem,Nontraumatic Stated complaint: leg swelling oozing Time Seen by Provider: 04/12/23 15:19 Source: patient and family Mode of arrival: wheelchair Limitations: no limitations History of Present Illness HPI Narrative: Narrative:77-year-old male with a history of COPD CHF on 3 L chronically on torsemide ex-smoker presents to the emergency department with progressively wor sening lower extremity swelling redness over the past few days however ongoing for the last 3 years. States has been unable to ambulate secondary to the swelling and pain for which has been taking Tylenol did not take any today. Was seen by physical therapy today wounds were weeping in the left lower extremity advised to go to the ER. He also states now he notices some redness and some warmth in his left inner thigh which was not present after his discharge from the hospital March 24 of this year. He was admitted on March 22 for bilateral lower extremity cellulitis Patient denies chest pain shortness of breath. Does sleep in a recliner. No fevers or chills. No nausea vomiting abdominal pain diarrhea. He does not weigh himself daily Related Data Home Medications Medication Instructions Recorded Confirmed B/L compression stockings (Knee 1 unit topical PRN PRN Edema 01/26/18 03/30/23 high, 15-20mmHg) albuterol sulfate 90 mcg/actuation 2 puff inhalation Q6HP PRN 04/26/21 03/30/23 aerosol inhaler (Ventolin HFA) Shortness Of Breath docusate sodium 100 mg capsule 100 mg PO BID 04/27/21 03/30/23 (Colace) polyethylene glycol 3350 17 gram 17 g PO QDAY 04/27/21 03/30/23 oral powder packet (Miralax) latanoprost 0.005 % eye drops 1 drp ophthalmic (eye) HS 10/22/21 03/30/23 pen needle, diabetic 32 gauge x #50 ea 10/20/22 03/30/23 5/32" brimonidine 0.2 % eye drops 1 drp ophthalmic (eye) BID 01/31/23 03/30/23 Previous Rx's Medication Instructions Recorded lancets #90 ea 09/24/15 blood sugar diagnostic (FreeStyle #100 ea 04/22/20 Lite Strips) Wheelchair Ramp #1 ea 09/19/20 fluticasone furoate 200 1 inh inhalation QDAY #60 ea 01/29/22 mcg-vilanterol 25 mcg/dose inhalation powder (Breo Ellipta) pen needle, diabetic 32 gauge x #100 ea 02/09/2202/15" (Comfort EZ Pen [place]) eplerenone 50 mg tablet 25 mg PO QDAY #90 tabs 03/19/22 torsemide 100 mg tablet 100 mg PO QDAY #90 tabs 04/01/22 hydralazine 25 mg tablet 25 mg PO TID #270 tabs 08/24/22 sertraline 50 mg tablet 50 mg PO QDAY #90 tabs 11/02/22 levothyroxine 75 mcg tablet 75 mcg PO QDAY #90 tabs 11/09/22 (Synthroid) rosuvastatin 20 mg tablet (Crestor) 20 mg PO QHS #90 tabs 11/30/22 insulin lispro 100 unit/mL 22 unit (0.22 mL) subcut TID #75 mL 12/27/22 subcutaneous pen (Humalog KwikPen (U-100) Insulin) blood-glucose meter,continuous #1 ea 01/03/23 (Dexcom G7 Action Finisher) blood-glucose sensor (Dexcom G7 #3 ea 01/03/23 Sensor device) pantoprazole 40 mg tablet,delayed 40 mg PO QDAY #90 tabs 01/04/23 release (Protonix) hydrocodone 5 mg-acetaminophen 325 1 tab PO QHS PRN pain #7 tabs 01/27/23 mg tablet linagliptin 5 mg tablet (Tradjenta) 5 mg PO QAM #90 tabs 03/23/23 ipratropium 0.5 mg-albuterol 3 mg 3 ml inhalation Q6H PRN shortness 03/28/23 (2.5 mg base)/3 mL nebulization of breath or wheezing #360 mL soln Allergies Allergy/AdvReac Type Severity Reaction Status Date / Time codeine Allergy Severe shortness Verified 04/12/23 14:52 of breath ketamine Allergy Severe Difficulty Verified 04/12/23 14:52 Breathing mirabegron [From Myrbetriq] Allergy Severe difficulty Verified 04/12/23 14:52 breathing Metolazone Allergy Mild hives Verified 04/12/23 14:52 Thiazides Allergy Mild Itching Verified 04/12/23 14:52 and redness atorvastatin Allergy Unknown Unknown Verified 04/12/23 14:52 pravastatin Allergy Unknown Unknown Verified 04/12/23 14:52 linagliptin [From Tradjenta] AdvReac Intermediate Blistering Verified 04/12/23 14:52 to lower extremities phenylephrine [From V-Hist] AdvReac Intermediate hand and Verified 04/12/23 14:52 arm cramping brompheniramine [From V-Hist] AdvReac Mild hand and Verified 04/12/23 14:52 arm cramping Buspirone AdvReac Mild Intolerance Verified 04/12/23 14:52 morphine AdvReac Mild Itching Verified 04/12/23 14:52 valsartan AdvReac Mild Hand and Verified 04/12/23 14:52 arm pain Remedy skin repair cream Allergy Mild Itching Uncoded 03/30/23 11:24 Review of Systems ROS ROS Narrative: Narrative: 10 point review of system is otherwise negative except as mentioned in HPI. PFSH Narrative Patient History Narrative: Narrative: Medical/Surgical/Family History All Active Problems (Updated 04/12/23 @ 18:01 by Sayda Nieto MD) Fluid overload (Acute) Cellulitis (Acute) Hypertensive urgency (Acute) Bilateral leg edema (Acute) Bilateral pneumonia (Acute) Elevated lactic acid level (Acute) Anxiety (Chronic) History of asthma (Chronic) Back pain (Chronic) Quinn's esophagus (Chronic) Other cardiomyopathies (Chronic) Chronic kidney disease, stage III (moderate) (Chronic) COPD (chronic obstructive pulmonary disease) (Chronic) Congestive heart failure (Chronic) Cough (Chronic) Depression (Chronic) Diabetes mellitus, type II (Chronic) Dyspnea (Chronic) GERD (gastroesophageal reflux disease) (Chronic) Hyperlipidemia (Chronic) Hypertension, essential (Chronic) Hypothyroidism (Chronic) Obstructive sleep apnea (adult) (pediatric) (Chronic) Osteoarthrosis, shoulder region (Chronic) Rotator cuff tear (Chronic) Schatzki's ring (Chronic) Sciatica (Chronic) Shortness of breath (Chronic) Sleep disorder, nonorganic (Chronic) Testicular hypofunction (Chronic) Venous insufficiency (Chronic) Vitamin D deficiency (Chronic) Anemia (Chronic) Hyperparathyroidism due to renal insufficiency (Chronic) Hypertensive renal disease (Chronic) Hypoxemia (Chronic) Persistent proteinuria (Chronic) CKD (chronic kidney disease) stage 3, GFR 30-59 ml/min (Chronic) Skin abnormalities (Chronic) Hypoxia (Chronic) 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, with long-term current use of insulin (Chronic) Uncontrolled type 2 diabetes mellitus with stage 3 chronic kidney disease, with long-term current use of insulin (Chronic) Chronic renal insufficiency (Chronic) Adverse effects of medication (Acute) Obesity (BMI 30-39.9) (Chronic) Oxygen dependent (Chronic) Fall (on) (from) other stairs and steps, initial encounter (Acute) Concussion with loss of consciousness (Acute) Hyponatremia (Acute) Elevated WBC count (Acute) Contusion of left knee (Acute) Constipation (Acute) Acute alcohol intoxication (Acute) Hypertension associated with stage 4 chronic kidney disease due to type 2 diabetes mellitus (Chronic) Heart failure with left ventricular ejection fraction greater than or equal to 50 percent (Chronic) Diastolic CHF, chronic (Chronic) Non-nephrotic range proteinuria (Chronic) Chronic pain of right knee (Acute) Skin tear (Acute) Hip pain (Acute) Fall from slip, trip, or stumble (Acute) Left rib fracture (Acute) Closed chip fracture of left triquetrum with routine healing (Acute) Contusion of left thigh (Acute) Acute strain of neck muscle (Acute) Adhesive capsulitis of right shoulder (Acute) Rotator cuff tear arthropathy of right shoulder (Acute) Poor balance (Acute) Acute onset sepsis (Acute) Right lower lobe pneumonia (Acute) Diarrhea (Acute) Seborrheic dermatitis (Acute) Hospital discharge follow-up (Acute) Nephrotic range proteinuria (Acute) Hypertension associated with chronic kidney disease due to type 2 diabetes mellitus (Acute) Stasis dermatitis of both legs (Acute) Lower extremity ulceration (Acute) Right lower lobe pneumonia (Acute) BPH associated with nocturia (Acute) Hypersomnia (Chronic) Pneumonia (Acute) Positive D dimer (Acute) Dandruff (Acute) Winter itch (Acute) Lumbar radiculopathy, right (Acute) Bladder wall thickening (Acute) Other low back pain (Acute) Greater trochanteric bursitis of right hip (Chronic) Failed back syndrome (Chronic) Urinary frequency (Chronic) Medical History Abdominal pain Acute exacerbation of chronic obstructive airways disease Acute on chronic renal failure Adhesive capsulitis of right shoulder Adverse effects of medication Nausea due either to metformin or spironolactone. Esophageal web prevents vomiting but he had problems with dry heaving and no p.o. intake earlier in the month when he was in the emergency room. => Tolerating eplerenone in place of aldactone. Constipation is probably a result of his diltiazem or may be iron therapy,=> D/C diltiazem January 2021 Anemia Anesthesia complication Anxiety Back pain Quinn's esophagus Cellulitis Cellulitis of both lower extremities Cellulitis of leg without foot, left CHF (congestive heart failure) Chronic kidney disease, stage III (moderate) Baseline creatinine is around 2 and despite long-standing diabetes I suspect this is diabetic nephropathy with hypertensive or vascular disease given the near nephrotic range amounts of proteinuria Chronic renal insufficiency Congestive heart failure on lasix and spironolactone still has mild edema advised to reduce sodium intake ct current meds he will follow with cardiology tomorrow, will follow the recs COPD (chronic obstructive pulmonary disease) Cough Depression Diabetes mellitus, type II Diastolic CHF, chronic pLVEF and no valve issue Pulmonary HTN with continuous O2 Dyspnea Edema Failed back syndrome Generalized edema GERD (gastroesophageal reflux disease) Greater trochanteric bursitis of right hip Heart failure with left ventricular ejection fraction greater than or equal to 50 percent Suspect pulmonary HTN as well. Metolazone, bumetanide and eplerenone for volume/edema Diltiazem for BP and HR control plus the antiproteinuric / renoprotective effect. Hematuria History of asthma Hospital discharge follow-up Hyperglycemia due to type 2 diabetes mellitus Hyperglycemia, drug-induced Hyperlipidemia Hyperparathyroidism due to renal insufficiency Hypersomnia Hypertension associated with stage 4 chronic kidney disease due to type 2 diabetes mellitus Near nephrotic range proteinuria with edema and nl proBNP GFR labile and depends on volume status Hypertension, essential Hypertensive renal disease BP at goal ct current medications Hypokalemia due to loss of potassium Hyponatremia Hypothyroidism Hypoxemia Hypoxia Intradermal melanocytic nevus 05/08/2015 - Dr. Diaz: Right Ear Canal Leg pain Lower extremity edema Lower extremity ulceration Lymphedema Obesity (BMI 30-39.9) Obstructive sleep apnea (adult) (pediatric) Osteoarthrosis, shoulder region (08/28/14-Dr Dean)Left Other cardiomyopathies Other low back pain Oxygen dependent due to chronic COPD, etc. Paralyzed hemidiaphragm right side Persistent proteinuria Diltiazem and Spironolactone Increase spironolactone as tolerated by K and GFR Pneumonia 06/2013 Poor balance Pruritus Rotator cuff tear (08/28/14-Margarito)Left partial tear Schatzki's ring Sciatica Seborrheic dermatitis Shortness of breath Skin abnormalities Epidermal / Dermal skin tears Grade 1-2 , now ulcers. Covered with slough. Lymphedema of both legs. For conservative wound care. Dressing changes after MIST treatments and topical bactroban ointment. Will follow patietn while in hospital and later at wound care clinic. Sleep disorder, nonorganic Stasis dermatitis of both legs Testicular hypofunction Uncontrolled hypertension Uncontrolled type 2 diabetes mellitus with stage 3 chronic kidney disease, with long-term current use of insulin Nephrotic range proteinuria after D/C of diltiazem due to constipation complaints. Add SGTL 2 inhibitor Urinary incontinence with continuous leakage Venous insufficiency Vitamin D deficiency Volume overload Surgical History History of appendectomy 2003 History of back surgery 1984 & 2001 x2, [facility]-1983, [place]-2001 & Rehab at [facility] History of bronchoscopy History of cardiac catheterization 2012 History of colonoscopy 04/15/2015 - Dr. José - Incomplete bowel prep, Incomplete Colonoscopy History of esophagogastroduodenoscopy (01/31/14) Schatzki's Ring, Quinn's Esophagus History of prostate surgery History of surgery 11/19 MBB #2 L3-S1 w/sed 11/08/201609/17 MBB #1 L3-S1 w/sed 09/23/201608/18 TF JILLIAN #1 L2-3, Bilat w/sed 08/23/201606/16 TF JILLIAN #3 L2-3, Left w/o sed 06/24/201403/16 TF JILLIAN #2 L2-3, left w/o sed 03/19/201412/14 TF JILLIAN #1 Left L2-3 w/o sed 12/11/13 History of tonsillectomy 2009 [facility] S/P skin biopsy 05/08/2015 - Dr. Diaz: Right Ear Canal S/P skin biopsy (02/13/14) Right forearm: See path report Family History Unknown Allergic rhinitis Asthma Diabetes mellitus Essential hypertension Disorder of thyroid Brother Sleep apnea Social History Smoking Status: Former smoker Alcohol Intake Frequency: a few times a week Substance Use: does not use Exam Narrative Narrative: Narrative: CONSTITUTIONAL: Well-nourished well-hydrated elderly male obese 100 kg. Resting comfortably. Not in acute distress. Non toxic. Awake alert and oriented x3. Cooperative, follows commands. HEAD: Normocephalic. Atraumatic. EYES: EOMI ENT: No drooling stridor. speech clear fluent. NECK: Supple. Full range of motion. Trachea midline CARDIOVASCULAR: Adequate peripheral perfusion. S1-S2. Regular rate and rhythm. No murmurs rubs gallops. No JVD. + 4 bilateral pitting lower extremity edema. +2 radial pulses bilaterally. PULMONARY: Nonlabored. Speaking full sentences. No use of accessory muscles. Clear to auscultation bilaterally. No rhonchi wheeze or crackles. 3 L of oxygen via nasal cannula ABDOMINAL: Positive bowel sounds. Soft. Nondistended. Nontender. EXTREMITIES: No gross deformities. Moves all 4 extremities with good strength and tone. SKIN: Warm and dry. No petechiae. Bilateral lower extremity erythema warmth induration tenderness from below the knees to just above the ankles, some mild erythema warmth tracking into the left inner thigh. No crepitus. Clear drainage noted on the [place] of the left lower extremity. No vesicles or pustules bullae noted. Capillary fill is less than 2 seconds NEUROLOGY: Sensation is intact. No gross focal deficits. GCS of 15 General Limitations: no limitations Course Vital Signs Vital signs: Vital Signs Temperature 36.6 C 04/12/23 14:49 Pulse Rate 97 H 04/12/23 14:49 Respiratory Rate 20 04/12/23 14:49 Blood Pressure 156/66 04/12/23 14:49 Pulse Oximetry (%) 97 04/12/23 14:49 Oxygen Delivery Method Nasal Cannula 04/12/23 14:49 Oxygen Flow Rate (L/min) 3 04/12/23 14:49 Temperature 36.6 C 04/12/23 14:49 Pulse Rate 89 04/12/23 17:46 Respiratory Rate 19 04/12/23 17:46 Blood Pressure 160/94 04/12/23 17:46 Pulse Oximetry (%) 100 04/12/23 17:46 Oxygen Delivery Method Nasal Cannula 04/12/23 14:49 Oxygen Flow Rate (L/min) 3 04/12/23 14:49 MDM MDM Narrative Medical decision making narrative: Narrative: ddx cellulitis abscess necrotizing fasciitis osteomyelitis sepsis bacteremia venous stasis hyperemia anasarca fluid overload arrhythmia renal failure liver failure electrolyte abnormality etc. History and physical are consistent with likely fluid overload as well as some developing cellulitis. Cultured. IV vancomycin. IV Bumex secondary to CKD. Strict I's and O's. Twelve-lead EKG per EDMD interpretation shows normal sinus rhythm at 86 bpm. Normal axis. No ST elevations or depressions. No T wave abnormalities. No ectopy. Normal intervals. No old EKG. Chest x-ray shows no fluid overload per radiologist. Labs show anemia chronic at 9.5. CKD creatinine is 1.7. Mildly elevated inflammatory markers. However negative lactic. Slightly elevated procalcitonin however turning down from prior. BNP surprisingly is only 313. However clinically appears to be fluid overloaded with anasarca. Updated on results clinical versus treatment plan. Will admit. Agreeable questions have been answered at length. Dr. Avila given report and accepts Final Impressions: 1. Acute fluid overload with anasarca 2. Bilateral lower extremity cellulitis 3. Chronic respiratory failure on 3 L secondary to COPD CHF 4. CKD 5. Chronic anemia Disposition: admit Condition: fair (Please note that portions of this note may have been completed with a voice recognition program. Efforts were made to edit the dictations but occasionally words are mis-transcribed) Lab Data Lab results reviewed: Yes I reviewed the patient's lab results. 04/12/23 15:43 04/12/23 15:43 Labs: Lab Results 04/12/23 04/12/23 04/12/23 Range/Units 15:43 15:43 15:43 WBC 7.0 (4.5-11.0) K/mcL RBC 3.00 L (4.63-6.08) M/mcL Hgb 9.5 L (13.7-17.5) g/dL Hct 30.5 L (40.1-51.0) % POC Hct (41-55) MCV 101.7 H (80.0-100.0) fL MCH 31.7 (26.0-34.0) pg MCHC 31.1 (31.0-36.0) g/dL RDW 11.9 (11.5-14.5) % Plt Count 218 (140-440) K/mcL MPV 9.1 (8.8-12.5) fL Immature Gran % (Auto) 0.3 (0.0-0.5) % Neut % (Auto) 62.1 (38.0-78.0) % Lymph % (Auto) 20.7 (15.5-49.0) % [place] % (Auto) 13.6 H (1.0-12.0) % Eos % (Auto) 2.7 (0.0-7.0) % Baso % (Auto) 0.6 (0.0-2.0) % Lymph # (Auto) 1.44 L (1.50-4.80) K/mcL [place] # (Auto) 0.95 H (0.10-0.90) K/mcL Eos # (Auto) 0.19 (0.00-0.70) K/mcL Baso # (Auto) 0.04 (0.00-0.30) K/mcL Immature Gran # 0.02 (0.00-0.05) K/mcl Absolute Neutrophils 4.32 (1.80-8.00) K/mcL ESR 52 H (0-20) mm/hr VBG Lactic Acid 0.8 (0.5-2.0) mmol/L POC Sodium (133-145) Sodium 139 (133-145) mmol/L POC Potassium (3.3-5.1) Potassium 3.8 (3.3-5.1) mmol/L POC Chloride (96-108) Chloride 95 L (96-108) mmol/L Carbon Dioxide 36 H (22-30) mmol/L POC Total CO2 (22-30) Anion Gap 8.0 (8.0-16.0) POC Anion Gap (8.0-16.0) POC BUN (6-20) BUN 23 (8-23) mg/dL Creatinine 1.7 H (0.7-1.2) mg/dL POC Creatinine (0.6-1.2) GFR Calculation 37 Glucose 219 H (70-105) mg/dL POC Glucose (70-105) Calcium 8.8 (8.6-10.4) mg/dL POC WB Ioniz Calcium (1.16-1.32) Total Bilirubin 0.2 (0.1-1.0) mg/dL AST 10 (<40) U/L ALT 7 (<40) U/L Alkaline Phosphatase 41 (39-117) U/L C-Reactive Protein 2.00 H (0.03-0.80) mg/dL NT-Pro-B Natriuret Pep 313.0 (<450.0) pg/mL Total Protein 6.5 (5.9-8.4) gm/dL Albumin 3.5 (3.2-5.2) gm/dL Globulin 3.0 (2.2-3.7) gm/dL Albumin/Globulin Ratio 1.2 (1.0-2.3) Procalcitonin (<0.10) ng/mL 04/12/23 04/12/23 Range/Units 15:43 15:44 WBC (4.5-11.0) K/mcL RBC (4.63-6.08) M/mcL Hgb (13.7-17.5) g/dL Hct (40.1-51.0) % POC Hct 28.0 L (41-55) MCV (80.0-100.0) fL MCH (26.0-34.0) pg MCHC (31.0-36.0) g/dL RDW (11.5-14.5) % Plt Count (140-440) K/mcL MPV (8.8-12.5) fL Immature Gran % (Auto) (0.0-0.5) % Neut % (Auto) (38.0-78.0) % Lymph % (Auto) (15.5-49.0) % [place] % (Auto) (1.0-12.0) % Eos % (Auto) (0.0-7.0) % Baso % (Auto) (0.0-2.0) % Lymph # (Auto) (1.50-4.80) K/mcL [place] # (Auto) (0.10-0.90) K/mcL Eos # (Auto) (0.00-0.70) K/mcL Baso # (Auto) (0.00-0.30) K/mcL Immature Gran # (0.00-0.05) K/mcl Absolute Neutrophils (1.80-8.00) K/mcL ESR (0-20) mm/hr VBG Lactic Acid (0.5-2.0) mmol/L POC Sodium 138 (133-145) Sodium (133-145) mmol/L POC Potassium 3.6 (3.3-5.1) Potassium (3.3-5.1) mmol/L POC Chloride 90 L (96-108) Chloride (96-108) mmol/L Carbon Dioxide (22-30) mmol/L POC Total CO2 35.0 H (22-30) Anion Gap (8.0-16.0) POC Anion Gap 17.0 H (8.0-16.0) POC BUN 24 H (6-20) BUN (8-23) mg/dL Creatinine (0.7-1.2) mg/dL POC Creatinine 1.8 H (0.6-1.2) GFR Calculation Glucose (70-105) mg/dL POC Glucose 227 H (70-105) Calcium (8.6-10.4) mg/dL POC WB Ioniz Calcium 1.08 L (1.16-1.32) Total Bilirubin (0.1-1.0) mg/dL AST (<40) U/L ALT (<40) U/L Alkaline Phosphatase (39-117) U/L C-Reactive Protein (0.03-0.80) mg/dL NT-Pro-B Natriuret Pep (<450.0) pg/mL Total Protein (5.9-8.4) gm/dL Albumin (3.2-5.2) gm/dL Globulin (2.2-3.7) gm/dL Albumin/Globulin Ratio (1.0-2.3) Procalcitonin 0.13 H (<0.10) ng/mL Radiology Data Radiology results reviewed: Yes I reviewed the patient's radiology results. Discharge Plan Patient/Caregiver Discharge Instructions Pt seen by CYTOLOGY MANAGER/PA only: No Clinical Impression: Fluid overload Patient Disposition: Xfer As Inpt ([facility]) Condition: Fair Follow up with: Sharif Coronel MD [Primary Care Provider] - Prescriptions: No Action (DME) FreeStyle Lite Strips Strip See Dose Instructions .ROUTE .MEDSUPPLY Qty: 100 11RF Dose Instruction: As directed Rx Instructions: Use to test BG three times daily (DME) Wheelchair Ramp Qty: 1 0RF Rx Instructions: Wheelchair ramp for patients home Breo Ellipta 200-25 mcg/dose blister with device 1 inh INHALATION QDAY Qty: 60 3RF (DME) Comfort EZ Pen [place] 32 gauge x 5/16" needle See Dose Instructions .ROUTE .MEDSUPPLY Qty: 100 11RF Dose Instruction: As directed Rx Instructions: Use with insulin 5 times daily eplerenone 50 mg tablet 25 mg PO QDAY Qty: 90 3RF Hold Instructions: Doctor's Order Rx Instructions: Replaces spironolactone hydralazine 25 mg tablet 25 mg PO TID Qty: 270 1RF sertraline 50 mg tablet 50 mg PO QDAY Qty: 90 1RF levothyroxine [Synthroid] 75 mcg tablet 75 mcg PO QDAY Qty: 90 1RF rosuvastatin [Crestor] 20 mg tablet 20 mg PO QHS Qty: 90 1RF Hold Instructions: Doctor's Order insulin lispro [Humalog KwikPen Insulin] 100 unit/mL insulin pen 22 unit SUB-Q TID Qty: 75 1RF Rx Instructions: 22 units plus sliding scale (4-6 units) - Max daily dose 90 units (DME) Dexcom G7 Action Finisher Misc See Rx Instructions .Route Qty: 1 0RF Rx Instructions: As directed (DME) Dexcom G7 Sensor Device See Rx Instructions .Route Qty: 3 6RF Rx Instructions: As directed pantoprazole [Protonix] 40 mg tablet,delayed release (DR/EC) 40 mg PO QDAY Qty: 90 1RF Tradjenta 5 mg tablet 5 mg PO QAM Qty: 90 1RF Hold Instructions: Doctor's Order ipratropium-albuterol 0.5 mg-3 mg(2.5 mg base)/3 mL solution for nebulization 3 ml inhalation Q6H PRN (Reason: shortness of breath or wheezing) Qty: 360 1RF (DME) pen needle, diabetic 32 gauge x 5/32" needle See Rx Instructions .ROUTE 5XD Qty: 50 Rx Instructions: As directed brimonidine 0.2 % drops 1 drp ophthalmic (eye) BID latanoprost 0.005 % drops 1 drp ophthalmic (eye) HS torsemide 100 mg tablet 100 mg PO QDAY Qty: 90 3RF (DME) lancets 1 EACH misc 1 each MC TIDP Qty: 90 11RF B/L compression stockings (Knee high, 15-20mmHg) 1 unit TOPICAL PRN PRN (Reason: Edema) Rx Instructions: Wear compression stockings for at least 4 hrs/day albuterol sulfate [Ventolin HFA] 90 mcg/actuation Hfa Aerosol Inhaler 2 puff INHALATION Q6HP PRN (Reason: Shortness Of Breath) docusate sodium [Colace] 100 mg Capsule 100 mg PO BID polyethylene glycol 3350 [Miralax] 17 gram Powder In Packet 17 g PO QDAY hydrocodone-acetaminophen 5-325 mg tablet 1 tab PO QHS PRN (Reason: pain) Qty: 7 0RF
[2023-04-12] MEDS ORDERED: morphine 4 MG/ML VIAL ONE (19:37)
[2023-04-12] MEDS ORDERED: INSULIN LISPRO 1 UNIT/0.01 ML UNIT SQ ONE (19:40)
[2023-04-12] MEDS ORDERED: HYDROmorphone 0.5 MG/0.5 ML SYRINGE ONE (19:42)
[2023-04-12] MEDS ORDERED: HYDROmorphone 0.5 MG/0.5 ML SYRINGE IV ONE (20:29)
--- NOTE | 2023-04-12 21:20 | Internal Med History&Physical ---
HPI History of Present Illness Patient information: Note initiated : 04/12/23 at 9:13 pm Service Date, if different from initiated Date: [] Patient: Christine Pimentel 77 y/o M admitted on . Chief Complaint: [] History of present illness: Mr. Pimentel is a 77 year old male with a history of type 2 diabetes mellitus, hypertension, chronic kidney disease stage III, proteinuria, chronic diastolic heart failure, COPD with chronic hypoxia requiring 3 L/min oxygen supplementation, obstructive sleep apnea, esophageal stricture requiring frequent esophageal dilations presented to the emergency department for bilateral lower extremity swelling and pain. The patient was recently hospitalized at [facility] for hypertensive urgency, pneumonia, congestive heart failure and lactic acidosis. During the hospitalization, the patient received antibiotics, ceftriaxone and azithromycin, systemic steroids, his home antihypertensives were resumed and IV antihypertensives were given as needed. Home diuretics were held. A transthoracic echocardiogram showed LVEF of 60 to 65% and was essentially normal. The patient did have steroid-induced hyperglycemia managed with additional insulin. The patient was discharged home on 03/24/2023. He says that his leg edema has has worsened since discharging from the hospital. On examination, the patient has bilateral lower extremity pitting edema, venous stasis ulcers, erythema in bilateral lower extremity as well that is quite tender to touch. The patient is afebrile in the ED, no leukocytosis, both CRP and procalcitonin have improved since they were last checked during the hospitalization. Additionally, the patient's renal function appears to be at his baseline. The patient received 1 dose of IV Bumex 1 mg in the ED. He also received vancomycin IV once. Review of systems Constitutional: no fever, fatigue, or weight loss Eyes: no vision changes or pain Cardiovascular: Positive for stable orthopnea, no chest pain, no palpitations Respiratory: no cough or dyspnea Gastrointestinal: no abdominal pain, no nausea, vomiting, or diarrhea Genitourinary: no dysuria or difficulty voiding Musculoskeletal: Bilateral lower extremity swelling and pain Integumentary: bilateral lower extremity wounds Neurological: Positive for peripheral neuropathy Physical exam Head: Atraumatic, normal inspection. Eyes: normal appearance, no scleral icterus. Neck: full ROM Respiratory: Nasal cannula oxygen supplementation 3 L/min, clear breath sounds bilaterally, no wheezing, does not appear to be in respiratory distress. Cardiovascular: normal rate and rhythm, S1, S2. GI/Abdominal: Obesely soft, nontender, no guarding. Extremities: Bilateral lower extremity pitting edema Neurological: CN II-XII intact, intact motor, intact sensation. Psychiatric: normal mood. Skin: Weeping wounds bilateral lower extremity secondary to venous stasis ulcers, bilateral lower extremity erythema PFSH PFSH All Active Problems (Updated 04/12/23 @ 18:01 by Sayda Nieto MD) Fluid overload (Acute) Cellulitis (Acute) Hypertensive urgency (Acute) Bilateral leg edema (Acute) Bilateral pneumonia (Acute) Elevated lactic acid level (Acute) Anxiety (Chronic) History of asthma (Chronic) Back pain (Chronic) Quinn's esophagus (Chronic) Other cardiomyopathies (Chronic) Chronic kidney disease, stage III (moderate) (Chronic) COPD (chronic obstructive pulmonary disease) (Chronic) Congestive heart failure (Chronic) Cough (Chronic) Depression (Chronic) Diabetes mellitus, type II (Chronic) Dyspnea (Chronic) GERD (gastroesophageal reflux disease) (Chronic) Hyperlipidemia (Chronic) Hypertension, essential (Chronic) Hypothyroidism (Chronic) Obstructive sleep apnea (adult) (pediatric) (Chronic) Osteoarthrosis, shoulder region (Chronic) Rotator cuff tear (Chronic) Schatzki's ring (Chronic) Sciatica (Chronic) Shortness of breath (Chronic) Sleep disorder, nonorganic (Chronic) Testicular hypofunction (Chronic) Venous insufficiency (Chronic) Vitamin D deficiency (Chronic) Anemia (Chronic) Hyperparathyroidism due to renal insufficiency (Chronic) Hypertensive renal disease (Chronic) Hypoxemia (Chronic) Persistent proteinuria (Chronic) CKD (chronic kidney disease) stage 3, GFR 30-59 ml/min (Chronic) Skin abnormalities (Chronic) Hypoxia (Chronic) 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, with long-term current use of insulin (Chronic) Uncontrolled type 2 diabetes mellitus with stage 3 chronic kidney disease, with long-term current use of insulin (Chronic) Chronic renal insufficiency (Chronic) Adverse effects of medication (Acute) Obesity (BMI 30-39.9) (Chronic) Oxygen dependent (Chronic) Fall (on) (from) other stairs and steps, initial encounter (Acute) Concussion with loss of consciousness (Acute) Hyponatremia (Acute) Elevated WBC count (Acute) Contusion of left knee (Acute) Constipation (Acute) Acute alcohol intoxication (Acute) Hypertension associated with stage 4 chronic kidney disease due to type 2 diabetes mellitus (Chronic) Heart failure with left ventricular ejection fraction greater than or equal to 50 percent (Chronic) Diastolic CHF, chronic (Chronic) Non-nephrotic range proteinuria (Chronic) Chronic pain of right knee (Acute) Skin tear (Acute) Hip pain (Acute) Fall from slip, trip, or stumble (Acute) Left rib fracture (Acute) Closed chip fracture of left triquetrum with routine healing (Acute) Contusion of left thigh (Acute) Acute strain of neck muscle (Acute) Adhesive capsulitis of right shoulder (Acute) Rotator cuff tear arthropathy of right shoulder (Acute) Poor balance (Acute) Acute onset sepsis (Acute) Right lower lobe pneumonia (Acute) Diarrhea (Acute) Seborrheic dermatitis (Acute) Hospital discharge follow-up (Acute) Nephrotic range proteinuria (Acute) Hypertension associated with chronic kidney disease due to type 2 diabetes mellitus (Acute) Stasis dermatitis of both legs (Acute) Lower extremity ulceration (Acute) Right lower lobe pneumonia (Acute) BPH associated with nocturia (Acute) Hypersomnia (Chronic) Pneumonia (Acute) Positive D dimer (Acute) Dandruff (Acute) Winter itch (Acute) Lumbar radiculopathy, right (Acute) Bladder wall thickening (Acute) Other low back pain (Acute) Greater trochanteric bursitis of right hip (Chronic) Failed back syndrome (Chronic) Urinary frequency (Chronic) Medical History Abdominal pain Acute exacerbation of chronic obstructive airways disease Acute on chronic renal failure Adhesive capsulitis of right shoulder Adverse effects of medication Nausea due either to metformin or spironolactone. Esophageal web prevents vomiting but he had problems with dry heaving and no p.o. intake earlier in t he month when he was in the emergency room. => Tolerating eplerenone in place of aldactone. Constipation is probably a result of his diltiazem or may be iron therapy,=> D/C diltiazem January 2021 Anemia Anesthesia complication Anxiety Back pain Quinn's esophagus Cellulitis Cellulitis of both lower extremities Cellulitis of leg without foot, left CHF (congestive heart failure) Chronic kidney disease, stage III (moderate) Baseline creatinine is around 2 and despite long-standing diabetes I suspect this is diabetic nephropathy with hypertensive or vascular disease given the near nephrotic range amounts of proteinuria Chronic renal insufficiency Congestive heart failure on lasix and spironolactone still has mild edema advised to reduce sodium intake ct current meds he will follow with cardiology tomorrow, will follow the recs COPD (chronic obstructive pulmonary disease) Cough Depression Diabetes mellitus, type II Diastolic CHF, chronic pLVEF and no valve issue Pulmonary HTN with continuous O2 Dyspnea Edema Failed back syndrome Generalized edema GERD (gastroesophageal reflux disease) Greater trochanteric bursitis of right hip Heart failure with left ventricular ejection fraction greater than or equal to 50 percent Suspect pulmonary HTN as well. Metolazone, bumetanide and eplerenone for volume/edema Diltiazem for BP and HR control plus the antiproteinuric / renoprotective effect. Hematuria History of asthma Hospital discharge follow-up Hyperglycemia due to type 2 diabetes mellitus Hyperglycemia, drug-induced Hyperlipidemia Hyperparathyroidism due to renal insufficiency Hypersomnia Hypertension associated with stage 4 chronic kidney disease due to type 2 diabetes mellitus Near nephrotic range proteinuria with edema and nl proBNP GFR labile and depends on volume status Hypertension, essential Hypertensive renal disease BP at goal ct current medications Hypokalemia due to loss of potassium Hyponatremia Hypothyroidism Hypoxemia Hypoxia Intradermal melanocytic nevus 05/08/2015 - Dr. Diaz: Right Ear Canal Leg pain Lower extremity edema Lower extremity ulceration Lymphedema Obesity (BMI 30-39.9) Obstructive sleep apnea (adult) (pediatric) Osteoarthrosis, shoulder region (08/28/14-Dr Dean)Left Other cardiomyopathies Other low back pain Oxygen dependent due to chronic COPD, etc. Paralyzed hemidiaphragm right side Persistent proteinuria Diltiazem and Spironolactone Increase spironolactone as tolerated by K and GFR Pneumonia 06/2013 Poor balance Pruritus Rotator cuff tear (08/28/14-Margarito)Left partial tear Schatzki's ring Sciatica Seborrheic dermatitis Shortness of breath Skin abnormalities Epidermal / Dermal skin tears Grade 1-2 , now ulcers. Covered with slough. Lymphedema of both legs. For conservative wound care. Dressing changes after MIST treatments and topical bactroban ointment. Will follow patietn while in hospital and later at wound care clinic. Sleep disorder, nonorganic Stasis dermatitis of both legs Testicular hypofunction Uncontrolled hypertension Uncontrolled type 2 diabetes mellitus with stage 3 chronic kidney disease, with long-term current use of insulin Nephrotic range proteinuria after D/C of diltiazem due to constipation complaints. Add SGTL 2 inhibitor Urinary incontinence with continuous leakage Venous insufficiency Vitamin D deficiency Volume overload Surgical History History of appendectomy 2003 History of back surgery 1984 & 2001 x2, [facility]-1983, [facility]-2001 & Rehab at [facility] in [place] History of bronchoscopy History of cardiac catheterization 2012 History of colonoscopy 04/15/2015 - Dr. José - Incomplete bowel prep, Incomplete Colonoscopy History of esophagogastroduodenoscopy (01/31/14) Schatzki's Ring, Quinn's Esophagus History of prostate surgery History of surgery 11/19 MBB #2 L3-S1 w/sed 11/08/201609/17 MBB #1 L3-S1 w/sed 09/23/201608/18 TF JILLIAN #1 L2-3, Bilat w/sed 08/23/201606/16 TF JILLIAN #3 L2-3, Left w/o sed 06/24/201403/16 TF JILLIAN #2 L2-3, left w/o sed 03/19/201412/14 TF JILLIAN #1 Left L2-3 w/o sed 12/11/13 History of tonsillectomy 2009 [facility] S/P skin biopsy 05/08/2015 - Dr. 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 other: Father D/C'd in /Mother D/C'd in 94 smoking status: Former smoker quit date: 10/03/84 pack-years: 40 alcohol intake frequency: a few times a week substance use type: does not use MEDS/ALLERGIES Home Medications and Allergies Home Medications Medication Instructions Recorded Confirmed Type lancets #90 ea 09/24/15 03/30/23 Rx B/L compression stockings (Knee 1 unit topical PRN PRN Edema 01/26/18 03/30/23 History high, 15-20mmHg) blood sugar diagnostic (FreeStyle #100 ea 04/22/20 03/30/23 Rx Lite Strips) Wheelchair Ramp #1 ea 09/19/20 03/30/23 Rx albuterol sulfate 90 mcg/actuation 2 puff inhalation Q6HP PRN 04/26/21 03/30/23 History aerosol inhaler (Ventolin HFA) Shortness Of Breath docusate sodium 100 mg capsule 100 mg PO BID 04/27/21 03/30/23 History (Colace) polyethylene glycol 3350 17 gram 17 g PO QDAY 04/27/21 03/30/23 History oral powder packet (Miralax) latanoprost 0.005 % eye drops 1 drp ophthalmic (eye) HS 10/22/21 03/30/23 History fluticasone furoate 200 1 inh inhalation QDAY #60 ea 01/29/22 03/30/23 Rx mcg-vilanterol 25 mcg/dose inhalation powder (Breo Ellipta) pen needle, diabetic 32 gauge x #100 ea 02/09/22 03/30/23 Rx 5/16" (Comfort EZ Pen [place]) eplerenone 50 mg tablet 25 mg PO QDAY #90 tabs 03/19/22 03/30/23 Rx torsemide 100 mg tablet 100 mg PO QDAY #90 tabs 04/01/22 03/30/23 Rx hydralazine 25 mg tablet 25 mg PO TID #270 tabs 08/24/22 03/30/23 Rx pen needle, diabetic 32 gauge x #50 ea 10/20/22 03/30/23 History 5/32" sertraline 50 mg tablet 50 mg PO QDAY #90 tabs 11/02/22 03/30/23 Rx levothyroxine 75 mcg tablet 75 mcg PO QDAY #90 tabs 11/09/22 03/30/23 Rx (Synthroid) rosuvastatin 20 mg tablet (Crestor) 20 mg PO QHS #90 tabs 11/30/22 03/30/23 Rx insulin lispro 100 unit/mL 22 unit (0.22 mL) subcut TID #75 mL 12/27/22 03/30/23 Rx subcutaneous pen (Humalog KwikPen (U-100) Insulin) blood-glucose meter,continuous #1 ea 01/03/23 03/30/23 Rx (Dexcom G7 Global Professional) blood-glucose sensor (Dexcom G7 #3 ea 01/03/23 03/30/23 Rx Sensor device) pantoprazole 40 mg tablet,delayed 40 mg PO QDAY #90 tabs 01/04/23 03/30/23 Rx release (Protonix) hydrocodone 5 mg-acetaminophen 325 1 tab PO QHS PRN pain #7 tabs 01/27/23 03/30/23 Rx mg tablet brimonidine 0.2 % eye drops 1 drp ophthalmic (eye) BID 01/31/23 03/30/23 History linagliptin 5 mg tablet (Tradjenta) 5 mg PO QAM #90 tabs 03/23/23 03/30/23 Rx ipratropium 0.5 mg-albuterol 3 mg 3 ml inhalation Q6H PRN shortness 03/28/23 03/30/23 Rx (2.5 mg base)/3 mL nebulization of breath or wheezing #360 mL soln Allergies Allergy/AdvReac Type Severity Reaction Status Date / Time codeine Allergy Severe shortness Verified 04/12/23 14:52 of breath ketamine Allergy Severe Difficulty Verified 04/12/23 14:52 Breathing mirabegron [From Myrbetriq] Allergy Severe difficulty Verified 04/12/23 14:52 breathing Metolazone Allergy Mild hives Verified 04/12/23 14:52 Thiazides Allergy Mild Itching Verified 04/12/23 14:52 and redness atorvastatin Allergy Unknown Unknown Verified 04/12/23 14:52 pravastatin Allergy Unknown Unknown Verified 04/12/23 14:52 linagliptin [From Tradjenta] AdvReac Intermediate Blistering Verified 04/12/23 14:52 to lower extremities phenylephrine [From V-Hist] AdvReac Intermediate hand and Verified 04/12/23 14:52 arm cramping brompheniramine [From V-Hist] AdvReac Mild hand and Verified 04/12/23 14:52 arm cramping Buspirone AdvReac Mild Intolerance Verified 04/12/23 14:52 morphine AdvReac Mild Itching Verified 04/12/23 14:52 valsartan AdvReac Mild Hand and Verified 04/12/23 14:52 arm pain Remedy skin repair cream Allergy Mild Itching Uncoded 03/30/23 11:24 EXAM Constitutional Vitals: Temp Pulse Resp BP Pulse Ox O2 Del Method O2 Flow Rate 97.8 F 95 H 18 149/74 96 Room Air 3 04/12/23 14:49 04/12/23 20:15 04/12/23 20:00 04/12/23 20:15 04/12/23 20:15 04/12/23 20:15 04/12/23 14:49 DATA Data Completed and Pending Labs: Labs from last 24 hours 04/12/23 04/12/23 04/12/23 15:44 15:43 15:43 WBC RBC Hgb Hct POC Hct 28.0 L MCV MCH MCHC RDW Plt Count MPV Immature Gran % (Auto) Neut % (Auto) Lymph % (Auto) [place] % (Auto) Eos % (Auto) Baso % (Auto) Lymph # (Auto) [place] # (Auto) Eos # (Auto) Baso # (Auto) Immature Gran # Absolute Neutrophils ESR VBG Lactic Acid 0.8 POC Sodium 138 Sodium POC Potassium 3.6 Potassium POC Chloride 90 L Chloride Carbon Dioxide POC Total CO2 35.0 H Anion Gap POC Anion Gap 17.0 H POC BUN 24 H BUN Creatinine POC Creatinine 1.8 H GFR Calculation Glucose POC Glucose 227 H Calcium POC WB Ioniz Calcium 1.08 L Total Bilirubin AST ALT Alkaline Phosphatase C-Reactive Protein NT-Pro-B Natriuret Pep Total Protein Albumin Globulin Albumin/Globulin Ratio Procalcitonin 0.13 H 04/12/23 04/12/23 15:43 15:43 WBC 7.0 RBC 3.00 L Hgb 9.5 L Hct 30.5 L POC Hct MCV 101.7 H MCH 31.7 MCHC 31.1 RDW 11.9 Plt Count 218 MPV 9.1 Immature Gran % (Auto) 0.3 Neut % (Auto) 62.1 Lymph % (Auto) 20.7 [place] % (Auto) 13.6 H Eos % (Auto) 2.7 Baso % (Auto) 0.6 Lymph # (Auto) 1.44 L [place] # (Auto) 0.95 H Eos # (Auto) 0.19 Baso # (Auto) 0.04 Immature Gran # 0.02 Absolute Neutrophils 4.32 ESR 52 H VBG Lactic Acid POC Sodium Sodium 139 POC Potassium Potassium 3.8 POC Chloride Chloride 95 L Carbon Dioxide 36 H POC Total CO2 Anion Gap 8.0 POC Anion Gap POC BUN BUN 23 Creatinine 1.7 H POC Creatinine GFR Calculation 37 Glucose 219 H POC Glucose Calcium 8.8 POC WB Ioniz Calcium Total Bilirubin 0.2 AST 10 ALT 7 Alkaline Phosphatase 41 C-Reactive Protein 2.00 H NT-Pro-B Natriuret Pep 313.0 Total Protein 6.5 Albumin 3.5 Globulin 3.0 Albumin/Globulin Ratio 1.2 Procalcitonin A/P Narrative A/P Narrative: Assessment: 77 year old male with a history of type 2 diabetes mellitus, hypertension, hyperlipidemia, chronic kidney disease stage III, proteinuria, chronic diastolic heart failure, COPD with chronic hypoxia requiring 3 L/min oxygen supplementation, obstructive sleep apnea, hypothyroidism, GERD, esophageal stricture, depression, obesity admitted for volume overload. #Volume overload secondary to chronic diastolic heart failure versus nephrotic syndrome #Bilateral lower extremity venous ulcers #Bilateral lower extremity erythema, chronic and probably not due to infection #History of nephrotic range proteinuria #Metabolic alkalosis #Chronic kidney disease stage III #Type 2 diabetes mellitus #COPD with chronic hypoxia 3 L/min oxygen supplementation #Chronic anemia #Hypertension #Hypothyroidism #Depression #GERD #Constipation #Obstructive sleep apnea Plan: -Started Bumex 1 mg IV twice daily, titrate to effect. -Diamox 500 mg IV once. -Monitor renal function, electrolytes, acid-base balance, volume status. -Urinalysis and urine protein to creatinine ratio to evaluate for proteinuria. Consider 24-hour urine protein collection. -Check BNP. -Check VBG for pH. -Last TTE was 03/23/2023, doubt there has been any significant change since then. -Demarcate lower extremity redness and follow. -If the patient develops a fever or leukocytosis maintain low threshold for starting antibiotic. -Lantus 10 units at bedtime. -Correction Humalog SSI high-dose. -DuoNebs as needed. -Analgesics as needed. -Bowel regimen. -Home medication reconciliation. -PT consult. -Wound cares. -DVT prophylaxis: Heparin SQ. Time Spent With Patient Time: Total time spent is greater than 50% in coordination of care (as documented) at patient's floor/unit and/or counseling patient:
[2023-04-12] MEDS ORDERED: INSULIN GLARGINE, HUMAN 1 UNIT/0.01 ML SQ SCH (21:35)
[2023-04-12] MEDS ORDERED: ONDANSETRON 4 MG/2 ML VIAL IV PRN (22:04)
[2023-04-12] MEDS ORDERED: DEXTROSE 31 GM ORAL.SUSP PO PRN (22:04)
[2023-04-12] MEDS ORDERED: acetaZOLAMIDE SOD 500 MG VIAL IV ONE (22:04)
[2023-04-12] MEDS ORDERED: DEXTROSE 50% 50 ML VIAL IV PRN (22:04)
[2023-04-12] MEDS ORDERED: SENNOSIDES 1 TABLET PO PRN (22:04)
[2023-04-12] MEDS ORDERED: IPRATROPIUM/ALBUTEROL 3 ML AMPUL.NEB NEB PRN (22:04)
[2023-04-12] MEDS ORDERED: LACTULOSE 20 GM/30 ML ORAL.SOL PO PRN (22:04)
[2023-04-12] MEDS ORDERED: POTASSIUM CHLORIDE 20 MEQ TABLET PO ONE (22:04)
[2023-04-12] MEDS: HYDROcodone/APAP 5/325MG TABLET PO PRN (22:49)
[2023-04-12] MEDS: HEPARIN 5,000 UNIT/ML VIAL SQ SCH (22:50)
[2023-04-12] MEDS: 0.9 % SODIUM CHLORIDE 10 ML SYRINGE IV SCH (22:50)
[2023-04-13 00:21] LABS: Creatinine, Spot Urine 22.6 mg/dL (39.0-259.0); Pro:Crea Ratio 3.89 (<0.20)
[2023-04-13] MEDS ORDERED: HYDROmorphone 0.5 MG/0.5 ML SYRINGE ONE (01:38)
[2023-04-13] MEDS: hydrALAZINE 25 MG TABLET PO SCH ×4 (02:00→20:41)
[2023-04-13] MEDS: 0.9 % SODIUM CHLORIDE 10 ML SYRINGE IV SCH ×3 (05:36→20:44)
[2023-04-13] MEDS: HEPARIN 5,000 UNIT/ML VIAL SQ SCH ×3 (05:37→20:44)
[2023-04-13 06:56] LABS: ABG Methemoglobin 0.3 % (0.4-1.5); Total Hemoglobin 10.9 gm/Dl (13.5-16.5); VBG Base Excess 4 (-2-3); VBG HCO3 32.3 mmol/L (24.0-28.0); VBG Oxygen Saturation 83.3 % (40.0-70.0); VBG PCO2 74.5 mmHg (41.0-51.0); VBG PH 7.26 U (7.32-7.42); VBG PO2 54.9 mmHg (25.0-40.0); VBG Total CO2 34.6 mmol/L (25.0-29.0)
[2023-04-13 06:58] LABS: Basophils # (Auto) 0.05 K/mcL (0.00-0.30); Basophils % (Auto) 0.6 % (0.0-2.0); Eosinophils # (Auto) 0.18 K/mcL (0.00-0.70); Eosinophils % (Auto) 2.3 % (0.0-7.0); Hematocrit 32.3 % (40.1-51.0); Hemoglobin 9.6 g/dL (13.7-17.5); Lymphocytes # (Auto) 1.37 K/mcL (1.50-4.80); Lymphocytes % (Auto) 17.2 % (15.5-49.0); Mean Cell Volume 105.9 fL (80.0-100.0); Mean Corpuscular HGB Conc 29.7 g/dL (31.0-36.0); Mean Platelet Volume 9.3 fL (8.8-12.5); Monocytes % (Auto) 11.3 % (1.0-12.0); Neutrophils % (Auto) 68.1 % (38.0-78.0); Platelet Count 236 K/mcL (140-440); RBC 3.05 M/mcL (4.63-6.08); Red Cell Distribution Width 12.1 % (11.5-14.5)
[2023-04-13 07:31] LABS: ALT/SGPT 7 U/L (<40); AST/SGOT 10 U/L (<40); Albumin 3.5 gm/dL (3.2-5.2); Albumin/Globulin Ratio 1.1 (1.0-2.3); Alkaline Phosphatase 40 U/L (39-117); Bilirubin,Direct < 0.2 mg/dL (0-0.3); Bilirubin,Total 0.2 mg/dL (0.1-1.0); Blood Urea Nitrogen 22 mg/dL (8-23); Calcium 8.7 mg/dL (8.6-10.4); Carbon Dioxide 33 mmol/L (22-30); Chloride 97 mmol/L (96-108); Globulin 3.2 gm/dL (2.2-3.7); Glomerular Filtration Rate 35; Glucose 214 mg/dL (70-105); Lactate Dehydrogenase 124 U/L (135-225); Phosphorous 5.4 mg/dL (2.5-4.5); Triglycerides 141 mg/dL (<150); Uric Acid 7.1 mg/dL (2.5-8.0); proBNP 303.3 pg/mL (<450.0)
[2023-04-13] MEDS: INSULIN LISPRO 1 UNIT/0.01 ML UNIT SQ SCH ×4 (07:51→20:43)
[2023-04-13] MEDS: DOCUSATE SODIUM 100 MG CAPSULE PO SCH ×2 (08:15→20:41)
[2023-04-13] MEDS ORDERED: BUMETANIDE 1 MG/4 ML VIAL IV SCH ×2 (09:00→21:00)
[2023-04-13] MEDS ORDERED: BUMETANIDE 1 MG/4 ML VIAL IV ONE (09:07)
[2023-04-13] MEDS ORDERED: ALBUTEROL SULFATE 2.5 MG/3 ML NEBULIZER NEB PRN (09:10)
[2023-04-13] MEDS: POTASSIUM CHLORIDE 20 MEQ TABLET PO SCH (09:58)
[2023-04-13 10:20] LABS: ABG Methemoglobin 0.2 % (0.4-1.5); Total Hemoglobin 11.3 gm/Dl (13.5-16.5); VBG Base Excess 6 (-2-3); VBG HCO3 34.2 mmol/L (24.0-28.0); VBG Oxygen Saturation 79.3 % (40.0-70.0); VBG PCO2 74.9 mmHg (41.0-51.0); VBG PH 7.28 U (7.32-7.42); VBG PO2 45.2 mmHg (25.0-40.0); VBG Total CO2 36.5 mmol/L (25.0-29.0)
[2023-04-13] MEDS: IPRATROPIUM/ALBUTEROL 3 ML AMPUL.NEB NEB SCH ×3 (10:36→21:05)
[2023-04-13] MEDS: cefTRIAXone 2 GM in DEXTROSE 5% IN WATER 50 ML IV SCH (10:50)
--- NOTE | 2023-04-13 15:22 | EKG ---
[facility] Test Date: 2023-04-12 Pat Name: Christine Pimentel Department: ED Room: Gender: Male Certified Credit Counselor: AW : 1945 Requested By: Sayda Nieto Order Number: [id number] Reading MD: Brendan Solis Measurements Intervals [place] Rate: 86 P: 30 GA: 195 QRS: -10 QRSD: 92 T: 59 QT: 366 QTc: 437 Interpretive Statements Sinus rhythm Anteroseptal infarct, old Electronically Signed On 04-13-2023 15:22:26 PDT by Brendan Solis /store/M0/[id number]
--- NOTE | 2023-04-13 15:48 | Internal Med Progress Note ---
SUBJECTIVE Subjective Patient information: Note initiated : 04/13/23 at 3:45 pm Service Date, if different from initiated Date: [] Patient: Christine Pimentel 77 y/o M admitted on 04/12/23. Chief Complaint: [] Interval history: Mr. Pimentel is a 77 year old male with a history of type 2 diabetes mellitus, hypertension, chronic kidney disease stage III, proteinuria, chronic diastolic heart failure, COPD with chronic hypoxia requiring 3 L/min oxygen sup plementation, obstructive sleep apnea, esophageal stricture requiring frequent esophageal dilations presented to the emergency department for bilateral lower extremity swelling and pain. The patient was recently hospitalized at [facility] for hypertensive urgency, pneumonia, congestive heart failure and lactic acidosis. During the hospitalization, the patient received antibiotics, ceftriaxone and azithromycin, systemic steroids, his home antihypertensives were resumed and IV antihypertensives were given as needed. Home diuretics were held. A transthoracic echocardiogram showed LVEF of 60 to 65% and was essentially normal. The patient did have steroid-induced hyperglycemia managed with additional insulin. The patient was discharged home on 03/24/2023. He says that his leg edema has has worsened since discharging from the hospital. On examination, the patient has bilateral lower extremity pitting edema, venous stasis ulcers, erythema in bilateral lower extremity as well that is quite tender to touch. The patient is afebrile in the ED, no leukocytosis, both CRP and procalcitonin have improved since they were last checked during the hospitalization. Additionally, the patient's renal function appears to be at his baseline. The patient received 1 dose of IV Bumex 1 mg in the ED. He also received vancomycin IV once. 04/13. Vitals notable for moderate hypertension overnight, weaned down to 1 L/min nasal cannula. Hemoglobin stable, renal function stable, VBG showed PCO2 of 7 4.5 and pH of 7.26. Patient was started on BiPAP however did not tolerate it therefore removed. Repeat VBG showed a modest improvement of pH to 7.28. BNP was normal. Urine protein creatinine ratio elevated, 3.89. Placed Mcdonough catheter, start 24-hour urine collection. Anasarca may be secondary to nephrotic syndrome. Bumex increased to 2 mg IV twice daily. Started ceftriaxone 2 mg IV every 24 hours for possible lower extremity cellulitis. Started Norvasc 5 mg daily for hypertension. Patient is also on hydralazine which he probably takes at home. Home medication reconciliation still not completed as the patient does not know his medications well. Dr. Joya following for wound cares. Physical exam Head: Atraumatic, normal inspection. Eyes: normal appearance, no scleral icterus. Neck: full ROM Respiratory: Nasal cannula oxygen supplementation 1 L/min, clear breath sounds bilaterally, no wheezing, does not appear to be in respiratory distress. Cardiovascular: normal rate and rhythm, S1, S2. GI/Abdominal: Obesely soft, nontender, no guarding. Extremities: Bilateral lower extremity pitting edema Neurological: CN II-XII intact, intact motor, intact sensation. Psychiatric: normal mood. Skin: Weeping wounds bilateral lower extremity secondary to venous stasis ulcers, bilateral lower extremity erythema Constitutional Vitals: Vital Signs Temp Pulse Resp BP Pulse Ox O2 Del Method O2 Flow Rate 98.2 F 98 H 18 161/64 94 Nasal Cannula 1 04/13/23 08:00 04/13/23 15:03 04/13/23 15:03 04/13/23 14:01 04/13/23 15:03 04/13/23 15:03 04/13/23 15:03 Period Temp Pulse Resp BP Sys/Jean Pulse Ox O2 Del Method O2 Flow Rate Last 24 Hr 97.6 F-98.9 F 71-117 15-24 96-190/57-161 91-100 Nasal Cannula- Room Air 1-3 Intake and Output 04/13/23 04/13/23 04/13/23 03:59 11:59 19:59 Intake Total 500 1310 480 Output Total 2 1200 Balance 500 1308 -720 Weight 106.231 kg Intake & Output: Intake & Output 04/13/23 04/13/23 04/13/23 03:59 11:59 19:59 Intake Total 500 1310 480 Output Total 2 1200 Balance 500 1308 -720 Weight 106.231 kg Intake: IV 500 50 Vancomycin 1,500 mg In Sodium 500 Chloride 0.9% 500 ml @ 333.3 mls/hr IV ONCE ONE Rx#: [id number] Rocephin 2 gm In Dextrose 5% in 50 Water 50 ml @ 100 mls/hr IV Q24H [facility] Rx#:[id number] Oral 1260 480 Output: Urine Catheter Amount 1200 # of times incontinent of urine 2 Other: Meal Breakfast Percent of Meal Consumed Refused Urine Appearance Clear Clear Uretheral (Mcdonough) Clear Urine Color Yellow Yellow Pale Uretheral (Mcdonough) Yellow Urine Odor Normal Uretheral (Mcdonough) Normal # Voids 2 OBJ DATA Labs 04/13/23 06:33 04/13/23 06:32 Labs: Abnormal Lab Results 04/13/23 04/13/23 04/13/23 10:00 06:33 06:32 RBC 3.05 L Hgb 9.6 L Hct 32.3 L POC Hct MCV 105.9 H MCHC 29.7 L Brooke % (Auto) Lymph # (Auto) 1.37 L Brooke # (Auto) ESR ABG Methemoglobin 0.2 L 0.3 L VBG pH 7.28 L 7.26 L VBG pCO2 74.9 H* 74.5 H* VBG pO2 45.2 H 54.9 H VBG HCO3 34.2 H 32.3 H VBG Total CO2 36.5 H 34.6 H VBG O2 Saturation 79.3 H 83.3 H VBG Base Excess 6 H 4 H Carboxyhemoglobin 4.2 H 4.5 H Total Hemoglobin 11.3 L 10.9 L POC Chloride Chloride Carbon Dioxide POC Total CO2 POC Anion Gap POC BUN Creatinine POC Creatinine Glucose POC Glucose POC WB Ioniz Calcium Phosphorus Lactate Dehydrogenase C-Reactive Protein Procalcitonin Ur Random Creatinine U Scurry Prot/Creat Ratio 04/13/23 04/12/23 04/12/23 06:32 15:44 15:43 RBC Hgb Hct POC Hct 28.0 L MCV MCHC Brooke % (Auto) Lymph # (Auto) Brooke # (Auto) ESR ABG Methemoglobin VBG pH VBG pCO2 VBG pO2 VBG HCO3 VBG Total CO2 VBG O2 Saturation VBG Base Excess Carboxyhemoglobin Total Hemoglobin POC Chloride 90 L Chloride Carbon Dioxide 33 H POC Total CO2 35.0 H POC Anion Gap 17.0 H POC BUN 24 H Creatinine 1.8 H POC Creatinine 1.8 H Glucose 214 H POC Glucose 227 H POC WB Ioniz Calcium 1.08 L Phosphorus 5.4 H Lactate Dehydrogenase 124 L C-Reactive Protein Procalcitonin 0.13 H Ur Random Creatinine U Scurry Prot/Creat Ratio 04/12/23 04/12/23 04/12/23 15:43 15:43 14:18 RBC 3.00 L Hgb 9.5 L Hct 30.5 L POC Hct MCV 101.7 H MCHC Brooke % (Auto) 13.6 H Lymph # (Auto) 1.44 L Brooke # (Auto) 0.95 H ESR 52 H ABG Methemoglobin VBG pH VBG pCO2 VBG pO2 VBG HCO3 VBG Total CO2 VBG O2 Saturation VBG Base Excess Carboxyhemoglobin Total Hemoglobin POC Chloride Chloride 95 L Carbon Dioxide 36 H POC Total CO2 POC Anion Gap POC BUN Creatinine 1.7 H POC Creatinine Glucose 219 H POC Glucose POC WB Ioniz Calcium Phosphorus Lactate Dehydrogenase C-Reactive Protein 2.00 H Procalcitonin Ur Random Creatinine 22.6 L U Scurry Prot/Creat Ratio 3.89 H Meds: Medications Acetaminophen (Acetaminophen 325 Mg Tablet) 650 mg PO Q6HP PRN; Protocol PRN Reason: Per Pain Protocol/Fever > 101 Hydrocodone Bitart/Acetaminophen (Hydrocodone/Apap 5/325mg Tablet) 1 tab PO Q4HP PRN; Protocol PRN Reason: Per Pain Protocol Last Admin: 04/12/23 22:49 Dose: 1 tab Albuterol Sulfate (Albuterol Sulfate 2.5 Mg/3 Ml Nebulizer) 2.5 mg NEB Q2HP PRN PRN Reason: Shortness Of Breath Albuterol/Ipratropium (Ipratropium/Albuterol 3 Ml Ampul.Neb) 3 ml NEB Q6H [facility] Last Admin: 04/13/23 15:01 Dose: 3 ml Bumetanide (Bumetanide 1 Mg/4 Ml Vial) 2 mg IV BID [facility] Stop: 04/13/23 21:01 Dextrose (Dextrose 50% 50 Ml Vial) 0 ml IV UD PRN PRN Reason: Per Sliding Scale Diagnostic Test (Pha) (Accu-Chek 1 Each Strip) 1 each FS ACHS [facility] Last Admin: 04/13/23 11:15 Dose: 1 each Docusate Sodium (Docusate Sodium 100 Mg Capsule) 100 mg PO BID [facility] Last Admin: 04/13/23 08:15 Dose: 100 mg Glucose (Dextrose 31 Gm Oral.Susp) 15 gm PO PRN PRN PRN Reason: Hypoglycemia Heparin Sodium (Porcine) (Heparin 5,000 Unit/Ml Vial) 5,000 unit SQ Q8H [facility] Last Admin: 04/13/23 14:32 Dose: 5,000 unit Hydralazine HCl (Hydralazine 25 Mg Tablet) 25 mg PO TID [facility] Last Admin: 04/13/23 14:32 Dose: 25 mg Hydromorphone HCl (Hydromorphone 0.5 Mg/0.5 Ml Syringe) 0.2 mg IV Q4HP PRN; Protocol PRN Reason: Per Pain Protocol Ceftriaxone Sodium 2 gm/ (Dextrose) 50 mls @ 100 mls/hr IV Q24H [facility]; Protocol Last Infusion: 04/13/23 11:28 Dose: Infused Insulin Glargine (Insulin Glargine, Human 1 Unit/0.01 Ml) 10 unit SQ HS [facility] Last Admin: 04/12/23 22:58 Dose: 10 units Insulin Human Lispro (Insulin Lispro 1 Unit/0.01 Ml Unit) 0 unit SQ ACHS [facility]; Protocol Last Admin: 04/13/23 11:52 Dose: 3 units Lactulose (Lactulose 20 Gm/30 Ml Oral.Leila) 10 gm PO DAILYP PRN PRN Reason: Constipation Ondansetron HCl (Ondansetron 4 Mg/2 Ml Vial) 4 mg IV Q4HP PRN; Protocol PRN Reason: Nausea And Vomiting Potassium Chloride (Potassium Chloride 20 Meq Tablet) 20 meq PO DAILY [facility] Stop: 04/16/23 09:09 Last Admin: 04/13/23 09:58 Dose: 20 meq Senna (Sennosides 1 Tablet) 2 tab PO HSP PRN PRN Reason: Constipation Sodium Chloride (0.9 % Sodium Chloride 10 Ml Syringe) 10 ml IV Q8 [facility] Last Admin: 04/13/23 14:32 Dose: 10 ml ABG Interpretation ABG results: 04/13/23 04/13/23 06:32 10:00 ABG Methemoglobin 0.3 L 0.2 L VBG pH 7.26 L 7.28 L VBG pCO2 74.5 H* 74.9 H* VBG pO2 54.9 H 45.2 H VBG HCO3 32.3 H 34.2 H VBG Total CO2 34.6 H 36.5 H VBG O2 Saturation 83.3 H 79.3 H VBG Base Excess 4 H 6 H A/P Narrative A/P Narrative: Assessment: 77 year old male with a history of type 2 diabetes mellitus, hypertension, hyperlipidemia, chronic kidney disease stage III, proteinuria, chronic diastolic heart failure, COPD with chronic hypoxia requiring oxygen sup plementation, obstructive sleep apnea, hypothyroidism, GERD, esophageal stricture, depression, obesity admitted for volume overload. #Volume overload probably secondary to nephrotic syndrome #Acute chronic hypercapnic respiratory failure #Possible lower extremity cellulitis versus chronic venous stasis #Bilateral lower extremity venous stasis ulcers #History of nephrotic range proteinuria #Chronic kidney disease stage III #Type 2 diabetes mellitus #COPD with chronic hypoxia #Chronic anemia #Hypertension #Hypothyroidism #Depression #GERD #Constipation #Obstructive sleep apnea intolerant of CPAP Plan: -Increase Bumex to 2 mg IV twice daily, titrate to effect and consider Bumex drip. -Ceftriaxone 2 mg IV every 24 hours -Oxygen supplementation, SPO2 goal 88 to 92%. -Did not tolerate BiPAP, placed for acute on chronic hypercapnia. -Monitor renal function, electrolytes, acid-base balance, volume status. -24-hour urine collection, Mcdonough catheter -Last TTE was 03/23/2023, doubt there has been any significant change since then. -Increase Lantus to 20 units at bedtime. -Correction Humalog SSI high-dose. -DuoNebs as needed. -Analgesics as needed. -Bowel regimen. -Start Norvasc 5 mg daily, continue hydralazine 25 mg 3 times daily. -Consider AKI inhibitor for probable nephrotic syndrome. -Consider nephrology consult for possible nephrotic syndrome. -Home medication reconciliation pending. -PT consult. -Wound cares, Dr. Joya following. -DVT prophylaxis: Heparin SQ. -CODE STATUS: DNR/DNI. Plan of Treatment: Plan: See wound care orders MIST treatments daily Followed by Bacitracin Adaptic Kerlix bandage. Will follow this patient during his stay. Time Spent With Patient Time: Total time spent is greater than 50% in coordination of care (as documented) at patient's floor/unit and/or counseling patient: QUALITY Stroke Symptom Onset Unknown: No VTE Deep Vein Thrombosis/Pulmonary Embolism Present on Admission: No
--- NOTE | 2023-04-13 15:57 | General Surgery Consult Note ---
HPI Date of Consult Consult Date: 04/13/23 Requesting physician: Byron Parekh Primary Care Provider: Sharif Coronel MD Consult Narrative Patient Information: Note initiated : 04/13/23 at 3:40 pm Service Date, if different from initiated Date: [] Patient: Christine Pimentel 77 y/o M admitted on 04/12/23. Chief Complaint: [] Reason for consult: Chronic stasis dermatitis of BOTH legs and Cellulitis LEFT leg and thigh cc:: Reviewed notes pertaining to this admission and saw this gentleman in Room 116 with Rayna ANDERSON. Reviewed plan of wound care with Dr. Parekh. . CC: Byron Parekh MD [facility] All Active Problems Fluid overload (Acute) Cellulitis (Acute) Hypertensive urgency (Acute) Bilateral leg edema (Acute) Bilateral pneumonia (Acute) Elevated lactic acid level (Acute) Anxiety (Chronic) History of asthma (Chronic) Back pain (Chronic) Quinn's esophagus (Chronic) Other cardiomyopathies (Chronic) Chronic kidney disease, stage III (moderate) (Chronic) COPD (chronic obstructive pulmonary disease) (Chronic) Congestive heart failure (Chronic) Cough (Chronic) Depression (Chronic) Diabetes mellitus, type II (Chronic) Dyspnea (Chronic) GERD (gastroesophageal reflux disease) (Chronic) Hyperlipidemia (Chronic) Hypertension, essential (Chronic) Hypothyroidism (Chronic) Obstructive sleep apnea (adult) (pediatric) (Chronic) Osteoarthrosis, shoulder region (Chronic) Rotator cuff tear (Chronic) Schatzki's ring (Chronic) Sciatica (Chronic) Shortness of breath (Chronic) Sleep disorder, nonorganic (Chronic) Testicular hypofunction (Chronic) Venous insufficiency (Chronic) Vitamin D deficiency (Chronic) Anemia (Chronic) Hyperparathyroidism due to renal insufficiency (Chronic) Hypertensive renal disease (Chronic) Hypoxemia (Chronic) Persistent proteinuria (Chronic) CKD (chronic kidney disease) stage 3, GFR 30-59 ml/min (Chronic) Skin abnormalities (Chronic) Hypoxia (Chronic) 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, with long-term current use of insulin (Chronic) Uncontrolled type 2 diabetes mellitus with stage 3 chronic kidney disease, with long-term current use of insulin (Chronic) Chronic renal insufficiency (Chronic) Adverse effects of medication (Acute) Obesity (BMI 30-39.9) (Chronic) Oxygen dependent (Chronic) Fall (on) (from) other stairs and steps, initial encounter (Acute) Concussion with loss of consciousness (Acute) Hyponatremia (Acute) Elevated WBC count (Acute) Contusion of left knee (Acute) Constipation (Acute) Acute alcohol intoxication (Acute) Hypertension associated with stage 4 chronic kidney disease due to type 2 diabetes mellitus (Chronic) Heart failure with left ventricular ejection fraction greater than or equal to 50 percent (Chronic) Diastolic CHF, chronic (Chronic) Non-nephrotic range proteinuria (Chronic) Chronic pain of right knee (Acute) Skin tear (Acute) Hip pain (Acute) Fall from slip, trip, or stumble (Acute) Left rib fracture (Acute) Closed chip fracture of left triquetrum with routine healing (Acute) Contusion of left thigh (Acute) Acute strain of neck muscle (Acute) Adhesive capsulitis of right shoulder (Acute) Rotator cuff tear arthropathy of right shoulder (Acute) Poor balance (Acute) Acute onset sepsis (Acute) Right lower lobe pneumonia (Acute) Diarrhea (Acute) Seborrheic dermatitis (Acute) Hospital discharge follow-up (Acute) Nephrotic range proteinuria (Acute) Hypertension associated with chronic kidney disease due to type 2 diabetes mellitus (Acute) Stasis dermatitis of both legs (Acute) Lower extremity ulceration (Acute) Right lower lobe pneumonia (Acute) BPH associated with nocturia (Acute) Hypersomnia (Chronic) Pneumonia (Acute) Positive D dimer (Acute) Dandruff (Acute) Winter itch (Acute) Lumbar radiculopathy, right (Acute) Bladder wall thickening (Acute) Other low back pain (Acute) Greater trochanteric bursitis of right hip (Chronic) Failed back syndrome (Chronic) Urinary frequency (Chronic) Medical History Abdominal pain Acute exacerbation of chronic obstructive airways disease Acute on chronic renal failure Adhesive capsulitis of right shoulder Adverse effects of medication Nausea due either to metformin or spironolactone. Esophageal web prevents vomiting but he had problems with dry heaving and no p.o. intake earlier in the month when he was in the emergency room. => Tolerating eplerenone in place of aldactone. Constipation is probably a result of his diltiazem or may be iron therapy,=> D/C diltiazem January 2021 Anemia Anesthesia complication Anxiety Back pain Quinn's esophagus Cellulitis Cellulitis of both lower extremities Cellulitis of leg without foot, left CHF (congestive heart failure) Chronic kidney disease, stage III (moderate) Baseline creatinine is around 2 and despite long-standing diabetes I suspect this is diabetic nephropathy with hypertensive or vascular disease given the near nephrotic range amounts of proteinuria Chronic renal insufficiency Congestive heart failure on lasix and spironolactone still has mild edema advised to reduce sodium intake ct current meds he will follow with cardiology tomorrow, will follow the recs COPD (chronic obstructive pulmonary disease) Cough Depression Diabetes mellitus, type II Diastolic CHF, chronic pLVEF and no valve issue Pulmonary HTN with continuous O2 Dyspnea Edema Failed back syndrome Generalized edema GERD (gastroesophageal reflux disease) Greater trochanteric bursitis of right hip Heart failure with left ventricular ejection fraction greater than or equal to 50 percent Suspect pulmonary HTN as well. Metolazone, bumetanide and eplerenone for volume/edema Diltiazem for BP and HR control plus the antiproteinuric / renoprotective effect. Hematuria History of asthma Hospital discharge follow-up Hyperglycemia due to type 2 diabetes mellitus Hyperglycemia, drug-induced Hyperlipidemia Hyperparathyroidism due to renal insufficiency Hypersomnia Hypertension associated with stage 4 chronic kidney disease due to type 2 diabetes mellitus Near nephrotic range proteinuria with edema and nl proBNP GFR labile and depends on volume status Hypertension, essential Hypertensive renal disease BP at goal ct current medications Hypokalemia due to loss of potassium Hyponatremia Hypothyroidism Hypoxemia Hypoxia Intradermal melanocytic nevus 05/08/2015 - Dr. Diaz: Right Ear Canal Leg pain Lower extremity edema Lower extremity ulceration Lymphedema Obesity (BMI 30-39.9) Obstructive sleep apnea (adult) (pediatric) Osteoarthrosis, shoulder region (08/28/14-Dr Dean)Left Other cardiomyopathies Other low back pain Oxygen dependent due to chronic COPD, etc. Paralyzed hemidiaphragm right side Persistent proteinuria Diltiazem and Spironolactone Increase spironolactone as tolerated by K and GFR Pneumonia 06/2013 Poor balance Pruritus Rotator cuff tear (08/28/14-Margarito)Left partial tear Schatzki's ring Sciatica Seborrheic dermatitis Shortness of breath Skin abnormalities Epidermal / Dermal skin tears Grade 1-2 , now ulcers. Covered with slough. Lymphedema of both legs. For conservative wound care. Dressing changes after MIST treatments and topical bactroban ointment. Will follow patietn while in hospital and later at wound care clinic. Sleep disorder, nonorganic Stasis dermatitis of both legs Testicular hypofunction Uncontrolled hypertension Uncontrolled type 2 diabetes mellitus with stage 3 chronic kidney disease, with long-term current use of insulin Nephrotic range proteinuria after D/C of diltiazem due to constipation complaints. Add SGTL 2 inhibitor Urinary incontinence with continuous leakage Venous insufficiency Vitamin D deficiency Volume overload Surgical History History of appendectomy 2003 History of back surgery 1984 & 2001 x2, [facility]-1983, [facility]-2001 & [facility] in [place] History of bronchoscopy History of cardiac catheterization 2012 History of colonoscopy 04/15/2015 - Dr. José - Incomplete bowel prep, Incomplete Colonoscopy History of esophagogastroduodenoscopy (01/31/14) Schatzki's Ring, Quinn's Esophagus History of prostate surgery History of surgery 11/19 MBB #2 L3-S1 w/sed 11/08/201609/17 MBB #1 L3-S1 w/sed 09/23/201608/18 TF JILLIAN #1 L2-3, Bilat w/sed 08/23/201606/16 TF JILLIAN #3 L2-3, Left w/o sed 06/24/201403/16 TF JILLIAN #2 L2-3, left w/o sed 03/19/201412/14 TF JILLIAN #1 Left L2-3 w/o sed 12/11/13 History of tonsillectomy 2009 [facility] S/P skin biopsy 05/08/2015 - Dr. 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 other: Father D/C'd in /Mother D/C'd in 94 smoking status: Former smoker quit date: 10/03/84 pack-years: 40 alcohol intake frequency: a few times a week substance use type: does not use MEDS/ALLERGIES Home Medications and Allergies Home Medications Medication Instructions Recorded Confirmed Type lancets #90 ea 09/24/15 03/30/23 Rx B/L compression stockings (Knee 1 unit topical PRN PRN Edema 01/26/18 03/30/23 History high, 15-20mmHg) blood sugar diagnostic (FreeStyle #100 ea 04/22/20 03/30/23 Rx Lite Strips) Wheelchair Ramp #1 ea 09/19/20 03/30/23 Rx albuterol sulfate 90 mcg/actuation 2 puff inhalation Q6HP PRN 04/26/21 03/30/23 History aerosol inhaler (Ventolin HFA) Shortness Of Breath docusate sodium 100 mg capsule 100 mg PO BID 04/27/21 03/30/23 History (Colace) polyethylene glycol 3350 17 gram 17 g PO QDAY 04/27/21 03/30/23 History oral powder packet (Miralax) latanoprost 0.005 % eye drops 1 drp ophthalmic (eye) HS 10/22/21 03/30/23 History fluticasone furoate 200 1 inh inhalation QDAY #60 ea 01/29/22 03/30/23 Rx mcg-vilanterol 25 mcg/dose inhalation powder (Breo Ellipta) pen needle, diabetic 32 gauge x #100 ea 02/09/22 03/30/23 Rx 5/16" (Comfort EZ Pen [place]) eplerenone 50 mg tablet 25 mg PO QDAY #90 tabs 03/19/22 03/30/23 Rx torsemide 100 mg tablet 100 mg PO QDAY #90 tabs 04/01/22 03/30/23 Rx hydralazine 25 mg tablet 25 mg PO TID #270 tabs 08/24/22 03/30/23 Rx pen needle, diabetic 32 gauge x #50 ea 10/20/22 03/30/23 History 5/32" sertraline 50 mg tablet 50 mg PO QDAY #90 tabs 11/02/22 03/30/23 Rx levothyroxine 75 mcg tablet 75 mcg PO QDAY #90 tabs 11/09/22 03/30/23 Rx (Synthroid) rosuvastatin 20 mg tablet (Crestor) 20 mg PO QHS #90 tabs 11/30/22 03/30/23 Rx insulin lispro 100 unit/mL 22 unit (0.22 mL) subcut TID #75 mL 12/27/22 03/30/23 Rx subcutaneous pen (Humalog KwikPen (U-100) Insulin) blood-glucose meter,continuous #1 ea 01/03/23 03/30/23 Rx (Dexcom G7 Customer Servicer) blood-glucose sensor (Dexcom G7 #3 ea 01/03/23 03/30/23 Rx Sensor device) pantoprazole 40 mg tablet,delayed 40 mg PO QDAY #90 tabs 01/04/23 03/30/23 Rx release (Protonix) hydrocodone 5 mg-acetaminophen 325 1 tab PO QHS PRN pain #7 tabs 01/27/23 03/30/23 Rx mg tablet brimonidine 0.2 % eye drops 1 drp ophthalmic (eye) BID 01/31/23 03/30/23 History linagliptin 5 mg tablet (Tradjenta) 5 mg PO QAM #90 tabs 03/23/23 03/30/23 Rx ipratropium 0.5 mg-albuterol 3 mg 3 ml inhalation Q6H PRN shortness 03/28/23 03/30/23 Rx (2.5 mg base)/3 mL nebulization of breath or wheezing #360 mL soln Allergies Allergy/AdvReac Type Severity Reaction Status Date / Time codeine Allergy Severe shortness Verified 04/12/23 14:52 of breath ketamine Allergy Severe Difficulty Verified 04/12/23 14:52 Breathing mirabegron [From Myrbetriq] Allergy Severe difficulty Verified 04/12/23 14:52 breathing Metolazone Allergy Mild hives Verified 04/12/23 14:52 Thiazides Allergy Mild Itching Verified 04/12/23 14:52 and redness atorvastatin Allergy Unknown Unknown Verified 04/12/23 14:52 pravastatin Allergy Unknown Unknown Verified 04/12/23 14:52 linagliptin [From Tradjenta] AdvReac Intermediate Blistering Verified 04/12/23 14:52 to lower extremities phenylephrine [From V-Hist] AdvReac Intermediate hand and Verified 04/12/23 14:52 arm cramping brompheniramine [From V-Hist] AdvReac Mild hand and Verified 04/12/23 14:52 arm cramping Buspirone AdvReac Mild Intolerance Verified 04/12/23 14:52 morphine AdvReac Mild Itching Verified 04/12/23 14:52 valsartan AdvReac Mild Hand and Verified 04/12/23 14:52 arm pain Remedy skin repair cream Allergy Mild Itching Uncoded 03/30/23 11:24 Physical Examination Vital Signs Vital signs: Temp Pulse Resp BP Pulse Ox O2 Del Method O2 Flow Rate 98.2 F 98 H 18 161/64 94 Nasal Cannula 1 04/13/23 08:00 04/13/23 15:03 04/13/23 15:03 04/13/23 14:01 04/13/23 15:03 04/13/23 15:03 04/13/23 15:03 General physical appearance General physical exam: well developed, well nourished, moderate distress, obese and other (Oxygen by NC. Talking in full sentences. Lying down supine but propped up in bed. ) Eyes Eye exam: PERRL and normal ocular movement ENT ENT exam: normal pinna, normal nares and normal mucosa Head Head exam IM: Present atraumatic and normocephalic Neck Neck exam: no masses, trachea midline and no venous distension Cardiovascular Cardiovascular exam IM: Present normal rate and rhythm Respiratory Respiratory exam: normal respiratory effort (SOBat rest. ?? Baseline. On supplemental oxygen by NC.) Respiratory exam: dullness: bilateral (Lung bases.) Abdomen Abdomen: Present soft and non tender Integumentary Integumentary: Present other (Chronic lymphedema of both legs. 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 ) Neurologic Neurologic: Present normal coordination, normal sensation and other (Moves all extremities. 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 ) Psychiatric Psychiatric: Present oriented to time, oriented to person, oriented to place, speech is normal and memory intact Results Labs 04/13/23 06:33 04/13/23 06:32 Labs: Abnormal lab results 04/12/23 04/12/23 04/12/23 Range/Units 14:18 15:43 15:43 RBC 3.00 L (4.63-6.08) M/mcL Hgb 9.5 L (13.7-17.5) g/dL Hct 30.5 L (40.1-51.0) % POC Hct (41-55) MCV 101.7 H (80.0-100.0) fL MCHC (31.0-36.0) g/dL [place] % (Auto) 13.6 H (1.0-12.0) % Lymph # (Auto) 1.44 L (1.50-4.80) K/mcL [place] # (Auto) 0.95 H (0.10-0.90) K/mcL ESR 52 H (0-20) mm/hr ABG Methemoglobin (0.4-1.5) % VBG pH (7.32-7.42) U VBG pCO2 (41.0-51.0) mmHg VBG pO2 (25.0-40.0) mmHg VBG HCO3 (24.0-28.0) mmol/L VBG Total CO2 (25.0-29.0) mmol/L VBG O2 Saturation (40.0-70.0) % VBG Base Excess (-2-3) Carboxyhemoglobin (0.0-1.5) % THgb Total Hemoglobin (13.5-16.5) gm/Dl POC Chloride (96-108) Chloride 95 L (96-108) mmol/L Carbon Dioxide 36 H (22-30) mmol/L POC Total CO2 (22-30) POC Anion Gap (8.0-16.0) POC BUN (6-20) Creatinine 1.7 H (0.7-1.2) mg/dL POC Creatinine (0.6-1.2) Glucose 219 H (70-105) mg/dL POC Glucose (70-105) POC WB Ioniz Calcium (1.16-1.32) Phosphorus (2.5-4.5) mg/dL Lactate Dehydrogenase (135-225) U/L C-Reactive Protein 2.00 H (0.03-0.80) mg/dL Procalcitonin (<0.10) ng/mL Ur Random Creatinine 22.6 L (39.0-259.0) mg/dL U [place] Prot/Creat Ratio 3.89 H (<0.20) 04/12/23 04/12/23 04/13/23 Range/Units 15:43 15:44 06:32 RBC (4.63-6.08) M/mcL Hgb (13.7-17.5) g/dL Hct (40.1-51.0) % POC Hct 28.0 L (41-55) MCV (80.0-100.0) fL MCHC (31.0-36.0) g/dL [place] % (Auto) (1.0-12.0) % Lymph # (Auto) (1.50-4.80) K/mcL [place] # (Auto) (0.10-0.90) K/mcL ESR (0-20) mm/hr ABG Methemoglobin (0.4-1.5) % VBG pH (7.32-7.42) U VBG pCO2 (41.0-51.0) mmHg VBG pO2 (25.0-40.0) mmHg VBG HCO3 (24.0-28.0) mmol/L VBG Total CO2 (25.0-29.0) mmol/L VBG O2 Saturation (40.0-70.0) % VBG Base Excess (-2-3) Carboxyhemoglobin (0.0-1.5) % THgb Total Hemoglobin (13.5-16.5) gm/Dl POC Chloride 90 L (96-108) Chloride (96-108) mmol/L Carbon Dioxide 33 H (22-30) mmol/L POC Total CO2 35.0 H (22-30) POC Anion Gap 17.0 H (8.0-16.0) POC BUN 24 H (6-20) Creatinine 1.8 H (0.7-1.2) mg/dL POC Creatinine 1.8 H (0.6-1.2) Glucose 214 H (70-105) mg/dL POC Glucose 227 H (70-105) POC WB Ioniz Calcium 1.08 L (1.16-1.32) Phosphorus 5.4 H (2.5-4.5) mg/dL Lactate Dehydrogenase 124 L (135-225) U/L C-Reactive Protein (0.03-0.80) mg/dL Procalcitonin 0.13 H (<0.10) ng/mL Ur Random Creatinine (39.0-259.0) mg/dL U [place] Prot/Creat Ratio (<0.20) 04/13/23 04/13/23 04/13/23 Range/Units 06:32 06:33 10:00 RBC 3.05 L (4.63-6.08) M/mcL Hgb 9.6 L (13.7-17.5) g/dL Hct 32.3 L (40.1-51.0) % POC Hct (41-55) MCV 105.9 H (80.0-100.0) fL MCHC 29.7 L (31.0-36.0) g/dL [place] % (Auto) (1.0-12.0) % Lymph # (Auto) 1.37 L (1.50-4.80) K/mcL [place] # (Auto) (0.10-0.90) K/mcL ESR (0-20) mm/hr ABG Methemoglobin 0.3 L 0.2 L (0.4-1.5) % VBG pH 7.26 L 7.28 L (7.32-7.42) U VBG pCO2 74.5 H* 74.9 H* (41.0-51.0) mmHg VBG pO2 54.9 H 45.2 H (25.0-40.0) mmHg VBG HCO3 32.3 H 34.2 H (24.0-28.0) mmol/L VBG Total CO2 34.6 H 36.5 H (25.0-29.0) mmol/L VBG O2 Saturation 83.3 H 79.3 H (40.0-70.0) % VBG Base Excess 4 H 6 H (-2-3) Carboxyhemoglobin 4.5 H 4.2 H (0.0-1.5) % THgb Total Hemoglobin 10.9 L 11.3 L (13.5-16.5) gm/Dl POC Chloride (96-108) Chloride (96-108) mmol/L Carbon Dioxide (22-30) mmol/L POC Total CO2 (22-30) POC Anion Gap (8.0-16.0) POC BUN (6-20) Creatinine (0.7-1.2) mg/dL POC Creatinine (0.6-1.2) Glucose (70-105) mg/dL POC Glucose (70-105) POC WB Ioniz Calcium (1.16-1.32) Phosphorus (2.5-4.5) mg/dL Lactate Dehydrogenase (135-225) U/L C-Reactive Protein (0.03-0.80) mg/dL Procalcitonin (<0.10) ng/mL Ur Random Creatinine (39.0-259.0) mg/dL U [place] Prot/Creat Ratio (<0.20) Diabetes panel 04/12/23 04/13/23 Range/Units 15:43 06:32 Sodium 139 140 (133-145) mmol/L Potassium 3.8 3.8 (3.3-5.1) mmol/L Chloride 95 L 97 (96-108) mmol/L Carbon Dioxide 36 H 33 H (22-30) mmol/L BUN 23 22 (8-23) mg/dL Creatinine 1.7 H 1.8 H (0.7-1.2) mg/dL Glucose 219 H 214 H (70-105) mg/dL Calcium 8.8 8.7 (8.6-10.4) mg/dL AST 10 10 (<40) U/L ALT 7 7 (<40) U/L Alkaline Phosphatase 41 40 (39-117) U/L Total Protein 6.5 6.7 (5.9-8.4) gm/dL Albumin 3.5 3.5 (3.2-5.2) gm/dL Triglycerides 141 (<150) mg/dL Calcium panel 04/12/23 04/13/23 Range/Units 15:43 06:32 Calcium 8.8 8.7 (8.6-10.4) mg/dL Phosphorus 5.4 H (2.5-4.5) mg/dL Albumin 3.5 3.5 (3.2-5.2) gm/dL Pituitary panel 04/12/23 04/13/23 Range/Units 15:43 06:32 Sodium 139 140 (133-145) mmol/L Potassium 3.8 3.8 (3.3-5.1) mmol/L Chloride 95 L 97 (96-108) mmol/L Carbon Dioxide 36 H 33 H (22-30) mmol/L BUN 23 22 (8-23) mg/dL Creatinine 1.7 H 1.8 H (0.7-1.2) mg/dL Glucose 219 H 214 H (70-105) mg/dL Calcium 8.8 8.7 (8.6-10.4) mg/dL Adrenal panel 04/12/23 04/13/23 Range/Units 15:43 06:32 Sodium 139 140 (133-145) mmol/L Potassium 3.8 3.8 (3.3-5.1) mmol/L Chloride 95 L 97 (96-108) mmol/L Carbon Dioxide 36 H 33 H (22-30) mmol/L BUN 23 22 (8-23) mg/dL Creatinine 1.7 H 1.8 H (0.7-1.2) mg/dL Glucose 219 H 214 H (70-105) mg/dL Calcium 8.8 8.7 (8.6-10.4) mg/dL Total Bilirubin 0.2 0.2 (0.1-1.0) mg/dL AST 10 10 (<40) U/L ALT 7 7 (<40) U/L Alkaline Phosphatase 41 40 (39-117) U/L Total Protein 6.5 6.7 (5.9-8.4) gm/dL Albumin 3.5 3.5 (3.2-5.2) gm/dL All other labs normal. A/P Narrative A/P Narrative: Assessment: Resolving cellulitis of RADHA and medial thigh Multiple chronic comorbidities. Morbid obesity COPD Chronic hypoxia on O2 by NC HTN CHF CKD DM2 Plan of Treatment: Plan: See wound care orders MIST treatments daily Followed by Bacitracin Adaptic Kerlix bandage. Will follow this patient during his stay. Time Spent With Patient Time: Total time spent is greater than 50% in coordination of care (as documented) at patient's floor/unit and/or counseling patient: Initial: Total time with patient: 40 - 54 minutes
[2023-04-13] MEDS: HYDROmorphone 0.5 MG/0.5 ML SYRINGE IV PRN ×2 (16:11→20:28)
[2023-04-13] MEDS: amLODIPine 5 MG TABLET PO SCH (16:12)
[2023-04-13] MEDS: BACITRACIN TOPICAL OINT 15 GM TUBE TOPICAL SCH (17:29)
[2023-04-13] MEDS ORDERED: INSULIN GLARGINE, HUMAN 1 UNIT/0.01 ML SQ SCH (21:00)
[2023-04-14] MEDS: IPRATROPIUM/ALBUTEROL 3 ML AMPUL.NEB NEB SCH ×2 (02:00→09:04)
[2023-04-14] MEDS: HYDROmorphone 0.5 MG/0.5 ML SYRINGE IV PRN ×2 (03:23→10:54)
[2023-04-14] MEDS: 0.9 % SODIUM CHLORIDE 10 ML SYRINGE IV SCH ×4 (03:24→20:47)
[2023-04-14] MEDS: HEPARIN 5,000 UNIT/ML VIAL SQ SCH ×3 (05:45→22:30)
[2023-04-14 06:18] LABS: Basophils # (Auto) 0.04 K/mcL (0.00-0.30); Basophils % (Auto) 0.5 % (0.0-2.0); Eosinophils # (Auto) 0.22 K/mcL (0.00-0.70); Eosinophils % (Auto) 2.7 % (0.0-7.0); Hematocrit 30.3 % (40.1-51.0); Hemoglobin 9.4 g/dL (13.7-17.5); Lymphocytes # (Auto) 1.64 K/mcL (1.50-4.80); Lymphocytes % (Auto) 20.2 % (15.5-49.0); Mean Cell Volume 101.7 fL (80.0-100.0); Mean Platelet Volume 9.7 fL (8.8-12.5); Monocytes # (Auto) 0.96 K/mcL (0.10-0.90); Monocytes % (Auto) 11.8 % (1.0-12.0); Neutrophils % (Auto) 64.6 % (38.0-78.0); Platelet Count 251 K/mcL (140-440); RBC 2.98 M/mcL (4.63-6.08); WBC 8.1 K/mcL (4.5-11.0)
[2023-04-14 06:49] LABS: ALT/SGPT 5 U/L (<40); AST/SGOT 9 U/L (<40); Albumin 3.4 gm/dL (3.2-5.2); Albumin/Globulin Ratio 1.1 (1.0-2.3); Alkaline Phosphatase 41 U/L (39-117); Bilirubin,Direct < 0.2 mg/dL (0-0.3); Bilirubin,Total 0.3 mg/dL (0.1-1.0); Blood Urea Nitrogen 21 mg/dL (8-23); Calcium 8.6 mg/dL (8.6-10.4); Carbon Dioxide 33 mmol/L (22-30); Chloride 96 mmol/L (96-108); Globulin 3.2 gm/dL (2.2-3.7); Glomerular Filtration Rate 35; Glucose 167 mg/dL (70-105); Lactate Dehydrogenase 129 U/L (135-225); Phosphorous 3.3 mg/dL (2.5-4.5); Triglycerides 151 mg/dL (<150); Uric Acid 7.4 mg/dL (2.5-8.0)
[2023-04-14] MEDS: hydrALAZINE 25 MG TABLET PO SCH ×3 (08:05→20:45)
[2023-04-14] MEDS: HYDROcodone/APAP 5/325MG TABLET PO PRN ×2 (08:06→14:57)
[2023-04-14] MEDS: cefTRIAXone 2 GM in DEXTROSE 5% IN WATER 50 ML IV SCH (08:06)
[2023-04-14] MEDS: POTASSIUM CHLORIDE 20 MEQ TABLET PO SCH ×2 (08:06→08:13)
[2023-04-14] MEDS: DOCUSATE SODIUM 100 MG CAPSULE PO SCH ×2 (08:06→20:44)
[2023-04-14] MEDS: amLODIPine 5 MG TABLET PO SCH (08:07)
[2023-04-14] MEDS: INSULIN LISPRO 1 UNIT/0.01 ML UNIT SQ SCH ×4 (08:09→20:46)
[2023-04-14] MEDS ORDERED: ALBUTEROL SULFATE 60 PUFF INHALER INH PRN (10:17)
[2023-04-14] MEDS ORDERED: BUMETANIDE 1 MG/4 ML VIAL IV SCH (10:20)
[2023-04-14] MEDS ORDERED: BUMETANIDE 1 MG TABLET PO SCH (10:20)
--- NOTE | 2023-04-14 10:29 | Internal Med Progress Note ---
SUBJECTIVE Subjective Patient information: Note initiated : 04/14/23 at 10:25 am Service Date, if different from initiated Date: [] Patient: Christine Pimentel 77 y/o M admitted on 04/12/23. Chief Complaint: [] Interval history: Mr. Pimentel is a 77 year old male with a history of type 2 diabetes mellitus, hypertension, chronic kidney disease stage III, proteinuria, chronic diastolic heart failure, COPD with chronic hypoxia requiring 3 L/min oxygen jackson pplementation, obstructive sleep apnea, esophageal stricture requiring frequent esophageal dilations presented to the emergency department for bilateral lower extremity swelling and pain. The patient was recently hospitalized at [facility] for hypertensive urgency, pneumonia, congestive heart failure and lactic acidosis. During the hospitalization, the patient received antibiotics, ceftriaxone and azithromycin, systemic steroids, his home antihypertensives were resumed and IV antihypertensives were given as needed. Home diuretics were held. A transthoracic echocardiogram showed LVEF of 60 to 65% and was essentially normal. The patient did have steroid-induced hyperglycemia managed with additional insulin. The patient was discharged home on 03/24/2023. He says that his leg edema has has worsened since discharging from the hospital. On examination, the patient has bilateral lower extremity pitting edema, venous stasis ulcers, erythema in bilateral lower extremity as well that is quite tender to touch. The patient is afebrile in the ED, no leukocytosis, both CRP and procalcitonin have improved since they were last checked during the hospitalization. Additionally, the patient's renal function appears to be at his baseline. The patient received 1 dose of IV Bumex 1 mg in the ED. He also received vancomycin IV once. 04/13. Vitals notable for moderate hypertension overnight, weaned down to 1 L/min nasal cannula. Hemoglobin stable, renal function stable, VBG showed PCO2 of 74.5 and pH of 7.26. Patient was started on BiPAP however did not tolerate it therefore removed. Repeat VBG showed a modest improvement of pH to 7.28. BNP was normal. Urine protein creatinine ratio elevated, 3.89. Placed Mcdonough catheter, start 24-hour urine collection. Anasarca may be secondary to nephrotic syndrome. Bumex increased to 2 mg IV twice daily. Started ceftriaxone 2 mg IV every 24 hours for possible lower extremity cellulitis. Started Norvasc 5 mg daily for hypertension. Patient is also on hydralazine which he probably takes at home. Home medication reconciliation still not completed as the patient does not know his medications well. Dr. Joya following for wound cares. 04/14. No significant events overnight, blood pressure continues to be moderately elevated. Oxygen supplementation weaned down to .5 L/min. The patient feels better, leg edema improved. Renal function stable. Continues 24-hour urine protein collection. Potassium replaced. Continues Bumex 2 mg IV twice daily. Increase Lantus to 25 units at bedtime. Nephrology consulted for nephrotic sy ndrome. Physical exam Head: Atraumatic, normal inspection. Eyes: normal appearance, no scleral icterus. Neck: full ROM Respiratory: Nasal cannula oxygen supplementation .5 L/min, clear breath sounds bilaterally, no wheezing, does not appear to be in respiratory distress. Cardiovascular: normal rate and rhythm, S1, S2. GI/Abdominal: Obesely distended, soft, nontender, no guarding. Extremities: Bilateral lower extremity pitting edema Neurological: CN II-XII intact, intact motor, intact sensation. Psychiatric: normal mood. Skin: Weeping wounds bilateral lower extremity secondary to venous stasis ulcers, bilateral lower extremity erythema Constitutional Vitals: Vital Signs Temp Pulse Resp BP Pulse Ox O2 Del Method O2 Flow Rate 99.5 F H 90 18 174/65 94 Nasal Cannula 0.5 04/14/23 04:01 04/14/23 04:00 04/14/23 06:01 04/14/23 06:01 04/14/23 06:01 04/14/23 06:01 04/14/23 06:01 Period Temp Pulse Resp BP Sys/Jean Pulse Ox O2 Del Method O2 Flow Rate Last 24 Hr 98.9 F-99.5 F 90-110 18-20 129-184/57-161 88-99 Nasal Cannula- Nasal Cannula 0.5-2 Intake and Output 04/13/23 04/14/23 04/14/23 19:59 03:59 11:59 Intake Total 1440 1200 Output Total 1950 1000 650 Balance -510 200 -650 Weight 106.231 kg 105.596 kg Intake & Output: Intake & Output 04/13/23 04/14/23 04/14/23 19:59 03:59 11:59 Intake Total 1440 1200 Output Total 1950 1000 650 Balance -510 200 -650 Weight 106.231 kg 105.596 kg Intake: Oral 1440 1200 Output: Urine Catheter Amount 1950 1000 650 Other: Meal Lunch Percent of Meal Consumed 50% Feeding Ability Assist with Tray Set Up Urine Appearance Clear Clear Uretheral (Mcdonough) Clear Urine Color Yellow Yellow Pale Uretheral (Mcdonough) Yellow Urine Odor Normal OBJ DATA Labs 04/14/23 05:11 04/14/23 05:10 Labs: Abnormal Lab Results 04/14/23 04/14/23 04/13/23 05:11 05:10 10:00 RBC 2.98 L Hgb 9.4 L Hct 30.3 L POC Hct MCV 101.7 H MCHC Bucks % (Auto) Lymph # (Auto) Bucks # (Auto) 0.96 H ESR ABG Methemoglobin 0.2 L VBG pH 7.28 L VBG pCO2 74.9 H* VBG pO2 45.2 H VBG HCO3 34.2 H VBG Total CO2 36.5 H VBG O2 Saturation 79.3 H VBG Base Excess 6 H Carboxyhemoglobin 4.2 H Total Hemoglobin 11.3 L Potassium 3.1 L POC Chloride Chloride Carbon Dioxide 33 H POC Total CO2 POC Anion Gap POC BUN Creatinine 1.8 H POC Creatinine Glucose 167 H POC Glucose POC WB Ioniz Calcium Phosphorus Lactate Dehydrogenase 129 L C-Reactive Protein Triglycerides 151 H Procalcitonin Ur Random Creatinine U [place] Prot/Creat Ratio 04/13/23 04/13/23 04/13/23 06:33 06:32 06:32 RBC 3.05 L Hgb 9.6 L Hct 32.3 L POC Hct MCV 105.9 H MCHC 29.7 L Bucks % (Auto) Lymph # (Auto) 1.37 L Bucks # (Auto) ESR ABG Methemoglobin 0.3 L VBG pH 7.26 L VBG pCO2 74.5 H* VBG pO2 54.9 H VBG HCO3 32.3 H VBG Total CO2 34.6 H VBG O2 Saturation 83.3 H VBG Base Excess 4 H Carboxyhemoglobin 4.5 H Total Hemoglobin 10.9 L Potassium POC Chloride Chloride Carbon Dioxide 33 H POC Total CO2 POC Anion Gap POC BUN Creatinine 1.8 H POC Creatinine Glucose 214 H POC Glucose POC WB Ioniz Calcium Phosphorus 5.4 H Lactate Dehydrogenase 124 L C-Reactive Protein Triglycerides Procalcitonin Ur Random Creatinine U [place] Prot/Creat Ratio 04/12/23 04/12/23 04/12/23 15:44 15:43 15:43 RBC Hgb Hct POC Hct 28.0 L MCV MCHC [place]ucks % (Auto) Lymph # (Auto) Bucks # (Auto) ESR ABG Methemoglobin VBG pH VBG pCO2 VBG pO2 VBG HCO3 VBG Total CO2 VBG O2 Saturation VBG Base Excess Carboxyhemoglobin Total Hemoglobin Potassium POC Chloride 90 L Chloride 95 L Carbon Dioxide 36 H POC Total CO2 35.0 H POC Anion Gap 17.0 H POC BUN 24 H Creatinine 1.7 H POC Creatinine 1.8 H Glucose 219 H POC Glucose 227 H POC WB Ioniz Calcium 1.08 L Phosphorus Lactate Dehydrogenase C-Reactive Protein 2.00 H Triglycerides Procalcitonin 0.13 H Ur Random Creatinine U [place] Prot/Creat Ratio 04/12/23 04/12/23 15:43 14:18 RBC 3.00 L Hgb 9.5 L Hct 30.5 L POC Hct MCV 101.7 H MCHC [place] % (Auto) 13.6 H Lymph # (Auto) 1.44 L Bucks # (Auto) 0.95 H ESR 52 H ABG Methemoglobin VBG pH VBG pCO2 VBG pO2 VBG HCO3 VBG Total CO2 VBG O2 Saturation VBG Base Excess Carboxyhemoglobin Total Hemoglobin Potassium POC Chloride Chloride Carbon Dioxide POC Total CO2 POC Anion Gap POC BUN Creatinine POC Creatinine Glucose POC Glucose POC WB Ioniz Calcium Phosphorus Lactate Dehydrogenase C-Reactive Protein Triglycerides Procalcitonin Ur Random Creatinine 22.6 L U [place] Prot/Creat Ratio 3.89 H Meds: Medications Acetaminophen (Acetaminophen 325 Mg Tablet) 650 mg PO Q6HP PRN; Protocol PRN Reason: Per Pain Protocol/Fever > 101 Hydrocodone Bitart/Acetaminophen (Hydrocodone/Apap 5/325mg Tablet) 1 tab PO Q4HP PRN; Protocol PRN Reason: Per Pain Protocol Last Admin: 04/14/23 08:06 Dose: 1 tab Albuterol Sulfate (Albuterol Sulfate 2.5 Mg/3 Ml Nebulizer) 2.5 mg NEB Q2HP PRN PRN Reason: Shortness Of Breath Albuterol/Ipratropium (Ipratropium/Albuterol 3 Ml Ampul.Neb) 3 ml NEB Q6H [facility] Last Admin: 04/14/23 09:04 Dose: Not Given Amlodipine Besylate (Amlodipine 5 Mg Tablet) 5 mg PO DAILY [facility] Last Admin: 04/14/23 08:07 Dose: 5 mg Bacitracin (Bacitracin Topical Oint 15 Gm Tube) 1 dose TOPICAL UD [facility] Last Admin: 04/13/23 17:29 Dose: 1 applic Brimonidine Tartrate (Brimonidine Ophth Drops 1 Gtt Bottle 5ml) 1 gtt OU BID DANNA Bumetanide (Bumetanide 1 Mg/4 Ml Vial) 2 mg IV BID DANNA Dextrose (Dextrose 50% 50 Ml Vial) 0 ml IV UD PRN PRN Reason: Per Sliding Scale Diagnostic Test (Pha) (Accu-Chek 1 Each Strip) 1 each FS ACHS [facility] Last Admin: 04/14/23 07:56 Dose: 1 each Docusate Sodium (Docusate Sodium 100 Mg Capsule) 100 mg PO BID [facility] Last Admin: 04/14/23 08:06 Dose: 100 mg Glucose (Dextrose 31 Gm Oral.Susp) 15 gm PO PRN PRN PRN Reason: Hypoglycemia Heparin Sodium (Porcine) (Heparin 5,000 Unit/Ml Vial) 5,000 unit SQ Q8H [facility] Last Admin: 04/14/23 05:45 Dose: 5,000 unit Hydralazine HCl (Hydralazine 25 Mg Tablet) 25 mg PO TID DANNA Hydromorphone HCl (Hydromorphone 0.5 Mg/0.5 Ml Syringe) 0.2 mg IV Q6HP PRN; Protocol PRN Reason: Per Pain Protocol Ceftriaxone Sodium 2 gm/ (Dextrose) 50 mls @ 100 mls/hr IV Q24H [facility]; Protocol Last Admin: 04/14/23 08:06 Dose: 100 mls/hr Insulin Glargine (Insulin Glargine, Human 1 Unit/0.01 Ml) 20 unit SQ HS [facility] Last Admin: 04/13/23 20:43 Dose: 20 unit Insulin Human Lispro (Insulin Lispro 1 Unit/0.01 Ml Unit) 0 unit SQ [facility]; Protocol Last Admin: 04/14/23 08:09 Dose: 9 units Lactulose (Lactulose 20 Gm/30 Ml Oral.Leila) 10 gm PO DAILYP PRN PRN Reason: Constipation Levothyroxine Sodium (Levothyroxine 75 Mcg Tablet) 75 mcg PO QDAY [facility] Non-Formulary Medication (Fluticasone Furoate-Vilanterol [Breo Ellipta]) 1 inh INHALATION QDAY [facility] Ondansetron HCl (Ondansetron 4 Mg/2 Ml Vial) 4 mg IV Q4HP PRN; Protocol PRN Reason: Nausea And Vomiting Pantoprazole Sodium (Pantoprazole 40 Mg Tablet) 40 mg PO QAMAC [facility] Rosuvastatin 20 Mg (Tablet) 1 dose PO HS [facility] Potassium Chloride (Potassium Chloride 20 Meq Tablet) 20 meq PO DAILY [facility] Stop: 04/16/23 09:09 Last Admin: 04/14/23 08:06 Dose: 20 meq Potassium Chloride (Potassium Chloride 20 Meq Tablet) 40 meq PO QAMCC [facility] Last Admin: 04/14/23 08:13 Dose: 40 meq Senna (Sennosides 1 Tablet) 2 tab PO HSP PRN PRN Reason: Constipation Sertraline HCl (Sertraline 50 Mg Tablet) 50 mg PO QDAY [facility] Sodium Chloride (0.9 % Sodium Chloride 10 Ml Syringe) 10 ml IV Q8 [facility] Last Admin: 04/14/23 05:45 Dose: 10 ml ABG Interpretation ABG results: 04/13/23 04/13/23 06:32 10:00 ABG Methemoglobin 0.3 L 0.2 L VBG pH 7.26 L 7.28 L VBG pCO2 74.5 H* 74.9 H* VBG pO2 54.9 H 45.2 H VBG HCO3 32.3 H 34.2 H VBG Total CO2 34.6 H 36.5 H VBG O2 Saturation 83.3 H 79.3 H VBG Base Excess 4 H 6 H A/P Narrative A/P Narrative: Assessment: 77 year old male with a history of type 2 diabetes mellitus, hypertension, hyperlipidemia, chronic kidney disease stage III, proteinuria, chronic diastolic heart failure, COPD with chronic hypoxia requiring oxygen supplementation, obstructive sleep apnea, hypothyroidism, GERD, esophageal str icture, depression, obesity admitted for volume overload. #Volume overload probably secondary to nephrotic syndrome #Acute chronic hypercapnic respiratory failure, improved #Possible lower extremity cellulitis versus chronic venous stasis #Bilateral lower extremity venous stasis ulcers #History of nephrotic range proteinuria #Chronic kidney disease stage III #Type 2 diabetes mellitus #COPD with chronic hypoxia #Chronic anemia #Hypertension #Hypothyroidism #Depression #GERD #Constipation #Obstructive sleep apnea intolerant of CPAP Plan: -Continue Bumex to 2 mg IV twice daily, titrate to effect. -Nephrology consulted for nephrotic syndrome. -Ceftriaxone 2 mg IV every 24 hours -Oxygen supplementation, SPO2 goal 88 to 92%. -Did not tolerate BiPAP, placed for acute on chronic hypercapnia. -Monitor renal function, electrolytes, acid-base balance, volume status. -24-hour urine collection, Mcdonough catheter -Last TTE was 03/23/2023, doubt there has been any significant change since then. -Increase Lantus to 25 units at bedtime. -Correction Humalog SSI high-dose. -DuoNebs as needed. -Analgesics as needed. -Continue Norvasc 5 mg daily and hydralazine 25 mg 3 times daily. -Consider AKI inhibitor for nephrotic syndrome. -Continue home levothyroxine, Protonix, rosuvastatin, Bisi Ellipta, se rtraline, Miralax. -Holding home Jardiance, eplerenone, Tradjenta, torsemide. -PT consult. -Wound cares, Dr. Joya following. -DVT prophylaxis: Heparin SQ. -CODE STATUS: DNR/DNI. Plan of Treatment: Plan: See wound care orders MIST treatments daily Followed by Bacitracin Adaptic Kerlix bandage. Will follow this patient during his stay. Time Spent With Patient Time: Total time spent is greater than 50% in coordination of care (as documented) at patient's floor/unit and/or counseling patient: QUALITY Stroke Symptom Onset Unknown: No VTE Deep Vein Thrombosis/Pulmonary Embolism Present on Admission: No
[2023-04-14] MEDS ORDERED: IPRATROPIUM/ALBUTEROL 3 ML AMPUL.NEB NEB PRN (10:30)
[2023-04-14] MEDS: BUMETANIDE 1 MG/4 ML VIAL IV SCH ×2 (10:55→20:45)
[2023-04-14] MEDS: BACITRACIN TOPICAL OINT 15 GM TUBE TOPICAL SCH (11:46)
[2023-04-14 13:23] LABS: Appearance,Urine CLEAR (Clear); Bilirubin,Urine Negative (Negative); Color,Urine STRAW; Culture Indicated,Urine No; Glucose,Urine (UA) >=500 mg/dL (Negative); Ketones,Urine Negative (Negative); Leukocyte Esterase,Urine Negative /uL (Negative); Mucus,Urine FEW /hpf; Nitrate,Urine Negative (Negative); Protein,Urine 100 mg/dL (Negative); Specific Gravity,Urine 1.008 (1.000-1.035); Urine Blood 0.03 mg/dL (Negative); Urine RBC 3 /hpf (0-3); Urine Squamous Epithelial Cell 0 /hpf (0-4); Urine WBC < 1 /hpf (0-4); Urobilinogen,Urine Negative
[2023-04-14 14:54] LABS: Total Protein 24 Hour,Urine 5318.8 mg/24hr (0.0-150.0)
--- NOTE | 2023-04-14 16:05 | General Surgery Progress Note ---
SUBJECTIVE Subjective Patient information: Note initiated : 04/14/23 at 4:02 pm Service Date, if different from initiated Date: [] Patient: Christine Pimentel 77 y/o M admitted on 04/12/23. Chief Complaint: [] Additional PMFSH (Level 3 Only): Patient seen on rounds earlier this morning. Reviewed progress during the day. Constitutional Vitals: Vital Signs Temp Pulse Resp BP Pulse Ox O2 Del Method O2 Flow Rate 97.6 F 90 24 H 153/62 92 Nasal Cannula 3 04/14/23 12:01 04/14/23 04:00 04/14/23 14:01 04/14/23 14:01 04/14/23 14:01 04/14/23 14:01 04/14/23 14:01 Period Temp Pulse Resp BP Sys/Jean Pulse Ox O2 Del Method O2 Flow Rate Last 24 Hr 97.2 F-99.5 F 90-90 18-24 143-189/54-93 88-99 Nasal Cannula- Nasal Cannula 0.5-3 Intake and Output 04/14/23 04/14/23 04/14/23 03:59 11:59 19:59 Intake Total 1200 290 Output Total 1000 650 800 Balance 200 -360 -800 Weight 232 lb 12.8 oz Intake & Output: Intake & Output 04/14/23 04/14/23 04/14/23 03:59 11:59 19:59 Intake Total 1200 290 Output Total 1000 650 800 Balance 200 -360 -800 Weight 232 lb 12.8 oz Intake: IV 50 Rocephin 2 gm In Dextrose 5% in 50 Water 50 ml @ 100 mls/hr IV Q24H [facility] Rx#:[id number] Oral 1200 240 Output: Urine Catheter Amount 1000 650 800 Other: Meal Breakfast Percent of Meal Consumed 100% Urine Appearance Clear Clear Uretheral (Mcdonough) Clear Urine Color Yellow Yellow Uretheral (Mcdonough) Yellow Exam: AVSS. NO distress. Patient had MIST treatment Responding well. A/P Narrative A/P Narrative: Assessment: Satisfactory progress from wound care point of view. Edema LE and Cellulitis Left leg / thigh improving. Plan of Treatment: Plan: See wound care orders MIST treatments daily Followed by Bacitracin Adaptic Kerlix bandage. Will follow this patient during his stay. Time Spent With Patient Time: Total time spent is greater than 50% in coordination of care (as documented) at patient's floor/unit and/or counseling patient:
--- NOTE | 2023-04-14 17:53 | Nephrology Consult Note ---
HPI Date of Consult Consult Date: 04/14/23 Requesting physician: Byron Parekh Primary Care Provider: Sharif Coronel MD Consult Narrative Patient Information: Note initiated : 04/14/23 at 5:49 pm Service Date, if different from initiated Date: [] Patient: Christine Pimentel 77 y/o M admitted on 04/12/23. Chief Complaint: [swelling] Chief complaint: SOB and swelling Reason for consult: Diuretic managment in CKD 3/4 with worsening proteinuria cc:: CC: Byron Parekh MD Is a 77-year-old gentleman with combined pulmonary, diabetic, and CV issues withCKD 4 and near nephrotic range proteinuria. 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 In the absence of elevated RVSP or decreased LVEF, or any significant hepatic disease, I am left to conclude that his chronic edema is due to proteinuria. Proteinuria seems to be due to diabetic nephropathy as he has had diabetes for over 30 years (no known diabetic retinopathy however), and he has no evidence of a monoclonal process/amyloid and remainder of lab testing for causes of proteinuria negative except DM in the past.. The patient underwent V/Q scanning which failed to show any evidence of chronic or acute pulmonary emboli. Recent pulmonary evaluation is as follows: Problems 1. Simple chronic bronchitis J41.0 2. ELLIE treated with BiPAP G47.33 3. 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 Hypoxia R09.02 Pulmonary recs: "Obstructive sleep apnea on BiPAP therapy, paralyzed right hemidiaphragm, and hypoxia. We are going to have him continue to use his Breo Ellipta inhaler. He may use his rescue inhaler as needed. If he finds that he is using it more often more days consecutively he should notify the clinic. We will have him continue his current settings on his BiPAP at 16/4 centimeters of water pressure with a pressure support of 6 cm of water pressure. He should also bleed 2 to 3 L of oxygen into his system. He should continue to wear his oxygen continuously during the day. We will have him follow-up in 3 months. He is encouraged to continue to monitor his symptoms and if he notices any changes he should seek health care early." Second hospitalization in past month for edema. ED Hx upon presentation this visit as follows: History of Present Illness HPI Narrative: Narrative:77-year-old male with a history of COPD CHF on 3 L chronically on torsemide ex-smoker presents to the emergency department with progressively w orsening lower extremity swelling redness over the past few days however ongoing for the last 3 years. States has been unable to ambulate secondary to the swelling and pain for which has been taking Tylenol did not take any today. Was seen by physical therapy today wounds were weeping in the left lower extremity advised to go to the ER. He also states now he notices some redness and some warmth in his left inner thigh which was not present after his discharge from the hospital March 24 of this year. He was admitted on March 22 for bilateral lower extremity cellulitis Patient denies chest pain shortness of breath. Does sleep in a recliner. No fevers or chills. No nausea vomiting abdominal pain diarrhea. He does not weigh himself daily Serum K Serum HCO3 Serum Creatinine HgA1c proBNP Laboratory Tests 10/15/19 07/27/21 04/12/23 11:33 10:30 14:18 [place] Prot/Creat Ratio 1.77 H 3.99 H 3.89 H Urine Total Volume Ur Total Protein 24 Hr 04/13/23 12:00 U [place] Prot/Creat Ratio Urine Total Volume 4625 Ur Total Protein 24 Hr 5.318 H CXR: Elevated right hemidiaphgram Echo: pLVEF 60-65% D/Dx difficult to say. No wall motion abnormalities or pericardial effusions. Current Medications Acetaminophen (Acetaminophen 325 Mg Tablet) 650 mg PO Q6HP PRN; Protocol PRN Reason: Per Pain Protocol/Fever > 101 Hydrocodone Bitart/Acetaminophen (Hydrocodone/Apap 5/325mg Tablet) 1 tab PO Q4HP PRN; Protocol PRN Reason: Per Pain Protocol Last Admin: 04/14/23 14:57 Dose: 1 tab Albuterol Sulfate (Albuterol Sulfate 2.5 Mg/3 Ml Nebulizer) 2.5 mg NEB Q2HP PRN PRN Reason: Shortness Of Breath Albuterol/Ipratropium (Ipratropium/Albuterol 3 Ml Ampul.Neb) 3 ml NEB Q6HP PRN PRN Reason: Dyspnea or wheezing Amlodipine Besylate (Amlodipine 5 Mg Tablet) 5 mg PO DAILY [facility] Last Admin: 04/14/23 08:07 Dose: 5 mg Bacitracin (Bacitracin Topical Oint 15 Gm Tube) 1 dose TOPICAL UD [facility] Last Admin: 04/14/23 11:46 Dose: 1 applic Brimonidine Tartrate (Brimonidine Ophth Drops 1 Gtt Bottle 5ml) 1 gtt OU BID [facility]AN[facility] Bumetanide (Bumetanide 1 Mg/4 Ml Vial) 2 mg IV BID [facility] Last Admin: 04/14/23 10:55 Dose: 2 mg Dextrose (Dextrose 50% 50 Ml Vial) 0 ml IV UD PRN PRN Reason: Per Sliding Scale Diagnostic Test (Pha) (Accu-Chek 1 Each Strip) 1 each FS ACHS [facility] Last Admin: 04/14/23 17:44 Dose: 1 each Docusate Sodium (Docusate Sodium 100 Mg Capsule) 100 mg PO BID [facility] Last Admin: 04/14/23 08:06 Dose: 100 mg Glucose (Dextrose 31 Gm Oral.Susp) 15 gm PO PRN PRN PRN Reason: Hypoglycemia Heparin Sodium (Porcine) (Heparin 5,000 Unit/Ml Vial) 5,000 unit SQ Q8H [facility] Last Admin: 04/14/23 13:04 Dose: 5,000 unit Hydralazine HCl (Hydralazine 25 Mg Tablet) 25 mg PO TID [facility] Last Admin: 04/14/23 14:57 Dose: 25 mg Hydromorphone HCl (Hydromorphone 0.5 Mg/0.5 Ml Syringe) 0.2 mg IV Q6HP PRN; Protocol PRN Reason: Per Pain Protocol Last Admin: 04/14/23 10:54 Dose: 0.2 mg Ceftriaxone Sodium 2 gm/ (Dextrose) 50 mls @ 100 mls/hr IV Q24H [facility]; Protocol Last Infusion: 04/14/23 08:40 Dose: Infused Insulin Glargine (Insulin Glargine, Human 1 Unit/0.01 Ml) 25 unit SQ HS [facility] Insulin Human Lispro (Insulin Lispro 1 Unit/0.01 Ml Unit) 0 unit SQ ACHS [facility]; Protocol Last Admin: 07/13/23 17:46 Dose: 9 units Lactulose (Lactulose 20 Gm/30 Ml Oral.Leila) 10 gm PO DAILYP PRN PRN Reason: Constipation Levothyroxine Sodium (Levothyroxine 75 Mcg Tablet) 75 mcg PO QDAY [facility] Ondansetron HCl (Ondansetron 4 Mg/2 Ml Vial) 4 mg IV Q4HP PRN; Protocol PRN Reason: Nausea And Vomiting Pantoprazole Sodium (Pantoprazole 40 Mg Tablet) 40 mg PO QAMAC [facility]AN[facility] Rosuvastatin 20 Mg (Tablet) 1 dose PO HS [facility] Fluticasone Furoate- Vilanterol [Breo Ellipta] 200/5 Mcg Inhaler 1 dose INH QDAY [facility]AN[facility] Polyethylene Glycol (Polyethylene Glycol 3350 17 Gm Packet) 17 gm PO QDAY [facility]AN[facility] Potassium Chloride (Potassium Chloride 20 Meq Tablet) 20 meq PO DAILY [facility] Stop: 04/16/23 09:09 Last Admin: 04/14/23 08:06 Dose: 20 meq Potassium Chloride (Potassium Chloride 20 Meq Tablet) 40 meq PO QAMCC [facility] Last Admin: 04/14/23 08:13 Dose: 40 meq Senna (Sennosides 1 Tablet) 2 tab PO HSP PRN PRN Reason: Constipation Sertraline HCl (Sertraline 50 Mg Tablet) 50 mg PO QDAY [facility] Sodium Chloride (0.9 % Sodium Chloride 10 Ml Syringe) 10 ml IV Q8 [facility] Last Admin: 04/14/23 12:59 Dose: 10 ml Review of Systems All systems: reviewed and no additional remarkable complaints except as stated Constitutional Constitutional: Present daytime sleepiness, weakness and weight gain EENT Eyes: Present as per HPI Ears: Present as per HPI Cardiovascular Cardiovascular: Present edema, leg edema and pedal edema; Absent orthopnea Respiratory Respiratory: Present dyspnea and snoring; Absent hemoptysis Gastrointestinal Gastrointestinal: Present as per HPI Genitourinary Genitourinary: as per HPI Musculoskeletal Musculoskeletal: Present muscle weakness Integumentary Integumentary: Present as per HPI Neurological Neurological: Present disequilibrium and dizziness Psychiatric Psychiatric: Present as per HPI Endocrine Endocrine: Present fatigue and polydipsia Hematologic/Lymphatic Hematologic/Lymphatic: Present as per HPI Allergic/Immunologic Allergic/Immunologic: Present other (numerous drug allergies) PFSH PFSH All Active Problems (Updated 04/14/23 @ 20:46 by Dieter Pacheco MD) Pneumonia (Acute) Positive D dimer (Acute) Dandruff (Acute) Winter itch (Acute) Lumbar radiculopathy, right (Acute) Bladder wall thickening (Acute) Other low back pain (Acute) Greater trochanteric bursitis of right hip (Chronic) Failed back syndrome (Chronic) Urinary frequency (Chronic) Hypertensive urgency (Acute) Bilateral leg edema (Acute) Bilateral pneumonia (Acute) Elevated lactic acid level (Acute) Cellulitis (Acute) Fluid overload (Acute) Hypertension associated with chronic kidney disease due to type 2 diabetes mellitus (Acute) Uncontrolled type 2 diabetes mellitus with stage 3 chronic kidney disease, with long-term current use of insulin (Chronic) Stasis dermatitis of both legs (Acute) Hyperparathyroidism due to renal insufficiency (Chronic) Lower extremity ulceration (Acute) Right lower lobe pneumonia (Acute) BPH associated with nocturia (Acute) Hypersomnia (Chronic) Nephrotic range proteinuria (Chronic) Poor balance (Acute) Acute onset sepsis (Acute) Right lower lobe pneumonia (Acute) Diarrhea (Acute) Seborrheic dermatitis (Acute) Hospital discharge follow-up (Acute) Hypertension associated with stage 4 chronic kidney disease due to type 2 diabetes mellitus (Chronic) Heart failure with left ventricular ejection fraction greater than or equal to 50 percent (Chronic) Chronic kidney disease, stage III (moderate) (Chronic) Persistent proteinuria (Chronic) Adverse effects of medication (Acute) Diastolic CHF, chronic (Chronic) Anxiety (Chronic) History of asthma (Chronic) Back pain (Chronic) Quinn's esophagus (Chronic) Other cardiomyopathies (Chronic) COPD (chronic obstructive pulmonary disease) (Chronic) Congestive heart failure (Chronic) Cough (Chronic) Depression (Chronic) Diabetes mellitus, type II (Chronic) Dyspnea (Chronic) GERD (gastroesophageal reflux disease) (Chronic) Hyperlipidemia (Chronic) Hypertension, essential (Chronic) Hypothyroidism (Chronic) Obstructive sleep apnea (adult) (pediatric) (Chronic) Osteoarthrosis, shoulder region (Chronic) Rotator cuff tear (Chronic) Schatzki's ring (Chronic) Sciatica (Chronic) Shortness of breath (Chronic) Sleep disorder, nonorganic (Chronic) Testicular hypofunction (Chronic) Venous insufficiency (Chronic) Vitamin D deficiency (Chronic) Anemia (Chronic) Hypertensive renal disease (Chronic) Hypoxemia (Chronic) CKD (chronic kidney disease) stage 3, GFR 30-59 ml/min (Chronic) Skin abnormalities (Chronic) Hypoxia (Chronic) 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, with long-term current use of insulin (Chronic) Chronic renal insufficiency (Chronic) Obesity (BMI 30-39.9) (Chronic) Oxygen dependent (Chronic) Fall (on) (from) other stairs and steps, initial encounter (Acute) Concussion with loss of consciousness (Acute) Hyponatremia (Acute) Elevated WBC count (Acute) Contusion of left knee (Acute) Constipation (Acute) Acute alcohol intoxication (Acute) Non-nephrotic range proteinuria (Chronic) Chronic pain of right knee (Acute) Skin tear (Acute) Hip pain (Acute) Fall from slip, trip, or stumble (Acute) Left rib fracture (Acute) Closed chip fracture of left triquetrum with routine healing (Acute) Contusion of left thigh (Acute) Acute strain of neck muscle (Acute) Adhesive capsulitis of right shoulder (Acute) Rotator cuff tear arthropathy of right shoulder (Acute) Medical History Abdominal pain Acute exacerbation of chronic obstructive airways disease Acute on chronic renal failure Adhesive capsulitis of right shoulder Adverse effects of medication Nausea due either to metformin or spironolactone. Esophageal web prevents vomiting but he had problems with dry heaving and no p.o. intake earlier in the month when he was in the emergency room. => Tolerating eplerenone in place of aldactone. Constipation is probably a result of his diltiazem or may be iron therapy,=> D/C diltiazem January 2021 Anemia Anesthesia complication Anxiety Back pain Quinn's esophagus Cellulitis Cellulitis of both lower extremities Cellulitis of leg without foot, left CHF (congestive heart failure) Chronic kidney disease, stage III (moderate) Baseline creatinine is around 2 and despite long-standing diabetes I suspect this is diabetic nephropathy with hypertensive or vascular disease given the near nephrotic range amounts of proteinuria Chronic renal insufficiency Congestive heart failure on lasix and spironolactone still has mild edema advised to reduce sodium intake ct current meds he will follow with cardiology tomorrow, will follow the recs COPD (chronic obstructive pulmonary disease) Cough Depression Diabetes mellitus, type II Diastolic CHF, chronic pLVEF and no valve issue Pulmonary HTN with continuous O2 Dyspnea Edema Failed back syndrome Generalized edema GERD (gastroesophageal reflux disease) Greater trochanteric bursitis of right hip Heart failure with left ventricular ejection fraction greater than or equal to 50 percent Suspect pulmonary HTN as well. Metolazone, bumetanide and eplerenone for volume/edema Diltiazem for BP and HR control plus the antiproteinuric / renoprotective effect. Hematuria History of asthma Hospital discharge follow-up Hyperglycemia due to type 2 diabetes mellitus Hyperglycemia, drug-induced Hyperlipidemia Hyperparathyroidism due to renal insufficiency Hypersomnia Hypertension associated with stage 4 chronic kidney disease due to type 2 diabetes mellitus Near nephrotic range proteinuria with edema and nl proBNP GFR labile and depends on volume status Hypertension, essential Hypertensive renal disease BP at goal ct current medications Hypokalemia due to loss of potassium Hyponatremia Hypothyroidism Hypoxemia Hypoxia Intradermal melanocytic nevus 05/08/2015 - Dr. Diaz: Right Ear Canal Leg pain Lower extremity edema Lower extremity ulceration Lymphedema Obesity (BMI 30-39.9) Obstructive sleep apnea (adult) (pediatric) Osteoarthrosis, shoulder region (08/28/14-Dr Dean)Left Other cardiomyopathies Other low back pain Oxygen dependent due to chronic COPD, etc. Paralyzed hemidiaphragm right side...Bipap and recliner to take load off diaphgram Persistent proteinuria Diltiazem and Spironolactone Increase spironolactone as tolerated by K and GFR Pneumonia 06/2013 Poor balance Pruritus Rotator cuff tear (08/28/14-Margarito)Left partial tear Schatzki's ring Sciatica Seborrheic dermatitis Shortness of breath Skin abnormalities Epidermal / Dermal skin tears Grade 1-2 , now ulcers. Covered with slough. Lymphedema of both legs. For conservative wound care. Dressing changes after MIST treatments and topical bactroban ointment. Will follow patietn while in hospital and later at wound care clinic. Sleep disorder, nonorganic Stasis dermatitis of both legs Testicular hypofunction Uncontrolled hypertension Uncontrolled type 2 diabetes mellitus with stage 3 chronic kidney disease, with long-term current use of insulin Nephrotic range proteinuria after D/C of diltiazem due to constipation complaints. Add SGTL 2 inhibitor Urinary incontinence with continuous leakage Venous insufficiency Vitamin D deficiency Volume overload Surgical History History of appendectomy 2003 History of back surgery 1984 & 2001 x2, [facility]-1983, [place]-2001 & [facility] [place] in [place] History of bronchoscopy History of cardiac catheterization 2012 History of colonoscopy 04/15/2015 - Dr. José - Incomplete bowel prep, Incomplete Colonoscopy History of esophagogastroduodenoscopy (01/31/14) Schatzki's Ring, Quinn's Esophagus History of prostate surgery History of surgery 11/19 MBB #2 L3-S1 w/sed 11/08/201609/17 MBB #1 L3-S1 w/sed 09/23/201608/18 TF JILLIAN #1 L2-3, Bilat w/sed 08/23/201606/16 TF JILLIAN #3 L2-3, Left w/o sed 06/24/201403/16 TF JILLIAN #2 L2-3, left w/o sed 03/19/201412/14 TF JILLIAN #1 Left L2-3 w/o sed 12/11/13 History of tonsillectomy 2009 [facility] S/P skin biopsy 05/08/2015 - Dr. 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 other: Father D/C'd in /Mother D/C'd in 94 smoking status: Former smoker quit date: 10/03/84 pack-years: 40 alcohol intake frequency: a few times a week substance use type: does not use MEDS/ALLERGIES Home Medications and Allergies Home Medications Medication Instructions Recorded Confirmed Type lancets #90 ea 09/24/15 04/14/23 Rx blood sugar diagnostic (FreeStyle #100 ea 04/22/20 04/14/23 Rx Lite Strips) Wheelchair Ramp #1 ea 09/19/20 04/14/23 Rx albuterol sulfate 90 mcg/actuation 2 puff inhalation Q6HP PRN 04/26/21 04/14/23 History aerosol inhaler (Ventolin HFA) Shortness Of Breath docusate sodium 100 mg capsule 100 mg PO BID 04/27/21 04/14/23 History (Colace) polyethylene glycol 3350 17 gram 17 g PO QDAY 04/27/21 04/14/23 History oral powder packet (Miralax) fluticasone furoate 200 1 inh inhalation QDAY #60 ea 01/29/22 04/14/23 Rx mcg-vilanterol 25 mcg/dose inhalation powder (Breo Ellipta) pen needle, diabetic 32 gauge x #100 ea 02/09/22 04/14/23 Rx 5/16" (Comfort EZ Pen [place]) hydralazine 25 mg tablet 25 mg PO TID #270 tabs 08/24/22 04/14/23 Rx pen needle, diabetic 32 gauge x #50 ea 10/20/22 04/14/23 History 5/32" levothyroxine 75 mcg tablet 75 mcg PO QDAY #90 tabs 11/09/22 04/14/23 Rx (Synthroid) insulin lispro 100 unit/mL 22 unit (0.22 mL) subcut TID #75 mL 12/27/22 04/14/23 Rx subcutaneous pen (Humalog KwikPen (U-100) Insulin) blood-glucose meter,continuous #1 ea 01/03/23 04/14/23 Rx (Dexcom G7 [employer]) blood-glucose sensor (Dexcom G7 #3 ea 01/03/23 04/14/23 Rx Sensor device) brimonidine 0.2 % eye drops 1 drp ophthalmic (eye) BID 01/31/23 04/14/23 History empagliflozin 10 mg tablet 10 mg PO QAM 04/14/23 04/14/23 History (Jardiance) eplerenone 50 mg tablet 50 mg PO QDAY 04/14/23 04/14/23 History ketoconazole 2 % shampoo 1 applic topical Q2W 04/14/23 04/14/23 History linagliptin 5 mg tablet (Tradjenta) 5 mg PO QAM 04/14/23 04/14/23 History pantoprazole 40 mg tablet,delayed 40 mg PO QDAY 04/14/23 04/14/23 History release rosuvastatin 20 mg tablet 20 mg PO HS 04/14/23 04/14/23 History sertraline 50 mg tablet 50 mg PO QDAY 04/14/23 04/14/23 History torsemide 100 mg tablet 100 mg PO QDAY 04/14/23 04/14/23 History Allergies Allergy/AdvReac Type Severity Reaction Status Date / Time codeine Allergy Severe shortness Verified 04/14/23 07:52 of breath ketamine Allergy Severe Difficulty Verified 04/14/23 07:52 Breathing mirabegron [From Myrbetriq] Allergy Severe difficulty Verified 04/14/23 07:52 breathing linagliptin [From Tradjenta] Allergy Intermediate Blistering Verified 04/14/23 07:53 to lower extremities Metolazone Allergy Intermediate hives Verified 04/14/23 07:53 atorvastatin Allergy Mild Rash Verified 04/14/23 07:53 pravastatin Allergy Mild Rash Verified 04/14/23 07:53 Thiazides Allergy Mild Itching Verified 04/14/23 07:52 and redness brompheniramine [From V-Hist] AdvReac Mild hand and Verified 04/14/23 07:52 arm cramping Buspirone AdvReac Mild Intolerance Verified 04/14/23 07:52 morphine AdvReac Mild Itching Verified 04/14/23 07:52 phenylephrine [From V-Hist] AdvReac Mild hand and Verified 04/14/23 07:53 arm cramping valsartan AdvReac Mild Hand and Verified 04/14/23 07:52 arm pain Remedy skin repair cream Allergy Mild Itching Uncoded 03/30/23 11:24 Physical Examination Vital Signs Vital signs: Temp Pulse Resp BP Pulse Ox O2 Del Method O2 Flow Rate 36.3 C 90 22 160/90 92 Nasal Cannula 0.5 04/14/23 16:01 04/14/23 04:00 04/14/23 16:01 04/14/23 16:01 04/14/23 16:01 04/14/23 16:01 04/14/23 16:01 General Appearance General appearance: obese, chronically ill and fatigue EENT EENT: ATNC, PERRL and mucous membranes moist Neck Neck: no JVD and no carotid bruit Respiratory Respiratory: course breath sounds (Decreased BS right base) Cardiovascular Cardiology: no murmurs, no rub, edema, regular rhythm, normal S1 and normal S2 Gastrointestinal Gastrointestinal: normoactive bowel sounds and obese Integumentary Integumentary: rash, erythema (To the knee) and chronic venous stasis Neurologic Neurologic: no focal deficit, no asterixis, alert and oriented x3 and CN 3-12 intact Musculoskeletal Musculoskeletal: erythema and no clubbing Psychiatric Psychiatric: mood/affect appropriate Results Lab Results 04/14/23 05:11 04/14/23 05:10 Lab results: Most recent lab results Calcium 8.6 mg/dL (8.6-10.4) 04/14/23 05:10 Phosphorus 3.3 mg/dL (2.5-4.5) 04/14/23 05:10 Magnesium 2.2 mg/dL (1.6-2.5) 04/14/23 05:10 Ur Total Protein 24 Hr 5318.8 mg/24hr (0.0-150.0) H 04/13/23 12:00 Image Kidney/bladder ultrasound: report reviewed A/P Assessment and plan (1) Nephrotic range proteinuria: Plan: W/U sans biopsy (+) only for DM. Add back SGLT2 inhibitor and eplerenone Status: Chronic Comment: As PLA2 AB was indeterminate, can re-check (2) Hypertension associated with stage 4 chronic kidney disease due to type 2 diabetes mellitus: Assessment and plan: Controlled but I'd try antiproteinuric CCB like diltiazem in place of amlodipine Restart eplerenone for proteinuria and low K Status: Chronic Comment: Near nephrotic range proteinuria with edema and nl proBNP GFR labile and depends on volume status (3) COPD (chronic obstructive pulmonary disease): Status: Chronic Comment: Get in a chair as much as possible Refuses BiPAP Qualifiers: COPD type: chronic bronchitis Chronic bronchitis type: simple Qualified Code(s): J41.0 - Simple chronic bronchitis (4) Paralyzed hemidiaphragm: Status: Chronic Comment: [facility] side involved...Bipap and recliner to take load off diaphgram Sepsis Sepsis Identified: No Narrative Plan of Treatment: 1. Good idea to switch from toresimide to bumetanide as less protein binding to albumin in the urine thus better inhibition of the Na/K/Cl cotransport protein => better diuresis 2. Play with dose of Bumetanide to loose ~ 2 kg per day. 3. He had a complete w/u for causes of proteinuria in the past so no need to repeat. DM is likely cause vs FSGS from obesity. 4. Daily weights 5. Due to paralyzed right hemidiaphragm he will breath better sitting in recliner to let gravity help. BiPAP would help as well but apparently not a fan. 6. Restart eplerenone 50 mg a day for low K+ and as RAASI for proteinuria. 7. In the past agressive diuresis has led to increase of GFR to as high a 4...the difference is the degree of proteinuria so continue bumetanide. 8. Could try diltiazem instead of amlodipine as non-dihydropyridine are useful to decrease proteinuria as 2nd line Rx. 9. Restart empagliflozin 10 mg a day to help with proteinuria/DM and sugar control. 10. Will follow with y'all Time Spent With Patient Time: Total time spent is greater than 50% in coordination of care (as documented) at patient's floor/unit and/or counseling patient: Initial: Total time with patient: 55 - 74 minutes Attestation: I spent 1 hr chart review, data review examination of patient and documentation as above
[2023-04-14] MEDS: BRIMONIDINE OPHTH DROPS 1 GTT BOTTLE 5ML OU SCH (20:47)
[2023-04-14] MEDS ORDERED: INSULIN GLARGINE, HUMAN 1 UNIT/0.01 ML SQ SCH (21:00)
[2023-04-15] MEDS: 0.9 % SODIUM CHLORIDE 10 ML SYRINGE IV SCH ×3 (05:49→21:04)
[2023-04-15] MEDS: HEPARIN 5,000 UNIT/ML VIAL SQ SCH ×3 (05:50→21:04)
[2023-04-15 06:00] LABS: Basophils # (Auto) 0.03 K/mcL (0.00-0.30); Basophils % (Auto) 0.4 % (0.0-2.0); Eosinophils % (Auto) 3.9 % (0.0-7.0); Hematocrit 29.8 % (40.1-51.0); Hemoglobin 9.5 g/dL (13.7-17.5); Lymphocytes # (Auto) 1.43 K/mcL (1.50-4.80); Lymphocytes % (Auto) 18.6 % (15.5-49.0); Mean Cell Volume 100.7 fL (80.0-100.0); Mean Corpuscular HGB Conc 31.9 g/dL (31.0-36.0); Mean Platelet Volume 9.1 fL (8.8-12.5); Monocytes % (Auto) 10.4 % (1.0-12.0); Neutrophils % (Auto) 66.3 % (38.0-78.0); Platelet Count 260 K/mcL (140-440); RBC 2.96 M/mcL (4.63-6.08); Red Cell Distribution Width 11.8 % (11.5-14.5); WBC 7.7 K/mcL (4.5-11.0)
[2023-04-15 06:28] LABS: ALT/SGPT 5 U/L (<40); AST/SGOT 9 U/L (<40); Albumin 3.2 gm/dL (3.2-5.2); Alkaline Phosphatase 40 U/L (39-117); Bilirubin,Direct < 0.2 mg/dL (0-0.3); Bilirubin,Total 0.2 mg/dL (0.1-1.0); Blood Urea Nitrogen 20 mg/dL (8-23); Calcium 8.7 mg/dL (8.6-10.4); Carbon Dioxide 31 mmol/L (22-30); Chloride 100 mmol/L (96-108); Globulin 3.3 gm/dL (2.2-3.7); Glomerular Filtration Rate 37; Glucose 195 mg/dL (70-105); Lactate Dehydrogenase 130 U/L (135-225); Phosphorous 3.5 mg/dL (2.5-4.5); Triglycerides 128 mg/dL (<150); Uric Acid 7.1 mg/dL (2.5-8.0)
--- NOTE | 2023-04-15 07:39 | Nephrology Progress Note ---
SUBJECTIVE Subjective Patient information: Note initiated : 04/15/23 at 7:34 am Service Date, if different from initiated Date: [] Patient: Christine Pimentel 77 y/o M admitted on 04/12/23. 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 Treatment is RAASI, and non-DHP CCB. Total Intake 1380 mL Total Output 3625 mL Balance -2245 mL Urine Output 0.00 (mL/kg/hr) Vital Signs Temp Pulse Resp BP Pulse Ox O2 Del Method O2 Flow Rate 04/15/23 06:01 22 169/73 96 Nasal Cannula 0.5 04/15/23 04:00 110 H 16 96 Nasal Cannula 0.5 04/15/23 04:01 37.1 C 181/76 96 Nasal Cannula 0.5 04/15/23 02:14 110 H 100 Nasal Cannula 0.5 04/15/23 02:01 189/79 Nasal Cannula 0.5 04/15/23 00:02 174/70 04/15/23 00:00 37.0 C 16 174/70 98 Nasal Cannula 0.5 04/14/23 22:03 187/66 98 Nasal Cannula 0.5 04/14/23 20:02 130/51 96 Nasal Cannula 0.5 04/14/23 18:43 36.5 C 163/57 94 Nasal Cannula 0.5 04/14/23 20:09 95 Nasal Cannula 0.5 04/14/23 19:47 96 Nasal Cannula 0.5 04/14/23 18:01 20 183/65 93 Nasal Cannula 0.5 04/14/23 16:01 36.3 C 22 160/90 92 Nasal Cannula 0.5 04/14/23 14:01 24 H 153/62 92 Nasal Cannula 3 04/14/23 12:01 36.4 C 20 158/93 90 Nasal Cannula 3 04/14/23 10:02 92 Nasal Cannula 3 04/14/23 10:01 22 143/64 92 Nasal Cannula 3 04/14/23 08:02 20 146/54 90 Nasal Cannula 3 04/14/23 08:00 90 Nasal Cannula 3 Intake and Output 07/04/15/23 04/15/23 19:59 03:59 11:59 Intake Total 680 100 310 Output Total 1450 1400 775 Balance -053 -3600 -430 Intake: Oral 680 100 310 Output: Urine Catheter Amount 1450 1400 775 Other: Meal Dinner Percent of Meal Consumed 75% Feeding Ability Assist with Tray Set Up Urine Appearance Clear Clear Urine Color Yellow Yellow Yellow Pale Pale Uretheral (Mcdonough) Yellow Urine Odor Normal Normal Weight 103.555 kg Serum Creatinine Pertinent ROS: Reviewed with patient and nothing new Breathes better sitting up Additional PMFSH (Level 3 Only): Nothing new, reviewed Constitutional Vitals: Vital Signs Temp Pulse Resp BP Pulse Ox O2 Del Method O2 Flow Rate 37.1 C 110 H 22 169/73 96 Nasal Cannula 0.5 04/15/23 04:01 04/15/23 04:00 04/15/23 06:01 04/15/23 06:01 04/15/23 06:01 04/15/23 06:01 04/15/23 06:01 Period Temp Pulse Resp BP Sys/Jean Pulse Ox O2 Del Method O2 Flow Rate Last 24 Hr 36.3 C-37.1 C 110-110 16-24 130-189/51-93 90-100 Nasal Cannula-Nasal Cannula 0.5-3 Intake and Output 04/14/23 04/15/23 04/15/23 19:59 03:59 11:59 Intake Total 680 100 310 Output Total 1450 7081 775 Balance -489 -0394 -303 Weight 103.555 kg Intake & Output: Intake & Output 04/14/23 04/15/23 04/15/23 19:59 03:59 11:59 Intake Total 680 100 310 Output Total 1450 1400 775 Balance -291 -3928 -129 Weight 103.555 kg Intake: Oral 680 100 310 Output: Urine Catheter Amount 1450 1400 775 Other: Meal Dinner Percent of Meal Consumed 75% Feeding Ability Assist with Tray Set Up Urine Appearance Clear Clear Urine Color Yellow Yellow Yellow Pale Pale Uretheral (Mcdonough) Yellow Urine Odor Normal Normal General appearance: cooperative and morbidly obese Head Head exam: Present normal inspection Eye Eye exam: Present EOMI and PERRL; Absent scleral icterus Respiratory Respiratory exam: Present rhonchi (Decreased BS right base) Cardiovascular Cardiovascular exam: Present tachycardia; Absent JVD or rubs GI/Abdominal GI/Abdominal exam: Present normal bowel sounds Extremities Exam Extremities exam: Present pedal edema and tenderness Additional comments: redness bilaterally visible above wrap Neurological Exam Neurological exam: Present abnormal gait (no gait / bedfast), alert and CN II-XI I intact Psychiatric Psychiatric exam: Present normal mood Skin Skin exam: Present intact A/P Assessment and plan (1) Nephrotic range proteinuria: Plan: W/U sans biopsy (+) only for DM. Add back SGLT2 inhibitor and eplerenone Status: Chronic Comment: As PLA2 AB was indeterminate, can re-check (2) Hypertension associated with stage 4 chronic kidney disease due to type 2 diabetes mellitus: Assessment and plan: Controlled but I'd try antiproteinuric CCB like diltiazem in place of amlodipine Restart eplerenone for proteinuria and low K Status: Chronic Comment: Near nephrotic range proteinuria with edema and nl proBNP GFR labile and depends on volume status (3) COPD (chronic obstructive pulmonary disease): Status: Chronic Comment: Get in a chair as much as possible Refuses BiPAP Qualifiers: COPD type: chronic bronchitis Chronic bronchitis type: simple Qualified Code(s): J41.0 - 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 Do not ADD ACEi or ARB to the Eplerenone. due to high risk of ARF on CKD 4. Sleep and remain sitting up as much as possible MACARENA 2 AB pending. Sepsis Sepsis Identified: No Time Spent With Patient Time: Total time spent is greater than 50% in coordination of care (as documented) at patient's floor/unit and/or counseling patient: Initial: Total time with patient: 55 - 74 minutes Subsequent: Total time with patient: 50 - 65 Minutes Attestation: I spent 1 hr chart review, data review examination of patient and documentation as above
--- NOTE | 2023-04-15 08:21 | Internal Med Progress Note ---
SUBJECTIVE Subjective Patient information: Note initiated : 04/15/23 at 8:19 am Service Date, if different from initiated Date: [] Patient: Christine Pimentel 77 y/o M admitted on 04/12/23. Chief Complaint: [] Interval history: Mr. Pimentel is a 77 year old male with a history of type 2 diabetes mellitus, hypertension, chronic kidney disease stage III-IV complicated by history of nephrotic range proteinuria, chronic diastolic heart failure, COPD with chronic hypoxia requiring 3 L/min oxygen supplementation, obstructive sleep apnea, esophageal stricture requiring frequent esophageal dilations presented to the emergency department for bilateral lower extremity swelling and pain. The patient was recently hospitalized at [facility] for hypertensive urgency, pneumonia, congestive heart failure and lactic acidosis. During the hospitalization, the patient received antibiotics, ceftriaxone and azithromycin, systemic steroids, his home antihypertensives were resumed and IV antihypertensives were given as needed. Home diuretics were held. A transt horacic echocardiogram showed LVEF of 60 to 65% and was essentially normal. The patient did have steroid-induced hyperglycemia managed with additional insulin. The patient was discharged home on 03/24/2023. He says that his leg edema has has worsened since discharging from the hospital. On examination, the patient has bilateral lower extremity pitting edema, venous stasis ulcers, erythema in bilateral lower extremity as well that is quite tender to touch. The patient is afebrile in the ED, no leukocytosis, both CRP and procalcitonin have improved since they were last checked during the hospitalization. Additionally, the patient's renal function appears to be at his baseline. The patient received 1 dose of IV Bumex 1 mg in the ED. He also received vancomycin IV once. 04/13. Vitals notable for moderate hypertension overnight, weaned down to 1 L/min nasal cannula. Hemoglobin stable, renal function stable, VBG showed PCO2 of 74.5 and pH of 7.26. Patient was started on BiPAP however did not tolerate it therefore removed. Repeat VBG showed a modest improvement of pH to 7.28. BNP was normal. Urine protein creatinine ratio elevated, 3.89. Placed Mcdonough catheter, start 24-hour urine collection. Anasarca may be secondary to nephrotic syndrome. Bumex increased to 2 mg IV twice daily. Started ceftriaxone 2 mg IV every 24 hours for possible lower extremity cellulitis. Started Norvasc 5 mg daily for hypertension. Patient is also on hydralazine which he probably takes at home. Home medication reconciliation still not completed as the patient does not know his medications well. Dr. Joya following for wound cares. 04/14. No significant events overnight, blood pressure continues to be moderately elevated. Oxygen supplementation weaned down to .5 L/min. The patient feels better, leg edema improved. Renal function stable. Continues 24-hour urine protein collection. Potassium replaced. Continues Bumex 2 mg IV twice daily. Increase Lantus to 25 units at bedtime. Nephrology consulted for nephrotic syndrome. 04/15. Patient tachycardic overnight, sinus tachycardia. Seems to be diuresing well, significant improvement in bilateral lower extremity edema. Renal function stable today. 24-hour urine protein was 5318.8 consistent with nephrotic syndrome. Nephrology saw the patient yesterday, recommended continuing IV Bumex, resumed home eplerenone and started oral diltiazem, discontinued Norvasc. We will continue Bumex 2 mg IV twice daily today then re assess volume status and renal function tomorrow to decide whether or not to transition to oral diuretic treatment at that time. Increased Lantus to 35 units at bedtime, start prandial Humalog 12 units AC and reduce sliding scale to low-dose. Resumed home Jardiance however the patient will have to obtain this from his home supply as it is not formulary. Physical exam Head: Atraumatic, normal inspection. Eyes: normal appearance, no scleral icterus. Neck: full ROM Respiratory: Nasal cannula oxygen supplementation .5 L/min, clear breath sounds bilaterally, no wheezing, does not appear to be in respiratory distress. Cardiovascular: normal rate and rhythm, S1, S2. GI/Abdominal: Obesely distended, soft, nontender, no guarding. Extremities: Bilateral lower extremity pitting edema Neurological: CN II-XII intact, intact motor, intact sensation. Psychiatric: normal mood. Skin: Weeping wounds bilateral lower extremity secondary to venous stasis ulcers, bilateral lower extremity erythema. Constitutional Vitals: Vital Signs Temp Pulse Resp BP Pulse Ox O2 Del Method O2 Flow Rate 97.5 F 112 H 22 116/91 95 Nasal Cannula 0.5 04/15/23 08:01 04/15/23 08:01 04/15/23 06:01 04/15/23 08:01 04/15/23 08:01 04/15/23 08:01 04/15/23 08:01 Period Temp Pulse Resp BP Sys/Jean Pulse Ox O2 Del Method O2 Flow Rate Last 24 Hr 97.4 F-98.8 F 110-112 16-24 116-189/51-93 90-100 Nasal Cannula-Nasal Cannula 0.5-3 Intake and Output 04/14/23 04/15/23 04/15/23 19:59 03:59 11:59 Intake Total 680 100 310 Output Total 1450 1400 775 Balance -770 1300 -106 Weight 103.555 kg Intake & Output: Intake & Output 04/14/23 04/15/23 04/15/23 19:59 03:59 11:59 Intake Total 680 100 310 Output Total 1450 1400 775 Balance -770 1300 -510 Weight 103.555 kg Intake: Oral 680 100 310 Output: Urine Catheter Amount 1450 1400 775 Other: Meal Dinner Breakfast Percent of Meal Consumed 75% 100% Feeding Ability Assist with Tray Set Up Assist with Tray Set Up Urine Appearance Clear Clear Urine Color Yellow Yellow Yellow Pale Pale Uretheral (Mcdonough) Yellow Urine Odor Normal Normal OBJ DATA Labs 04/15/23 05:21 04/15/23 05:21 Labs: Abnormal Lab Results 04/15/23 04/15/23 04/14/23 05:21 05:21 12:00 RBC 2.96 L Hgb 9.5 L Hct 29.8 L POC Hct MCV 100.7 H MCHC [place] % (Auto) Lymph # (Auto) 1.43 L [place] # (Auto) ESR ABG Methemoglobin VBG pH VBG pCO2 VBG pO2 VBG HCO3 VBG Total CO2 VBG O2 Saturation VBG Base Excess Carboxyhemoglobin Total Hemoglobin Potassium POC Chloride Chloride Carbon Dioxide 31 H POC Total CO2 POC Anion Gap POC BUN Creatinine 1.7 H POC Creatinine Glucose 195 H POC Glucose POC WB Ioniz Calcium Phosphorus Lactate Dehydrogenase 130 L C-Reactive Protein Triglycerides Procalcitonin Urine Protein 100 A Urine Glucose (UA) >=500 A Urine Mucus Few A Ur Random Creatinine U [place] Prot/Creat Ratio Ur Total Protein 24 Hr 04/14/23 04/14/23 04/13/23 05:11 05:10 12:00 RBC 2.98 L Hgb 9.4 L Hct 30.3 L POC Hct MCV 101.7 H MCHC [place] % (Auto) Lymph # (Auto) [place] # (Auto) 0.96 H ESR ABG Methemoglobin VBG pH VBG pCO2 VBG pO2 VBG HCO3 VBG Total CO2 VBG O2 Saturation VBG Base Excess Carboxyhemoglobin Total Hemoglobin Potassium 3.1 L POC Chloride Chloride Carbon Dioxide 33 H POC Total CO2 POC Anion Gap POC BUN Creatinine 1.8 H POC Creatinine Glucose 167 H POC Glucose POC WB Ioniz Calcium Phosphorus Lactate Dehydrogenase 129 L C-Reactive Protein Triglycerides 151 H Procalcitonin Urine Protein Urine Glucose (UA) Urine Mucus Ur Random Creatinine U [place] Prot/Creat Ratio Ur Total Protein 24 Hr 5318.8 H 04/13/23 04/13/23 04/13/23 10:00 06:33 06:32 RBC 3.05 L Hgb 9.6 L Hct 32.3 L POC Hct MCV 105.9 H MCHC 29.7 L [place] % (Auto) Lymph # (Auto) 1.37 L [place] # (Auto) ESR ABG Methemoglobin 0.2 L 0.3 L VBG pH 7.28 L 7.26 L VBG pCO2 74.9 H* 74.5 H* VBG pO2 45.2 H 54.9 H VBG HCO3 34.2 H 32.3 H VBG Total CO2 36.5 H 34.6 H VBG O2 Saturation 79.3 H 83.3 H VBG Base Excess 6 H 4 H Carboxyhemoglobin 4.2 H 4.5 H Total Hemoglobin 11.3 L 10.9 L Potassium POC Chloride Chloride Carbon Dioxide POC Total CO2 POC Anion Gap POC BUN Creatinine POC Creatinine Glucose POC Glucose POC WB Ioniz Calcium Phosphorus Lactate Dehydrogenase C-Reactive Protein Triglycerides Procalcitonin Urine Protein Urine Glucose (UA) Urine Mucus Ur Random Creatinine U [place] Prot/Creat Ratio Ur Total Protein 24 Hr 04/13/23 04/12/23 04/12/23 06:32 15:44 15:43 RBC Hgb Hct POC Hct 28.0 L MCV MCHC [place] % (Auto) Lymph # (Auto) [place] # (Auto) ESR ABG Methemoglobin VBG pH VBG pCO2 VBG pO2 VBG HCO3 VBG Total CO2 VBG O2 Saturation VBG Base Excess Carboxyhemoglobin Total Hemoglobin Potassium POC Chloride 90 L Chloride Carbon Dioxide 33 H POC Total CO2 35.0 H POC Anion Gap 17.0 H POC BUN 24 H Creatinine 1.8 H POC Creatinine 1.8 H Glucose 214 H POC Glucose 227 H POC WB Ioniz Calcium 1.08 L Phosphorus 5.4 H Lactate Dehydrogenase 124 L C-Reactive Protein Triglycerides Procalcitonin 0.13 H Urine Protein Urine Glucose (UA) Urine Mucus Ur Random Creatinine U [place] Prot/Creat Ratio Ur Total Protein 24 Hr 04/12/23 04/12/23 04/12/23 15:43 15:43 14:18 RBC 3.00 L Hgb 9.5 L Hct 30.5 L POC Hct MCV 101.7 H MCHC [place] % (Auto) 13.6 H Lymph # (Auto) 1.44 L [place] # (Auto) 0.95 H ESR 52 H ABG Methemoglobin VBG pH VBG pCO2 VBG pO2 VBG HCO3 VBG Total CO2 VBG O2 Saturation VBG Base Excess Carboxyhemoglobin Total Hemoglobin Potassium POC Chloride Chloride 95 L Carbon Dioxide 36 H POC Total CO2 POC Anion Gap POC BUN Creatinine 1.7 H POC Creatinine Glucose 219 H POC Glucose POC WB Ioniz Calcium Phosphorus Lactate Dehydrogenase C-Reactive Protein 2.00 H Triglycerides Procalcitonin Urine Protein Urine Glucose (UA) Urine Mucus Ur Random Creatinine 22.6 L U [place] Prot/Creat Ratio 3.89 H Ur Total Protein 24 Hr Meds: Medications Acetaminophen (Acetaminophen 325 Mg Tablet) 650 mg PO Q6HP PRN; Protocol PRN Reason: Per Pain Protocol/Fever > 101 Hydrocodone Bitart/Acetaminophen (Hydrocodone/Apap 5/325mg Tablet) 1 tab PO Q4HP PRN; Protocol PRN Reason: Per Pain Protocol Last Admin: 04/14/23 14:57 Dose: 1 tab Albuterol Sulfate (Albuterol Sulfate 2.5 Mg/3 Ml Nebulizer) 2.5 mg NEB Q2HP PRN PRN Reason: Shortness Of Breath Albuterol/Ipratropium (Ipratropium/Albuterol 3 Ml Ampul.Neb) 3 ml NEB Q6HP PRN PRN Reason: Dyspnea or wheezing Bacitracin (Bacitracin Topical Oint 15 Gm Tube) 1 dose TOPICAL UD DANNA Last Admin: 04/14/23 11:46 Dose: 1 applic Brimonidine Tartrate (Brimonidine Ophth Drops 1 Gtt Bottle 5ml) 1 gtt OU BID DANNA Last Admin: 04/14/23 20:47 Dose: Not Given Bumetanide (Bumetanide 1 Mg/4 Ml Vial) 2 mg IV BID [facility] Last Admin: 04/14/23 20:45 Dose: 2 mg Dextrose (Dextrose 50% 50 Ml Vial) 0 ml IV UD PRN PRN Reason: Per Sliding Scale Diagnostic Test (Pha) (Accu-Chek 1 Each Strip) 1 each FS ACHS [facility] Last Admin: 04/15/23 07:54 Dose: 1 each Diltiazem HCl (Diltiazem 30 Mg Tablet) 30 mg PO Q8 DANNA Docusate Sodium (Docusate Sodium 100 Mg Capsule) 100 mg PO BID [facility] Last Admin: 04/14/23 20:44 Dose: 100 mg Glucose (Dextrose 31 Gm Oral.Susp) 15 gm PO PRN PRN PRN Reason: Hypoglycemia Heparin Sodium (Porcine) (Heparin 5,000 Unit/Ml Vial) 5,000 unit SQ Q8H [facility] Last Admin: 04/15/23 05:50 Dose: 5,000 unit Hydralazine HCl (Hydralazine 25 Mg Tablet) 25 mg PO TID [facility] Last Admin: 04/14/23 20:45 Dose: 25 mg Hydromorphone HCl (Hydromorphone 0.5 Mg/0.5 Ml Syringe) 0.2 mg IV Q6HP PRN; Protocol PRN Reason: Per Pain Protocol Last Admin: 04/14/23 10:54 Dose: 0.2 mg Ceftriaxone Sodium 2 gm/ (Dextrose) 50 mls @ 100 mls/hr IV Q24H [facility]; Protocol Last Infusion: 04/14/23 08:40 Dose: Infused Insulin Glargine (Insulin Glargine, Human 1 Unit/0.01 Ml) 25 unit SQ [facility] Last Admin: 04/14/23 20:46 Dose: 25 units Insulin Human Lispro (Insulin Lispro 1 Unit/0.01 Ml Unit) 0 unit SQ [facility]; Protocol Last Admin: 04/14/23 20:46 Dose: 12 units Lactulose (Lactulose 20 Gm/30 Ml Oral.Leila) 10 gm PO DAILYP PRN PRN Reason: Constipation Levothyroxine Sodium (Levothyroxine 75 Mcg Tablet) 75 mcg PO QDAY [facility] Ondansetron HCl (Ondansetron 4 Mg/2 Ml Vial) 4 mg IV Q4HP PRN; Protocol PRN Reason: Nausea And Vomiting Pantoprazole Sodium (Pantoprazole 40 Mg Tablet) 40 mg PO QAMAC [facility] Rosuvastatin 20 Mg (Tablet) 1 dose PO HS [facility] Last Admin: 04/14/23 20:47 Dose: Not Given Fluticasone Furoate- Vilanterol [Breo Ellipta] 200/5 Mcg Inhaler 1 dose INH QDAY [facility] Eplerenone (Inspra) (25 Mg) 1 dose PO DAILY [facility] Dapagliflozin ( (Farxiga) 10 Mg) 1 dose PO DAILY [facility] Polyethylene Glycol (Polyethylene Glycol 3350 17 Gm Packet) 17 gm PO QDAY [facility] Potassium Chloride (Potassium Chloride 20 Meq Tablet) 20 meq PO DAILY [facility] Stop: 04/16/23 09:09 Last Admin: 04/14/23 08:06 Dose: 20 meq Potassium Chloride (Potassium Chloride 20 Meq Tablet) 40 meq PO QAMCC [facility] Last Admin: 04/14/23 08:13 Dose: 40 meq Senna (Sennosides 1 Tablet) 2 tab PO HSP PRN PRN Reason: Constipation Sertraline HCl (Sertraline 50 Mg Tablet) 50 mg PO QDAY [facility] Sodium Chloride (0.9 % Sodium Chloride 10 Ml Syringe) 10 ml IV Q8 [facility] Last Admin: 04/15/23 05:49 Dose: 10 ml ABG Interpretation ABG results: 04/13/23 04/13/23 06:32 10:00 ABG Methemoglobin 0.3 L 0.2 L VBG pH 7.26 L 7.28 L VBG pCO2 74.5 H* 74.9 H* VBG pO2 54.9 H 45.2 H VBG HCO3 32.3 H 34.2 H VBG Total CO2 34.6 H 36.5 H VBG O2 Saturation 83.3 H 79.3 H VBG Base Excess 4 H 6 H A/P Narrative A/P Narrative: Assessment: 77 year old male with a history of type 2 diabetes mellitus, hypertension, hyperlipidemia, chronic kidney disease stage III-IV, proteinuria, chronic diastolic heart failure, COPD with chronic hypoxia requiring oxygen supplementation, obstructive sleep apnea, hypothyroidism, GERD, esophageal stricture, depression, obesity admitted for volume overload secondary to nephrotic syndrome. Nephrotic syndrome is probably secondary to diabetic nephropathy. #Volume overload secondary to nephrotic syndrome #Acute chronic hypercapnic respiratory failure, improved #Possible lower extremity cellulitis versus chronic venous stasis #Bilateral lower extremity venous stasis ulcers #History of nephrotic range proteinuria #Chronic kidney disease stage III-IV #Type 2 diabetes mellitus #COPD with chronic hypoxia #Chronic anemia #Hypertension #Hypothyroidism #Depression #GERD #Constipation #Obstructive sleep apnea intolerant of CPAP Plan: -Continue Bumex to 2 mg IV twice daily today reassess volume status and renal function tomorrow to decide whether or not to continue IV Bumex versus transition to oral loop diuretic. -Ceftriaxone 2 mg IV every 24 hours for cellulitis, treat 5 to 7 days. -Oxygen supplementation, SPO2 goal 88 to 92%. -Monitor renal function, electrolytes, acid-base balance, volume status. -Last TTE was 03/23/2023, essentially normal however unable to assess left ventricular diastolic function. Doubt there has been any significant change since then. NT pro BNP was normal. -Increase Lantus to 35 units at bedtime. -Start Humalog 12 units with meals. -Correction Humalog SSI low-dose. -DuoNebs as needed. -Analgesics as needed. -Diltiazem per nephrology, home hydralazine. -Consider AKI inhibitor for nephrotic syndrome. -Continue home levothyroxine, Protonix, rosuvastatin, [place] Ellipta, sertraline, Miralax, eplerenone, Dapagliflozin. -Holding home Tradjenta, torsemide. -PT consult. -Nephrology consulted for nephrotic syndrome. -Wound cares, Dr. Joya following. -DVT prophylaxis: Heparin SQ. -CODE STATUS: DNR/DNI. Time Spent With Patient Time: Total time spent is greater than 50% in coordination of care (as documented) at patient's floor/unit and/or counseling patient: QUALITY Stroke Symptom Onset Unknown: No VTE Deep Vein Thrombosis/Pulmonary Embolism Present on Admission: No
[2023-04-15] MEDS: hydrALAZINE 25 MG TABLET PO SCH ×3 (08:35→20:59)
[2023-04-15] MEDS: BUMETANIDE 1 MG/4 ML VIAL IV SCH ×2 (08:35→21:00)
[2023-04-15] MEDS: LEVOTHYROXINE 75 MCG TABLET PO SCH (08:35)
[2023-04-15] MEDS: POLYETHYLENE GLYCOL 3350 17 GM PACKET PO SCH (08:35)
[2023-04-15] MEDS: DOCUSATE SODIUM 100 MG CAPSULE PO SCH ×2 (08:36→20:59)
[2023-04-15] MEDS: INSULIN LISPRO 1 UNIT/0.01 ML UNIT SQ SCH ×6 (08:36→21:01)
[2023-04-15] MEDS: HYDROcodone/APAP 5/325MG TABLET PO PRN (08:36)
[2023-04-15] MEDS: PANTOPRAZOLE 40 MG TABLET PO SCH (08:37)
[2023-04-15] MEDS: SERTRALINE 50 MG TABLET PO SCH (08:37)
[2023-04-15] MEDS: POTASSIUM CHLORIDE 20 MEQ TABLET PO SCH ×2 (08:37)
[2023-04-15] MEDS: DILTIAZEM 30 MG TABLET PO SCH ×3 (08:40→21:00)
[2023-04-15] MEDS: cefTRIAXone 2 GM in DEXTROSE 5% IN WATER 50 ML IV SCH (10:36)
[2023-04-15] MEDS ORDERED: INSULIN LISPRO 1 UNIT/0.01 ML UNIT SQ SCH (11:30)
--- NOTE | 2023-04-15 11:55 | General Surgery Progress Note ---
SUBJECTIVE Subjective Patient information: Note initiated : 04/15/23 at 11:51 am Service Date, if different from initiated Date: [] Patient: Christine Pimentel 77 y/o M admitted on 04/12/23. Chief Complaint: [] Principal diagnosis: edema with nephrotic syndrome Additional PMFSH (Level 3 Only): Patient seen. Appreciate detailed consult note of , Manager [employer] Operations. Progress reviewed with Dr. Parekh. Hospitalist Physician. Constitutional Vitals: Vital Signs Temp Pulse Resp BP Pulse Ox O2 Del Method O2 Flow Rate 97.5 F 112 H 22 166/75 96 Nasal Cannula 0.5 04/15/23 08:01 04/15/23 08:01 04/15/23 06:01 04/15/23 10:01 04/15/23 10:01 04/15/23 10:01 04/15/23 10:01 Period Temp Pulse Resp BP Sys/Jean Pulse Ox O2 Del Method O2 Flow Rate Last 24 Hr 97.4 F-98.8 F 110-112 16-24 116-189/51-93 90-100 Nasal Cannula-Nasal Cannula 0.5-3 Intake and Output 04/14/23 04/15/23 04/15/23 19:59 03:59 11:59 Intake Total 680 100 310 Output Total 1450 1400 775 Balance -770 1300 -465 Weight 228 lb 4.8 oz Intake & Output: Intake & Output 04/14/23 04/15/23 04/15/23 19:59 03:59 11:59 Intake Total 680 100 310 Output Total 1450 1400 775 Balance -770 -1300 -465 Weight 228 lb 4.8 oz Intake: Oral 680 100 310 Output: Urine Catheter Amount 1450 1400 775 Other: Meal Dinner Breakfast Percent of Meal Consumed 75% 100% Feeding Ability Assist with Tray Set Up Assist with Tray Set Up Urine Appearance Clear Clear Uretheral (Mcdonough) Clear Urine Color Yellow Yellow Yellow Pale Pale Uretheral (Mcdonough) Yellow Bright Yellow Urine Odor Normal Normal Exam: AVSS No acute changes [place] Local skin care of both legs is ongoing. A/P Narrative A/P Narrative: Assessment. Satisfactory progress from skin and wound care point of view. Plan of Treatment: Plan: Continue current treatment. Time Spent With Patient Time: Total time spent is greater than 50% in coordination of care (as documented) at patient's floor/unit and/or counseling patient:
[2023-04-15] MEDS: BRIMONIDINE OPHTH DROPS 1 GTT BOTTLE 5ML OU SCH ×2 (12:20→20:58)
[2023-04-15] MEDS: Fluticasone Furoate-Vilanterol [Breo Ellipta] 200/5 mcg Inhaler INH SCH (12:20)
--- NOTE | 2023-04-15 13:45 | Internal Med Progress Note ---
SUBJECTIVE Subjective Patient information: Note initiated : 04/15/23 at 1:40 pm Service Date, if different from initiated Date: [] Patient: Christine Pimentel 77 y/o M admitted on 04/12/23. Chief Complaint: [] Principal diagnosis: edema with nephrotic syndrome Interval history: Mr. Pimentel is a 77 year old male with a history of type 2 diabetes mellitus, hypertension, chronic kidney disease stage III-IV complicated by history of nephrotic range proteinuria, chronic diastolic heart failure, COPD with chronic hypoxia requiring 3 L/min oxygen supplementation, obstructive sleep apnea, esophageal stricture requiring frequent esophageal dilations presented to the emergency department for bilateral lower extremity swelling and pain. The patient was recently hospitalized at [facility] for hypertensive urgency, pneumonia, congestive heart failure and lactic acidosis. During the hospitalization, the patient received antibiotics, ceftriaxone and azithromycin, systemic steroids, his home antihypertensives were resumed and IV a ntihypertensives were given as needed. Home diuretics were held. A transthoracic echocardiogram showed LVEF of 60 to 65% and was essentially normal. The patient did have steroid-induced hyperglycemia managed with additional insulin. The patient was discharged home on 03/24/2023. He says that his leg edema has has worsened since discharging from the hospital. On examination, the patient has bilateral lower extremity pitting edema, venous stasis ulcers, erythema in bilateral lower extremity as well that is quite tender to touch. The patient is afebrile in the ED, no leukocytosis, both CRP and procalcitonin have improved since they were last checked during the hospitalization. Additionally, the patient's renal function appears to be at his baseline. The patient received 1 dose of IV Bumex 1 mg in the ED. He also received vancomycin IV once. 04/13. Vitals notable for moderate hypertension overnight, weaned down to 1 L/min nasal cannula. Hemoglobin stable, renal function stable, VBG showed PCO2 of 74.5 and pH of 7.26. Patient was started on BiPAP however did not tolerate it therefore removed. Repeat VBG showed a modest improvement of pH to 7.28. BNP was normal. Urine protein creatinine ratio elevated, 3.89. Placed Mcdonough catheter, start 24-hour urine collection. Anasarca may be secondary to nephrotic syndrome. Bumex increased to 2 mg IV twice daily. Started ceftriax one 2 mg IV every 24 hours for possible lower extremity cellulitis. Started Norvasc 5 mg daily for hypertension. Patient is also on hydralazine which he probably takes at home. Home medication reconciliation still not completed as the patient does not know his medications well. Dr. Joya following for wound cares. 04/14. No significant events overnight, blood pressure continues to be moderately elevated. Oxygen supplementation weaned down to .5 L/min. The patient feels better, leg edema improved. Renal function stable. Continues 24-hour urine protein collection. Potassium replaced. Continues Bumex 2 mg IV twice daily. Increase Lantus to 25 units at bedtime. Nephrology consulted for nephrotic syndrome. 04/15. Patient tachycardic overnight, sinus tachycardia. Seems to be diuresing well, significant improvement in bilateral lower extremity edema. Renal function stable today. 24-hour urine protein was 5318.8 consistent with nephrotic syndrome. Nephrology saw the patient yesterday, recommended continuing IV Bumex, resumed home eplerenone and started oral diltiazem, disc ontinued Norvasc. We will continue Bumex 2 mg IV twice daily today then reassess volume status and renal function tomorrow to decide whether or not to transition to oral diuretic treatment at that time. Increased Lantus to 35 units at bedtime, start prandial Humalog 12 units AC and reduce sliding scale to low-dose. Resumed home Jardiance however the patient will have to obtain this from his home supply as it is not formulary. 04/16 Review of Systems: denies headache/fever/chills/nausea/vomiting/chest or abdominal pain/cough/dyspnea/diarrhea. Otherwise see above. PHYSICAL EXAM General: Alert, Awake, No acute Distress, obese Eyes/N/T: EOMI, no scleral icterus, Head/Neck: neck supple, full ROM, CV: RRR, No murmurs, Pulm: Clear b/l, no wheezing/rhonchi/rales, no respiratory distress, supp O2 Abd: soft, nontender, +BS x4 Ext: no clubbing/cyanosis, b/l LE edema, nontender Neuro: Alert, no focal deficits, moves all extremities, , sensations intact b/l upper/lower Psychiatric: Skin: Weeping wounds bilateral lower extremity secondary to venous stasis ulcers, bilateral lower extremity erythema. Constitutional Vitals: Vital Signs Temp Pulse Resp BP Pulse Ox O2 Del Method O2 Flow Rate 97.9 F 83 22 135/118 96 Nasal Cannula 0.5 04/15/23 12:02 04/15/23 12:02 04/15/23 06:01 04/15/23 12:02 04/15/23 10:01 04/15/23 12:02 04/15/23 12:02 Period Temp Pulse Resp BP Sys/Jean Pulse Ox O2 Del Method O2 Flow Rate Last 24 Hr 97.4 F-98.8 F 83-112 16-24 116-189/51-118 90-100 Nasal Cannula-Nasal Cannula 0.5-3 Intake and Output 04/15/23 04/15/23 04/15/23 03:59 11:59 19:59 Intake Total 100 360 Output Total 1400 775 750 Balance -1300 -415 -750 Weight 103.555 kg Intake & Output: Intake & Output 04/15/23 04/15/23 04/15/23 03:59 11:59 19:59 Intake Total 100 360 Output Total 1400 775 750 Balance -1300 -415 -750 Weight 103.555 kg Intake: IV 50 Rocephin 2 gm In Dextrose 5% in 50 Water 50 ml @ 100 mls/hr IV Q24H [facility] Rx#:[id number] Oral 100 310 Output: Urine Catheter Amount 1400 775 750 Other: Meal Breakfast Percent of Meal Consumed 100% Feeding Ability Assist with Tray Set Up Urine Appearance Clear Clear Uretheral (Mcdonough) Clear Urine Color Yellow Yellow Yellow Pale Pale Uretheral (Mcdonough) Bright Yellow Urine Odor Normal Normal OBJ DATA Labs 04/15/23 05:21 04/15/23 05:21 Labs: Abnormal Lab Results 04/15/23 04/15/23 04/14/23 05:21 05:21 12:00 RBC 2.96 L Hgb 9.5 L Hct 29.8 L POC Hct MCV 100.7 H MCHC [place] % (Auto) Lymph # (Auto) 1.43 L [place] # (Auto) ESR ABG Methemoglobin VBG pH VBG pCO2 VBG pO2 VBG HCO3 VBG Total CO2 VBG O2 Saturation VBG Base Excess Carboxyhemoglobin Total Hemoglobin Potassium POC Chloride Chloride Carbon Dioxide 31 H POC Total CO2 POC Anion Gap POC BUN Creatinine 1.7 H POC Creatinine Glucose 195 H POC Glucose POC WB Ioniz Calcium Phosphorus Lactate Dehydrogenase 130 L C-Reactive Protein Triglycerides Procalcitonin Urine Protein 100 A Urine Glucose (UA) >=500 A Urine Mucus Few A Ur Random Creatinine U [place] Prot/Creat Ratio Ur Total Protein 24 Hr 04/14/23 04/14/23 04/13/23 05:11 05:10 12:00 RBC 2.98 L Hgb 9.4 L Hct 30.3 L POC Hct MCV 101.7 H MCHC [place] % (Auto) Lymph # (Auto) [place] # (Auto) 0.96 H ESR ABG Methemoglobin VBG pH VBG pCO2 VBG pO2 VBG HCO3 VBG Total CO2 VBG O2 Saturation VBG Base Excess Carboxyhemoglobin Total Hemoglobin Potassium 3.1 L POC Chloride Chloride Carbon Dioxide 33 H POC Total CO2 POC Anion Gap POC BUN Creatinine 1.8 H POC Creatinine Glucose 167 H POC Glucose POC WB Ioniz Calcium Phosphorus Lactate Dehydrogenase 129 L C-Reactive Protein Triglycerides 151 H Procalcitonin Urine Protein Urine Glucose (UA) Urine Mucus Ur Random Creatinine U [place] Prot/Creat Ratio Ur Total Protein 24 Hr 5318.8 H 04/13/23 04/13/23 04/13/23 10:00 06:33 06:32 RBC 3.05 L Hgb 9.6 L Hct 32.3 L POC Hct MCV 105.9 H MCHC 29.7 L [place] % (Auto) Lymph # (Auto) 1.37 L [place] # (Auto) ESR ABG Methemoglobin 0.2 L 0.3 L VBG pH 7.28 L 7.26 L VBG pCO2 74.9 H* 74.5 H* VBG pO2 45.2 H 54.9 H VBG HCO3 34.2 H 32.3 H VBG Total CO2 36.5 H 34.6 H VBG O2 Saturation 79.3 H 83.3 H VBG Base Excess 6 H 4 H Carboxyhemoglobin 4.2 H 4.5 H Total Hemoglobin 11.3 L 10.9 L Potassium POC Chloride Chloride Carbon Dioxide POC Total CO2 POC Anion Gap POC BUN Creatinine POC Creatinine Glucose POC Glucose POC WB Ioniz Calcium Phosphorus Lactate Dehydrogenase C-Reactive Protein Triglycerides Procalcitonin Urine Protein Urine Glucose (UA) Urine Mucus Ur Random Creatinine U [place] Prot/Creat Ratio Ur Total Protein 24 Hr 04/13/23 04/12/23 04/12/23 06:32 15:44 15:43 RBC Hgb Hct POC Hct 28.0 L MCV MCHC [place] % (Auto) Lymph # (Auto) [place] # (Auto) ESR ABG Methemoglobin VBG pH VBG pCO2 VBG pO2 VBG HCO3 VBG Total CO2 VBG O2 Saturation VBG Base Excess Carboxyhemoglobin Total Hemoglobin Potassium POC Chloride 90 L Chloride Carbon Dioxide 33 H POC Total CO2 35.0 H POC Anion Gap 17.0 H POC BUN 24 H Creatinine 1.8 H POC Creatinine 1.8 H Glucose 214 H POC Glucose 227 H POC WB Ioniz Calcium 1.08 L Phosphorus 5.4 H Lactate Dehydrogenase 124 L C-Reactive Protein Triglycerides Procalcitonin 0.13 H Urine Protein Urine Glucose (UA) Urine Mucus Ur Random Creatinine U [place] Prot/Creat Ratio Ur Total Protein 24 Hr 04/12/23 04/12/23 04/12/23 15:43 15:43 14:18 RBC 3.00 L Hgb 9.5 L Hct 30.5 L POC Hct MCV 101.7 H MCHC [place] % (Auto) 13.6 H Lymph # (Auto) 1.44 L [place] # (Auto) 0.95 H ESR 52 H ABG Methemoglobin VBG pH VBG pCO2 VBG pO2 VBG HCO3 VBG Total CO2 VBG O2 Saturation VBG Base Excess Carboxyhemoglobin Total Hemoglobin Potassium POC Chloride Chloride 95 L Carbon Dioxide 36 H POC Total CO2 POC Anion Gap POC BUN Creatinine 1.7 H POC Creatinine Glucose 219 H POC Glucose POC WB Ioniz Calcium Phosphorus Lactate Dehydrogenase C-Reactive Protein 2.00 H Triglycerides Procalcitonin Urine Protein Urine Glucose (UA) Urine Mucus Ur Random Creatinine 22.6 L U [place] Prot/Creat Ratio 3.89 H Ur Total Protein 24 Hr Meds: Medications Acetaminophen (Acetaminophen 325 Mg Tablet) 650 mg PO Q6HP PRN; Protocol PRN Reason: Per Pain Protocol/Fever > 101 Hydrocodone Bitart/Acetaminophen (Hydrocodone/Apap 5/325mg Tablet) 1 tab PO Q4HP PRN; Protocol PRN Reason: Per Pain Protocol Last Admin: 04/15/23 08:36 Dose: 1 tab Albuterol Sulfate (Albuterol Sulfate 2.5 Mg/3 Ml Nebulizer) 2.5 mg NEB Q2HP PRN PRN Reason: Shortness Of Breath Albuterol/Ipratropium (Ipratropium/Albuterol 3 Ml Ampul.Neb) 3 ml NEB Q6HP PRN PRN Reason: Dyspnea or wheezing Bacitracin (Bacitracin Topical Oint 15 Gm Tube) 1 dose TOPICAL UD [facility] Last Admin: 04/14/23 11:46 Dose: 1 applic Brimonidine Tartrate (Brimonidine Ophth Drops 1 Gtt Bottle 5ml) 1 gtt OU BID [facility] Last Admin: 04/15/23 12:20 Dose: 1 drop Bumetanide (Bumetanide 1 Mg/4 Ml Vial) 2 mg IV BID [facility] Stop: 04/15/23 21:01 Last Admin: 04/15/23 08:35 Dose: 2 mg Dextrose (Dextrose 50% 50 Ml Vial) 0 ml IV UD PRN PRN Reason: Per Sliding Scale Diagnostic Test (Pha) (Accu-Chek 1 Each Strip) 1 each FS ACHS [facility] Last Admin: 04/15/23 12:26 Dose: 1 each Diltiazem HCl (Diltiazem 30 Mg Tablet) 30 mg PO Q8 [facility] Last Admin: 04/15/23 08:40 Dose: 30 mg Docusate Sodium (Docusate Sodium 100 Mg Capsule) 100 mg PO BID [facility] Last Admin: 04/15/23 08:36 Dose: 100 mg Glucose (Dextrose 31 Gm Oral.Susp) 15 gm PO PRN PRN PRN Reason: Hypoglycemia Heparin Sodium (Porcine) (Heparin 5,000 Unit/Ml Vial) 5,000 unit SQ Q8H [facility] Last Admin: 04/15/23 05:50 Dose: 5,000 unit Hydralazine HCl (Hydralazine 25 Mg Tablet) 25 mg PO TID [facility] Last Admin: 04/15/23 08:35 Dose: 25 mg Hydromorphone HCl (Hydromorphone 0.5 Mg/0.5 Ml Syringe) 0.2 mg IV Q6HP PRN; Protocol PRN Reason: Per Pain Protocol Last Admin: 04/14/23 10:54 Dose: 0.2 mg Ceftriaxone Sodium 2 gm/ (Dextrose) 50 mls @ 100 mls/hr IV Q24H [facility]; Protocol Last Infusion: 04/15/23 11:55 Dose: Infused Insulin Glargine (Insulin Glargine, Human 1 Unit/0.01 Ml) 35 unit SQ [facility] Insulin Human Lispro (Insulin Lispro 1 Unit/0.01 Ml Unit) 0 unit SQ [facility]; Protocol Last Admin: 04/15/23 12:32 Dose: 9 units Insulin Human Lispro (Insulin Lispro 1 Unit/0.01 Ml Unit) 12 unit SQ AC [facility] Last Admin: 04/15/23 12:32 Dose: 12 units Lactulose (Lactulose 20 Gm/30 Ml Oral.Leila) 10 gm PO DAILYP PRN PRN Reason: Constipation Latanoprost (Latanoprost Ophth Drops 2.5ml Bottle) 1 gtt OU [facility] Levothyroxine Sodium (Levothyroxine 75 Mcg Tablet) 75 mcg PO QDAY [facility] Last Admin: 04/15/23 08:35 Dose: 75 mcg Ondansetron HCl (Ondansetron 4 Mg/2 Ml Vial) 4 mg IV Q4HP PRN; Protocol PRN Reason: Nausea And Vomiting Pantoprazole S[facility] ([facility]antoprazole 40 Mg Tablet) [facility] Last Admin: 04/15/23 08:37 Dose: 40 mg Rosuvastatin 20 Mg (Tablet) 1 dose PO [facility] Last Admin: 04/14/23 20:47 Dose: Not Given Fluticasone Furoate- Vilanterol [Breo Ellipta] 200/5 Mcg Inhaler 1 dose INH QDAY [facility] Last Admin: 04/15/23 12:20 Dose: 1 dose Eplerenone (Inspra) (25 Mg) 1 dose PO DAILY [facility] Last Admin: 04/15/23 12:21 Dose: Not Given Dapagliflozin ( (Farxiga) 10 Mg) 1 dose PO DAILY [facility] Last Admin: 04/15/23 12:21 Dose: Not Given Polyethylene Glycol (Polyethylene Glycol 3350 17 Gm Packet) 17 gm PO QDAY [facility] Last Admin: 04/15/23 08:35 Dose: 17 gm Potassium Chloride (Potassium Chloride 20 Meq Tablet) 20 meq PO DAILY [facility] Stop: 04/16/23 09:09 Last Admin: 04/15/23 08:37 Dose: 20 meq Potassium Chloride (Potassium Chloride 20 Meq Tablet) [facility] Last Admin: 04/15/23 08:37 Dose: 40 meq Senna (Sennosides 1 Tablet) 2 tab PO HSP PRN PRN Reason: Constipation Sertraline HCl (Sertraline 50 Mg Tablet) 50 mg PO QDAY [facility] Last Admin: 04/15/23 08:37 Dose: 50 mg Sodium Chloride (0.9 % Sodium Chloride 10 Ml Syringe) 10 ml IV Q8 [facility] Last Admin: 04/15/23 05:49 Dose: 10 ml ABG Interpretation ABG results: 04/13/23 04/13/23 06:32 10:00 ABG Methemoglobin 0.3 L 0.2 L VBG pH 7.26 L 7.28 L VBG pCO2 74.5 H* 74.9 H* VBG pO2 54.9 H 45.2 H VBG HCO3 32.3 H 34.2 H VBG Total CO2 34.6 H 36.5 H VBG O2 Saturation 83.3 H 79.3 H VBG Base Excess 4 H 6 H A/P Narrative A/P Narrative: A: #Volume overload: 2/2 Nephrotic Syndrome #Acute on chronic hypercapnic respiratory failure: improved #Possible lower extremity cellulitis versus chronic venous stasis: #B/L LE venous stasis ulcers: #h/o Nephrotic range proteinuria #CKD III-IV #DM2: #COPD with chronic respiratory failure: #Chronic anemia: #Hypertension: #Hypothyroidism: #Depression: #GERD: #Constipation: #Obstructive sleep apnea intolerant of CPAP: #Obesity: BMI 35 Plan: -Continue Bumex to 2 mg IV twice daily today reassess volume status and renal function tomorrow -to decide whether or not to continue IV Bumex versus transition to oral loop diuretic. -Ceftriaxone 2 mg IV every 24 hours for cellulitis, treat 5 to 7 days. -Oxygen supplementation, SPO2 goal 88 to 92%. -Monitor renal function, electrolytes, acid-base balance, volume status. -Last TTE was 03/23/2023, essentially normal however unable to assess left ventricular diastolic function. -Increase Lantus to 35 units at bedtime, Start Humalog 12 units with meals, - Correction Humalog SSI low-dose. -DuoNebs as needed. -Analgesics as needed. -Diltiazem per nephrology, home hydralazine. -Consider AKI inhibitor for nephrotic syndrome. -Continue home levothyroxine, Protonix, rosuvastatin, [place] Ellipta, sertraline, Miralax, eplerenone, Dapagliflozin. -Holding home Tradjenta, torsemide. -PT consult. -Nephrology consulted for nephrotic syndrome -Wound cares, Dr. Deshponde following -DVT prophylaxis: Heparin SQ CODE STATUS: DNR/DNI Plan of Treatment: Plan: Continue current treatment. Time Spent With Patient Time: Total time spent is greater than 50% in coordination of care (as documented) at patient's floor/unit and/or counseling patient: QUALITY Stroke Symptom Onset Unknown: No VTE Deep Vein Thrombosis/Pulmonary Embolism Present on Admission: No
[2023-04-15] MEDS: BACITRACIN TOPICAL OINT 15 GM TUBE TOPICAL SCH (16:35)
[2023-04-15] MEDS: LATANOPROST OPHTH DROPS 2.5ML BOTTLE OU SCH (20:58)
[2023-04-15] MEDS ORDERED: INSULIN GLARGINE, HUMAN 1 UNIT/0.01 ML SQ SCH ×2 (21:00)
[2023-04-15] MEDS: INSULIN GLARGINE, HUMAN 1 UNIT/0.01 ML SQ SCH (21:01)
[2023-04-16] MEDS: HEPARIN 5,000 UNIT/ML VIAL SQ SCH ×3 (05:27→20:37)
[2023-04-16] MEDS: DILTIAZEM 30 MG TABLET PO SCH ×3 (05:27→20:39)
[2023-04-16] MEDS: 0.9 % SODIUM CHLORIDE 10 ML SYRINGE IV SCH ×3 (05:28→20:40)
[2023-04-16 07:04] LABS: Albumin 3.3 gm/dL (3.2-5.2); Blood Urea Nitrogen 21 mg/dL (8-23); Calcium 8.8 mg/dL (8.6-10.4); Carbon Dioxide 33 mmol/L (22-30); Chloride 99 mmol/L (96-108); Glomerular Filtration Rate 35; Glucose 182 mg/dL (70-105); Phosphorous 3.3 mg/dL (2.5-4.5)
[2023-04-16] MEDS ORDERED: LABETALOL 5 MG/ML ML IV PRN (07:47)
--- NOTE | 2023-04-16 07:48 | Internal Med Progress Note ---
SUBJECTIVE Subjective Patient information: Note initiated : 04/16/23 at 7:46 am Service Date, if different from initiated Date: [] Patient: Christine Pimentel 77 y/o M admitted on 04/12/23. Chief Complaint: [] Principal diagnosis: edema with nephrotic syndrome Interval history: Mr. Pimentel is a 77 year old male with a history of type 2 diabetes mellitus, hypertension, chronic kidney disease stage III-IV complicated by history of nephrotic range proteinuria, chronic diastolic heart failure, COPD with chronic hypoxia requiring 3 L/min oxygen supplementation, obstructive sleep apnea, esophageal stricture requiring frequent esophageal dilations presented to the emergency department for bilateral lower extremity swelling and pain. The patient was recently hospitalized at [facility] for hypertensive urgency, pneumonia, congestive heart failure and lactic acidosis. During the hospitalization, the patient received antibiotics, ceftriaxone and azithromycin, systemic steroids, his home antihypertensives were resumed and IV a ntihypertensives were given as needed. Home diuretics were held. A transthoracic echocardiogram showed LVEF of 60 to 65% and was essentially normal. The patient did have steroid-induced hyperglycemia managed with additional insulin. The patient was discharged home on 03/24/2023. He says that his leg edema has has worsened since discharging from the hospital. On examination, the patient has bilateral lower extremity pitting edema, venous stasis ulcers, erythema in bilateral lower extremity as well that is quite tender to touch. The patient is afebrile in the ED, no leukocytosis, both CRP and procalcitonin have improved since they were last checked during the hospitalization. Additionally, the patient's renal function appears to be at his baseline. The patient received 1 dose of IV Bumex 1 mg in the ED. He also received vancomycin IV once. 04/13. Vitals notable for moderate hypertension overnight, weaned down to 1 L/min nasal cannula. Hemoglobin stable, renal function stable, VBG showed PCO2 of 74.5 and pH of 7.26. Patient was started on BiPAP however did not tolerate it therefore removed. Repeat VBG showed a modest improvement of pH to 7.28. BNP was normal. Urine protein creatinine ratio elevated, 3.89. Placed Mcdonough catheter, start 24-hour urine collection. Anasarca may be secondary to nephrotic syndrome. Bumex increased to 2 mg IV twice daily. Started ceftriax one 2 mg IV every 24 hours for possible lower extremity cellulitis. Started Norvasc 5 mg daily for hypertension. Patient is also on hydralazine which he probably takes at home. Home medication reconciliation still not completed as the patient does not know his medications well. Dr. Joya following for wound cares. 04/14. No significant events overnight, blood pressure continues to be moderately elevated. Oxygen supplementation weaned down to .5 L/min. The patient feels better, leg edema improved. Renal function stable. Continues 24-hour urine protein collection. Potassium replaced. Continues Bumex 2 mg IV twice daily. Increase Lantus to 25 units at bedtime. Nephrology consulted for nephrotic syndrome. 04/15. Patient tachycardic overnight, sinus tachycardia. Seems to be diuresing well, significant improvement in bilateral lower extremity edema. Renal function stable today. 24-hour urine protein was 5318.8 consistent with nephrotic syndrome. Nephrology saw the patient yesterday, recommended continuing IV Bumex, resumed home eplerenone and started oral diltiazem, disc ontinued Norvasc. We will continue Bumex 2 mg IV twice daily today then reassess volume status and renal function tomorrow to decide whether or not to transition to oral diuretic treatment at that time. Increased Lantus to 35 units at bedtime, start prandial Humalog 12 units AC and reduce sliding scale to low-dose. Resumed home Jardiance however the patient will have to obtain this from his home supply as it is not formulary. 04/16 Patient responded well to Bumex with good urine output over the past few days. We will give Bumex once today and follow-up urine output. Continue recs per nephrology. Seen by Alethea for lower extremity wounds. Review of Systems: denies headache/fever/chills/nausea/vomiting/chest or abdominal pain/cough/dyspnea/diarrhea. Otherwise see above. PHYSICAL EXAM General: Alert, Awake, No acute Distress, obese Eyes/N/T: EOMI, no scleral icterus, Head/Neck: neck supple, full ROM, CV: RRR, No murmurs, Pulm: Clear b/l, no wheezing/rhonchi/rales, no respiratory distress, supp O2 Abd: soft, nontender, +BS x4 Ext: no clubbing/cyanosis, b/l LE edema improving, nontender Neuro: Alert, no focal deficits, moves all extremities, , sensations intact b/l upper/lower Psychiatric: Skin: Weeping wounds bilateral lower extremity secondary to venous stasis ulcer s, bilateral lower extremity erythema. Constitutional Vitals: Vital Signs Temp Pulse Resp BP Pulse Ox O2 Del Method O2 Flow Rate 98.9 F 85 16 165/60 97 Nasal Cannula 0.5 04/16/23 04:00 04/15/23 18:01 04/16/23 06:00 04/16/23 06:00 04/16/23 04:00 04/16/23 06:00 04/16/23 06:00 Period Temp Pulse Resp BP Sys/Jean Pulse Ox O2 Del Method O2 Flow Rate Last 24 Hr 97.4 F-98.9 F 77-112 16-20 116-166/54-118 90-100 Nasal Cannula-Nasal Cannula 0.5-0.5 Intake and Output 04/15/23 04/16/23 04/16/23 19:59 03:59 11:59 Intake Total 600 300 100 Output Total 1250 900 375 Balance -650 -600 -275 Weight 103.873 kg Intake & Output: Intake & Output 04/15/23 04/16/23 04/16/23 19:59 03:59 11:59 Intake Total 600 300 100 Output Total 1250 900 375 Balance -650 -600 -275 Weight 103.873 kg Intake: Oral 600 300 100 Output: Urine Catheter Amount 1250 900 375 Other: Meal Dinner Percent of Meal Consumed 75% Feeding Ability Assist with Tray Set Up Urine Appearance Clear Clear Clear Uretheral (Mcdonough) Clear Urine Color Yellow Yellow Yellow Pale Pale Uretheral (Mcdonough) Yellow Pale Urine Odor Normal Normal Stool Size Smear Stool Color Brown # Bowel Movements 1 OBJ DATA Labs 04/15/23 05:21 04/16/23 05:20 Labs: Abnormal Lab Results 04/16/23 04/15/23 04/15/23 05:20 05:21 05:21 RBC 2.96 L Hgb 9.5 L Hct 29.8 L MCV 100.7 H Lymph # (Auto) 1.43 L [place] # (Auto) ABG Methemoglobin VBG pH VBG pCO2 VBG pO2 VBG HCO3 VBG Total CO2 VBG O2 Saturation VBG Base Excess Carboxyhemoglobin Total Hemoglobin Potassium Carbon Dioxide 33 H 31 H Creatinine 1.8 H 1.7 H Glucose 182 H 195 H Lactate Dehydrogenase 130 L Triglycerides Urine Protein Urine Glucose (UA) Urine Mucus Ur Total Protein 24 Hr 04/14/23 04/14/23 04/14/23 12:00 05:11 05:10 RBC 2.98 L Hgb 9.4 L Hct 30.3 L MCV 101.7 H Lymph # (Auto) [place] # (Auto) 0.96 H ABG Methemoglobin VBG pH VBG pCO2 VBG pO2 VBG HCO3 VBG Total CO2 VBG O2 Saturation VBG Base Excess Carboxyhemoglobin Total Hemoglobin Potassium 3.1 L Carbon Dioxide 33 H Creatinine 1.8 H Glucose 167 H Lactate Dehydrogenase 129 L Triglycerides 151 H Urine Protein 100 A Urine Glucose (UA) >=500 A Urine Mucus Few A Ur Total Protein 24 Hr 04/13/23 04/13/23 12:00 10:00 RBC Hgb Hct MCV Lymph # (Auto) [place] # (Auto) ABG Methemoglobin 0.2 L VBG pH 7.28 L VBG pCO2 74.9 H* VBG pO2 45.2 H VBG HCO3 34.2 H VBG Total CO2 36.5 H VBG O2 Saturation 79.3 H VBG Base Excess 6 H Carboxyhemoglobin 4.2 H Total Hemoglobin 11.3 L Potassium Carbon Dioxide Creatinine Glucose Lactate Dehydrogenase Triglycerides Urine Protein Urine Glucose (UA) Urine Mucus Ur Total Protein 24 Hr 5318.8 H Meds: Medications Acetaminophen (Acetaminophen 325 Mg Tablet) 650 mg PO Q6HP PRN; Protocol PRN Reason: Per Pain Protocol/Fever > 101 Hydrocodone Bitart/Acetaminophen (Hydrocodone/Apap 5/325mg Tablet) 1 tab PO Q4HP PRN; Protocol PRN Reason: Per Pain Protocol Last Admin: 04/15/23 08:36 Dose: 1 tab Albuterol Sulfate (Albuterol Sulfate 2.5 Mg/3 Ml Nebulizer) 2.5 mg NEB Q2HP PRN PRN Reason: Shortness Of Breath Albuterol/Ipratropium (Ipratropium/Albuterol 3 Ml Ampul.Neb) 3 ml NEB Q6HP PRN PRN Reason: Dyspnea or wheezing Bacitracin (Bacitracin Topical Oint 15 Gm Tube) 1 dose TOPICAL UD DANNA Last Admin: 04/15/23 16:35 Dose: 1 applic Brimonidine Tartrate (Brimonidine Ophth Drops 1 Gtt Bottle 5ml) 1 gtt OU BID [facility] Last Admin: 04/15/23 20:58 Dose: 1 drop Dextrose (Dextrose 50% 50 Ml Vial) 0 ml IV UD PRN PRN Reason: Per Sliding Scale Diagnostic Test (Pha) (Accu-Chek 1 Each Strip) 1 each FS ACHS [facility] Last Admin: 04/15/23 20:57 Dose: 1 each Diltiazem HCl (Diltiazem 30 Mg Tablet) 30 mg PO Q8 [facility] Last Admin: 04/16/23 05:27 Dose: 30 mg Docusate Sodium (Docusate Sodium 100 Mg Capsule) 100 mg PO BID [facility] Last Admin: 04/15/23 20:59 Dose: 100 mg Glucose (Dextrose 31 Gm Oral.Susp) 15 gm PO PRN PRN PRN Reason: Hypoglycemia Heparin Sodium (Porcine) (Heparin 5,000 Unit/Ml Vial) 5,000 unit SQ Q8H [facility] Last Admin: 04/16/23 05:27 Dose: 5,000 unit Hydralazine HCl (Hydralazine 25 Mg Tablet) 25 mg PO TID [facility] Last Admin: 04/15/23 20:59 Dose: 25 mg Hydromorphone HCl (Hydromorphone 0.5 Mg/0.5 Ml Syringe) 0.2 mg IV Q6HP PRN; Pro tocol PRN Reason: Per Pain Protocol Last Admin: 04/14/23 10:54 Dose: 0.2 mg Ceftriaxone Sodium 2 gm/ (Dextrose) 50 mls @ 100 mls/hr IV Q24H [facility]; Protocol Last Infusion: 04/15/23 11:55 Dose: Infused Insulin Glargine (Insulin Glargine, Human 1 Unit/0.01 Ml) 35 unit SQ HS [facility] Last Admin: 04/15/23 21:01 Dose: 35 units Insulin Human Lispro (Insulin Lispro 1 Unit/0.01 Ml Unit) 0 unit SQ ACHS [facility]; Protocol Last Admin: 04/15/23 21:01 Dose: 6 units Insulin Human Lispro (Insulin Lispro 1 Unit/0.01 Ml Unit) 12 unit SQ AC [facility] Last Admin: 04/15/23 17:13 Dose: 12 units Lactulose (Lactulose 20 Gm/30 Ml Oral.Leila) 10 gm PO DAILYP PRN PRN Reason: Constipation Latanoprost (Latanoprost Ophth Drops 2.5ml Bottle) 1 gtt OU HS [facility] Last Admin: 04/15/23 20:58 Dose: 1 gtt Levothyroxine Sodium (Levothyroxine 75 Mcg Tablet) 75 mcg PO QDAY [facility] Last Admin: 04/15/23 08:35 Dose: 75 mcg Ondansetron HCl (Ondansetron 4 Mg/2 Ml Vial) 4 mg IV Q4HP PRN; Protocol PRN Reason: Nausea And Vomiting Pantoprazole Sodium (Pantoprazole 40 Mg Tablet) 40 mg PO QAMAC [facility] Last Admin: 04/15/23 08:37 Dose: 40 mg Rosuvastatin 20 Mg (Tablet) 1 dose PO HS [facility] Last Admin: 04/15/23 20:58 Dose: 1 dose Fluticasone Furoate- Vilanterol [Breo Ellipta] 200/5 Mcg Inhaler 1 dose INH QDA Y [facility] Last Admin: 04/15/23 12:20 Dose: 1 dose Eplerenone (Inspra) (25 Mg) 1 dose PO DAILY [facility] Last Admin: 04/15/23 12:21 Dose: Not Given Dapagliflozin ( (Farxiga) 10 Mg) 1 dose PO DAILY [facility] Last Admin: 04/15/23 12:21 Dose: Not Given Polyethylene Glycol (Polyethylene Glycol 3350 17 Gm Packet) 17 gm PO QDAY [facility] Last Admin: 04/15/23 08:35 Dose: 17 gm Potassium Chloride (Potassium Chloride 20 Meq Tablet) 20 meq PO DAILY [facility] Stop: 04/16/23 09:09 Last Admin: 04/15/23 08:37 Dose: 20 meq Potassium Chloride (Potassium Chloride 20 Meq Tablet) 40 meq PO QAC [facility] Last Admin: 04/15/23 08:37 Dose: 40 meq Senna (Sennosides 1 Tablet) 2 tab PO HSP PRN PRN Reason: Constipation Sertraline HCl (Sertraline 50 Mg Tablet) 50 mg PO QDAY [facility] Last Admin: 04/15/23 08:37 Dose: 50 mg Sodium Chloride (0.9 % Sodium Chloride 10 Ml Syringe) 10 ml IV Q8 [facility] Last Admin: 04/16/23 05:28 Dose: 10 ml ABG Interpretation ABG results: 04/13/23 04/13/23 06:32 10:00 ABG Methemoglobin 0.3 L 0.2 L VBG pH 7.26 L 7.28 L VBG pCO2 74.5 H* 74.9 H* VBG pO2 54.9 H 45.2 H VBG HCO3 32.3 H 34.2 H VBG Total CO2 34.6 H 36.5 H VBG O2 Saturation 83.3 H 79.3 H VBG Base Excess 4 H 6 H A/P Narrative A/P Narrative: A: #Volume overload: 2/2 Nephrotic Syndrome -good uop #Acute on chronic hypercapnic respiratory failure: improved #Possible lower extremity cellulitis versus chronic venous stasis: #B/L LE venous stasis ulcers: #h/o Nephrotic range proteinuria #CKD III-IV #DM2: #COPD with chronic respiratory failure(3L O2@home): #Chronic anemia: #Hypertension: #Hypothyroidism: cont synthroid #Depression: #GERD: #Constipation: #Obstructive sleep apnea intolerant of CPAP: #Obesity: BMI 35 Plan: -Nephrology consulted for nephrotic syndrome -Bumex IV 2mg daily + prn then to PO likely soon, reassess volume status and renal function daily -Ceftriaxone 2 mg IV every 24 hours for cellulitis, treat 5 to 7 days. -Oxygen supplementation, SPO2 goal 88 to 92%. -Monitor renal function, electrolytes, acid-base balance, volume status. -Last TTE was 03/23/2023, essentially normal however unable to assess left ventricular diastolic function. -Increase Lantus to 35 units at bedtime, Start Humalog 12 units with meals, - Correction Humalog SSI low-dose. -DuoNebs as needed. -Analgesics as needed. -Diltiazem per nephrology, home hydralazine. -Continue home rosuvastatin, sertraline, eplerenone, Dapagliflozin. -Holding home Tradjenta, torsemide. -PT consult. -Wound cares, Dr. Claire following -DVT prophylaxis: Heparin SQ / home ppi CODE STATUS: DNR/DNI Plan of Treatment: Plan: Continue current treatment. Time Spent With Patient Time: Total time spent is greater than 50% in coordination of care (as documented) at patient's floor/unit and/or counseling patient: Subsequent: Total time with patient: 50 - 65 Minutes QUALITY Stroke Symptom Onset Unknown: No VTE Deep Vein Thrombosis/Pulmonary Embolism Present on Admission: No
[2023-04-16] MEDS ORDERED: BUMETANIDE 1 MG/4 ML VIAL IV SCH ×2 (07:55→15:13)
[2023-04-16] MEDS: POTASSIUM CHLORIDE 20 MEQ TABLET PO SCH ×2 (08:12→08:57)
[2023-04-16] MEDS: INSULIN LISPRO 1 UNIT/0.01 ML UNIT SQ SCH ×7 (08:12→20:37)
[2023-04-16] MEDS: PANTOPRAZOLE 40 MG TABLET PO SCH (08:12)
[2023-04-16] MEDS: BACITRACIN TOPICAL OINT 15 GM TUBE TOPICAL SCH (08:44)
[2023-04-16] MEDS: ACETAMINOPHEN 325 MG TABLET PO PRN (08:56)
[2023-04-16] MEDS: cefTRIAXone 2 GM in DEXTROSE 5% IN WATER 50 ML IV SCH (08:57)
[2023-04-16] MEDS: SERTRALINE 50 MG TABLET PO SCH (08:57)
[2023-04-16] MEDS: DOCUSATE SODIUM 100 MG CAPSULE PO SCH ×2 (08:57→20:36)
[2023-04-16] MEDS: LEVOTHYROXINE 75 MCG TABLET PO SCH (09:00)
[2023-04-16] MEDS: hydrALAZINE 25 MG TABLET PO SCH ×3 (09:00→20:39)
[2023-04-16] MEDS: POLYETHYLENE GLYCOL 3350 17 GM PACKET PO SCH (09:02)
[2023-04-16] MEDS: BRIMONIDINE OPHTH DROPS 1 GTT BOTTLE 5ML OU SCH ×2 (09:03→20:38)
[2023-04-16] MEDS: Fluticasone Furoate-Vilanterol [Breo Ellipta] 200/5 mcg Inhaler INH SCH (09:04)
--- NOTE | 2023-04-16 09:58 | Discharge Summary ---
Discharge Provider Provider IMPORTANT FOLLOW-UP INFORMATION FOR PCP: Patient information: Note initiated : 04/16/23 at 9:56 am Service Date, if different from initiated Date: [] Patient: Christine Pimentel 77 y/o M admitted on 04/12/23. Chief Complaint: [] Date of admission: 04/12/23 21:57 Discharge date: 04/18/23 Primary care physician: Sharif Coronel MD Consults: 04/12/23 Consult to Physician [CONS] Stat Comment: Consulting Provider: Byron Parekh Reason For Exam: Physician to Consult 04/13/23 04:50 Consult to Physician [CONS] Routine Comment: BLE Celulitis Consulting Provider: Gabe Claire Reason For Exam: Physician to Consult 04/14/23 10:16 Consult to Physician [CONS] Routine Comment: Nephrotic syndrome Consulting Provider: Dieter Pacheco Reason For Exam: Physician to Consult COURSE Hospital Course Hospital course: Interval history: Mr. Pimentel is a 77 year old male with a history of type 2 diabetes mellitus, hypertension, chronic kidney disease stage III-IV complicated by history of nephrotic range proteinuria, chronic diastolic heart failure, COPD with chronic hypoxia requiring 3 L/min oxygen supplementation, obstructive sleep apnea, esophageal stricture requiring frequent esophageal dilations presented to the emergency department for bilateral lower extremity swelling and pain. The patient was recently hospitalized at [facility] for hypertensive urgency, pneumonia, congestive heart failure and lactic acidosis. During the hospitalization, the patient received antibiotics, ceftriaxone and azithromycin, systemic steroids, his home antihypertensives were resumed and IV antihypertensives were given as needed. Home diuretics were held. A transthoracic echocardiogram showed LVEF of 60 to 65% and was essentially normal. The patient did have steroid-induced hyperglycemia managed with additional insulin. The patient was discharged home on 03/24/2023. He says that his leg edema has has worsened since discharging from the hospital. On examination, the patient has bilateral lower extremity pitting edema, venous stasis ulcers, erythema in bilateral lower extremity as well that is quite tender to touch. The patient is afebrile in the ED, no leukocytosis, both CRP and procalcitonin have improved since they were last checked during the hospitalization. Additionally, the patient's renal function appears to be at his baseline. The patient received 1 dose of IV Bumex 1 mg in the ED. He also received vancomycin IV once. 04/13. Vitals notable for moderate hypertension overnight, weaned down to 1 L/min nasal cannula. Hemoglobin stable, renal function stable, VBG showed PCO2 of 74.5 and pH of 7.26. Patient was started on BiPAP however did not tolerate it therefore removed. Repeat VBG showed a modest improvement of pH to 7.28. BNP was normal. Urine protein creatinine ratio elevated, 3.89. Placed Mcdonough catheter, start 24-hour urine collection. Anasarca may be secondary to nephrotic syndrome. Bumex increased to 2 mg IV twice daily. Started ceftriaxone 2 mg IV every 24 hours for possible lower extremity cellulitis. Started Norvasc 5 mg daily for hypertension. Patient is also on hydralazine which he probably takes at home. Home medication reconciliation still not completed as the patient does not know his medications well. Dr. Joya following for wound cares. 04/14. No significant events overnight, blood pressure continues to be moderately elevated. Oxygen supplementation weaned down to .5 L/min. The patient feels better, leg edema improved. Renal function stable. Continues 24-hour urine protein collection. Potassium replaced. Continues Bumex 2 mg IV twice daily. Increase Lantus to 25 units at bedtime. Nephrology consulted for nephrotic syndrome. 04/15. Patient tachycardic overnight, sinus tachycardia. Seems to be diuresing well, significant improvement in bilateral lower extremity edema. Renal function stable today. 24-hour urine protein was 5318.8 consistent with nephrotic syndrome. Nephrology saw the patient yesterday, recommended continuing IV Bumex, resumed home eplerenone and started oral diltiazem, discontinued Norvasc. We will continue Bumex 2 mg IV twice daily today then reassess volume status and renal function tomorrow to decide whether or not to transition to oral diuretic treatment at that time. Increased Lantus to 35 units at bedtime, start prandial Humalog 12 units AC and reduce sliding scale to low-dose. Resumed home Jardiance however the patient will have to obtain this from his home supply as it is not formulary. 04/16 Patient responded well to Bumex with good urine output over the past few days. We will give Bumex once today and follow-up urine output. Continue recs per nephrology. Seen by Alethea for lower extremity wounds. 04/17 No overnight event or new complaints. Good diuresis with Bumex. Nephrology following. BUN/creatinine stable. 04/18 Patient seems to be feeling better each day. Has good diuresis. Will discharge with [facility] per nephrology. A: #Volume overload: 2/2 Nephrotic Syndrome #Acute on chronic hypercapnic respiratory failure: #Possible lower extremity cellulitis versus chronic venous stasis: #B/L LE venous stasis ulcers: #h/o Nephrotic range proteinuria #CKD III-IV #DM2: #COPD with chronic respiratory failure(3L O2@home): #Chronic anemia: #Hypertension: #Hypothyroidism: cont synthroid #Depression: #GERD: #Constipation: #Obstructive sleep apnea intolerant of CPAP: #Obesity: BMI 35 Plan: -f/u with Nephrology -per nephro > torsemide 50mg bid, empagliflozin 10mg qd, dilt 30mg q8, hydralazine 25mg tid -abx finish course -Wound cares, Dr. Claire follow up Discharge diagnosis: Nephrotic syndrome volume overload acute on chronic hypoxic hypercapnic res Secondary discharge diagnosis: Lower extremity cellulitis chronic kidney disease diabetes COPD chronic anemia pretension hypothyroidism depression GERD obstructive sleep apnea obesity Time Spent with Patient Time attestation: Total time spent providing and/or coordinating discharge services: Time spent: Greater than 30 minutes EXAM Constitutional Vitals: Temp Pulse Resp BP Pulse Ox O2 Del Method O2 Flow Rate 98.9 F 85 16 165/60 97 Nasal Cannula 0.5 04/16/23 04:00 04/15/23 18:01 04/16/23 06:00 04/16/23 06:00 04/16/23 04:00 04/16/23 06:00 04/16/23 06:00 Discharge Data Data Completed and Pending Labs on day of discharge: Labs from last 24 hours 04/16/23 05:20 Sodium 140 Potassium 3.8 Chloride 99 Carbon Dioxide 33 H Anion Gap 8.0 BUN 21 Creatinine 1.8 H GFR Calculation 35 Glucose 182 H Calcium 8.8 Phosphorus 3.3 Albumin 3.3 Preliminary micro results at discharge 04/12/23 15:39 Blood Culture - Preliminary Blood 04/12/23 15:37 Blood Culture - Preliminary Blood Discharge Plan Patient/Caregiver Discharge Instructions Activity: increase activity as tolerated Diet: Renal Prescriptions: New torsemide 100 mg tablet 50 mg PO BID Qty: 30 0RF diltiazem HCl 30 mg Tablet 30 mg PO Q8 Qty: 90 0RF empagliflozin 10 mg tablet 10 mg PO QAM Qty: 30 0RF cephalexin 500 mg capsule 500 mg PO QID Qty: 4 0RF Rx Instructions: start 04/19/2023 Continued (DME) FreeStyle Lite Strips Strip See Dose Instructions .ROUTE .MEDSUPPLY Qty: 100 11RF Dose Instruction: As directed Rx Instructions: Use to test BG three times daily (DME) Wheelchair Ramp Qty: 1 0RF Rx Instructions: Wheelchair ramp for patients home Breo Ellipta 200-25 mcg/dose blister with device 1 inh INHALATION QDAY Qty: 60 3RF (DME) Comfort EZ Pen [place] 32 gauge x 5/16" needle See Dose Instructions .ROUTE .MEDSUPPLY Qty: 100 11RF Dose Instruction: As directed Rx Instructions: Use with insulin 5 times daily hydralazine 25 mg tablet 25 mg PO TID Qty: 270 1RF levothyroxine [Synthroid] 75 mcg tablet 75 mcg PO QDAY Qty: 90 1RF insulin lispro [Humalog KwikPen Insulin] 100 unit/mL insulin pen 22 unit SUB-Q TID Qty: 75 1RF Rx Instructions: 22 units plus sliding scale (4-6 units) - Max daily dose 90 units (DME) Dexcom G7 [employer] Misc See Rx Instructions .Route Qty: 1 0RF Rx Instructions: As directed (DME) Dexcom G7 Sensor Device See Rx Instructions .Route Qty: 3 6RF Rx Instructions: As directed (DME) pen needle, diabetic 32 gauge x 5/32" needle See Rx Instructions .ROUTE 5XD Qty: 50 Rx Instructions: As directed brimonidine 0.2 % drops 1 drp ophthalmic (eye) BID (DME) lancets 1 EACH misc 1 each MC TIDP Qty: 90 11RF albuterol sulfate [Ventolin HFA] 90 mcg/actuation Hfa Aerosol Inhaler 2 puff INHALATION Q6HP PRN (Reason: Shortness Of Breath) docusate sodium [Colace] 100 mg Capsule 100 mg PO BID polyethylene glycol 3350 [Miralax] 17 gram Powder In Packet 17 g PO QDAY Jardiance 10 mg tablet 10 mg PO QAM ketoconazole 2 % shampoo 1 applic topical Q2W sertraline 50 mg tablet 50 mg PO QDAY rosuvastatin 20 mg tablet 20 mg PO HS pantoprazole 40 mg tablet,delayed release (DR/EC) 40 mg PO QDAY latanoprost 0.005 % drops 1 drp OPHTHALMIC (EYE) HS Discontinued torsemide 100 mg tablet 100 mg PO QDAY Follow Up Plan Follow up with: Gabe Claire MD [Physician] - Dieter Pacheco MD [Physician] - Sharif Coronel MD [Primary Care Provider] - Patient Disposition: Home Health Service Plan of Treatment: Plan: Continue current treatment. Prognosis: Fair Overall status at discharge: patient is progressing back to baseline Discharge Orders: Discharge Order (Routine); Ordered 04/18/23 Ordered By: Dalton Sainz [facility] VTE Deep Vein Thrombosis/Pulmonary Embolism Present on Admission: No
[2023-04-16] MEDS: HYDROcodone/APAP 5/325MG TABLET PO PRN (11:09)
--- NOTE | 2023-04-16 15:25 | Nephrology Progress Note ---
SUBJECTIVE Subjective Patient information: Note initiated : 04/16/23 at 3:20 pm Patient: Christine Pimentel 77 y/o M admitted on 04/12/23. Chief Complaint: Leg edema and redness. Principal diagnosis: edema with nephrotic syndrome Pertinent ROS: Leg edema Weakness Mcdonough catheter Constitutional Vitals: Vital Signs Temp Pulse Resp BP Pulse Ox O2 Del Method O2 Flow Rate 97.7 F 85 16 140/58 95 Nasal Cannula 0.5 04/16/23 12:00 04/15/23 18:01 04/16/23 06:00 04/16/23 12:00 04/16/23 12:00 04/16/23 12:00 04/16/23 12:00 Period Temp Pulse Resp BP Sys/Jean Pulse Ox O2 Del Method O2 Flow Rate Last 24 Hr 97.4 F-99 F 77-85 16-20 133-165/54-66 95-100 Nasal Cannula- Nasal Cannula 0.5-0.5 Intake and Output 04/16/23 04/16/23 04/16/23 03:59 11:59 19:59 Intake Total 300 510 240 Output Total 900 375 800 Balance -600 135 -560 Weight 229 lb Intake & Output: Intake & Output 04/16/23 04/16/23 04/16/23 03:59 11:59 19:59 Intake Total 300 510 240 Output Total 900 375 800 Balance -600 135 -560 Weight 229 lb Intake: IV 50 Rocephin 2 gm In Dextrose 5% in 50 Water 50 ml @ 100 mls/hr IV Q24H [facility] Rx#:[id number] Oral 300 460 240 Output: Urine Catheter Amount 900 375 800 Other: Meal Dinner Lunch Percent of Meal Consumed 75% 25% 50% Feeding Ability Assist with Tray Set Up Independent Assist with Tray Set Up Urine Appearance Clear Clear Clear Uretheral (Mcdonough) Clear Clear Urine Color Yellow Yellow Yellow Pale Pale Uretheral (Mcdonough) Yellow Yellow Pale Urine Odor Normal Normal Stool Size Smear Stool Color Brown # Bowel Movements 1 General appearance: cooperative and no acute distress Head Head exam: Present normal inspection Eye Eye exam: Present normal appearance ENT ENT exam: Present mucous membranes moist Respiratory Respiratory exam: Absent respiratory distress Cardiovascular Cardiovascular exam: Present normal rate and rhythm GI/Abdominal GI/Abdominal exam: Present soft; Absent tenderness Extremities Exam Extremities exam: Absent joint swelling or pedal edema Neurological Exam Neurological exam: Present alert and oriented X3 Psychiatric Psychiatric exam: Present normal affect and normal mood Skin Skin exam: Present warm; Absent rash A/P Assessment and plan (1) Chronic kidney disease, stage 3b: Assessment and plan: Christine Pimentel is a 77-year-old male with diabetes mellitus type 2, hypertension, 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 He presented for worsening edema. 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 Work up: Urinalysis on 04/14/23: Straw, Clear, pH 8.0, SG 1.008, protein 100, blood negative, leukocyte esterase negative, urine WBC. Urine random total protein/creatinine on 04/12/23: 3,890 mg/g creatinine. 24 hour urine protein 5,318 mg/[address] Abdomen and Pelvis without contrast on 01/27/23: Multiple cysts both kidneys which demonstrate long-term stability. 14 mm cystocele urinary bladder base- stable. Mild diffuse wall thickening urinary bladder is new and suggests the possibility of cystitis or other infiltrative pathology. Labs on 10/21/21: HBsAg negative, anti-HCV Ab non reactive, C3 133.6, C4 21.7, ANCA screen negative, PLA2R 6, dsDNA Ab <1.0. Labs on 03/10/20: UPEP/MITA no abnormal protein. Labs on 02/01/20: Serum free kappa/lambda light chain ratio 2.1. Treatment: Bumex IV Q12. Eplerenone 25 mg daily. Dapagliflozin 10 mg daily. Diltiazem 30 mg every 8 hours. Hydralazine 25 mg three times daily. Progress: Serum creatinine changed from 1.7 to 1.8 in the past 24 hours. Baseline serum creatinine: 1.7-1.9. Urine output: 2925 ml reported in the past 24 hours. Fluid overload. I/O: -2872 ml since admit. No uremic symptoms. Recommendations/Plan: Continue Bumes 2 mg IV Q12. Outpatient nephrology follow up with Dr. Pacheco. Status: Chronic Narrative Plan of Treatment: Plan: Continue current treatment. Time Spent With Patient Time: Total time spent is greater than 50% in coordination of care (as documented) at patient's floor/unit and/or counseling patient:
[2023-04-16] MEDS: BUMETANIDE 1 MG/4 ML VIAL IV SCH (20:37)
[2023-04-16] MEDS: LATANOPROST OPHTH DROPS 2.5ML BOTTLE OU SCH (20:38)
[2023-04-16] MEDS: INSULIN GLARGINE, HUMAN 1 UNIT/0.01 ML SQ SCH (20:38)
[2023-04-16] MEDS ORDERED: LATANOPROST OPHTH DROPS 2.5ML BOTTLE OU SCH (21:00)
[2023-04-16] MEDS: HYDROmorphone 0.5 MG/0.5 ML SYRINGE IV PRN (21:30)
[2023-04-17] MEDS: 0.9 % SODIUM CHLORIDE 10 ML SYRINGE IV SCH ×3 (05:27→20:50)
[2023-04-17] MEDS: HEPARIN 5,000 UNIT/ML VIAL SQ SCH ×3 (05:27→20:48)
[2023-04-17] MEDS: DILTIAZEM 30 MG TABLET PO SCH ×3 (05:27→20:48)
[2023-04-17 06:41] LABS: Albumin 3.2 gm/dL (3.2-5.2); Calcium 8.6 mg/dL (8.6-10.4); Phosphorous 3.2 mg/dL (2.5-4.5)
[2023-04-17 06:43] LABS: ALT/SGPT 6 U/L (<40); AST/SGOT 11 U/L (<40); Albumin 3.3 gm/dL (3.2-5.2); Albumin/Globulin Ratio 1.1 (1.0-2.3); Alkaline Phosphatase 38 U/L (39-117); Bilirubin,Direct < 0.2 mg/dL (0-0.3); Bilirubin,Total 0.2 mg/dL (0.1-1.0); Blood Urea Nitrogen 21 mg/dL (8-23); Calcium 8.7 mg/dL (8.6-10.4); Carbon Dioxide 32 mmol/L (22-30); Chloride 99 mmol/L (96-108); Globulin 3.1 gm/dL (2.2-3.7); Glomerular Filtration Rate 37; Glucose 137 mg/dL (70-105); Lactate Dehydrogenase 135 U/L (135-225); Phosphorous 3.3 mg/dL (2.5-4.5); Triglycerides 146 mg/dL (<150); Uric Acid 7.2 mg/dL (2.5-8.0)
[2023-04-17] MEDS: INSULIN LISPRO 1 UNIT/0.01 ML UNIT SQ SCH ×7 (07:43→20:46)
[2023-04-17] MEDS: POTASSIUM CHLORIDE 20 MEQ TABLET PO SCH (07:44)
[2023-04-17] MEDS: PANTOPRAZOLE 40 MG TABLET PO SCH (07:44)
--- NOTE | 2023-04-17 08:07 | Internal Med Progress Note ---
SUBJECTIVE Subjective Patient information: Note initiated : 04/17/23 at 8:03 am Service Date, if different from initiated Date: [] Patient: Christine Pimentel 77 y/o M admitted on 04/12/23. Chief Complaint: [] Principal diagnosis: edema with nephrotic syndrome Interval history: Mr. Pimentel is a 77 year old male with a history of type 2 diabetes mellitus, hypertension, chronic kidney disease stage III-IV complicated by history of nephrotic range proteinuria, chronic diastolic heart failure, COPD with chronic hypoxia requiring 3 L/min oxygen supplementation, obstructive sleep apnea, esophageal stricture requiring frequent esophageal dilations presented to the emergency department for bilateral lower extremity swelling and pain. The patient was recently hospitalized at [facility] for hypertensive urgency, pneumonia, congestive heart failure and lactic acidosis. During the hospitalization, the patient received antibiotics, ceftriaxone and azithromycin, systemic steroids, his home antihypertensives were resumed and IV a ntihypertensives were given as needed. Home diuretics were held. A transthoracic echocardiogram showed LVEF of 60 to 65% and was essentially normal. The patient did have steroid-induced hyperglycemia managed with additional insulin. The patient was discharged home on 03/24/2023. He says that his leg edema has has worsened since discharging from the hospital. On examination, the patient has bilateral lower extremity pitting edema, venous stasis ulcers, erythema in bilateral lower extremity as well that is quite tender to touch. The patient is afebrile in the ED, no leukocytosis, both CRP and procalcitonin have improved since they were last checked during the hospitalization. Additionally, the patient's renal function appears to be at his baseline. The patient received 1 dose of IV Bumex 1 mg in the ED. He also received vancomycin IV once. 04/13. Vitals notable for moderate hypertension overnight, weaned down to 1 L/min nasal cannula. Hemoglobin stable, renal function stable, VBG showed PCO2 of 74.5 and pH of 7.26. Patient was started on BiPAP however did not tolerate it therefore removed. Repeat VBG showed a modest improvement of pH to 7.28. BNP was normal. Urine protein creatinine ratio elevated, 3.89. Placed Mcdonough catheter, start 24-hour urine collection. Anasarca may be secondary to nephrotic syndrome. Bumex increased to 2 mg IV twice daily. Started ceftriax one 2 mg IV every 24 hours for possible lower extremity cellulitis. Started Norvasc 5 mg daily for hypertension. Patient is also on hydralazine which he probably takes at home. Home medication reconciliation still not completed as the patient does not know his medications well. Dr. Joya following for wound cares. 04/14. No significant events overnight, blood pressure continues to be moderately elevated. Oxygen supplementation weaned down to .5 L/min. The patient feels better, leg edema improved. Renal function stable. Continues 24-hour urine protein collection. Potassium replaced. Continues Bumex 2 mg IV twice daily. Increase Lantus to 25 units at bedtime. Nephrology consulted for nephrotic syndrome. 04/15. Patient tachycardic overnight, sinus tachycardia. Seems to be diuresing well, significant improvement in bilateral lower extremity edema. Renal function stable today. 24-hour urine protein was 5318.8 consistent with nephrotic syndrome. Nephrology saw the patient yesterday, recommended continuing IV Bumex, resumed home eplerenone and started oral diltiazem, disc ontinued Norvasc. We will continue Bumex 2 mg IV twice daily today then reassess volume status and renal function tomorrow to decide whether or not to transition to oral diuretic treatment at that time. Increased Lantus to 35 units at bedtime, start prandial Humalog 12 units AC and reduce sliding scale to low-dose. Resumed home Jardiance however the patient will have to obtain this from his home supply as it is not formulary. 04/16 Patient responded well to Bumex with good urine output over the past few days. We will give Bumex once today and follow-up urine output. Continue recs per nephrology. Seen by Alethea for lower extremity wounds. 04/17 No overnight event or new complaints. Good diuresis with Bumex. Nephrology following. BUN/creatinine stable. Review of Systems: denies headache/fever/chills/nausea/vomiting/chest or abdominal pain/cough/dyspnea/diarrhea. Otherwise see above. PHYSICAL EXAM General: Alert, Awake, No acute Distress, obese Eyes/N/T: EOMI, no scleral icterus, Head/Neck: neck supple, full ROM, CV: RRR, No murmurs, Pulm: Clear b/l, no wheezing/rhonchi/rales, no respiratory distress, supp O2 Abd: soft, nontender, +BS x4 Ext: no clubbing/cyanosis, b/l LE trace edema, nontender Neuro: Alert, no focal deficits, moves all extremities, , sensations intact b/l upper/lower Psychiatric: Skin: Weeping wounds bilateral lower extremity secondary to venous stasis ulcers, bilateral lower extremity erythema. Constitutional Vitals: Vital Signs Temp Pulse Resp BP Pulse Ox O2 Del Method O2 Flow Rate 99.6 F H 85 16 157/65 95 Nasal Cannula 0.5 04/17/23 04:00 04/15/23 18:01 04/17/23 05:00 04/17/23 05:00 04/17/23 05:00 04/17/23 05:00 04/17/23 05:00 Period Temp Pulse Resp BP Sys/Jean Pulse Ox O2 Del Method O2 Flow Rate Last 24 Hr 97.4 F-99.6 F 16-18 117-164/52-65 94-98 Nasal Cannula-Nasal Cannula 0.5-0.5 Intake and Output 04/16/23 04/17/23 04/17/23 19:59 03:59 11:59 Intake Total 480 350 50 Output Total 950 1025 500 Balance -470 -675 -450 Weight 103.873 kg Intake & Output: Intake & Output 04/16/23 04/17/23 04/17/23 19:59 03:59 11:59 Intake Total 480 350 50 Output Total 950 1025 500 Balance -470 -675 -450 Weight 103.873 kg Intake: Oral 480 350 50 Output: Urine Catheter Amount 950 1025 500 Other: Meal Lunch Dinner Percent of Meal Consumed 50% 75% Feeding Ability Assist with Tray Set Up Assist with Tray Set Up Urine Appearance Clear Clear Clear Uretheral (Mcdonough) Clear Urine Color Yellow Bright Yellow Yellow Uretheral (Mcdonough) Bright Yellow Urine Odor Normal Normal # Bowel Movements 0 OBJ DATA Labs 04/15/23 05:21 04/17/23 05:29 Labs: Abnormal Lab Results 04/17/23 04/17/23 04/16/23 05:29 05:29 05:20 RBC Hgb Hct MCV Lymph # (Auto) Carbon Dioxide 32 H 31 H 33 H Creatinine 1.7 H 1.8 H 1.8 H Glucose 137 H 137 H 182 H Alkaline Phosphatase 38 L Lactate Dehydrogenase Urine Protein Urine Glucose (UA) Urine Mucus Ur Total Protein 24 Hr 04/15/23 04/15/23 04/14/23 05:21 05:21 12:00 RBC 2.96 L Hgb 9.5 L Hct 29.8 L MCV 100.7 H Lymph # (Auto) 1.43 L Carbon Dioxide 31 H Creatinine 1.7 H Glucose 195 H Alkaline Phosphatase Lactate Dehydrogenase 130 L Urine Protein 100 A Urine Glucose (UA) >=500 A Urine Mucus Few A Ur Total Protein 24 Hr 04/13/23 12:00 RBC Hgb Hct MCV Lymph # (Auto) Carbon Dioxide Creatinine Glucose Alkaline Phosphatase Lactate Dehydrogenase Urine Protein Urine Glucose (UA) Urine Mucus Ur Total Protein 24 Hr 5318.8 H Meds: Medications Acetaminophen (Acetaminophen 325 Mg Tablet) 650 mg PO Q6HP PRN; Protocol PRN Reason: Per Pain Protocol/Fever > 101 Last Admin: 04/16/23 08:56 Dose: 650 mg Hydrocodone Bitart/Acetaminophen (Hydrocodone/Apap 5/325mg Tablet) 1 tab PO Q4HP PRN; Protocol PRN Reason: Per Pain Protocol Last Admin: 04/16/23 11:09 Dose: 1 tab Albuterol Sulfate (Albuterol Sulfate 2.5 Mg/3 Ml Nebulizer) 2.5 mg NEB Q2HP PRN PRN Reason: Shortness Of Breath Albuterol/Ipratropium (Ipratropium/Albuterol 3 Ml Ampul.Neb) 3 ml NEB Q6HP PRN PRN Reason: Dyspnea or wheezing Bacitracin (Bacitracin Topical Oint 15 Gm Tube) 1 dose TOPICAL UD [facility] Last Admin: 04/16/23 08:44 Dose: 1 applic Brimonidine Tartrate (Brimonidine Ophth Drops 1 Gtt Bottle 5ml) 1 gtt OU BID [facility] Last Admin: 04/16/23 20:38 Dose: 1 drop Bumetanide (Bumetanide 1 Mg/4 Ml Vial) 2 mg IV Q12 [facility] Stop: 04/17/23 09:01 Last Admin: 04/16/23 20:37 Dose: 2 mg Dextrose (Dextrose 50% 50 Ml Vial) 0 ml IV UD PRN PRN Reason: Per Sliding Scale Diagnostic Test (Pha) (Accu-Chek 1 Each Strip) 1 each FS ACHS [facility] Last Admin: 04/17/23 07:43 Dose: 1 each Diltiazem HCl (Diltiazem 30 Mg Tablet) 30 mg PO Q8 [facility] Last Admin: 04/17/23 05:27 Dose: 30 mg Docusate Sodium (Docusate Sodium 100 Mg Capsule) 100 mg PO BID [facility] Last Admin: 04/16/23 20:36 Dose: 100 mg Glucose (Dextrose 31 Gm Oral.Susp) 15 gm PO PRN PRN PRN Reason: Hypoglycemia Heparin Sodium (Porcine) (Heparin 5,000 Unit/Ml Vial) 5,000 unit SQ Q8H [facility] Last Admin: 04/17/23 05:27 Dose: 5,000 unit Hydralazine HCl (Hydralazine 25 Mg Tablet) 25 mg PO TID [facility] Last Admin: 04/16/23 20:39 Dose: 25 mg Hydromorphone HCl (Hydromorphone 0.5 Mg/0.5 Ml Syringe) 0.2 mg IV Q6HP PRN; Protocol PRN Reason: Per Pain Protocol Last Admin: 04/16/23 21:30 Dose: 0.2 mg Ceftriaxone Sodium 2 gm/ (Dextrose) 50 mls @ 100 mls/hr IV Q24H [facility]; Protocol Last Infusion: 04/16/23 10:17 Dose: Infused Insulin Glargine (Insulin Glargine, Human 1 Unit/0.01 Ml) 35 unit SQ HS [facility] Last Admin: 04/16/23 20:38 Dose: 35 units Insulin Human Lispro (Insulin Lispro 1 Unit/0.01 Ml Unit) 0 unit SQ ACHS [facility]; Protocol Last Admin: 04/17/23 07:43 Dose: 3 units Insulin Human Lispro (Insulin Lispro 1 Unit/0.01 Ml Unit) 12 unit SQ AC [facility] Last Admin: 04/17/23 07:44 Dose: Not Given Labetalol HCl (Labetalol 5 Mg/Ml Ml) 0 mg IV Q2HP PRN PRN Reason: Hypertension Lactulose (Lactulose 20 Gm/30 Ml Oral.Leila) 10 gm PO DAILYP PRN PRN Reason: Constipation Latanoprost (Latanoprost Ophth Drops 2.5ml Bottle) 1 gtt OU HS [facility] Last Admin: 04/16/23 20:38 Dose: 1 gtt Levothyroxine Sodium (Levothyroxine 75 Mcg Tablet) 75 mcg PO QDAY [facility] Last Admin: 04/16/23 09:00 Dose: 75 mcg Ondansetron HCl (Ondansetron 4 Mg/2 Ml Vial) 4 mg IV Q4HP PRN; Protocol PRN Reason: Nausea And Vomiting Pantoprazole Sodium (Pantoprazole 40 Mg Tablet) 40 mg PO QAMAC [facility] Last Admin: 04/17/23 07:44 Dose: 40 mg Rosuvastatin 20 Mg (Tablet) 1 dose PO HS [facility] Last Admin: 04/16/23 20:36 Dose: 1 dose Fluticasone Furoate- Vilanterol [Breo Ellipta] 200/5 Mcg Inhaler 1 dose INH QD AY [facility] Last Admin: 04/16/23 09:04 Dose: 1 dose Eplerenone (Inspra) (25 Mg) 1 dose PO DAILY [facility] Last Admin: 04/16/23 09:04 Dose: Not Given Dapagliflozin ( (Farxiga) 10 Mg) 1 dose PO DAILY [facility] Last Admin: 04/16/23 09:04 Dose: Not Given Polyethylene Glycol (Polyethylene Glycol 3350 17 Gm Packet) 17 gm PO QDAY [facility] Last Admin: 04/16/23 09:02 Dose: 17 gm Potassium Chloride (Potassium Chloride 20 Meq Tablet) [facility] Admin: 04/17/23 07:44 Dose: 40 meq Senna (Sennosides 1 Tablet) 2 tab PO HSP PRN PRN Reason: Constipation Sertraline HCl (Sertraline 50 Mg Tablet) 50 mg PO QDAY [facility] Last Admin: 04/16/23 08:57 Dose: 50 mg Sodium Chloride (0.9 % Sodium Chloride 10 Ml Syringe) 10 ml IV Q8 [facility] Last Admin: 04/17/23 05:27 Dose: 10 ml ABG Interpretation ABG results: 04/13/23 04/13/23 06:32 10:00 ABG Methemoglobin 0.3 L 0.2 L VBG pH 7.26 L 7.28 L VBG pCO2 74.5 H* 74.9 H* VBG pO2 54.9 H 45.2 H VBG HCO3 32.3 H 34.2 H VBG Total CO2 34.6 H 36.5 H VBG O2 Saturation 83.3 H 79.3 H VBG Base Excess 4 H 6 H A/P Narrative A/P Narrative: A: #Volume overload: 2/2 Nephrotic Syndrome -good uop #Acute on chronic hypercapnic respiratory failure: improved #Possible lower extremity cellulitis versus chronic venous stasis: #B/L LE venous stasis ulcers: #h/o Nephrotic range proteinuria #CKD III-IV #DM2: #COPD with chronic respiratory failure(3L O2@home): #Chronic anemia: #Hypertension: #Hypothyroidism: cont synthroid #Depression: #GERD: #Constipation: #Obstructive sleep apnea intolerant of CPAP: #Obesity: BMI 35 Plan: -Nephrology consulted for nephrotic syndrome -Bumex IV 2mg bid per nephrology then eventually to PO daily , monitor renal fxn -Ceftriaxone 2 mg IV every 24 hours for cellulitis, treat 5 to 7 days. -Oxygen supplementation, SPO2 goal 88 to 92%. -Monitor electrolytes, acid-base balance, volume status. -Last TTE was 03/23/2023, essentially normal however unable to assess left ventricular diastolic function. -Increased Lantus to 35 units at bedtime, Started Humalog 12 units with meals, - Correction Humalog SSI low-dose. -DuoNebs as needed. -Analgesics as needed. -Diltiazem per nephrology, home hydralazine. -Continue home rosuvastatin, sertraline, eplerenone, Dapagliflozin. -Holding home Tradjenta, torsemide. -PT consult. -Wound cares, Dr. Claire following -DVT prophylaxis: Heparin SQ / home ppi CODE STATUS: DNR/DNI Plan of Treatment: Plan: Continue current treatment. Time Spent With Patient Time: Total time spent is greater than 50% in coordination of care (as documented) at patient's floor/unit and/or counseling patient: Subsequent: Total time with patient: 50 - 65 Minutes QUALITY Stroke Symptom Onset Unknown: No VTE Deep Vein Thrombosis/Pulmonary Embolism Present on Admission: No
[2023-04-17] MEDS: hydrALAZINE 25 MG TABLET PO SCH ×3 (09:03→20:48)
[2023-04-17] MEDS: BUMETANIDE 1 MG/4 ML VIAL IV SCH (09:03)
[2023-04-17] MEDS: BRIMONIDINE OPHTH DROPS 1 GTT BOTTLE 5ML OU SCH ×2 (09:03→20:49)
[2023-04-17] MEDS: ACETAMINOPHEN 325 MG TABLET PO PRN (09:03)
[2023-04-17] MEDS: Fluticasone Furoate-Vilanterol [Breo Ellipta] 200/5 mcg Inhaler INH SCH (09:03)
[2023-04-17] MEDS: SERTRALINE 50 MG TABLET PO SCH (09:03)
[2023-04-17] MEDS: POLYETHYLENE GLYCOL 3350 17 GM PACKET PO SCH (09:04)
[2023-04-17] MEDS: LEVOTHYROXINE 75 MCG TABLET PO SCH (09:04)
[2023-04-17] MEDS: cefTRIAXone 2 GM in DEXTROSE 5% IN WATER 50 ML IV SCH (09:04)
[2023-04-17] MEDS: DOCUSATE SODIUM 100 MG CAPSULE PO SCH ×2 (09:04→20:47)
--- NOTE | 2023-04-17 09:22 | Nephrology Progress Note ---
SUBJECTIVE Subjective Patient information: Note initiated : 04/17/23 at 9:19 am Patient: Christine Pimentel 77 y/o M admitted on 04/12/23. Chief Complaint: Weakness Principal diagnosis: edema with nephrotic syndrome Pertinent ROS: Weakness Leg edema Mcdonough catheter with clear urine Constitutional Vitals: Vital Signs Temp Pulse Resp BP Pulse Ox O2 Del Method O2 Flow Rate 99.6 F H 85 16 157/65 95 Nasal Cannula 0.5 04/17/23 04:00 04/15/23 18:01 04/17/23 05:00 04/17/23 05:00 04/17/23 05:00 04/17/23 05:00 04/17/23 05:00 Period Temp Pulse Resp BP Sys/Jean Pulse Ox O2 Del Method O2 Flow Rate Last 24 Hr 97.4 F-99.6 F - 117-164/52-65 94-98 Nasal Cannula-Nasal C annula 0.5-0.5 Intake and Output 04/16/23 04/17/23 04/17/23 19:59 03:59 11:59 Intake Total 480 350 50 Output Total 950 1025 500 Balance -470 -675 -450 Weight 229 lb Intake & Output: Intake & Output 04/16/23 04/17/23 04/17/23 19:59 03:59 11:59 Intake Total 480 350 50 Output Total 950 1025 500 Balance -470 -675 -450 Weight 229 lb Intake: Oral 480 350 50 Output: Urine Catheter Amount 950 1025 500 Other: Meal Lunch Dinner Percent of Meal Consumed 50% 75% Feeding Ability Assist with Tray Set Up Assist with Tray Set Up Urine Appearance Clear Clear Clear Uretheral (Mcdonough) Clear Urine Color Yellow Bright Yellow Yellow Uretheral (Mcdonough) Bright Yellow Urine Odor Normal Normal # Bowel Movements 0 General appearance: cooperative and no acute distress Head Head exam: Present normal inspection Eye Eye exam: Present normal appearance ENT ENT exam: Present mucous membranes moist Respiratory Respiratory exam: Absent respiratory distress Cardiovascular Cardiovascular exam: Present normal rate and rhythm GI/Abdominal GI/Abdominal exam: Present soft; Absent tenderness Extremities Exam Extremities exam: Present pedal edema; Absent joint swelling Neurological Exam Neurological exam: Present alert and oriented X3 Psychiatric Psychiatric exam: Present normal affect and normal mood Skin Skin exam: Present warm; Absent rash A/P Assessment and plan (1) Chronic kidney disease, stage 3b: Assessment and plan: Christine Pimentel is a 77-year-old male with diabetes mellitus type 2, hypertension, chronic kidney disease stage 3b with nephrotic range proteinuria, chronic diast olic heart failure, COPD with chronic hypoxia requiring 3 L/min oxygen supplementation, obstructive sleep apnea, esophageal stricture requiring frequent esophageal dilations admitted on 04/12/23. He presented for worsening edema. 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 Work up: Urinalysis on 04/14/23: Straw, Clear, pH 8.0, SG 1.008, protein 100, blood negative, leukocyte esterase negative, urine WBC. Urine random total protein/creatinine on 04/12/23: 3,890 mg/g creatinine. 24 hour urine protein 5,318 mg/[address] Abdomen and Pelvis without contrast on 01/27/23: Multiple cysts both kidneys which demonstrate long-term stability. 14 mm cystocele urinary bladder base- stable. Mild diffuse wall thickening urinary bladder is new and suggests the possibility of cystitis or other infiltrative pathology. Labs on 10/21/21: HBsAg negative, anti-HCV Ab non reactive, C3 133.6, C4 21.7, ANCA screen negative, PLA2R 6, dsDNA Ab <1.0. Labs on 03/10/20: UPEP/MITA no abnormal protein. Labs on 02/01/20: Serum free kappa/lambda light chain ratio 2.1. Treatment: Bumex 2 mg IV Q12. Eplerenone 25 mg daily (not taking due to stomach discomfort). Empagliflozin 10 mg daily. Diltiazem 30 mg every 8 hours. Hydralazine 25 mg three times daily. Progress: Serum creatinine did not change, 1.7 to 1.8 in the past 24 hours. Baseline serum creatinine: 1.7-1.9. Urine output: 2350 ml reported in the past 24 hours. Fluid overload. I/O: -4057 ml since admit. No uremic symptoms. Discharge Recommendations: Continue: Torsemide 100 mg 1/2 tablet PO twice daily (8am and 4pm). Empagliflozin 10 mg daily. Diltiazem 30 mg every 8 hours. Hydralazine 25 mg three times daily. Outpatient nephrology follow up with Dr. Pacheco scheduled on 05/05/23. Status: Chronic Narrative Plan of Treatment: Plan: Continue current treatment. Time Spent With Patient Time: Total time spent is greater than 50% in coordination of care (as documented) at patient's floor/unit and/or counseling patient:
[2023-04-17] MEDS: BACITRACIN TOPICAL OINT 15 GM TUBE TOPICAL SCH (10:43)
[2023-04-17] MEDS: INSULIN GLARGINE, HUMAN 1 UNIT/0.01 ML SQ SCH (20:46)
[2023-04-17] MEDS: LATANOPROST OPHTH DROPS 2.5ML BOTTLE OU SCH (20:48)
[2023-04-18] MEDS: DILTIAZEM 30 MG TABLET PO SCH (06:02)
[2023-04-18] MEDS: HEPARIN 5,000 UNIT/ML VIAL SQ SCH (06:03)
[2023-04-18] MEDS: 0.9 % SODIUM CHLORIDE 10 ML SYRINGE IV SCH (06:03)
[2023-04-18 06:29] LABS: Albumin 3.2 gm/dL (3.2-5.2); Blood Urea Nitrogen 23 mg/dL (8-23); Calcium 8.8 mg/dL (8.6-10.4); Carbon Dioxide 33 mmol/L (22-30); Chloride 98 mmol/L (96-108); Glomerular Filtration Rate 35; Glucose 138 mg/dL (70-105); Phosphorous 4.1 mg/dL (2.5-4.5)
[2023-04-18] MEDS: INSULIN LISPRO 1 UNIT/0.01 ML UNIT SQ SCH ×2 (07:08)
[2023-04-18] MEDS: PANTOPRAZOLE 40 MG TABLET PO SCH (07:08)
[2023-04-18] MEDS: POTASSIUM CHLORIDE 20 MEQ TABLET PO SCH ×2 (07:08→08:59)
--- NOTE | 2023-04-18 07:31 | Nephrology Progress Note ---
SUBJECTIVE Subjective Patient information: Note initiated : 04/18/23 at 7:28 am Patient: Christine Pimentel 77 y/o M admitted on 04/12/23. Chief Complaint: Leg edema and rednesss Principal diagnosis: edema with nephrotic syndrome Pertinent ROS: Weakness Mcdonough catheter Leg edema Constitutional Vitals: Vital Signs Temp Pulse Resp BP Pulse Ox O2 Del Method O2 Flow Rate 97.6 F 84 16 165/55 99 Nasal Cannula 0.5 04/18/23 03:46 04/18/23 05:55 04/18/23 05:55 04/18/23 06:01 04/18/23 05:55 04/18/23 05:55 04/18/23 05:55 Period Temp Pulse Resp BP Sys/Jean Pulse Ox O2 Del Method O2 Flow Rate Last 24 Hr 97.4 F-98.3 F 70-84 16-20 132-179/51-78 96-100 Nasal Cannula-Nasal Cannula 0.5-0.5 Intake and Output 04/17/23 04/18/23 04/18/23 19:59 03:59 11:59 Intake Total 400 250 50 Output Total 1600 550 175 Balance -1200 -300 -125 Weight 225 lb 6.4 oz Intake & Output: Intake & Output 04/17/23 04/18/23 04/18/23 19:59 03:59 11:59 Intake Total 400 250 50 Output Total 1600 550 175 Balance -1200 -300 -125 Weight 225 lb 6.4 oz Intake: Oral 400 250 50 Output: Urine Catheter Amount 1600 550 175 Other: Meal Breakfast Dinner Percent of Meal Consumed 50% 75% Urine Appearance Clear Clear Clear Urine Color Pale Bright Yellow Bright Yellow Urine Odor Normal Normal General appearance: cooperative and no acute distress Head Head exam: Present normal inspection Eye Eye exam: Present normal appearance ENT ENT exam: Present mucous membranes moist Respiratory Respiratory exam: Absent respiratory distress Cardiovascular Cardiovascular exam: Present normal rate and rhythm GI/Abdominal GI/Abdominal exam: Present soft; Absent tenderness Extremities Exam Extremities exam: Absent joint swelling or pedal edema Neurological Exam Neurological exam: Present alert and oriented X3 Psychiatric Psychiatric exam: Present normal affect and normal mood Skin Skin exam: Present warm; Absent rash A/P Assessment and plan (1) Chronic kidney disease, stage 3b: Assessment and plan: Christine Pimentel is a 77-year-old male with diabetes mellitus type 2, hypertension, 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 He presented for worsening edema. 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 Work up: Urinalysis on 04/14/23: Straw, Clear, pH 8.0, SG 1.008, protein 100, blood negative, leukocyte esterase negative, urine WBC. Urine random total protein/creatinine on 04/12/23: 3,890 mg/g creatinine. 24 hour urine protein 5,318 mg/[address] Abdomen and Pelvis without contrast on 01/27/23: Multiple cysts both kidneys which demonstrate long-term stability. 14 mm cystocele urinary bladder base- stable. Mild diffuse wall thickening urinary bladder is new and suggests the possibility of cystitis or other infiltrative pathology. Labs on 10/21/21: HBsAg negative, anti-HCV Ab non reactive, C3 133.6, C4 21.7, ANCA screen negative, PLA2R 6, dsDNA Ab <1.0. Labs on 03/10/20: UPEP/MITA no abnormal protein. Labs on 02/01/20: Serum free kappa/lambda light chain ratio 2.1. Treatment: Bumex 2 mg IV Q12. Eplerenone 25 mg daily (not taking due to stomach discomfort). Empagliflozin 10 mg daily. Diltiazem 30 mg every 8 hours. Hydralazine 25 mg three times daily. Progress: Serum creatinine 1.7 to 1.8 since admit on 04/12/23. Baseline serum creatinine: 1.7-1.9. Urine output: 2650 ml reported in the past 24 hours. Fluid overload. I/O: -5632 ml since admit. No uremic symptoms. Discharge Recommendations: Continue: Torsemide 100 mg 1/2 tablet PO twice daily (8am and 4pm). Empagliflozin 10 mg daily. Diltiazem 30 mg every 8 hours. Hydralazine 25 mg three times daily. Outpatient nephrology follow up with Dr. Pacheco scheduled on 05/05/23. Status: Chronic Narrative Plan of Treatment: Plan: Continue current treatment. Time Spent With Patient Time: Total time spent is greater than 50% in coordination of care (as documented) at patient's floor/unit and/or counseling patient:
--- NOTE | 2023-04-18 07:36 | Internal Med Progress Note ---
SUBJECTIVE Subjective Patient information: Note initiated : 04/18/23 at 7:34 am Service Date, if different from initiated Date: [] Patient: Christine Pimentel 77 y/o M admitted on 04/12/23. Chief Complaint: [] Principal diagnosis: edema with nephrotic syndrome Interval history: Mr. Pimentel is a 77 year old male with a history of type 2 diabetes mellitus, hypertension, chronic kidney disease stage III-IV complicated by history of nephrotic range proteinuria, chronic diastolic heart failure, COPD with chronic hypoxia requiring 3 L/min oxygen supplementation, obstructive sleep apnea, esophageal stricture requiring frequent esophageal dilations presented to the emergency department for bilateral lower extremity swelling and pain. The patient was recently hospitalized at [facility] for hypertensive urgency, pneumonia, congestive heart failure and lactic acidosis. During the hospitalization, the patient received antibiotics, ceftriaxone and azithromycin, systemic steroids, his home antihypertensives were resumed and IV a ntihypertensives were given as needed. Home diuretics were held. A transthoracic echocardiogram showed LVEF of 60 to 65% and was essentially normal. The patient did have steroid-induced hyperglycemia managed with additional insulin. The patient was discharged home on 03/24/2023. He says that his leg edema has has worsened since discharging from the hospital. On examination, the patient has bilateral lower extremity pitting edema, venous stasis ulcers, erythema in bilateral lower extremity as well that is quite tender to touch. The patient is afebrile in the ED, no leukocytosis, both CRP and procalcitonin have improved since they were last checked during the hospitalization. Additionally, the patient's renal function appears to be at his baseline. The patient received 1 dose of IV Bumex 1 mg in the ED. He also received vancomycin IV once. 04/13. Vitals notable for moderate hypertension overnight, weaned down to 1 L/min nasal cannula. Hemoglobin stable, renal function stable, VBG showed PCO2 of 74.5 and pH of 7.26. Patient was started on BiPAP however did not tolerate it therefore removed. Repeat VBG showed a modest improvement of pH to 7.28. BNP was normal. Urine protein creatinine ratio elevated, 3.89. Placed Mcdonough catheter, start 24-hour urine collection. Anasarca may be secondary to nephrotic syndrome. Bumex increased to 2 mg IV twice daily. Started ceftriax one 2 mg IV every 24 hours for possible lower extremity cellulitis. Started Norvasc 5 mg daily for hypertension. Patient is also on hydralazine which he probably takes at home. Home medication reconciliation still not completed as the patient does not know his medications well. Dr. Joya following for wound cares. 04/14. No significant events overnight, blood pressure continues to be moderately elevated. Oxygen supplementation weaned down to .5 L/min. The patient feels better, leg edema improved. Renal function stable. Continues 24-hour urine protein collection. Potassium replaced. Continues Bumex 2 mg IV twice daily. Increase Lantus to 25 units at bedtime. Nephrology consulted for nephrotic syndrome. 04/15. Patient tachycardic overnight, sinus tachycardia. Seems to be diuresing well, significant improvement in bilateral lower extremity edema. Renal function stable today. 24-hour urine protein was 5318.8 consistent with nephrotic syndrome. Nephrology saw the patient yesterday, recommended continuing IV Bumex, resumed home eplerenone and started oral diltiazem, disc ontinued Norvasc. We will continue Bumex 2 mg IV twice daily today then reassess volume status and renal function tomorrow to decide whether or not to transition to oral diuretic treatment at that time. Increased Lantus to 35 units at bedtime, start prandial Humalog 12 units AC and reduce sliding scale to low-dose. Resumed home Jardiance however the patient will have to obtain this from his home supply as it is not formulary. 04/16 Patient responded well to Bumex with good urine output over the past few days. We will give Bumex once today and follow-up urine output. Continue recs per nephrology. Seen by Alethea for lower extremity wounds. 04/17 No overnight event or new complaints. Good diuresis with Bumex. Nephrology following. BUN/creatinine stable. Review of Systems: denies headache/fever/chills/nausea/vomiting/chest or abdominal pain/cough/dyspnea/diarrhea. Otherwise see above. PHYSICAL EXAM General: Alert, Awake, No acute Distress, obese Eyes/N/T: EOMI, no scleral icterus, Head/Neck: neck supple, full ROM, CV: RRR, No murmurs, Pulm: Clear b/l, no wheezing/rhonchi/rales, no respiratory distress, supp O2 Abd: soft, nontender, +BS x4 Ext: no clubbing/cyanosis, b/l LE trace edema, nontender Neuro: Alert, no focal deficits, moves all extremities, , sensations intact b/l upper/lower Psychiatric: Skin: Weeping wounds bilateral lower extremity secondary to venous stasis ulcers, bilateral lower extremity erythema. Constitutional Vitals: Vital Signs Temp Pulse Resp BP Pulse Ox O2 Del Method O2 Flow Rate 97.6 F 84 16 165/55 99 Nasal Cannula 0.5 04/18/23 03:46 04/18/23 05:55 04/18/23 05:55 04/18/23 06:01 04/18/23 05:55 04/18/23 05:55 04/18/23 05:55 Period Temp Pulse Resp BP Sys/Jean Pulse Ox O2 Del Method O2 Flow Rate Last 24 Hr 97.4 F-98.3 F 70-84 16-20 132-179/51-78 96-100 Nasal Cannula-Nasal Cannula 0.5-0.5 Intake and Output 04/17/23 04/18/23 04/18/23 19:59 03:59 11:59 Intake Total 400 250 50 Output Total 1600 550 175 Balance -1200 -300 -125 Weight 102.24 kg Intake & Output: Intake & Output 04/17/23 04/18/23 04/18/23 19:59 03:59 11:59 Intake Total 400 250 50 Output Total 1600 550 175 Balance -1200 -300 -125 Weight 102.24 kg Intake: Oral 400 250 50 Output: Urine Catheter Amount 1600 550 175 Other: Meal Breakfast Dinner Percent of Meal Consumed 50% 75% Urine Appearance Clear Clear Clear Urine Color Pale Bright Yellow Bright Yellow Urine Odor Normal Normal OBJ DATA Labs 04/15/23 05:21 04/18/23 05:12 Labs: Abnormal Lab Results 04/18/23 04/17/23 04/17/23 05:12 05:29 05:29 Carbon Dioxide 33 H 32 H 31 H Anion Gap 7.0 L Creatinine 1.8 H 1.7 H 1.8 H Glucose 138 H 137 H 137 H Alkaline Phosphatase 38 L 04/16/23 05:20 Carbon Dioxide 33 H Anion Gap Creatinine 1.8 H Glucose 182 H Alkaline Phosphatase Meds: Medications Acetaminophen (Acetaminophen 325 Mg Tablet) 650 mg PO Q6HP PRN; Protocol PRN Reason: Per Pain Protocol/Fever > 101 Last Admin: 04/17/23 09:03 Dose: 650 mg Hydrocodone Bitart/Acetaminophen (Hydrocodone/Apap 5/325mg Tablet) 1 tab PO Q4HP PRN; Protocol PRN Reason: Per Pain Protocol Last Admin: 04/16/23 11:09 Dose: 1 tab Albuterol Sulfate (Albuterol Sulfate 2.5 Mg/3 Ml Nebulizer) 2.5 mg NEB Q2HP PRN PRN Reason: Shortness Of Breath Albuterol/Ipratropium (Ipratropium/Albuterol 3 Ml Ampul.Neb) 3 ml NEB Q6HP PRN PRN Reason: Dyspnea or wheezing Bacitracin (Bacitracin Topical Oint 15 Gm Tube) 1 dose TOPICAL UD [facility] Last Admin: 04/17/23 10:43 Dose: 1 applic Brimonidine Tartrate (Brimonidine Ophth Drops 1 Gtt Bottle 5ml) 1 gtt OU BID [facility] Last Admin: 04/17/23 20:49 Dose: 1 drop Dextrose (Dextrose 50% 50 Ml Vial) 0 ml IV UD PRN PRN Reason: Per Sliding Scale Diagnostic Test (Pha) (Accu-Chek 1 Each Strip) 1 each FS ACHS [facility] Last Admin: 04/18/23 07:02 Dose: 1 each Diltiazem HCl (Diltiazem 30 Mg Tablet) 30 mg PO Q8 [facility] Last Admin: 04/18/23 06:02 Dose: 30 mg Docusate Sodium (Docusate Sodium 100 Mg Capsule) 100 mg PO BID [facility] Last Admin: 04/17/23 20:47 Dose: 100 mg Glucose (Dextrose 31 Gm Oral.Susp) 15 gm PO PRN PRN PRN Reason: Hypoglycemia Heparin Sodium (Porcine) (Heparin 5,000 Unit/Ml Vial) 5,000 unit SQ Q8H [facility] Last Admin: 04/18/23 06:03 Dose: 5,000 unit Hydralazine HCl (Hydralazine 25 Mg Tablet) 25 mg PO TID [facility] Last Admin: 04/17/23 20:48 Dose: 25 mg Hydromorphone HCl (Hydromorphone 0.5 Mg/0.5 Ml Syringe) 0.2 mg IV Q6HP PRN; Protocol PRN Reason: Per Pain Protocol Last Admin: 07/15/23 21:30 Dose: 0.2 mg Ceftriaxone Sodium 2 gm/ (Dextrose) 50 mls @ 100 mls/hr IV Q24H [facility]; Protocol Last Infusion: 04/17/23 09:35 Dose: Infused Insulin Glargine (Insulin Glargine, Human 1 Unit/0.01 Ml) 35 unit SQ HS [facility] Last Admin: 04/17/23 20:46 Dose: 35 units Insulin Human Lispro (Insulin Lispro 1 Unit/0.01 Ml Unit) 0 unit SQ ACHS [facility]; Protocol Last Admin: 04/18/23 07:08 Dose: 3 units Insulin Human Lispro (Insulin Lispro 1 Unit/0.01 Ml Unit) 12 unit SQ AC [facility] Last Admin: 04/18/23 07:08 Dose: 12 units Labetalol HCl (Labetalol 5 Mg/Ml Ml) 0 mg IV Q2HP PRN PRN Reason: Hypertension Last Admin: 04/18/23 00:04 Dose: 20 mg Lactulose (Lactulose 20 Gm/30 Ml Oral.Leila) 10 gm PO DAILYP PRN PRN Reason: Constipation Latanoprost (Latanoprost Ophth Drops 2.5ml Bottle) 1 gtt OU [facility] Last Admin: 04/17/23 20:48 Dose: 1 gtt Levothyroxine Sodium (Levothyroxine 75 Mcg Tablet) 75 mcg PO QDAY [facility] Last Admin: 04/17/23 09:04 Dose: 75 mcg Ondansetron HCl (Ondansetron 4 Mg/2 Ml Vial) 4 mg IV Q4HP PRN; Protocol PRN Reason: Nausea And Vomiting Pantoprazole Sodium (Pantoprazole 40 Mg Tablet) 40 mg PO QAMAC [facility] Last Admin: 04/18/23 07:08 Dose: 40 mg Rosuvastatin 20 Mg (Tablet) 1 dose PO [facility] Last Admin: 04/17/23 20:48 Dose: 1 dose Fluticasone Furoate- Vilanterol [Breo Ellipta] 200/5 Mcg Inhaler 1 dose INH QDAY [facility] Last Admin: 04/17/23 09:03 Dose: 1 dose Eplerenone (Inspra) (25 Mg) 1 dose PO DAILY [facility] Last Admin: 04/17/23 09:04 Dose: Not Given Dapagliflozin ( (Farxiga) 10 Mg) 1 dose PO DAILY [facility] Last Admin: 04/17/23 09:04 Dose: Not Given Polyethylene Glycol (Polyethylene Glycol 3350 17 Gm Packet) 17 gm PO QDAY [facility] Last Admin: 04/17/23 09:04 Dose: 17 gm Potassium Chloride (Potassium Chloride 20 Meq Tablet) [facility] Admin: 04/18/23 07:08 Dose: 40 meq Senna (Sennosides 1 Tablet) 2 tab PO HSP PRN PRN Reason: Constipation Sertraline HCl (Sertraline 50 Mg Tablet) 50 mg PO QDAY [facility] Last Admin: 04/17/23 09:03 Dose: 50 mg Sodium Chloride (0.9 % Sodium Chloride 10 Ml Syringe) 10 ml IV Q8 [facility] Last Admin: 04/18/23 06:03 Dose: 10 ml ABG Interpretation ABG results: 04/13/23 04/13/23 06:32 10:00 ABG Methemoglobin 0.3 L 0.2 L VBG pH 7.26 L 7.28 L VBG pCO2 74.5 H* 74.9 H* VBG pO2 54.9 H 45.2 H VBG HCO3 32.3 H 34.2 H VBG Total CO2 34.6 H 36.5 H VBG O2 Saturation 83.3 H 79.3 H VBG Base Excess 4 H 6 H A/P Narrative A/P Narrative: A: #Volume overload: 2/2 Nephrotic Syndrome -good uop #Acute on chronic hypercapnic respiratory failure: improved #Possible lower extremity cellulitis versus chronic venous stasis: #B/L LE venous stasis ulcers: #h/o Nephrotic range proteinuria #CKD III-IV #DM2: #COPD with chronic respiratory failure(3L O2@home): #Chronic anemia: #Hypertension: #Hypothyroidism: cont synthroid #Depression: #GERD: #Constipation: #Obstructive sleep apnea intolerant of CPAP: #Obesity: BMI 35 Plan: -Nephrology consulted for nephrotic syndrome -Bumex IV 2mg bid per nephrology then eventually to PO daily , monitor renal fxn -Ceftriaxone 2 mg IV every 24 hours for cellulitis, treat 5 to 7 days. -Oxygen supplementation, SPO2 goal 88 to 92%. -Monitor electrolytes, acid-base balance, volume status. -Last TTE was 03/23/2023, essentially normal however unable to assess left ventricular diastolic function. -Increased Lantus to 35 units at bedtime, Started Humalog 12 units with meals, - Correction Humalog SSI low-dose. -DuoNebs as needed. -Analgesics as needed. -Diltiazem per nephrology, home hydralazine. -Continue home rosuvastatin, sertraline, eplerenone, Dapagliflozin. -Holding home Tradjenta, torsemide. -PT consult. -Wound cares, Dr. Claire following -DVT prophylaxis: Heparin SQ / home ppi CODE STATUS: DNR/DNI Plan of Treatment: Plan: Continue current treatment. Time Spent With Patient Time: Total time spent is greater than 50% in coordination of care (as documented) at patient's floor/unit and/or counseling patient: QUALITY Stroke Symptom Onset Unknown: No VTE Deep Vein Thrombosis/Pulmonary Embolism Present on Admission: No
[2023-04-18] MEDS: DOCUSATE SODIUM 100 MG CAPSULE PO SCH (08:10)
[2023-04-18] MEDS: SERTRALINE 50 MG TABLET PO SCH (08:10)
[2023-04-18] MEDS: POLYETHYLENE GLYCOL 3350 17 GM PACKET PO SCH (08:10)
[2023-04-18] MEDS: hydrALAZINE 25 MG TABLET PO SCH (08:10)
[2023-04-18] MEDS: LEVOTHYROXINE 75 MCG TABLET PO SCH (08:11)
[2023-04-18] MEDS: cefTRIAXone 2 GM in DEXTROSE 5% IN WATER 50 ML IV SCH (08:17)
[2023-04-18] MEDS: Fluticasone Furoate-Vilanterol [Breo Ellipta] 200/5 mcg Inhaler INH SCH (08:18)
[2023-04-18] MEDS: BRIMONIDINE OPHTH DROPS 1 GTT BOTTLE 5ML OU SCH (08:18)
[2023-04-18] MEDS ORDERED: BUMETANIDE 1 MG TABLET PO ONE (08:39)
== END 2023-04-18 11:05 | disposition home health service (06) | DRG 698 ==
LOC: ED 14:49 → ICU 21:57
PROVIDERS: ADMIT Internal Medicine; ATTEND Internal Medicine

== ENCOUNTER 2023-11-10 22:58 | Inpatient (IN) ==
[2023-11-10] MEDS: ONDANSETRON 4 MG/2 ML VIAL IV ONE (23:50)
[2023-11-11 00:09] LABS: ALT/SGPT < 5 U/L (<40); AST/SGOT 16 U/L (<40); Albumin 3.8 gm/dL (3.2-5.2); Alkaline Phosphatase 46 U/L (39-117); Bilirubin,Total 0.2 mg/dL (0.1-1.0); Blood Urea Nitrogen 30 mg/dL (8-23); Calcium 9.3 mg/dL (8.6-10.4); Carbon Dioxide 35 mmol/L (22-30); Chloride 96 mmol/L (96-108); Globulin 3.9 gm/dL (2.2-3.7); Glomerular Filtration Rate 31; Glucose 142 mg/dL (70-105)
[2023-11-11] MEDS: IPRATROPIUM/ALBUTEROL 3 ML AMPUL.NEB NEB ONE ×3 (00:13→01:15)
[2023-11-11 00:21] LABS: Basophils # (Auto) 0.07 K/mcL (0.00-0.30); Basophils % (Auto) 0.3 % (0.0-2.0); Eosinophils # (Auto) 0.48 K/mcL (0.00-0.70); Eosinophils % (Auto) 2.4 % (0.0-7.0); Hematocrit 29.7 % (40.1-51.0); Hemoglobin 9.1 g/dL (13.7-17.5); Lymphocytes # (Auto) 1.75 K/mcL (1.50-4.80); Lymphocytes % (Auto) 8.6 % (15.5-49.0); Mean Cell Volume 98.3 fL (80.0-100.0); Mean Corpuscular HGB Conc 30.6 g/dL (31.0-36.0); Mean Platelet Volume 8.8 fL (8.8-12.5); Monocytes # (Auto) 1.53 K/mcL (0.10-0.90); Monocytes % (Auto) 7.5 % (1.0-12.0); Neutrophils % (Auto) 80.8 % (38.0-78.0); Platelet Count 305 K/mcL (140-440); RBC 3.02 M/mcL (4.63-6.08); Red Cell Distribution Width 11.7 % (11.5-14.5); WBC 20.3 K/mcL (4.5-11.0)
[2023-11-11] MEDS: 0.9 % SODIUM CHLORIDE 1,000 ML IV SCH (00:54)
[2023-11-11] MEDS: 0.9 % SODIUM CHLORIDE 1,000 ML IV ONE (00:54)
[2023-11-11] MEDS: ACETAMINOPHEN 1,000 MG/100 ML BAG IV ONE (01:46)
[2023-11-11] MEDS: PIPERACILLIN SODIUM/TAZOBACTAM 3.375 GM in DEXTROSE 5% IN WATER 50 ML IV ONE (01:47)
[2023-11-11] MEDS ORDERED: DEXTROSE 50% 50 ML VIAL IV PRN (02:31)
[2023-11-11] MEDS ORDERED: DEXTROSE 31 GM ORAL.SUSP PO PRN (02:31)
[2023-11-11 03:23] LABS: Appearance,Urine CLEAR (Clear); Bilirubin,Urine Negative (Negative); Color,Urine YELLOW; Culture Indicated,Urine No; Glucose,Urine (UA) >=500 mg/dL (Negative); Ketones,Urine Negative (Negative); Leukocyte Esterase,Urine Negative /uL (Negative); Mucus,Urine FEW /hpf; Nitrate,Urine Negative (Negative); Protein,Urine >=500 mg/dL (Negative); Specific Gravity,Urine 1.011 (1.000-1.035); Urine Amorphous Crystals FEW /hpf; Urine Blood Negative (Negative); Urine Hyaline Cast 1 /lph (0-2); Urine RBC < 1 /hpf (0-3); Urine Squamous Epithelial Cell 0 /hpf (0-4); Urine WBC < 1 /hpf (0-4); Urobilinogen,Urine Negative
[2023-11-11] MEDS: AZITHROMYCIN 500 MG in DEXTROSE 5% IN WATER 250 ML IV SCH (07:01)
[2023-11-11] MEDS: IPRATROPIUM/ALBUTEROL 3 ML AMPUL.NEB NEB SCH (07:22)
[2023-11-11] MEDS: INSULIN LISPRO 1 UNIT/0.01 ML UNIT SQ SCH (08:02)
[2023-11-11] MEDS: CEFEPIME 2 GM VIAL IV SCH (08:02)
[2023-11-11] MEDS ORDERED: FUROSEMIDE 40 MG/4 ML VIAL IV SCH (08:50)
[2023-11-11] MEDS: HEPARIN 5,000 UNIT/ML VIAL SQ SCH (09:31)
[2023-11-11] MEDS: methylPREDNISolone SOD SUCC 125 MG/2 ML VIAL IV SCH (09:32)
[2023-11-11] MEDS: BUMETANIDE 1 MG/4 ML VIAL IV SCH (09:32)
[2023-11-11] MEDS: INSULIN GLARGINE, HUMAN 1 UNIT/0.01 ML SQ SCH (09:32)
[2023-11-11] MEDS: POLYETHYLENE GLYCOL 3350 17 GM PACKET PO SCH (10:56)
[2023-11-11] MEDS: HYDROcodone/APAP 5/325MG TABLET PO PRN (13:42)
[2023-11-12] MEDS: ACETAMINOPHEN 500 MG TABLET PO PRN (00:04)
[2023-11-12] MEDS: hydrOXYzine 25 MG TABLET PO PRN ×2 (00:05→07:51)
[2023-11-12 06:18] LABS: Basophils # (Auto) 0 K/mcL (0.00-0.30); Basophils % (Auto) 0 % (0.0-2.0); Eosinophils # (Auto) 0 K/mcL (0.00-0.70); Eosinophils % (Auto) 0 % (0.0-7.0); Hematocrit 28.6 % (40.1-51.0); Hemoglobin 8.5 g/dL (13.7-17.5); Lymphocytes % (Auto) 8.5 % (15.5-49.0); Mean Cell Volume 102.1 fL (80.0-100.0); Mean Corpuscular HGB Conc 29.7 g/dL (31.0-36.0); Mean Platelet Volume 8.6 fL (8.8-12.5); Monocytes # (Auto) 0.91 K/mcL (0.10-0.90); Monocytes % (Auto) 5.2 % (1.0-12.0); Neutrophils % (Auto) 85.8 % (38.0-78.0); Platelet Count 293 K/mcL (140-440); Red Cell Distribution Width 11.3 % (11.5-14.5); WBC 17.6 K/mcL (4.5-11.0)
[2023-11-12 06:45] LABS: ALT/SGPT < 5 U/L (<40); AST/SGOT 10 U/L (<40); Albumin 3.6 gm/dL (3.2-5.2); Alkaline Phosphatase 41 U/L (39-117); Bilirubin,Direct < 0.2 mg/dL (0-0.3); Bilirubin,Total 0.2 mg/dL (0.1-1.0); Blood Urea Nitrogen 35 mg/dL (8-23); Calcium 8.9 mg/dL (8.6-10.4); Carbon Dioxide 35 mmol/L (22-30); Chloride 93 mmol/L (96-108); Globulin 3.7 gm/dL (2.2-3.7); Glomerular Filtration Rate 27; Glucose 271 mg/dL (70-105); Lactate Dehydrogenase 125 U/L (135-225); Phosphorous 5.4 mg/dL (2.5-4.5); Triglycerides 93 mg/dL (<150); Uric Acid 7.9 mg/dL (2.5-8.0)
[2023-11-12] MEDS ORDERED: NON FORMULARY MEDICATION 1 DOSE MISCELL (Hydroxyzine Pamoate 25 mg capsule) PO PRN (07:00)
[2023-11-12] MEDS: PANTOPRAZOLE 40 MG TABLET PO SCH (07:50)
[2023-11-12] MEDS: acetaZOLAMIDE SOD 500 MG VIAL IV SCH (08:34)
[2023-11-12] MEDS: INSULIN LISPRO 1 UNIT/0.01 ML UNIT SQ SCH ×2 (08:37→11:43)
[2023-11-12] MEDS: INSULIN GLARGINE, HUMAN 1 UNIT/0.01 ML SQ SCH (08:38)
[2023-11-12] MEDS: POLYETHYLENE GLYCOL 3350 17 GM PACKET PO SCH (08:39)
[2023-11-12] MEDS: BRIMONIDINE OPHTH DROPS 1 GTT BOTTLE 5ML OU SCH (08:53)
[2023-11-12] MEDS ORDERED: ONDANSETRON 4 MG/2 ML VIAL IV PRN (10:39)
[2023-11-12] MEDS: DILTIAZEM 30 MG TABLET PO SCH (14:10)
[2023-11-12] MEDS: 0.9 % SODIUM CHLORIDE 10 ML SYRINGE IV SCH (14:11)
[2023-11-12] MEDS: ALBUTEROL SULFATE 2.5 MG/3 ML NEBULIZER NEB PRN (14:21)
[2023-11-12] MEDS: SENNOSIDES 1 TABLET PO SCH (21:26)
[2023-11-12] MEDS: DOCUSATE SODIUM 100 MG CAPSULE PO SCH (21:27)
[2023-11-12] MEDS: hydrALAZINE 25 MG TABLET PO SCH (21:27)
[2023-11-12] MEDS: LATANOPROST OPHTH DROPS 2.5ML BOTTLE OU SCH (21:28)
[2023-11-13 06:11] LABS: ALT/SGPT < 40 U/L (<40); AST/SGOT 14 U/L (<40); Albumin 3.2 gm/dL (3.2-5.2); Albumin/Globulin Ratio 0.9 (1.0-2.3); Alkaline Phosphatase 34 U/L (39-117); Bilirubin,Direct < 0.2 mg/dL (0-0.3); Bilirubin,Total < 0.2 mg/dL (0.1-1.0); Blood Urea Nitrogen 42 mg/dL (8-23); Calcium 8.6 mg/dL (8.6-10.4); Carbon Dioxide 33 mmol/L (22-30); Chloride 94 mmol/L (96-108); Globulin 3.5 gm/dL (2.2-3.7); Glomerular Filtration Rate 27; Glucose 308 mg/dL (70-105); Lactate Dehydrogenase 188 U/L (135-225); Triglycerides 104 mg/dL (<150)
[2023-11-13] MEDS: predniSONE 20 MG TABLET PO SCH (07:28)
[2023-11-13] MEDS: LEVOTHYROXINE 75 MCG TABLET PO SCH (07:29)
[2023-11-13 08:14] LABS: Basophils # (Auto) 0.02 K/mcL (0.00-0.30); Basophils % (Auto) 0.1 % (0.0-2.0); Eosinophils # (Auto) 0.02 K/mcL (0.00-0.70); Eosinophils % (Auto) 0.1 % (0.0-7.0); Hemoglobin 7.7 g/dL (13.7-17.5); Lymphocytes # (Auto) 1.64 K/mcL (1.50-4.80); Lymphocytes % (Auto) 10.2 % (15.5-49.0); Mean Cell Volume 97.7 fL (80.0-100.0); Mean Corpuscular HGB Conc 30.8 g/dL (31.0-36.0); Mean Platelet Volume 9.6 fL (8.8-12.5); Monocytes % (Auto) 5.6 % (1.0-12.0); Neutrophils % (Auto) 83.1 % (38.0-78.0); Platelet Count 316 K/mcL (140-440); RBC 2.56 M/mcL (4.63-6.08); Red Cell Distribution Width 11.7 % (11.5-14.5); WBC 16.1 K/mcL (4.5-11.0)
[2023-11-13] MEDS ORDERED: BUMETANIDE 1 MG/4 ML VIAL IV SCH (09:00)
[2023-11-13] MEDS: BUMETANIDE 1 MG/4 ML VIAL IV SCH (09:35)
[2023-11-13] MEDS: INSULIN GLARGINE, HUMAN 1 UNIT/0.01 ML SQ SCH (09:38)
[2023-11-13] MEDS: FLUTICASONE FUROATE VILANTEROL INH SCH (10:36)
[2023-11-13] MEDS: INSULIN LISPRO 1 UNIT/0.01 ML UNIT SQ SCH ×2 (11:44)
[2023-11-13 19:05] LABS: ABG Methemoglobin 0.4 % (0.4-1.5); Total Hemoglobin 9.6 gm/Dl (13.5-16.5); VBG Base Excess 7 (-2-3); VBG HCO3 35.1 mmol/L (24.0-28.0); VBG Oxygen Saturation 87.2 % (40.0-70.0); VBG PCO2 72.9 mmHg (41.0-51.0); VBG PO2 57.9 mmHg (25.0-40.0); VBG Total CO2 37.3 mmol/L (25.0-29.0)
[2023-11-13 21:56] LABS: ABG Methemoglobin 0.2 % (0.4-1.5); Total Hemoglobin 9.8 gm/Dl (13.5-16.5); VBG Base Excess 11 (-2-3); VBG HCO3 36.4 mmol/L (24.0-28.0); VBG Oxygen Saturation 89.5 % (40.0-70.0); VBG PCO2 52.1 mmHg (41.0-51.0); VBG PH 7.46 U (7.32-7.42); VBG PO2 59.8 mmHg (25.0-40.0)
[2023-11-13] MEDS: DEXMEDETOMIDINE 400 MCG in PREMIX 1 BAG IV SCH (23:02)
[2023-11-13] MEDS: DEXMEDETOMIDINE 100 ML IV ONE (23:10)
[2023-11-14] MEDS: MINERAL OIL 1 DOSE ENEMA PR ONE (04:45)
[2023-11-14 05:34] LABS: Basophils # (Auto) 0.02 K/mcL (0.00-0.30); Basophils % (Auto) 0.1 % (0.0-2.0); Eosinophils # (Auto) 0 K/mcL (0.00-0.70); Eosinophils % (Auto) 0 % (0.0-7.0); Hemoglobin 7.9 g/dL (13.7-17.5); Lymphocytes # (Auto) 2.92 K/mcL (1.50-4.80); Lymphocytes % (Auto) 15.8 % (15.5-49.0); Mean Cell Volume 100.4 fL (80.0-100.0); Mean Corpuscular HGB Conc 30.4 g/dL (31.0-36.0); Mean Platelet Volume 8.8 fL (8.8-12.5); Monocytes # (Auto) 1.75 K/mcL (0.10-0.90); Monocytes % (Auto) 9.5 % (1.0-12.0); Neutrophils % (Auto) 74.3 % (38.0-78.0); Platelet Count 320 K/mcL (140-440); RBC 2.59 M/mcL (4.63-6.08); Red Cell Distribution Width 11.7 % (11.5-14.5); WBC 18.5 K/mcL (4.5-11.0)
[2023-11-14 05:51] LABS: ABG Methemoglobin 0.3 % (0.4-1.5); Total Hemoglobin 9.3 gm/Dl (13.5-16.5); VBG Base Excess 10 (-2-3); VBG HCO3 36.5 mmol/L (24.0-28.0); VBG Oxygen Saturation 85.9 % (40.0-70.0); VBG PCO2 61.2 mmHg (41.0-51.0); VBG PH 7.39 U (7.32-7.42); VBG PO2 54.5 mmHg (25.0-40.0); VBG Total CO2 38.3 mmol/L (25.0-29.0)
[2023-11-14 06:11] LABS: ALT/SGPT < 5 U/L (<40); AST/SGOT 14 U/L (<40); Albumin 3.5 gm/dL (3.2-5.2); Albumin/Globulin Ratio 1.1 (1.0-2.3); Alkaline Phosphatase 34 U/L (39-117); Bilirubin,Direct < 0.2 mg/dL (0-0.3); Bilirubin,Total < 0.2 mg/dL (0.1-1.0); Blood Urea Nitrogen 49 mg/dL (8-23); Carbon Dioxide 35 mmol/L (22-30); Chloride 95 mmol/L (96-108); Globulin 3.3 gm/dL (2.2-3.7); Glomerular Filtration Rate 27; Glucose 155 mg/dL (70-105); Lactate Dehydrogenase 125 U/L (135-225); Phosphorous 3.4 mg/dL (2.5-4.5); Triglycerides 113 mg/dL (<150); Uric Acid 8.3 mg/dL (2.5-8.0)
[2023-11-14] MEDS: IPRATROPIUM/ALBUTEROL 3 ML AMPUL.NEB NEB SCH (08:27)
[2023-11-14] MEDS: LEVOFLOXACIN 750 MG TABLET PO SCH ×2 (11:46→12:01)
[2023-11-14] MEDS: BUMETANIDE 1 MG TABLET PO SCH (12:05)
[2023-11-15] MEDS: LACTULOSE 20 GM/30 ML ORAL.SOL PO SCH (09:22)
[2023-11-15] MEDS: HYDROmorphone 0.5 MG/0.5 ML SYRINGE IV PRN (10:40)
== END 2023-11-15 14:50 | DRG 190 ==
LOC: ED 22:58 → ICU 11-11 03:13
PROVIDERS: ADMIT Internal Medicine; ATTEND Internal Medicine

== ENCOUNTER 2024-07-15 20:23 | Inpatient (IN) ==
[2024-07-15] MEDS ORDERED: IOPAMIDOL 100 ML BOTTLE IV ONE (20:24)
[2024-07-15 21:04] LABS: Basophils # (Auto) 0.04 K/mcL (0.00-0.30); Basophils % (Auto) 0.2 % (0.0-2.0); Eosinophils # (Auto) 0.16 K/mcL (0.00-0.70); Eosinophils % (Auto) 0.8 % (0.0-7.0); Hematocrit 37.1 % (40.1-51.0); Hemoglobin 12.2 g/dL (13.7-17.5); Lymphocytes # (Auto) 2.29 K/mcL (1.50-4.80); Lymphocytes % (Auto) 11.7 % (15.5-49.0); Mean Cell Volume 95.4 fL (80.0-100.0); Mean Corpuscular HGB Conc 32.9 g/dL (31.0-36.0); Mean Platelet Volume 8.6 fL (8.8-12.5); Monocytes # (Auto) 1.31 K/mcL (0.10-0.90); Monocytes % (Auto) 6.7 % (1.0-12.0); Neutrophils % (Auto) 80.4 % (38.0-78.0); Platelet Count 288 K/mcL (140-440); RBC 3.89 M/mcL (4.63-6.08); Red Cell Distribution Width 11.9 % (11.5-14.5); WBC 19.6 K/mcL (4.5-11.0)
[2024-07-15] MEDS: cefTRIAXone 1 GM VIAL IV ONE (21:16)
[2024-07-15] MEDS: ONDANSETRON 4 MG/2 ML VIAL IV ONE (21:16)
[2024-07-15 21:18] LABS: ALT/SGPT 11 U/L (<40); AST/SGOT 18 U/L (<40); Albumin/Globulin Ratio 1.2 (1.0-2.3); Alkaline Phosphatase 55 U/L (39-117); Bilirubin,Total 0.2 mg/dL (0.1-1.0); Blood Urea Nitrogen 17 mg/dL (8-23); Calcium 8.5 mg/dL (8.6-10.4); Carbon Dioxide 26 mmol/L (22-30); Chloride 95 mmol/L (96-108); Globulin 3.3 gm/dL (2.2-3.7); Glomerular Filtration Rate 35; Glucose 230 mg/dL (70-105); Potassium 3.7 mmol/L (3.3-5.1); Sodium 136 mmol/L (133-145)
[2024-07-15] MEDS: AZITHROMYCIN 500 MG in DEXTROSE 5% IN WATER 250 ML IV ONE (21:26)
[2024-07-15] MEDS: ACETAMINOPHEN 1,000 MG/100 ML BAG IV ONE (21:37)
[2024-07-15] MEDS: LACTATED RINGERS 1,000 ML IV ONE (22:10)
[2024-07-15] MEDS ORDERED: DEXTROSE 50% 50 ML VIAL IV PRN (23:23)
[2024-07-15] MEDS ORDERED: LABETALOL HCL 20 MG/4 ML VIAL IV PRN (23:23)
[2024-07-15] MEDS ORDERED: POTASSIUM CHLORIDE 40 MEQ in DEXTROSE 5% IN WATER 500 ML IV PRN (23:23)
[2024-07-15] MEDS ORDERED: chlordiazePOXIDE 25 MG CAPSULE PO PRN (23:23)
[2024-07-15] MEDS ORDERED: SENNOSIDES 1 TABLET PO PRN (23:23)
[2024-07-15] MEDS ORDERED: POTASSIUM CHLORIDE 20 MEQ TABLET PO PRN ×2 (23:23)
[2024-07-15] MEDS ORDERED: MAGNESIUM SULFATE 2 GM/50 ML BAG IV PRN (23:23)
[2024-07-15] MEDS ORDERED: LORazepam 2 MG/ML VIAL IV PRN (23:23)
[2024-07-15] MEDS ORDERED: POLYETHYLENE GLYCOL 3350 17 GM PACKET PO PRN (23:23)
[2024-07-15] MEDS ORDERED: DEXTROSE 31 GM ORAL.SUSP PO PRN (23:23)
[2024-07-15] MEDS ORDERED: cloNIDine HCL 0.1 MG TABLET PO PRN (23:23)
[2024-07-15] MEDS ORDERED: METOCLOPRAMIDE 10 MG/2 ML VIAL IV PRN (23:23)
[2024-07-16] MEDS: IPRATROPIUM/ALBUTEROL 3 ML AMPUL.NEB NEB PRN (00:07)
[2024-07-16] MEDS: BUDESONIDE 0.5 MG/2 ML AMPUL.NEB NEB SCH (00:07)
[2024-07-16] MEDS: IPRATROPIUM/ALBUTEROL 3 ML AMPUL.NEB NEB ONE (00:08)
[2024-07-16] MEDS: BUDESONIDE 0.5 MG/2 ML AMPUL.NEB ONE (00:08)
[2024-07-16 00:09] LABS: Estimated Average Glucose(eAG) 194 mg/dL; Hemoglobin A1C 8.4 % Hgb (4.0-6.0)
[2024-07-16] MEDS: AZITHROMYCIN 500 MG in DEXTROSE 5% IN WATER 250 ML IV SCH (00:15)
[2024-07-16] MEDS: cefTRIAXone 2 GM in DEXTROSE 5% IN WATER 50 ML IV SCH ×2 (00:17→15:10)
[2024-07-16] MEDS: FOLIC ACID 1 MG TABLET PO SCH (00:28)
[2024-07-16] MEDS: predniSONE 20 MG TABLET PO ONE (00:28)
[2024-07-16] MEDS: cefTRIAXone 1 GM VIAL IV ONE (00:29)
[2024-07-16] MEDS: THIAMINE 100 MG TABLET PO SCH (00:29)
[2024-07-16] MEDS: cefTRIAXone 1 GM VIAL ONE (00:29)
[2024-07-16] MEDS: predniSONE 20 MG TABLET ONE (00:29)
[2024-07-16] MEDS: hydrALAZINE 20 MG/ML VIAL IV PRN (05:48)
[2024-07-16] MEDS: hydrALAZINE 20 MG/ML VIAL ONE (06:19)
[2024-07-16 06:43] LABS: Basophils # (Auto) 0.05 K/mcL (0.00-0.30); Basophils % (Auto) 0.3 % (0.0-2.0); Eosinophils # (Auto) 0 K/mcL (0.00-0.70); Eosinophils % (Auto) 0 % (0.0-7.0); Hematocrit 35.6 % (40.1-51.0); Hemoglobin 11.6 g/dL (13.7-17.5); Lymphocytes # (Auto) 0.91 K/mcL (1.50-4.80); Lymphocytes % (Auto) 4.8 % (15.5-49.0); Mean Corpuscular HGB Conc 32.6 g/dL (31.0-36.0); Mean Platelet Volume 9.5 fL (8.8-12.5); Monocytes # (Auto) 0.19 K/mcL (0.10-0.90); Neutrophils % (Auto) 93.5 % (38.0-78.0); Platelet Count 277 K/mcL (140-440); RBC 3.67 M/mcL (4.63-6.08); Red Cell Distribution Width 11.8 % (11.5-14.5); WBC 18.8 K/mcL (4.5-11.0)
[2024-07-16 06:47] LABS: ALT/SGPT 11 U/L (<40); AST/SGOT 19 U/L (<40); Albumin 3.9 gm/dL (3.2-5.2); Albumin/Globulin Ratio 1.3 (1.0-2.3); Alkaline Phosphatase 64 U/L (39-117); Bilirubin,Direct < 0.2 mg/dL (0-0.3); Bilirubin,Total < 0.2 mg/dL (0.1-1.0); Blood Urea Nitrogen 19 mg/dL (8-23); Calcium 8.3 mg/dL (8.6-10.4); Carbon Dioxide 27 mmol/L (22-30); Chloride 98 mmol/L (96-108); Globulin 3.1 gm/dL (2.2-3.7); Glomerular Filtration Rate 35; Glucose 294 mg/dL (70-105); Lactate Dehydrogenase 261 U/L (135-225); Phosphorous 3.7 mg/dL (2.5-4.5); Potassium 4.4 mmol/L (3.3-5.1); Sodium 137 mmol/L (133-145); Triglycerides 116 mg/dL (<150); Uric Acid 7.2 mg/dL (2.5-8.0)
[2024-07-16] MEDS: INSULIN LISPRO 1 UNIT/0.01 ML UNIT SQ SCH (07:18)
[2024-07-16] MEDS: INSULIN GLARGINE, HUMAN 1 UNIT/0.01 ML SQ SCH ×2 (09:19→15:10)
[2024-07-16] MEDS: MULTIVIT,THER IRON,CA,FA & MIN 1 TABLET PO SCH (09:19)
[2024-07-16] MEDS: predniSONE 20 MG TABLET PO SCH (09:19)
[2024-07-16] MEDS: ENOXAPARIN 40 MG/0.4 ML SYRINGE SQ SCH (09:20)
[2024-07-16] MEDS: BRIMONIDINE OPHTH DROPS 1 GTT BOTTLE 5ML OU SCH (09:20)
[2024-07-16] MEDS: AZITHROMYCIN 500 MG in 0.9 % SODIUM CHLORIDE 250 ML IV SCH (09:20)
[2024-07-16] MEDS: BUMETANIDE 1 MG TABLET PO SCH (09:23)
[2024-07-16] MEDS: ONDANSETRON 4 MG/2 ML VIAL IV PRN (10:28)
[2024-07-16] MEDS ORDERED: hydrOXYzine 25 MG TABLET PO PRN (14:57)
[2024-07-16] MEDS: hydrALAZINE 25 MG TABLET PO SCH (15:07)
[2024-07-16] MEDS: DILTIAZEM 30 MG TABLET PO SCH (15:07)
[2024-07-16] MEDS: ETHYL ALCOHOL 30 ML ORAL.SOL PO PRN (16:48)
[2024-07-16] MEDS: LATANOPROST OPHTH DROPS 2.5ML BOTTLE OU SCH (20:33)
[2024-07-17] MEDS: ACETAMINOPHEN 325 MG TABLET PO PRN (00:16)
[2024-07-17 05:57] LABS: Basophils # (Auto) 0.02 K/mcL (0.00-0.30); Basophils % (Auto) 0.1 % (0.0-2.0); Eosinophils # (Auto) 0 K/mcL (0.00-0.70); Eosinophils % (Auto) 0 % (0.0-7.0); Hematocrit 32.9 % (40.1-51.0); Hemoglobin 10.9 g/dL (13.7-17.5); Lymphocytes # (Auto) 2.65 K/mcL (1.50-4.80); Lymphocytes % (Auto) 14.5 % (15.5-49.0); Mean Cell Volume 94.8 fL (80.0-100.0); Mean Corpuscular HGB Conc 33.1 g/dL (31.0-36.0); Mean Platelet Volume 9.2 fL (8.8-12.5); Monocytes # (Auto) 1.21 K/mcL (0.10-0.90); Monocytes % (Auto) 6.6 % (1.0-12.0); Neutrophils % (Auto) 78.3 % (38.0-78.0); Platelet Count 299 K/mcL (140-440); RBC 3.47 M/mcL (4.63-6.08); Red Cell Distribution Width 12.2 % (11.5-14.5); WBC 18.3 K/mcL (4.5-11.0)
[2024-07-17 06:09] LABS: ALT/SGPT 7 U/L (<40); AST/SGOT 19 U/L (<40); Albumin 3.5 gm/dL (3.2-5.2); Albumin/Globulin Ratio 1.2 (1.0-2.3); Alkaline Phosphatase 53 U/L (39-117); Bilirubin,Direct < 0.2 mg/dL (0-0.3); Bilirubin,Total < 0.2 mg/dL (0.1-1.0); Blood Urea Nitrogen 28 mg/dL (8-23); Calcium 8.3 mg/dL (8.6-10.4); Carbon Dioxide 27 mmol/L (22-30); Chloride 97 mmol/L (96-108); Glomerular Filtration Rate 32; Glucose 234 mg/dL (70-105); Lactate Dehydrogenase 146 U/L (135-225); Phosphorous 3.5 mg/dL (2.5-4.5); Potassium 3.9 mmol/L (3.3-5.1); Sodium 136 mmol/L (133-145); Triglycerides 85 mg/dL (<150); Uric Acid 7.3 mg/dL (2.5-8.0)
[2024-07-17] MEDS: PANTOPRAZOLE 40 MG TABLET PO SCH (08:02)
[2024-07-17] MEDS: LEVOTHYROXINE 75 MCG TABLET PO SCH (08:02)
[2024-07-17 09:18] LABS: Lymphocytes % 8 % (15-49); Monocytes % (Manual) 6 % (1-12); Platelet Estimate NORMAL (Normal); RBC Morphology NORMAL (Normal); Reactive Lymphocytes 1 % (0-2); Segmented Neutrophils % 85 % (38-78)
[2024-07-17] MEDS: INSULIN GLARGINE, HUMAN 1 UNIT/0.01 ML SQ SCH (09:53)
[2024-07-17] MEDS: SERTRALINE 50 MG TABLET PO SCH (09:53)
[2024-07-17] MEDS: hydrALAZINE 25 MG TABLET PO SCH (09:53)
== END 2024-07-17 13:05 | disposition home or self-care (01) | DRG 871 ==
LOC: ED 20:23 → ICU 23:05
PROVIDERS: ADMIT Internal Medicine; ATTEND Internal Medicine

== ENCOUNTER 2025-02-23 05:27 | Inpatient (IN) ==
[2025-02-23] MEDS: cefTRIAXone 2 GM in DEXTROSE 5% IN WATER 50 ML IV ONE (06:18)
[2025-02-23] MEDS: ACETAMINOPHEN 1,000 MG/100 ML BAG IV ONE (06:19)
[2025-02-23] MEDS: SODIUM CHLORIDE IV ONE (06:19)
[2025-02-23] MEDS: AZITHROMYCIN 500 MG in DEXTROSE 5% IN WATER 250 ML IV ONE (06:20)
[2025-02-23 06:32] LABS: Basophils # (Auto) 0.05 K/mcL (0.00-0.30); Basophils % (Auto) 0.3 % (0.0-2.0); Eosinophils # (Auto) 0.13 K/mcL (0.00-0.70); Eosinophils % (Auto) 0.7 % (0.0-7.0); Hematocrit 33.9 % (40.1-51.0); Hemoglobin 10.8 g/dL (13.7-17.5); Lymphocytes # (Auto) 1.17 K/mcL (1.50-4.80); Lymphocytes % (Auto) 6.6 % (15.5-49.0); Mean Cell Volume 96.3 fL (80.0-100.0); Mean Corpuscular HGB Conc 31.9 g/dL (31.0-36.0); Mean Platelet Volume 9.2 fL (8.8-12.5); Monocytes # (Auto) 1.28 K/mcL (0.10-0.90); Monocytes % (Auto) 7.2 % (1.0-12.0); Neutrophils % (Auto) 84.9 % (38.0-78.0); Platelet Count 285 K/mcL (140-440); RBC 3.52 M/mcL (4.63-6.08); Red Cell Distribution Width 11.9 % (11.5-14.5); WBC 17.7 K/mcL (4.5-11.0)
[2025-02-23 06:39] LABS: INR 0.9 (0.9-1.1); Prothrombin Time 13.2 sec (11.9-14.5)
[2025-02-23] MEDS: ONDANSETRON 4 MG/2 ML VIAL IV ONE (06:43)
[2025-02-23 06:53] LABS: ALT/SGPT 7 U/L (<40); AST/SGOT 13 U/L (<40); Albumin 3.8 gm/dL (3.2-5.2); Albumin/Globulin Ratio 1.2 (1.0-2.3); Alkaline Phosphatase 50 U/L (39-117); Bilirubin,Total 0.3 mg/dL (0.1-1.0); Blood Urea Nitrogen 31 mg/dL (8-23); Calcium 8.8 mg/dL (8.6-10.4); Carbon Dioxide 26 mmol/L (22-30); Chloride 97 mmol/L (96-108); Globulin 3.3 gm/dL (2.2-3.7); Glomerular Filtration Rate 30; Glucose 201 mg/dL (70-105); Potassium 4.2 mmol/L (3.3-5.1); Sodium 138 mmol/L (133-145)
[2025-02-23 07:51] LABS: Appearance,Urine Clear (Clear); Bilirubin,Urine Negative (Negative); Color,Urine Yellow; Glucose,Urine (UA) 500 mg/dL (Negative); Ketones,Urine Trace mg/dL (Negative); Leukocyte Esterase,Urine Negative /uL (Negative); Nitrate,Urine Negative (Negative); Protein,Urine >=300 mg/dL (Negative); Urine Blood Trace-intact ery/mcL (Negative); Urine Hyaline Cast 2 /lph (0-2); Urine RBC 0 /hpf (0-3); Urine Squamous Epithelial Cell 0 /hpf (0-4); Urine WBC 0 /hpf (0-4); Urobilinogen,Urine Normal
[2025-02-23] MEDS ORDERED: ONDANSETRON 4 MG/2 ML VIAL IV PRN (10:52)
[2025-02-23] MEDS ORDERED: DEXTROSE 31 GM ORAL.SUSP PO PRN (10:52)
[2025-02-23] MEDS ORDERED: DEXTROSE 50% 50 ML VIAL IV PRN (10:52)
[2025-02-23] MEDS ORDERED: guaiFENesin/DEXTROMETHORPHAN 5ML UD CUP PO PRN (10:52)
[2025-02-23] MEDS: 0.9 % SODIUM CHLORIDE 1,000 ML IV SCH (10:55)
[2025-02-23] MEDS: INSULIN LISPRO 1 UNIT/0.01 ML UNIT SQ SCH ×2 (11:11→20:22)
[2025-02-23] MEDS: 0.9 % SODIUM CHLORIDE 10 ML SYRINGE IV SCH (15:57)
[2025-02-23] MEDS ORDERED: IPRATROPIUM 2.5 ML AMPUL.NEB INH PRN (16:02)
[2025-02-23] MEDS ORDERED: ALBUTEROL SULFATE 60 PUFF INHALER INH PRN (16:02)
[2025-02-23] MEDS: hydrALAZINE 20 MG/ML VIAL IV PRN (16:18)
[2025-02-23] MEDS: ACETAMINOPHEN 325 MG TABLET PO PRN (16:47)
[2025-02-23] MEDS ORDERED: hydrOXYzine 25 MG TABLET PO PRN (18:23)
[2025-02-23] MEDS: HYDROcodone/APAP 5/325MG TABLET PO PRN (20:21)
[2025-02-23] MEDS: HEPARIN 5,000 UNIT/ML VIAL SQ SCH (20:34)
[2025-02-23] MEDS ORDERED: DOCUSATE SODIUM 100 MG CAPSULE PO SCH (21:00)
[2025-02-23] MEDS ORDERED: SENNOSIDES 1 TABLET PO SCH (21:00)
[2025-02-23] MEDS: DOCUSATE SODIUM 100 MG CAPSULE PO SCH (22:20)
[2025-02-23] MEDS: LATANOPROST OPHTH DROPS 2.5ML BOTTLE OU SCH (22:21)
[2025-02-23] MEDS: DILTIAZEM 30 MG TABLET PO SCH (22:21)
[2025-02-23] MEDS: BRIMONIDINE OPHTH DROPS 1 GTT BOTTLE 5ML OU SCH (22:21)
[2025-02-23] MEDS: traZODone HCL 50 MG TABLET PO PRN (22:21)
[2025-02-23] MEDS: SENNOSIDES 1 TABLET PO SCH (22:23)
[2025-02-24 06:20] LABS: Basophils # (Auto) 0.06 K/mcL (0.00-0.30); Basophils % (Auto) 0.5 % (0.0-2.0); Eosinophils # (Auto) 0.23 K/mcL (0.00-0.70); Eosinophils % (Auto) 1.8 % (0.0-7.0); Hematocrit 32.1 % (40.1-51.0); Lymphocytes # (Auto) 1.67 K/mcL (1.50-4.80); Lymphocytes % (Auto) 12.7 % (15.5-49.0); Mean Cell Volume 100.6 fL (80.0-100.0); Mean Corpuscular HGB Conc 31.2 g/dL (31.0-36.0); Mean Platelet Volume 9.1 fL (8.8-12.5); Monocytes % (Auto) 7.6 % (1.0-12.0); Platelet Count 252 K/mcL (140-440); RBC 3.19 M/mcL (4.63-6.08); Red Cell Distribution Width 12.3 % (11.5-14.5); WBC 13.1 K/mcL (4.5-11.0)
[2025-02-24 06:23] LABS: ALT/SGPT 8 U/L (<40); AST/SGOT 12 U/L (<40); Albumin 3.6 gm/dL (3.2-5.2); Albumin/Globulin Ratio 1.2 (1.0-2.3); Alkaline Phosphatase 51 U/L (39-117); Bilirubin,Total < 0.2 mg/dL (0.1-1.0); Blood Urea Nitrogen 26 mg/dL (8-23); Calcium 8.4 mg/dL (8.6-10.4); Carbon Dioxide 28 mmol/L (22-30); Chloride 102 mmol/L (96-108); Globulin 3.1 gm/dL (2.2-3.7); Glomerular Filtration Rate 32; Glucose 202 mg/dL (70-105); Potassium 4.1 mmol/L (3.3-5.1); Sodium 139 mmol/L (133-145)
[2025-02-24] MEDS: PANTOPRAZOLE 40 MG TABLET PO SCH (07:51)
[2025-02-24] MEDS: LEVOTHYROXINE 75 MCG TABLET PO SCH (07:51)
[2025-02-24] MEDS: IPRATROPIUM/ALBUTEROL 3 ML AMPUL.NEB NEB PRN (08:18)
[2025-02-24] MEDS: INSULIN LISPRO 1 UNIT/0.01 ML UNIT SQ SCH ×2 (08:29→18:11)
[2025-02-24 09:43] LABS: Estimated Average Glucose(eAG) 186 mg/dL; Hemoglobin A1C 8.1 % Hgb (4.0-6.0)
[2025-02-24] MEDS: INSULIN GLARGINE, HUMAN 1 UNIT/0.01 ML SQ SCH (10:29)
[2025-02-24] MEDS: VITAMIN D3 25 MCG TABLET PO SCH (10:31)
[2025-02-24] MEDS: SERTRALINE 50 MG TABLET PO SCH (10:32)
[2025-02-24] MEDS: cefTRIAXone 2 GM in DEXTROSE 5% IN WATER 50 ML IV SCH (10:45)
[2025-02-24] MEDS: Fluticasone Furoate-Vilanterol [Breo Ellipta] 200 INH SCH (10:47)
[2025-02-24] MEDS: AZITHROMYCIN 500 MG in 0.9 % SODIUM CHLORIDE 250 ML IV SCH (11:22)
[2025-02-24] MEDS: DEXTROSE 5%-NS 1,000 ML IV SCH (15:23)
[2025-02-24] MEDS ORDERED: HEPARIN/NS 500 ML IV SCH (16:30)
[2025-02-24] MEDS: ETOMIDATE 20 MG/10 ML VIAL IV ONE (17:23)
[2025-02-24] MEDS: ROCURONIUM 10 MG/ML ML IV ONE (17:23)
[2025-02-24] MEDS: PANTOPRAZOLE 40 MG VIAL IV SCH (17:52)
[2025-02-24] MEDS ORDERED: INSULIN LISPRO 1 UNIT/0.01 ML UNIT SQ SCH (18:00)
[2025-02-24] MEDS: fentaNYL 2,500 MCG in 0.9 % SODIUM CHLORIDE 200 ML IV SCH (18:51)
[2025-02-24] MEDS: PROPOFOL 1,000 MG in PREMIX 1 BAG IV SCH (18:52)
[2025-02-24] MEDS: IPRATROPIUM/ALBUTEROL 3 ML AMPUL.NEB NEB SCH (18:52)
[2025-02-24] MEDS: fentaNYL 50 ML ONE (19:05)
[2025-02-24] MEDS: PROPOFOL 100 ML IV ONE (19:05)
[2025-02-24] MEDS: PIPERACILLIN SODIUM/TAZOBACTAM 3.375 GM in DEXTROSE 5% IN WATER 100 ML IV SCH (19:09)
[2025-02-24] MEDS: PIPERACILLIN SODIUM/TAZOBACTAM 4.5 GM in DEXTROSE 5% IN WATER 50 ML IV SCH (19:16)
[2025-02-24] MEDS: CHLORHEXIDINE GLUCONATE 15 ML UDC SWABMOUTH SCH (20:44)
[2025-02-24] MEDS: methylPREDNISolone SOD SUCC 40 MG/ML VIAL IV SCH (20:47)
[2025-02-24] MEDS ORDERED: PIPERACILLIN SODIUM/TAZOBACTAM 4.5 GM in DEXTROSE 5% IN WATER 100 ML IV SCH (22:00)
[2025-02-24] MEDS: PIPERACILLIN SODIUM/TAZOBACTAM 4.5 GM in DEXTROSE 5% IN WATER 100 ML IV SCH (22:59)
[2025-02-24] MEDS: BUDESONIDE 0.5 MG/2 ML AMPUL.NEB NEB SCH (23:52)
[2025-02-25] MEDS: PROPOFOL 100 ML IV ONE ×5 (00:07→23:32)
[2025-02-25 06:16] LABS: Basophils # (Auto) 0.01 K/mcL (0.00-0.30); Basophils % (Auto) 0.1 % (0.0-2.0); Eosinophils # (Auto) 0 K/mcL (0.00-0.70); Eosinophils % (Auto) 0 % (0.0-7.0); Hematocrit 27.1 % (40.1-51.0); Hemoglobin 8.6 g/dL (13.7-17.5); Lymphocytes # (Auto) 0.71 K/mcL (1.50-4.80); Lymphocytes % (Auto) 6.1 % (15.5-49.0); Mean Cell Volume 96.8 fL (80.0-100.0); Mean Corpuscular HGB Conc 31.7 g/dL (31.0-36.0); Mean Platelet Volume 9.6 fL (8.8-12.5); Monocytes # (Auto) 0.17 K/mcL (0.10-0.90); Monocytes % (Auto) 1.5 % (1.0-12.0); Platelet Count 237 K/mcL (140-440); Red Cell Distribution Width 12.2 % (11.5-14.5); WBC 11.6 K/mcL (4.5-11.0)
[2025-02-25 07:00] LABS: ALT/SGPT 7 U/L (<40); AST/SGOT 12 U/L (<40); Albumin 3.1 gm/dL (3.2-5.2); Alkaline Phosphatase 41 U/L (39-117); Bilirubin,Total 0.3 mg/dL (0.1-1.0); Blood Urea Nitrogen 29 mg/dL (8-23); Calcium 8.5 mg/dL (8.6-10.4); Carbon Dioxide 22 mmol/L (22-30); Chloride 102 mmol/L (96-108); Glomerular Filtration Rate 27; Glucose 256 mg/dL (70-105); Potassium 3.5 mmol/L (3.3-5.1); Sodium 141 mmol/L (133-145)
[2025-02-25] MEDS ORDERED: DEXTROSE 50% 50 ML VIAL IV PRN ×2 (12:56)
[2025-02-25] MEDS ORDERED: DEXTROSE 31 GM ORAL.SUSP PO PRN (12:56)
[2025-02-25] MEDS: LACTATED RINGERS 1,000 ML IV SCH (14:20)
[2025-02-25] MEDS: INSULIN LISPRO 1 UNIT/0.01 ML UNIT SQ SCH (16:48)
[2025-02-25] MEDS ORDERED: INSULIN LISPRO 1 UNIT/0.01 ML UNIT SQ SCH (18:00)
[2025-02-25 18:21] LABS: Blood Urea Nitrogen 31 mg/dL (8-23); Calcium 8.4 mg/dL (8.6-10.4); Carbon Dioxide 23 mmol/L (22-30); Chloride 105 mmol/L (96-108); Glomerular Filtration Rate 29; Glucose 324 mg/dL (70-105); Potassium 3.5 mmol/L (3.3-5.1); Sodium 142 mmol/L (133-145)
[2025-02-25] MEDS: methylPREDNISolone SOD SUCC 40 MG/ML VIAL IV SCH (20:23)
[2025-02-25] MEDS: DOXYCYCLINE 100 MG in DEXTROSE 5% IN WATER 100 ML IV SCH (21:31)
[2025-02-26] MEDS: PROPOFOL 100 ML IV ONE ×2 (03:24→08:23)
[2025-02-26 06:32] LABS: Basophils # (Auto) 0 K/mcL (0.00-0.30); Basophils % (Auto) 0 % (0.0-2.0); Eosinophils # (Auto) 0 K/mcL (0.00-0.70); Eosinophils % (Auto) 0 % (0.0-7.0); Hematocrit 27.4 % (40.1-51.0); Hemoglobin 8.8 g/dL (13.7-17.5); Lymphocytes # (Auto) 0.93 K/mcL (1.50-4.80); Lymphocytes % (Auto) 6.7 % (15.5-49.0); Mean Cell Volume 95.8 fL (80.0-100.0); Mean Corpuscular HGB Conc 32.1 g/dL (31.0-36.0); Mean Platelet Volume 9.8 fL (8.8-12.5); Monocytes # (Auto) 0.47 K/mcL (0.10-0.90); Monocytes % (Auto) 3.4 % (1.0-12.0); Neutrophils % (Auto) 89.6 % (38.0-78.0); Platelet Count 282 K/mcL (140-440); RBC 2.86 M/mcL (4.63-6.08); Red Cell Distribution Width 12.7 % (11.5-14.5); WBC 13.9 K/mcL (4.5-11.0)
[2025-02-26 08:00] LABS: ALT/SGPT 6 U/L (<40); AST/SGOT 15 U/L (<40); Albumin/Globulin Ratio 1.1 (1.0-2.3); Alkaline Phosphatase 43 U/L (39-117); Bilirubin,Direct < 0.2 mg/dL (0-0.3); Bilirubin,Total < 0.2 mg/dL (0.1-1.0); Blood Urea Nitrogen 38 mg/dL (8-23); Calcium 8.4 mg/dL (8.6-10.4); Carbon Dioxide 21 mmol/L (22-30); Chloride 104 mmol/L (96-108); Globulin 2.8 gm/dL (2.2-3.7); Glomerular Filtration Rate 26; Glucose 410 mg/dL (70-105); Lactate Dehydrogenase 133 U/L (135-225); Phosphorous 3.3 mg/dL (2.5-4.5); Potassium 3.1 mmol/L (3.3-5.1); Sodium 141 mmol/L (133-145); Triglycerides 184 mg/dL (<150); Uric Acid 5.9 mg/dL (2.5-8.0)
[2025-02-26] MEDS: INSULIN GLARGINE, HUMAN 1 UNIT/0.01 ML SQ ONE (09:04)
[2025-02-26] MEDS: INSULIN LISPRO 1 UNIT/0.01 ML UNIT SQ SCH (09:05)
[2025-02-26] MEDS: POTASSIUM CHLORIDE 10 MEQ/100 ML BAG IV SCH (10:44)
[2025-02-26 10:53] LABS: Appearance,Urine Clear (Clear); Bacteria,Urine Few /hpf (0); Bilirubin,Urine Negative (Negative); Color,Urine Yellow; Glucose,Urine (UA) 500 mg/dL (Negative); Ketones,Urine Negative (Negative); Leukocyte Esterase,Urine Negative /uL (Negative); Nitrate,Urine Negative (Negative); Protein,Urine >=300 mg/dL (Negative); Specific Gravity,Urine 1.015 (1.000-1.035); Urine Amorphous Crystals Mod /hpf; Urine Blood Moderate ery/mcL (Negative); Urine Budding Yeast Few /hpf; Urine Granular Cast 10 /lph (0-0); Urine Hyaline Cast 1 /lph (0-2); Urine RBC 0 /hpf (0-3); Urine Squamous Epithelial Cell 0 /hpf (0-4); Urine WBC 0 /hpf (0-4); Urobilinogen,Urine Normal
[2025-02-26] MEDS ORDERED: DEXMEDETOMIDINE 400 MCG in PREMIX 1 BAG IV PRN (12:15)
[2025-02-26] MEDS: POTASSIUM CHLORIDE 40 MEQ in DEXTROSE 5% IN WATER 500 ML IV ONE (13:50)
[2025-02-26] MEDS: THIAMINE 200 MG in 0.9 % SODIUM CHLORIDE 50 ML IV ONE (14:47)
[2025-02-26 16:05] LABS: Blood Urea Nitrogen 43 mg/dL (8-23); Calcium 8.6 mg/dL (8.6-10.4); Carbon Dioxide 24 mmol/L (22-30); Chloride 106 mmol/L (96-108); Glomerular Filtration Rate 23; Glucose 236 mg/dL (70-105); Potassium 4.1 mmol/L (3.3-5.1); Sodium 143 mmol/L (133-145)
[2025-02-26] MEDS: SODIUM BICARBONATE VIAL 150 MEQ in WATER FOR INJECTION,STERILE 850 ML IV SCH (19:16)
[2025-02-26] MEDS: methylPREDNISolone SOD SUCC 40 MG/ML VIAL IV SCH (20:31)
[2025-02-26] MEDS: 0.9 % SODIUM CHLORIDE 10 ML SYRINGE IV SCH (20:35)
[2025-02-26] MEDS ORDERED: methylPREDNISolone SOD SUCC 125 MG/2 ML VIAL IV SCH (21:00)
[2025-02-26] MEDS: DIAZEPAM 10 MG/2 ML SYRINGE IV PRN (21:48)
[2025-02-27 06:12] LABS: Basophils # (Auto) 0 K/mcL (0.00-0.30); Basophils % (Auto) 0 % (0.0-2.0); Eosinophils # (Auto) 0 K/mcL (0.00-0.70); Eosinophils % (Auto) 0 % (0.0-7.0); Hematocrit 29.8 % (40.1-51.0); Hemoglobin 9.4 g/dL (13.7-17.5); Lymphocytes % (Auto) 5.1 % (15.5-49.0); Mean Cell Volume 97.7 fL (80.0-100.0); Mean Corpuscular HGB Conc 31.5 g/dL (31.0-36.0); Mean Platelet Volume 9.4 fL (8.8-12.5); Monocytes # (Auto) 0.91 K/mcL (0.10-0.90); Monocytes % (Auto) 4.2 % (1.0-12.0); Neutrophils % (Auto) 90.3 % (38.0-78.0); Platelet Count 287 K/mcL (140-440); RBC 3.05 M/mcL (4.63-6.08); WBC 21.8 K/mcL (4.5-11.0)
[2025-02-27 06:38] LABS: ALT/SGPT 9 U/L (<40); AST/SGOT 28 U/L (<40); Albumin 3.3 gm/dL (3.2-5.2); Albumin/Globulin Ratio 1.1 (1.0-2.3); Alkaline Phosphatase 37 U/L (39-117); Bilirubin,Direct < 0.2 mg/dL (0-0.3); Bilirubin,Total < 0.2 mg/dL (0.1-1.0); Blood Urea Nitrogen 53 mg/dL (8-23); Calcium 8.5 mg/dL (8.6-10.4); Carbon Dioxide 27 mmol/L (22-30); Chloride 105 mmol/L (96-108); Glomerular Filtration Rate 22; Glucose 203 mg/dL (70-105); Lactate Dehydrogenase 152 U/L (135-225); Phosphorous 5.2 mg/dL (2.5-4.5); Potassium 3.8 mmol/L (3.3-5.1); Sodium 144 mmol/L (133-145); Triglycerides 148 mg/dL (<150); Uric Acid 6.6 mg/dL (2.5-8.0)
[2025-02-27] MEDS: SODIUM BICARBONATE VIAL 150 MEQ in WATER FOR INJECTION,STERILE 850 ML IV SCH (08:06)
[2025-02-27] MEDS: INSULIN GLARGINE, HUMAN 1 UNIT/0.01 ML SQ ONE (09:08)
[2025-02-27] MEDS: methylPREDNISolone SOD SUCC 40 MG/ML VIAL IV SCH ×2 (09:09→21:09)
[2025-02-27] MEDS: THIAMINE 100 MG in 0.9 % SODIUM CHLORIDE 50 ML IV SCH (09:10)
[2025-02-27] MEDS ORDERED: fentaNYL 2,500 MCG in 0.9 % SODIUM CHLORIDE 200 ML IV PRN (12:20)
[2025-02-27] MEDS ORDERED: PROPOFOL 1,000 MG in PREMIX 1 BAG IV PRN (12:21)
[2025-02-27] MEDS: FLUCONAZOLE 800 MG/400 ML BAG IV ONE (16:10)
[2025-02-27 17:45] LABS: Blood Urea Nitrogen 57 mg/dL (8-23); Calcium 8.7 mg/dL (8.6-10.4); Carbon Dioxide 29 mmol/L (22-30); Chloride 103 mmol/L (96-108); Glomerular Filtration Rate 22; Glucose 146 mg/dL (70-105); Potassium 3.8 mmol/L (3.3-5.1); Sodium 146 mmol/L (133-145)
[2025-02-27] MEDS: WATER FOR INJECTION STERILE IV SCH (19:29)
[2025-02-27] MEDS: SODIUM BICARBONATE IV SCH (19:29)
[2025-02-27] MEDS: FUROSEMIDE 40 MG/4 ML VIAL IV ONE ×2 (19:31→19:42)
[2025-02-27] MEDS: ALBUMIN HUMAN 25 GM/100 ML BAG IV ONE (19:31)
[2025-02-28 06:01] LABS: Basophils # (Auto) 0 K/mcL (0.00-0.30); Basophils % (Auto) 0 % (0.0-2.0); Eosinophils # (Auto) 0 K/mcL (0.00-0.70); Eosinophils % (Auto) 0 % (0.0-7.0); Hematocrit 30.8 % (40.1-51.0); Hemoglobin 9.8 g/dL (13.7-17.5); Lymphocytes % (Auto) 5.7 % (15.5-49.0); Mean Cell Volume 97.8 fL (80.0-100.0); Mean Corpuscular HGB Conc 31.8 g/dL (31.0-36.0); Mean Platelet Volume 9.4 fL (8.8-12.5); Monocytes % (Auto) 4.6 % (1.0-12.0); Neutrophils % (Auto) 89.4 % (38.0-78.0); Platelet Count 282 K/mcL (140-440); RBC 3.15 M/mcL (4.63-6.08); Red Cell Distribution Width 12.8 % (11.5-14.5); WBC 17.5 K/mcL (4.5-11.0)
[2025-02-28 06:19] LABS: ALT/SGPT 13 U/L (<40); AST/SGOT 28 U/L (<40); Albumin 3.6 gm/dL (3.2-5.2); Albumin/Globulin Ratio 1.3 (1.0-2.3); Alkaline Phosphatase 34 U/L (39-117); Bilirubin,Direct < 0.2 mg/dL (0-0.3); Bilirubin,Total 0.3 mg/dL (0.1-1.0); Blood Urea Nitrogen 58 mg/dL (8-23); Calcium 8.5 mg/dL (8.6-10.4); Carbon Dioxide 33 mmol/L (22-30); Chloride 100 mmol/L (96-108); Globulin 2.8 gm/dL (2.2-3.7); Glomerular Filtration Rate 22; Glucose 176 mg/dL (70-105); Lactate Dehydrogenase 176 U/L (135-225); Phosphorous 4.5 mg/dL (2.5-4.5); Potassium 3.4 mmol/L (3.3-5.1); Sodium 148 mmol/L (133-145); Triglycerides 180 mg/dL (<150)
[2025-02-28] MEDS: 0.45 % SODIUM CHLORIDE 1,000 ML IV SCH (07:47)
[2025-02-28] MEDS: DEXTROSE 5%-NS W/20MEQ KCL 1,000 ML IV SCH ×2 (08:51→10:40)
[2025-02-28] MEDS: hydrALAZINE 20 MG/ML VIAL IV PRN (09:24)
[2025-02-28] MEDS: FLUCONAZOLE 200 MG/100 ML BAG IV SCH (10:23)
[2025-02-28] MEDS ORDERED: oxyCODONE IR 5 MG TABLET PO PRN (14:24)
[2025-02-28] MEDS: ACETAMINOPHEN 1,000 MG/100 ML BAG IV ONE ×2 (14:30→15:06)
[2025-02-28] MEDS: BENZOCAINE ONE 20% 1 SPRAY TOPICAL PRN (20:57)
[2025-02-28 21:53] LABS: ALT/SGPT 19 U/L (<40); AST/SGOT 41 U/L (<40); Albumin 3.4 gm/dL (3.2-5.2); Albumin/Globulin Ratio 1.1 (1.0-2.3); Alkaline Phosphatase 38 U/L (39-117); Bilirubin,Direct 0.2 mg/dL (<0.3); Bilirubin,Total 0.3 mg/dL (0.1-1.0); Blood Urea Nitrogen 60 mg/dL (8-23); Calcium 8.6 mg/dL (8.6-10.4); Carbon Dioxide 33 mmol/L (22-30); Chloride 103 mmol/L (96-108); Globulin 3.2 gm/dL (2.2-3.7); Glomerular Filtration Rate 24; Glucose 181 mg/dL (70-105); Lactate Dehydrogenase 260 U/L (135-225); Phosphorous 4.6 mg/dL (2.5-4.5); Potassium 3.6 mmol/L (3.3-5.1); Sodium 149 mmol/L (133-145); Triglycerides 203 mg/dL (<150)
[2025-02-28 22:34] LABS: Prealbumin 18.1 mg/dL (20.0-40.0)
[2025-03-01 00:01] LABS: Basophils # (Auto) 0 K/mcL (0.00-0.30); Basophils % (Auto) 0 % (0.0-2.0); Eosinophils # (Auto) 0 K/mcL (0.00-0.70); Eosinophils % (Auto) 0 % (0.0-7.0); Hemoglobin 10.7 g/dL (13.7-17.5); Lymphocytes # (Auto) 1.27 K/mcL (1.50-4.80); Lymphocytes % (Auto) 5.9 % (15.5-49.0); Mean Cell Volume 99.7 fL (80.0-100.0); Mean Corpuscular HGB Conc 30.6 g/dL (31.0-36.0); Monocytes # (Auto) 1.13 K/mcL (0.10-0.90); Monocytes % (Auto) 5.2 % (1.0-12.0); Platelet Count 292 K/mcL (140-440); RBC 3.51 M/mcL (4.63-6.08); Red Cell Distribution Width 12.9 % (11.5-14.5); WBC 21.6 K/mcL (4.5-11.0)
[2025-03-01] MEDS: ACETAMINOPHEN 650 MG/65 ML BAG IV PRN (00:23)
[2025-03-01 00:34] LABS: ALT/SGPT 22 U/L (<40); AST/SGOT 43 U/L (<40); Albumin 3.5 gm/dL (3.2-5.2); Albumin/Globulin Ratio 1.1 (1.0-2.3); Alkaline Phosphatase 37 U/L (39-117); Bilirubin,Total 0.3 mg/dL (0.1-1.0); Blood Urea Nitrogen 59 mg/dL (8-23); Calcium 8.6 mg/dL (8.6-10.4); Carbon Dioxide 31 mmol/L (22-30); Chloride 104 mmol/L (96-108); Creatine Kinase 484 U/L (24-195); Globulin 3.2 gm/dL (2.2-3.7); Glomerular Filtration Rate 22; Glucose 205 mg/dL (70-105); Potassium 3.7 mmol/L (3.3-5.1); Sodium 151 mmol/L (133-145)
[2025-03-01 00:36] LABS: ALT/SGPT 22 U/L (<40); AST/SGOT 43 U/L (<40); Albumin 3.5 gm/dL (3.2-5.2); Albumin/Globulin Ratio 1.1 (1.0-2.3); Alkaline Phosphatase 37 U/L (39-117); Bilirubin,Direct 0.2 mg/dL (<0.3); Bilirubin,Total 0.3 mg/dL (0.1-1.0); Blood Urea Nitrogen 59 mg/dL (8-23); Calcium 8.6 mg/dL (8.6-10.4); Carbon Dioxide 31 mmol/L (22-30); Chloride 103 mmol/L (96-108); Globulin 3.3 gm/dL (2.2-3.7); Glomerular Filtration Rate 22; Glucose 206 mg/dL (70-105); Lactate Dehydrogenase 244 U/L (135-225); Phosphorous 4.7 mg/dL (2.5-4.5); Potassium 3.7 mmol/L (3.3-5.1); Sodium 150 mmol/L (133-145); Triglycerides 179 mg/dL (<150); Uric Acid 7.3 mg/dL (2.5-8.0)
[2025-03-01 06:06] LABS: ALT/SGPT 20 U/L (<40); AST/SGOT 33 U/L (<40); Albumin 3.3 gm/dL (3.2-5.2); Alkaline Phosphatase 36 U/L (39-117); Bilirubin,Direct < 0.2 mg/dL (0-0.3); Bilirubin,Total 0.3 mg/dL (0.1-1.0); Blood Urea Nitrogen 60 mg/dL (8-23); Calcium 8.5 mg/dL (8.6-10.4); Carbon Dioxide 31 mmol/L (22-30); Chloride 105 mmol/L (96-108); Globulin 3.2 gm/dL (2.2-3.7); Glomerular Filtration Rate 24; Glucose 238 mg/dL (70-105); Lactate Dehydrogenase 223 U/L (135-225); Potassium 3.5 mmol/L (3.3-5.1); Sodium 151 mmol/L (133-145); Triglycerides 188 mg/dL (<150)
[2025-03-01] MEDS: DEXTROSE 5%-NS W/20MEQ KCL 1,000 ML IV SCH ×2 (06:33→09:08)
[2025-03-01] MEDS: amLODIPine 10 MG TABLET PT SCH (07:28)
[2025-03-01] MEDS: FUROSEMIDE 100 MG/10 ML VIAL IV SCH (09:23)
[2025-03-01] MEDS ORDERED: IPRATROPIUM/ALBUTEROL 3 ML AMPUL.NEB NEB PRN (12:57)
[2025-03-01] MEDS: DIAZEPAM 10 MG/2 ML SYRINGE IV SCH (13:27)
[2025-03-01] MEDS: IPRATROPIUM/ALBUTEROL 3 ML AMPUL.NEB NEB SCH (13:35)
[2025-03-01] MEDS: hydrALAZINE 25 MG TABLET PO SCH (14:17)
[2025-03-01 14:48] LABS: Blood Urea Nitrogen 62 mg/dL (8-23); Calcium 8.6 mg/dL (8.6-10.4); Carbon Dioxide 32 mmol/L (22-30); Chloride 107 mmol/L (96-108); Glomerular Filtration Rate 26; Glucose 241 mg/dL (70-105); Potassium 3.6 mmol/L (3.3-5.1); Sodium 152 mmol/L (133-145)
[2025-03-01] MEDS: HYDROCHLOROTHIAZIDE 25 MG TABLET PO SCH (14:50)
[2025-03-01] MEDS: DEXTROSE 5% IN WATER 1,000 ML IV SCH (15:59)
[2025-03-01 17:55] VITALS: TEMP 97.7; O2SAT 97
== END 2025-03-01 18:35 | disposition short-term general hospital (02) | DRG 871 ==
LOC: ED 05:27 → MEDSUR 10:39 → ICU 02-24 16:29
PROVIDERS: ADMIT Internal Medicine; ATTEND Internal Medicine